=== PATIENT | male | born 1935 | race Hispanic/Latino ===

== ENCOUNTER 2020-01-31 03:26 | Inpatient (IN) | payer MEDICARE ==
--- NOTE | 2020-01-31 03:40 | Emergency Department Report ---
ED Altered Mental Status HPI - General Chief Complaint: Chest Pain Stated Complaint: DIFFICULTY IN BREATHING PUI?: Yes Time Seen by Provider: 01/31/20 03:35 Source: patient, EMS Mode of arrival: Stretcher Limitations: Altered Mental Status, Other - History of Present Illness Initial Comments: Patient is an 84-year-old male that presents emergency room from a local [facility] for altered mental status and difficulty breathing and hypoxia. Patient answer some questions. Patient follows commands. Report received from EMS. Patient has history of dementia and altered mental status and unsure of the patient's baseline. Patient found to be 90% and placed on 3 L and oxygen improved. Patient has been being treated for bilateral pneumonia at the [facility]. MD Complaint: altered mental status -: Sudden Severity: severe - Related Data Home Medications Medication Instructions Recorded Confirmed Last Taken Acetaminophen [Acetaminophen TAB] 325 mg PO Q6HR PRN 10/13/14 10/19/14 Unknown Carbidopa/Levodopa 25-100 [Sinemet 1.5 tab PO DAILY 10/13/14 10/19/14 10/19/14 25/100] Desoximetasone [Topicort] 1 each TRANSDERMA BID 10/13/14 10/19/14 10/19/14 Divalproex Sodium [Divalproex 250 mg PO BID 10/13/14 10/19/14 10/19/14 Sodium ER] Ferrous Sulfate [Feosol 325 MG tab] 25 mg PO DAILY 10/13/14 10/19/14 10/19/14 Folic Acid [Folvite] 1 mg PO QDAY 10/13/14 10/19/14 10/19/14 Furosemide [Lasix] 20 mg PO Q48HR 10/13/14 10/19/14 10/19/14 Lisinopril [Zestril] 2.5 mg PO DAILY 10/13/14 10/19/14 10/19/14 Memantine Xr [Namenda Xr] 14 mg PO DAILY 10/13/14 10/19/14 10/19/14 Multivitamin [Multi-Vitamin Daily] 1 tab PO DAILY 10/13/14 10/19/14 10/19/14 Potassium Chloride 10 meq PO Q48HR 10/13/14 10/19/14 Unknown Quetiapine Fumarate [SEROquel] 150 mg PO QHS 0410/19/14 10/18/14 Sertraline [Zoloft] 50 mg PO DAILY 10/13/14 10/19/14 10/19/14 Tramadol HCl [traMADol] 50 mg PO BID PRN 10/13/14 10/19/14 10/19/14 donepeziL [Aricept] 10 mg PO QHS 10/13/14 10/19/14 10/19/14 raNITIdine HCL [Zantac 300 MG TAB] 150 mg PO BID 10/13/14 10/19/14 10/19/14 Previous Rx's Medication Instructions Recorded Last Taken Type Amoxicillin/K Clav Tab [Augmentin 1 tab PO BID #14 tablet 10/26/14 Unknown Rx 875MG] Allergies Allergy/AdvReac Type Severity Reaction Status Date / Time No Known Allergies Allergy Unverified 10/13/14 11:06 ED Review of Systems ROS: Stated complaint: DIFFICULTY IN BREATHING Other details as noted in HPI Comment: Unobtainable due to pts medical conditions ED Past Medical Hx - Past Medical History Previous Medical History?: Yes Hx Hypertension: Yes Hx Congestive Heart Failure: Yes Hx Diabetes: Yes Hx GERD: Yes Hx Renal Disease: Yes (ckd3) Hx Psychiatric Treatment: Yes (Bipolar 1 disorder; depressive disorder) Hx Dementia: Yes Additional medical history: Acute Repiratory Failure. Anemia. Cardiomegaly. pleural effusion. paralysis agitans - Surgical History Past Surgical History?: Yes Hx Pacemaker: Yes - Family History Family history: no significant - Social History Smoking Status: Former Smoker Substance Use Type: None - Medications Home Medications: Home Medications Medication Instructions Recorded Confirmed Last Taken Type Acetaminophen [Acetaminophen TAB] 325 mg PO Q6HR PRN 10/13/14 10/19/14 Unknown History Carbidopa/Levodopa 25-100 [Sinemet 1.5 tab PO DAILY 10/13/14 10/19/14 10/19/14 History 25/100] Desoximetasone [Topicort] 1 each TRANSDERMA BID 10/13/14 10/19/14 10/19/14 History Divalproex Sodium [Divalproex 250 mg PO BID 10/13/14 10/19/14 10/19/14 History Sodium ER] Ferrous Sulfate [Feosol 325 MG tab] 25 mg PO DAILY 10/13/14 10/19/14 10/19/14 History Folic Acid [Folvite] 1 mg PO QDAY 10/13/14 10/19/14 10/19/14 History Furosemide [Lasix] 20 mg PO Q48HR 10/13/14 10/19/14 10/19/14 History Lisinopril [Zestril] 2.5 mg PO DAILY 10/13/14 10/19/14 10/19/14 History Memantine Xr [Namenda Xr] 14 mg PO DAILY 10/13/14 10/19/14 10/19/14 History Multivitamin [Multi-Vitamin Daily] 1 tab PO DAILY 10/13/14 10/19/14 10/19/14 History Potassium Chloride 10 meq PO Q48HR 10/13/14 10/19/14 Unknown History Quetiapine Fumarate [SEROquel] 150 mg PO QHS 10/13/14 10/19/14 10/18/14 History Sertraline [Zoloft] 50 mg PO DAILY 10/13/14 10/19/14 10/19/14 History Tramadol HCl [traMADol] 50 mg PO BID PRN 10/13/14 10/19/14 10/19/14 History donepeziL [Aricept] 10 mg PO QHS 10/13/14 10/19/14 10/19/14 History raNITIdine HCL [Zantac 300 MG TAB] 150 mg PO BID 10/13/14 10/19/14 10/19/14 H istory Amoxicillin/K Clav Tab [Augmentin 1 tab PO BID #14 tablet 10/26/14 Unknown Rx 875MG] ED Physical Exam - General Limitations: Other General appearance: alert, in distress - Head Head exam: Present: atraumatic, normocephalic - Eye Eye exam: Present: normal appearance, PERRL - ENT ENT exam: Present: mucous membranes moist - Neck Neck exam: Present: normal inspection - Respiratory Respiratory exam: Present: respiratory distress, decreased breath sounds. Absent: wheezes, rales - Cardiovascular Cardiovascular Exam: Present: regular rate, normal rhythm. Absent: systolic murmur, diastolic murmur, rubs, gallop - GI/Abdominal GI/Abdominal exam: Present: soft, normal bowel sounds. Absent: distended, tenderness, guarding - Rectal Rectal exam: Present: deferred - Extremities Exam Extremities exam: Present: normal inspection - Back Exam Back exam: Present: normal inspection - Neurological Exam Neurological exam: Present: altered - Expanded Neurological Exam Expanded Best Eye Response ([place]): (3) open to voice Best Motor Response ([place]): (6) obeys commands Best Verbal Response ([place]): (4) confused conversation [place] Total: 13 - Psychiatric Psychiatric exam: Present: normal affect, normal mood - Skin Skin exam: Present: warm, dry, intact, normal color. Absent: rash - Assessment Assessment Interval: Baseline - Level of Consciousness 1a. Level of Consciousness: arousable/minor stimuli - LOC Questions 1b. LOC Questions: answers 1 question correctly - LOC Command 1c. LOC Commands: performs 1 task correctly - Best Gaze 2. Best Gaze: normal - Visual 3. Visual: no visual loss - Facial Palsy 4. Facial Palsy: normal symmetrical movement - Motor Arm 5a. Motor Arm Left: some gravity effort 5b. Motor Arm Right: some gravity effort - Motor Leg 6a. Motor Leg Left: some gravity effort 6b. Motor Leg Right: some gravity effort - Limb Ataxia 7. Limb Ataxia: absent - Sensory 8. Sensory: normal - Best Language 9. Best Language: no aphasia - Dysarthria 10. Dysarthria: normal - Extinction and Inattention 11. Extinction/Inattention: no abnormality - Scoring Total Score: 11 Stroke Severity: Moderate Stroke ED Course Vital Signs 01/31/20 01/31/20 01/31/20 03:40 03:42 04:20 Temperature 97.2 F L Pulse Rate 67 70 Respiratory 22 20 17 Rate Blood Pressure Blood Pressure 82/53 [Left] O2 Sat by Pulse 100 83 L 100 Oximetry 01/31/20 01/31/20 01/31/20 04:30 04:46 05:00 Temperature Pulse Rate Respiratory Rate Blood Pressure 70/53 76/37 79/37 Blood Pressure [Left] O2 Sat by Pulse 100 100 100 Oximetry 01/31/20 05:15 Temperature Pulse Rate Respiratory Rate Blood Pressure 131/110 Blood Pressure [Left] O2 Sat by Pulse 100 Oximetry - Reevaluation(s) Reevaluation #1: Initial evaluation done. Patient having increased work of breathing and hypoxia. Patient will be placed on BiPAP. 01/31/20 03:52 Reevaluation #2: Patient on BiPAP. Patient's blood pressure has decreased. Patient on coach mechanic. Patient satting 100%. 01/31/20 04:52 Reevaluation #3: Patient found to have an elevated potassium. Patient will receive potassium lowering protocol and nephrology will be consulted. Patient received 200 cc of fluid as blood pressure of 130/110. 01/31/20 05:24 Reevaluation #4: Patient's blood pressure is down. Patient given another liter of fluids. Patient became acutely altered. Patient unable to use BiPAP. Patient will be intubated. See procedure note. Patient placed on Levophed. EJ placed 01/31/20 06:05 Patient intubated without difficulty. See procedure note. 01/31/20 06:35 Family updated with change in status 01/31/20 06:44 - Consultations Consultation #1: I discussed the case with nephrology, and Dr. Tellez is going to arrange e mergent dialysis. Dr. Tellez recommends hyperkalemia protocol and vascular consult. 01/31/20 05:38 Consultation #2: I discussed case with Dr. Thomas for emergent vascular access. Dr. Thomas agrees to place access. 01/31/20 05:42 Consultation #3: Hospitalist consulted for admission. Hospitalist to admit patient. 01/31/20 05:49 I discussed EKGs with the on-call towel cabinet repairer, Dr. Saunders. Dr. Saunders states that the patient is not having a STEMI. 01/31/20 06:01 Hospitalist updated with status change. 01/31/20 06:45 - EJ/Peripheral Line Neck L Time Out Performed: Yes Indications: multiple IV sites needed Skin Cleansed in Sterile Fashion: Yes Size: 20 Dressing Placed: Tegaderm, tape Patient Tolerated Procedure: well, no complications - Intubation Time Out Performed: Yes Sedative: Etomidate Paralytic: Rocuronium Laryngoscope: fiberoptic video scope Size: 3 Assist Device Used: fiberoptic device ET Tube Size: 7.5 Tube Secured Depth (cm): 22 Tube Secured Location: teeth Tube Placement Confirmation: visualized tube passing t, equal breath sounds bilat, no breath sounds over epi, confirmation by capnometr Patient Tolerated Procedure: well, no complications Intubation Complications: none - Lab Data Result diagrams: 01/31/20 03:47 01/31/20 03:47 Lab Results 07/25/20 07/25/20 07/25/20 Range/Units 03:47 03:47 03:47 WBC 16.9 H (4.5-11.0) K/mm3 RBC 4.25 (3.65-5.03) M/mm3 Hgb 14.1 (11.8-15.2) gm/dl Hct 41.9 (35.5-45.6) % MCV 99 H (84-94) fl MCH 33 H (28-32) pg MCHC 34 (32-34) % RDW 14.2 (13.2-15.2) % Plt Count 368 (140-440) K/mm3 Add Manual Diff Complete Total Counted 100 Seg Neutrophils % Machine Guide Base Winder Seg Neuts % (Manual) 95.0 H (40.0-70.0) % Band Neutrophils % 0 % Lymphocytes % (Manual) 3.0 L (13.4-35.0) % Reactive Lymphs % (Man) 0 % Monocytes % (Manual) 2.0 (0.0-7.3) % Eosinophils % (Manual) 0 (0.0-4.3) % Basophils % (Manual) 0 (0.0-1.8) % Metamyelocytes % 0 % Myelocytes % 0 % Promyelocytes % 0 % Blast Cells % 0 % Nucleated RBC % Not Reportable Seg Neutrophils # Man 16.1 H (1.8-7.7) K/mm3 Band Neutrophils # 0.0 K/mm3 Lymphocytes # (Manual) 0.5 L (1.2-5.4) K/mm3 Abs React Lymphs (Man) 0.0 K/mm3 Monocytes # (Manual) 0.3 (0.0-0.8) K/mm3 Eosinophils # (Manual) 0.0 (0.0-0.4) K/mm3 Basophils # (Manual) 0.0 (0.0-0.1) K/mm3 Metamyelocytes # 0.0 K/mm3 Myelocytes # 0.0 K/mm3 Promyelocytes # 0.0 K/mm3 Blast Cells # 0.0 K/mm3 WBC Morphology Not Reportable Hypersegmented Neuts Not Reportable Hyposegmented Neuts Not Reportable Hypogranular Neuts Not Reportable Smudge Cells Not Reportable Toxic Granulation Not Reportable Toxic Vacuolation Not Reportable Dohle Bodies Not Reportable Pelger-Huet Anomaly Not Reportable Harshal Rods Not Reportable Platelet Estimate Consistent w auto Clumped Platelets Not Reportable Plt Clumps, EDTA Not Reportable Large Platelets Not Reportable Giant Platelets Not Reportable Platelet Satelliting Not Reportable Plt Morphology Comment Not Reportable RBC Morphology Not Reportable Dimorphic RBCs Not Reportable Polychromasia Not Reportable Hypochromasia Not Reportable Poikilocytosis Not Reportable Anisocytosis 1+ Microcytosis Not Reportable Macrocytosis Not Reportable Spherocytes Not Reportable Pappenheimer Bodies Not Reportable Sickle Cells Not Reportable Target Cells Not Reportable Tear Drop Cells Not Reportable Ovalocytes Not Reportable Helmet Cells Not Reportable Torres-Felton Bodies Not Reportable [place] Rings Not Reportable [place]leigh Cells Not Reportable Bite Cells Not Reportable Crenated Cell Not Reportable Elliptocytes Not Reportable Acanthocytes (Spur) Not Reportable Rouleaux Not Reportable Hemoglobin C Crystals Not Reportable Schistocytes Not Reportable Malaria parasites Not Reportable Elliot Bodies Not Reportable Hem Pathologist Commnt No Sodium 126 L (137-145) mmol/L Potassium 8.8 H* (3.6-5.0) mmol/L Chloride 86.4 L (98-107) mmol/L Carbon Dioxide 10 L (22-30) mmol/L Anion Gap 38 mmol/L BUN 181 H (9-20) mg/dL Creatinine 12.5 H (0.8-1.5) mg/dL Estimated GFR 4 ml/min BUN/Creatinine Ratio 14 % Glucose 99 (75-100) mg/dL Lactic Acid 2.10 H* (0.7-2.0) mmol/L Calcium 9.0 (8.4-10.2) mg/dL Total Bilirubin 0.30 (0.1-1.2) mg/dL AST 9 (5-40) units/L ALT < 5 L (7-56) units/L Alkaline Phosphatase 71 (35-129) units/L Troponin T 0.065 H (0.00-0.029) ng/mL Total Protein 7.6 (6.3-8.2) g/dL Albumin 3.8 L (3.9-5) g/dL Albumin/Globulin Ratio 1.0 % Triglycerides 76 (2-149) mg/dL Cholesterol 96 (50-199) mg/dL LDL Cholesterol Direct 66 (50-130) mg/dL HDL Cholesterol 39 L (40-59) mg/dL Cholesterol/HDL Ratio 2.46 % - EKG Data -: EKG Interpreted by Me EKG shows normal: ST-T waves Rate: normal Interpretation: other (Wide QRS, ventricular paced rhythm. [place] deviation. No ST elevation) - Radiology Data Radiology results: report reviewed, image reviewed CHEST 1 VIEW 01/31/2020 4:15 AM INDICATION / CLINICAL INFORMATION: sob. COMPARISON: None available. FINDINGS: SUPPORT DEVICES: Unchanged. HEART / MEDIASTINUM: No significant abnormality. LUNGS / PLEURA: There are mild left basilar airspace opacities. The lungs are otherwise clear. No significant pleural effusion. No pneumothorax. ADDITIONAL FINDINGS: No significant additional findings. IMPRESSION: Mild left basilar atelectasis versus pneumonia. Continued radiographic follow-up to resolution is recommended. - Medical Decision Making Patient is an 84-year-old male who presents emergency room with complaints of difficulty breathing, shortness of breath and altered mental status. Patient found to be hypoxic. Patient's blood pressure decreased while in the ER and patient was given fluids and his blood pressure rapidly responded well. Patient given antibiotics early in the ER stay. Patient had labs done which were consistent with acute renal failure and hyperkalemia.. Nephrology emergently consulted. Vascular surgery consulted for Vas-Cath placement. Infectious disease and critical care team consulted. After patient was admitted, the patient became increasingly confused and unable to use BiPAP. Patient was intubated to maintain airway. Patient also needs to be placed on Levophed for low blood pressure. Patient's continue to receive fluids. Emergent dialysis consent was received over the phone with Dr. Tellez, nephrology and the patient's . - Differential Diagnosis S OB, GEORGE, hypoxia, pneumonia, sepsis Critical Care Time: Yes Critical care time in (mins) excluding proc time.: 80 Critical care attestation.: If time is entered above; I have spent that time in minutes in the direct care of this critically ill patient, excluding procedure time. Critical Care Time: 80 minutes ED Disposition Clinical Impression: Difficulty breathing, SOB (shortness of breath), Suspected COVID-19 virus infection, Lactic acid acidosis, Elevated troponin Dementia Qualifiers: Dementia type: unspecified type Dementia behavioral disturbance: without behavioral disturbance Qualified Code(s): F03.90 - Unspecified dementia without behavioral disturbance Altered mental state Qualifiers: Altered mental status type: unspecified Qualified Code(s): R41.82 - Altered men berhane status, unspecified Pneumonia Qualifiers: Pneumonia type: due to unspecified organism Laterality: bilateral Lung location: unspecified part of lung Qualified Code(s): J18.9 - Pneumonia, unspecified organism Renal failure Qualifiers: Renal failure chronicity: acute on chronic Acute renal failure type: unspecified Chronic kidney disease stage: unspecified stage Qualified Code(s): N17.9 - Acute kidney failure, unspecified; N18.9 - Chronic kidney disease, unspecified Hypotension Qualifiers: Hypotension type: unspecified hypotension type Qualified Code(s): I95.9 - Hypotension, unspecified Sepsis Qualifiers: Sepsis type: sepsis due to unspecified organism Sepsis acute organ dysfunction status: with acute organ dysfunction Severe sepsis acute organ dysfunction type: acute renal failure Acute renal failure type: unspecified Severe sepsis shock status: with septic shock Qualified Code(s): A41.9 - Sepsis, unspecified organism; R65.21 - Severe sepsis with septic shock; N17.9 - Acute kidney failure, unspecified Disposition: 09 OP ADMIT IP TO THIS HOSP Is pt being admited?: Yes Does the pt Need Aspirin: No Condition: Critical Time of Disposition: 06:45
[2020-01-31] MEDS ORDERED: dexAMETHasone 4 MG/ML VIAL IV ONE (03:42)
[2020-01-31] MEDS ORDERED: cefTRIAXone/NS 2 GM/100 ML 2 GM/100 ML BAG IV ONE (03:42)
[2020-01-31] MEDS ORDERED: AZITHROMYCIN 500 MG in SODIUM CHLORIDE 0.9% 250ML 250 ML IV ONE (03:42)
[2020-01-31 04:08] LABS: Hematocrit 41.9 % (35.5-45.6); Hemoglobin 14.1 gm/dl (11.8-15.2); Mean Corpuscular HGB Conc 34 % (32-34); Mean Corpuscular Volume 99 fl (84-94); Platelet Count 368 K/mm3 (140-440); Red Blood Count 4.25 M/mm3 (3.65-5.03); Red Cell Distribution Width 14.2 % (13.2-15.2)
[2020-01-31 04:32] LABS: Albumin 3.8 g/dL (3.9-5); Hemolysis Index 8
[2020-01-31] MEDS ORDERED: SODIUM CHLORIDE 0.9% 1000 ML 1,000 ML IV ONE ×2 (04:32→05:29)
--- NOTE | 2020-01-31 04:51 | XRay Report ---
CHEST 1 VIEW 01/31/2020 4:15 AM INDICATION / CLINICAL INFORMATION: sob. COMPARISON: None available. FINDINGS: SUPPORT DEVICES: Unchanged. HEART / MEDIASTINUM: No significant abnormality. LUNGS / PLEURA: There are mild left basilar airspace opacities. The lungs are otherwise clear. No sig nificant pleural effusion. No pneumothorax. ADDITIONAL FINDINGS: No significant additional findings. IMPRESSION: Mild left basilar atelectasis versus pneumonia. Continued radiographic follow-up to resolution is rec ommended. Signer Name: Jan Phillips MD Signed: 01/31/2020 4:46 AM Workstation Name: [id number]
[2020-01-31 04:58] LABS: Alanine Aminotransferase < 5 units/L (7-56); BUN/Creatinine Ratio 14; Blood Urea Nitrogen 181 mg/dL (9-20)
[2020-01-31 05:00] LABS: Chol/HDL Ratio 2.46 %; HDL Cholesterol 39 mg/dL (40-59); LDL Cholesterol,Direct 66 mg/dL (50-130)
[2020-01-31 05:11] LABS: Anisocytosis 1+; Basophils % (Manual) 0 % (0.0-1.8); Eosinophils % (Manual) 0 % (0.0-4.3); Platelet Estimate Consistent w Auto; Total Cells Counted 100
[2020-01-31] MEDS ORDERED: INSULIN REGULAR, HUMAN 100 UNITS/1 ML IV ONE (05:21)
[2020-01-31] MEDS ORDERED: SODIUM POLYSTYRENE 15 GM/60 ML ORAL LIQD PR ONE (05:21)
[2020-01-31] MEDS ORDERED: ALBUTEROL 2.5 MG/3 ML NEBU IH ONE ×2 (05:45→08:56)
[2020-01-31] MEDS ORDERED: SODIUM CHLORIDE 0.9% 100 ML IV PRN (05:48)
--- NOTE | 2020-01-31 05:48 | Event Note ---
Case discussed with the emergency room physician patient being admitted with severe renal failure severe hyperkalemia and metabolic acidosis hypotensive respiratory failure, Chart was reviewed, lab results were discussed with emergency room physician and we planned on starting dialysis, consent was obtained from patient's over a three-way conference call along with emergency room physician who agreed for dialysis catheter placement as well as hemodialysis Process of him analysis was also explained to the patient's including catheter placement and hemodialysis Remotely also discussed about possibility of during dialysis given the patient's critically ill His prognosis is very poor, explained to the that his mortality risk is also very high She is agreeable to hemodialysis and central venous catheter placement Vascular surgery will be consulted for immediate Vas-Cath placement Hemodialysis can be started once patient is more stable hemodynamically due to age, and multiple comorbidities: Prognosis extremely poor this was explained to the
[2020-01-31] MEDS ORDERED: DEXTROSE 50% IN WATER (25GM) 50 ML SYRINGE IV ONE ×2 (05:58→06:00)
[2020-01-31] MEDS ORDERED: CALCIUM CHLORIDE 1,000 MG/10 ML SYRINGE IV ONE (06:00)
--- NOTE | 2020-01-31 06:03 | Consultation ---
History of Present Illness - History of Present Illness Thank you for the consultation Patient was evaluated today around, 9:45 in the morning My assessment and plan are as follows Acute kidney injury in a patient who is 84-year-old currently intubated hypotensive severely acidotic and severely hyperkalemic and need for emergent hemodialysis treatment which can be provided only when patient is more stable, this was explained to the patient's Patient does have a pacemaker and hence hyperkalemia did not affect and cause bradycardia Hypotension patient will need fluid boluses cautiously he is currently intubated, patient may require more fluid boluses depending on his oxygen saturation Verbal consent was obtained from patient's over the phone along with emergency room physician and a three-way conference callwife agreed to proceed with hemodialysis pros and cons of dialysis line placement were also discussed with patient's solitary kidney, 1 kidney was removed remotely in the past as it was not working according to Remotely possibility of during dialysis was also discussed with patient's Knowing the risk and benefit associated with the therapy patient's has given me permission to proceed with dialysis catheter placement as well as hemodialysis, dialysis catheter has been placed I have explained the patient's that his prognosis is very poor, he is critically ill mortality risk remains very high Author: Lucien Tellez M.D. [facility], [address] [place] [address] Tel; [phone] History of present illness 84-year-old male who has been admitted here with severe renal failure and metabolic acidosis hypoxemia, being ruled out for coronavirus infection patient is appears to be doing very poorly, history was obtained from patient's over the phone, patient has solitary functioning kidney, the other kidney was removed in the past remotely as it was not working patient did not had any kidney cancer. Patient does have underlying history of dementia, and was also noted to be hypoxemic, according to his he does not have any known history of chronic kidney disease and has remotely been seen by Dr. Hattie Covarrubias Past medical history: reviewed from the chart Current allergies: Reviewed from the current chart Social history: Reviewed from the current chart Family history: Reviewed from the current chart Review of system: unable to obtain due to intubated status Physical examination Vitals: Reviewed General: No acute distress HEENT: orally intubated Neck: Supple without any JVD thyromegaly or nodular mass Chest: bilateral basilar crackles Heart: Regular rate and rhythm S1-S2 heard no S3-S4 Abdomen: Soft nontender, bowel sounds present no renal bruit no suprapubic masses no CVA tenderness noted Extremity: Minimal edema dry skin no peripheral cyanosis Endocrine: Thyroid not enlarged Psychiatric: No agitation and aggression noted Musculoskeletal: No joint effusion noted neurological no agitation currently intubated Labs and x-rays: Reviewed from this admission Medications and Allergies Allergies Allergy/AdvReac Type Severity Reaction Status Date / Time No Known Allergies Allergy Unverified 10/13/14 11:06 Home Medications Medication Instructions Recorded Confirmed Last Taken Type Acetaminophen [Acetaminophen TAB] 325 mg PO Q6HR PRN 10/13/14 10/19/14 Unknown History Carbidopa/Levodopa 25-100 [Sinemet 1.5 tab PO DAILY 10/13/14 10/19/14 10/19/14 History 25/100] Desoximetasone [Topicort] 1 each TRANSDERMA BID 10/13/14 10/19/14 10/19/14 History Divalproex Sodium [Divalproex 250 mg PO BID 10/13/14 10/19/14 10/19/14 History Sodium ER] Ferrous Sulfate [Feosol 325 MG tab] 25 mg PO DAILY 10/13/14 10/19/14 10/19/14 History Folic Acid [Folvite] 1 mg PO QDAY 10/13/14 10/19/14 10/19/14 History Furosemide [Lasix] 20 mg PO Q48HR 10/13/14 10/19/14 10/19/14 History Lisinopril [Zestril] 2.5 mg PO DAILY 10/13/14 10/19/14 10/19/14 History Memantine Xr [Namenda Xr] 14 mg PO DAILY 10/13/14 10/19/14 10/19/14 History Multivitamin [Multi-Vitamin Daily] 1 tab PO DAILY 10/13/14 10/19/14 10/19/14 History Potassium Chloride 10 meq PO Q48HR 10/13/14 10/19/14 Unknown History Quetiapine Fumarate [SEROquel] 150 mg PO QHS 10/13/14 10/19/14 10/18/14 History Sertraline [Zoloft] 50 mg PO DAILY 10/13/14 10/19/14 10/19/14 History Tramadol HCl [traMADol] 50 mg PO BID PRN 10/13/14 10/19/14 10/19/14 History donepeziL [Aricept] 10 mg PO QHS 10/13/14 10/19/14 10/19/14 History raNITIdine HCL [Zantac 300 MG TAB] 150 mg PO BID 10/13/14 10/19/14 10/19/14 History Amoxicillin/K Clav Tab [Augmentin 1 tab PO BID #14 tablet 10/26/14 Unknown Rx 875MG] Active Meds: Active Medications Sodium Chloride (Nacl 0.9% 1000 Ml) 1,000 mls @ 999 mls/hr IV BOLUS ONE Stop: 01/31/20 06:29 Sodium Chloride (Nacl 0.9%) 100 mls @ 999 mls/hr IV GILBERTO PRN PRN Reason: Hypotension Exam - Vital Signs Vital signs: Vital Signs Pulse Resp Pulse Ox 67 22 100 01/31/20 03:40 01/31/20 03:40 01/31/20 03:40 Results - Lab Results 01/31/20 03:47 01/31/20 09:45 Most recent lab results Calcium 9.0 mg/dL (8.4-10.2) 01/31/20 03:47
[2020-01-31 06:10] LABS: Amphetamine Screen,Urine PRESUMPTIVE NEGATIVE; Benzodiazepines Screen,Urine PRESUMPTIVE NEGATIVE; Cannabinoid Screen,Urine PRESUMPTIVE NEGATIVE; Cocaine Screen,Urine PRESUMPTIVE NEGATIVE; Methadone Screen,Urine PRESUMPTIVE NEGATIVE; Opiate Screen,Urine PRESUMPTIVE NEGATIVE
[2020-01-31 06:12] LABS: Bilirubin,Urine NEG (Negative); Blood,Urine NEG (Negative); Color,Urine Amber (Yellow); Mucus,Urine FEW /HPF; Protein,Urine <15 mg/dL mg/dL (Negative); Urobilinogen,Urine < 2.0 mg/dL (<2.0)
[2020-01-31] MEDS ORDERED: ETOMIDATE 20 MG/10 ML INJ IV ONE (06:14)
[2020-01-31] MEDS ORDERED: ROCURONIUM 50 MG/5 ML INJ IV ONE (06:15)
[2020-01-31] MEDS: NORepinephrine/NS 4 MG-250 ML 4 MG/250 ML BAG IV SCH ×2 (06:20→21:30)
[2020-01-31] MEDS ORDERED: NORepinephrine/NS 4 MG-250 ML 4 MG/250 ML BAG IV ONE ×5 (06:20→21:25)
[2020-01-31] MEDS ORDERED: MINERAL OIL/PETROLATUM, WHITE OPHTH OINT 3.5 GM OU PRN (06:36)
[2020-01-31] MEDS ORDERED: LIP THERAPY VASELINE TP PRN (06:36)
[2020-01-31 06:47] LABS: Hepatitis B Surface Antigen Non-Reactive (Negative); Hepatitis C Virus Antibody Non-Reactive (NonReactive)
[2020-01-31] MEDS ORDERED: fentaNYL 100 MCG/2 ML INJ ONE ×3 (06:49→16:36)
[2020-01-31] MEDS ORDERED: fentaNYL DRIP Premix 2,000 MCG/100 ML BAG IV ONE ×2 (06:49→19:09)
[2020-01-31] MEDS: fentaNYL DRIP Premix 2,000 MCG/100 ML BAG IV SCH ×2 (06:50→22:57)
[2020-01-31 06:57] LABS: C-Reactive Protein 1.6 mg/dL (0.00-1.30)
[2020-01-31 06:58] LABS: Uric Acid 8.5 mg/dL (3.5-7.6)
--- NOTE | 2020-01-31 08:04 | XRay Report ---
CHEST 1 VIEW 01/31/2020 7:16 AM INDICATION / CLINICAL INFORMATION: ETT placement. COMPARISON: One view of the chest from earlier today. FINDINGS: SUPPORT DEVICES: An ET tube has been placed that terminates 4.3 cm above the jaren. An esophagogastr ic tube is partially visualized with the most distal visualized portion projecting over the gastric f undus. Unchanged left pacemaker. HEART / MEDIASTINUM: Stable. LUNGS / PLEURA: Right basilar opacities have increased. Aeration of the left lung base has improved. No significant pleural effusion. No pneumothorax. ADDITIONAL FINDINGS: No significant additional findings. IMPRESSION: 1. Interval ET tube and esophagogastric tube placement as above. 2. Probable bibasilar atelectasis. Signer Name: Jan Phillips MD Signed: 01/31/2020 7:59 AM Workstation Name: [id number]
--- NOTE | 2020-01-31 08:45 | Consultation ---
History of Present Illness - Reason for Consult Consult date: 01/31/20 Vas-Cath Insertion Requesting physician: GERA MICHAELS III - History of Present Illness The patient is an 84-year-old male who presented to the emergency department from long-term with acute respiratory failure. His work-up revealed bilateral pneumonia. He progressively worsened after his presentation requiring intubation. His work-up also revealed acute renal failure with hyperkalemia. I was consulted for emergent placement of a Vas-Cath for dialysis. Past History Past Medical History: diabetes, GERD, heart failure, hypertension, renal fail ure, other (Depression, bipolar, dementia) Past Surgical History: Other (Nephrectomy) Social history: , other (Lives in long-term) Medications and Allergies Allergies Allergy/AdvReac Type Severity Reaction Status Date / Time No Known Allergies Allergy Unverified 10/13/14 11:06 Home Medications Medication Instructions Recorded Confirmed Last Taken Type Acetaminophen [Acetaminophen TAB] 325 mg PO Q6HR PRN 10/13/14 10/19/14 Unknown History Carbidopa/Levodopa 25-100 [Sinemet 1.5 tab PO DAILY 10/13/14 10/19/14 10/19/14 History 25/100] Desoximetasone [Topicort] 1 each TRANSDERMA BID 10/13/14 10/19/14 10/19/14 History Divalproex Sodium [Divalproex 250 mg PO BID 10/13/14 10/19/14 10/19/14 History Sodium ER] Ferrous Sulfate [Feosol 325 MG tab] 25 mg PO DAILY 10/13/14 10/19/14 10/19/14 History Folic Acid [Folvite] 1 mg PO QDAY 10/13/14 10/19/14 10/19/14 History Furosemide [Lasix] 20 mg PO Q48HR 10/13/14 10/19/14 10/19/14 History Lisinopril [Zestril] 2.5 mg PO DAILY 10/13/14 10/19/14 10/19/14 History Memantine Xr [Namenda Xr] 14 mg PO DAILY 10/13/14 10/19/14 10/19/14 History Multivitamin [Multi-Vitamin Daily] 1 tab PO DAILY 10/13/14 10/19/14 10/19/14 History Potassium Chloride 10 meq PO Q48HR 10/13/14 10/19/14 Unknown History Quetiapine Fumarate [SEROquel] 150 mg PO QHS 10/13/14 10/19/14 10/18/14 History Sertraline [Zoloft] 50 mg PO DAILY 10/13/14 10/19/14 10/19/14 History Tramadol HCl [traMADol] 50 mg PO BID PRN 10/13/14 10/19/14 10/19/14 History donepeziL [Aricept] 10 mg PO QHS 10/13/14 10/19/14 10/19/14 History raNITIdine HCL [Zantac 300 MG TAB] 150 mg PO BID 10/13/14 10/19/14 10/19/14 History Amoxicillin/K Clav Tab [Augmentin 1 tab PO BID #14 tablet 10/26/14 Unknown Rx 875MG] Active Meds: Active Medications Fentanyl (Sublimaze) 50 mcg IV Q10MIN PRN PRN Reason: ANALGESIA Hydrophilic Ointment (Vaseline Lip Therapy) 1 applic TP Q2HR PRN PRN Reason: Dry Lips Sodium Chloride (Nacl 0.9%) 100 mls @ 999 mls/hr IV GILBERTO PRN PRN Reason: Hypotension Fentanyl Citrate (Fentanyl Drip Premix) 2,000 mcg in 100 mls @ 3.175 mls/hr IV TITR KIRA; Protocol Last Admin: 01/31/20 06:50 Dose: 1 mcg/kg/hr, 3.175 mls/hr Documented by: Norepinephrine (Levophed Drip 4 Mg/Ns 250 Ml) 4 mg in 250 mls @ 7.5 mls/hr IV TITR KIRA; Protocol Last Titration: 01/31/20 07:23 Dose: 6 mcg/min, 22.5 mls/hr Documented by: Multi-Ingred Cream/Lotion/Oil/Oint (Artificial Tears Ophth Oint) 1 applic OU Q4HR PRN PRN Reason: Dry Eye(s) Review of Systems ROS unobtainable: due to endotracheal tube Exam - Constitutional Vitals: Temp Pulse Resp BP Pulse Ox 97.2 F L 86 17 123/73 100 01/31/20 03:42 01/31/20 06:40 01/31/20 04:20 01/31/20 06:40 01/31/20 06:40 General appearance: Present: no acute distress, other (Intubated) - Respiratory Respiratory effort: other (Ventilator assisted) - Cardiovascular Rhythm: regular - Extremities Extremities: no ischemia - Abdominal General gastrointestinal: Present: soft, non-distended Male genitourinary: Present: normal - Rectal Rectal Exam: deferred Results - Labs CBC & Chem 7: 02/01/20 01:30 02/01/20 01:30 Labs: Abnormal lab results 01/31/20 01/31/20 01/31/20 Range/Units 03:47 03:47 03:47 WBC 16.9 H (4.5-11.0) K/mm3 MCV 99 H (84-94) fl MCH 33 H (28-32) pg Seg Neuts % (Manual) 95.0 H (40.0-70.0) % Lymphocytes % (Manual) 3.0 L (13.4-35.0) % Seg Neutrophils # Man 16.1 H (1.8-7.7) K/mm3 Lymphocytes # (Manual) 0.5 L (1.2-5.4) K/mm3 D-Dimer (0-234) ng/mlDDU Sodium 126 L (137-145) mmol/L Potassium 8.8 H* (3.6-5.0) mmol/L Chloride 86.4 L (98-107) mmol/L Carbon Dioxide 10 L (22-30) mmol/L BUN 181 H (9-20) mg/dL Creatinine 12.5 H (0.8-1.5) mg/dL Glucose (75-100) mg/dL Lactic Acid 2.10 H* (0.7-2.0) mmol/L Uric Acid (3.5-7.6) mg/dL Ferritin (13.0-400.0) ng/mL ALT < 5 L (7-56) units/L Lactate Dehydrogenase (91-180) units/L Troponin T 0.065 H (0.00-0.029) ng/mL C-Reactive Protein (0.00-1.30) mg/dL Albumin 3.8 L (3.9-5) g/dL HDL Cholesterol 39 L (40-59) mg/dL 01/31/20 01/31/20 01/31/20 Range/Units 05:37 05:45 05:45 WBC (4.5-11.0) K/mm3 MCV (84-94) fl MCH (28-32) pg Seg Neuts % (Manual) (40.0-70.0) % Lymphocytes % (Manual) (13.4-35.0) % Seg Neutrophils # Man (1.8-7.7) K/mm3 Lymphocytes # (Manual) (1.2-5.4) K/mm3 D-Dimer 544.72 H (0-234) ng/mlDDU Sodium (137-145) mmol/L Potassium (3.6-5.0) mmol/L Chloride (98-107) mmol/L Carbon Dioxide (22-30) mmol/L BUN (9-20) mg/dL Creatinine (0.8-1.5) mg/dL Glucose 103 H (75-100) mg/dL Lactic Acid 2.20 H* (0.7-2.0) mmol/L Uric Acid (3.5-7.6) mg/dL Ferritin (13.0-400.0) ng/mL ALT (7-56) units/L Lactate Dehydrogenase 387 H (91-180) units/L Troponin T (0.00-0.029) ng/mL C-Reactive Protein 1.60 H (0.00-1.30) mg/dL Albumin (3.9-5) g/dL HDL Cholesterol (40-59) mg/dL 01/31/20 01/31/20 Range/Units 05:45 06:06 WBC (4.5-11.0) K/mm3 MCV (84-94) fl MCH (28-32) pg Seg Neuts % (Manual) (40.0-70.0) % Lymphocytes % (Manual) (13.4-35.0) % Seg Neutrophils # Man (1.8-7.7) K/mm3 Lymphocytes # (Manual) (1.2-5.4) K/mm3 D-Dimer (0-234) ng/mlDDU Sodium (137-145) mmol/L Potassium (3.6-5.0) mmol/L Chloride (98-107) mmol/L Carbon Dioxide (22-30) mmol/L BUN (9-20) mg/dL Creatinine (0.8-1.5) mg/dL Glucose (75-100) mg/dL Lactic Acid (0.7-2.0) mmol/L Uric Acid 8.5 H (3.5-7.6) mg/dL Ferritin 722.6 H (13.0-400.0) ng/mL ALT (7-56) units/L Lactate Dehydrogenase (91-180) units/L Troponin T (0.00-0.029) ng/mL C-Reactive Protein (0.00-1.30) mg/dL Albumin (3.9-5) g/dL HDL Cholesterol (40-59) mg/dL Assessment and Plan The patient is an 84-year-old male with a history of chronic kidney disease and a nephrectomy who presented with acute on chronic renal insufficiency with with hyperkalemia. He is in need of a Vas-Cath for emergent dialysis. His was given the risk, benefits, and alternative procedures and consented to the procedure.
--- NOTE | 2020-01-31 08:45 | Operative Report ---
Operative Report Operative Report: Date of Procedure: 01/31/2020 Pre-operative Diagnosis: Acute Renal Failure Post-operative Diagnosis: Same Procedure(s): 1. Ultrasound-Guided Access Right Femoral Vein 2. Placement of 30 cm Trialysis Vascath Surgeon: Bill Thomas M.D. Clinical Training Specialist: Neda Anesthesia: 1% Lidocaine EBL: Minimal Counts: Correct Complications: None Condition: Critical but Stable Findings: Successful placement of right femoral Vas-Cath. All ports easily aspirated and flushed. Specimen: None Indication: The patient is an 84-year-old male who was brought in from his long term with acute respiratory failure secondary to bilateral pneumonia requiring intubation. He was also found to have acute renal insufficiency with hyperkalemia requiring emergency dialysis. He is in need of a Vas-Cath insertion for emergent dialysis. His is given the risk, benefits, and alternative procedures and consented to procedure. Description of Procedure: The procedure was performed in the Emergency Department at the patient's bedside. Ultrasound was used to identify the right common femoral vein and confirm patency. Once patency was confirmed the overlying skin and soft tissue was anesthetized with lidocaine. An 11 blade was used to make a small stab incision and then an 18-gauge needle was used with ultrasound guidance into the right common femoral vein. A 0.035 J-wire was advanced into the vein and the needle was removed. The tract was then serially dilated and a 30 cm Trialysis Vas-Cath was inserted by Seldinger technique. All ports were then aspirated and flushed and then primed with the appropriate amount heparin. The catheter was secured in place with a 3-0 nylon stitch in interrupted fashion and then dressed with a sterile dressing. The patient tolerated the procedure well. All sponge, needle, and instrument counts were correct. The patient remained in the Emergency Department in critical but stable condition.
--- NOTE | 2020-01-31 10:01 | History and Physical Report ---
<TIMBO MACIEL - Last Filed: 01/31/20 16:41> History of Present Illness Date of examination: 01/31/20 Date of admission: 01/31/20 06:30 Chief complaint: 1. Chest pain 2. Shortness of breath with hypoxia History of present illness: Patient is an 84-year-old male who has history of dementia and altered mental status. [facility] lives [facility]. He presents to emergency room with altered mental status and worsening difficulty breathing with hypoxia. Per ED record, patient was placed on 3 l and oxygen was 90% and was placed on BIPAP and his blood pressure decreased. Patient given bolus of fluid and his blood pressure improved. patient was unable to tolerate BIPAP and he was intubated. ED work up shows Elevated WBC 16.9, Potassium 8.8, C02 10, Cr 12.5, GRF 4, lactic acid 2.10 and 2.20, Ferretin 722.6, LDH 387, D-dimer 544 CRP 1.6. Chest x-ray shows -mild left basilar atelectasis. dredge runner consulted -patient requiring emergency HD due to severe hyperkalemia and elavated CR level vascular surgeon Dr. Thomas consulted for emergent vascular access. patient seen-orally intubated. patient was hypotensive, but Blood pressure stable 133/59 at time of assessment Discussed with patients nurse-about plan of care-patient on epi gtt has max dose, on vasopressin gtt and on fentanyl drip due to aggitation Discussed with patient the need for emergency HD-elevated potassium. Right vast cath done-access right femoral Past History Past Medical History: hypertension (Dementia and AMS) Medications and Allergies Allergies Allergy/AdvReac Type Severity Reaction Status Date / Time No Known Allergies Allergy Unverified 10/13/14 11:06 Home Medications Medication Instructions Recorded Confirmed Last Taken Type Acetaminophen [Acetaminophen TAB] 325 mg PO Q6HR PRN 10/13/14 10/19/14 Unknown History Carbidopa/Levodopa 25-100 [Sinemet 1.5 tab PO DAILY 10/13/14 10/19/14 10/19/14 History 25/100] Desoximetasone [Topicort] 1 each TRANSDERMA BID 10/13/14 10/19/14 10/19/14 History Divalproex Sodium [Divalproex 250 mg PO BID 10/13/14 10/19/14 10/19/14 History Sodium ER] Ferrous Sulfate [Feosol 325 MG tab] 25 mg PO DAILY 10/13/14 10/19/14 10/19/14 History Folic Acid [Folvite] 1 mg PO QDAY 10/13/14 10/19/14 10/19/14 History Furosemide [Lasix] 20 mg PO Q48HR 10/13/14 10/19/14 10/19/14 History Lisinopril [Zestril] 2.5 mg PO DAILY 10/13/14 10/19/14 10/19/14 History Memantine Xr [Namenda Xr] 14 mg PO DAILY 10/13/14 10/19/14 10/19/14 History Multivitamin [Multi-Vitamin Daily] 1 tab PO DAILY 10/13/14 10/19/14 10/19/14 History Potassium Chloride 10 meq PO Q48HR 10/13/14 10/19/14 Unknown History Quetiapine Fumarate [SEROquel] 150 mg PO QHS 10/13/14 10/19/14 10/18/14 History Sertraline [Zoloft] 50 mg PO DAILY 10/13/14 10/19/14 10/19/14 History Tramadol HCl [traMADol] 50 mg PO BID PRN 10/13/14 10/19/14 10/19/14 History donepeziL [Aricept] 10 mg PO QHS 10/13/14 10/19/14 10/19/14 History raNITIdine HCL [Zantac 300 MG TAB] 150 mg PO BID 10/13/14 10/19/14 10/19/14 History Amoxicillin/K Clav Tab [Augmentin 1 tab PO BID #14 tablet 10/26/14 Unknown Rx 875MG] Active Meds: Active Medications Fentanyl (Sublimaze) 50 mcg IV Q10MIN PRN PRN Reason: ANALGESIA Hydrophilic Ointment (Vaseline Lip Therapy) 1 applic TP Q2HR PRN PRN Reason: Dry Lips Sodium Chloride (Nacl 0.9%) 100 mls @ 999 mls/hr IV GILBERTO PRN PRN Reason: Hypotension Fentanyl Citrate (Fentanyl Drip Premix) 2,000 mcg in 100 mls @ 3.175 mls/hr IV TITR KIRA; Protocol Last Admin: 01/31/20 06:50 Dose: 1 mcg/kg/hr, 3.175 mls/hr Documented by: Norepinephrine (Levophed Drip 4 Mg/Ns 250 Ml) 4 mg in 250 mls @ 7.5 mls/hr IV TITR KIRA; Protocol Last Titration: 01/31/20 07:23 Dose: 6 mcg/min, 22.5 mls/hr Documented by: Multi-Ingred Cream/Lotion/Oil/Oint (Artificial Tears Ophth Oint) 1 applic OU Q4HR PRN PRN Reason: Dry Eye(s) Review of Systems Cardiovascular: chest pain Respiratory: shortness of breath, dyspnea on exertion Psychiatric: memory loss (AMS) Exam - Constitutional Vitals: Temp Pulse Resp BP Pulse Ox 97.2 F L 86 17 123/73 100 01/31/20 03:42 01/31/20 06:40 01/31/20 04:20 01/31/20 06:40 01/31/20 06:40 General appearance: Present: severe distress - EENT Eyes: Present: PERRL ENT: hearing intact, clear oral mucosa - Neck Neck: Present: supple, normal ROM - Respiratory Respiratory effort: accessory muscle use (patient is presently intubated) Respiratory: bilateral: CTA - Cardiovascular Heart Sounds: Present: S1 & S2. Absent: rub, click - Extremities Extremities: pulses symmetrical, No edema Peripheral Pulses: within normal limits - Abdominal General gastrointestinal: Present: soft, non-tender, non-distended, normal bowel sounds Male genitourinary: Present: normal - Integumentary Integumentary: Present: clear, warm, dry - Musculoskeletal Musculoskeletal: gait normal, strength equal bilaterally - Psychiatric Psychiatric: appropriate mood/affect, intact judgment & insight - Neurologic Neurologic: CNII-XII intact, moves all extremities HEART Score - HEART Score History: Moderately suspicious Troponin: Troponin T 0.065 ng/mL (0.00-0.029) H 01/31/20 03:47 Results - Labs CBC & Chem 7: 01/31/20 03:47 01/31/20 09:45 Labs: Abnormal lab results 01/31/20 01/31/20 01/31/20 Range/Units 03:47 03:47 03:47 WBC 16.9 H (4.5-11.0) K/mm3 MCV 99 H (84-94) fl MCH 33 H (28-32) pg Seg Neuts % (Manual) 95.0 H (40.0-70.0) % Lymphocytes % (Manual) 3.0 L (13.4-35.0) % Seg Neutrophils # Man 16.1 H (1.8-7.7) K/mm3 Lymphocytes # (Manual) 0.5 L (1.2-5.4) K/mm3 D-Dimer (0-234) ng/mlDDU Sodium 126 L (137-145) mmol/L Potassium 8.8 H* (3.6-5.0) mmol/L Chloride 86.4 L (98-107) mmol/L Carbon Dioxide 10 L (22-30) mmol/L BUN 181 H (9-20) mg/dL Creatinine 12.5 H (0.8-1.5) mg/dL Glucose (75-100) mg/dL Lactic Acid 2.10 H* (0.7-2.0) mmol/L Uric Acid (3.5-7.6) mg/dL Ferritin (13.0-400.0) ng/mL ALT < 5 L (7-56) units/L Lactate Dehydrogenase (91-180) units/L Troponin T 0.065 H (0.00-0.029) ng/mL C-Reactive Protein (0.00-1.30) mg/dL Albumin 3.8 L (3.9-5) g/dL HDL Cholesterol 39 L (40-59) mg/dL 01/30/01/30/25 01// Range/Units 05:37 05:45 05:45 WBC (4.5-11.0) K/mm3 MCV (84-94) fl MCH (28-32) pg Seg Neuts % (Manual) (40.0-70.0) % Lymphocytes % (Manual) (13.4-35.0) % Seg Neutrophils # Man (1.8-7.7) K/mm3 Lymphocytes # (Manual) (1.2-5.4) K/mm3 D-Dimer 544.72 H (0-234) ng/mlDDU Sodium (137-145) mmol/L Potassium (3.6-5.0) mmol/L Chloride (98-107) mmol/L Carbon Dioxide (22-30) mmol/L BUN (9-20) mg/dL Creatinine (0.8-1.5) mg/dL Glucose 103 H (75-100) mg/dL Lactic Acid 2.20 H* (0.7-2.0) mmol/L Uric Acid (3.5-7.6) mg/dL Ferritin (13.0-400.0) ng/mL ALT (7-56) units/L Lactate Dehydrogenase 387 H (91-180) units/L Troponin T (0.00-0.029) ng/mL C-Reactive Protein 1.60 H (0.00-1.30) mg/dL Albumin (3.9-5) g/dL HDL Cholesterol (40-59) mg/dL 01/31/20 01/31/20 Range/Units 05:45 06:06 WBC (4.5-11.0) K/mm3 MCV (84-94) fl MCH (28-32) pg Seg Neuts % (Manual) (40.0-70.0) % Lymphocytes % (Manual) (13.4-35.0) % Seg Neutrophils # Man (1.8-7.7) K/mm3 Lymphocytes # (Manual) (1.2-5.4) K/mm3 D-Dimer (0-234) ng/mlDDU Sodium (137-145) mmol/L Potassium (3.6-5.0) mmol/L Chloride (98-107) mmol/L Carbon Dioxide (22-30) mmol/L BUN (9-20) mg/dL Creatinine (0.8-1.5) mg/dL Glucose (75-100) mg/dL Lactic Acid (0.7-2.0) mmol/L Uric Acid 8.5 H (3.5-7.6) mg/dL Ferritin 722.6 H (13.0-400.0) ng/mL ALT (7-56) units/L Lactate Dehydrogenase (91-180) units/L Troponin T (0.00-0.029) ng/mL C-Reactive Protein (0.00-1.30) mg/dL Albumin (3.9-5) g/dL HDL Cholesterol (40-59) mg/dL Assessment and Plan - Patient Problems (1) Altered mental state Current Visit: Yes Status: Acute Qualifiers: Altered mental status type: unspecified Qualified Code(s): R41.82 - Altered mental status, unspecified Plan to address problem: surpotive care monitor mental statu-unsure of mental base line (2) Acute respiratory failure with hypoxia Current Visit: Yes Status: Acute Plan to address problem: patient presently intubated-on ventilator Continue respiratory care, ABGs, and monitor oxygen sat Floor Renovator Dr gallegos following-f/u with reces (3) Lactic acid acidosis Current Visit: Yes Status: Acute Plan to address problem: Luecocytosis/lactic acidosis ? cause (Infection) Monitor WBC and lactic level Blood culture and urine culture f/u with result (4) Suspected 2019 novel coronavirus infection Current Visit: Yes Status: Acute Plan to address problem: Inflammatory makers elevated Ferritin 722.6, LDH 387, CRP 1.6 and d-dimer 544.7 Trend inflammatory makers Start airborne and contact isolation per covid protocol Consult ID-f/u with reces Check covid 19 result if positive -will start experimental therapy for covid infection per ID recommendation check procalcitonin level (5) Dementia Current Visit: Yes Status: Chronic Qualifiers: Dementia type: unspecified type Dementia behavioral disturbance: without behavioral disturbance Qualified Code(s): F03.90 - Unspecified dementia without behavioral disturbance Plan to address problem: Safety precaution Resume home medicine (6) Hyperkalemia Current Visit: Yes Status: Acute Plan to address problem: Hemodialysis today neurologist following monitor potassium level (7) DVT prophylaxis Current Visit: No Status: Acute Plan to address problem: Heparin (8) Agitation requiring sedation protocol Current Visit: Yes Status: Acute Plan to address problem: Continue fentany drip Titrate for sedation-pt orally intubated (9) Hypotension Current Visit: Yes Status: Acute Qualifiers: Hypotension type: unspecified hypotension type Qualified Code(s): I95.9 - Hypotension, unspecified Plan to address problem: Hypotension ? cause-covid virus infect/bacterial infection s/p IV fluid bolus in ED Continue Norepi gtt-Max at 30mcg/min Vesopressin gt infusing Radio Mechanic consulted <LICHA MAZA R - Last Filed: 02/01/20 11:46> History of Present Illness Date of admission: 01/31/20 06:30 Past History Past Medical History: diabetes, other (CKD, dementia) Past Surgical History: Other (nephrectomy) Social history: , smoking (remote ) Family history: cancer, stroke Medications and Allergies Active Meds: Active Medications Carbidopa/Levodopa (Sinemet) 1.5 each PO DAILY [facility] Divalproex Sodium (Depakote Er) 250 mg PO BID KIRA Fentanyl (Sublimaze) 50 mcg IV Q10MIN PRN PRN Reason: ANALGESIA Folic Acid (Folvite) 1 mg PO QDAY KIRA Heparin Sodium (Porcine) (Heparin) 5,000 unit SUB-Q Q12HR KIRA Hydrophilic Ointment (Vaseline Lip Therapy) 1 applic TP Q2HR PRN PRN Reason: Dry Lips Sodium Chloride (Nacl 0.9%) 100 mls @ 999 mls/hr IV GILBERTO PRN PRN Reason: Hypotension Fentanyl Citrate (Fentanyl Drip Premix) 2,000 mcg in 100 mls @ 3.175 mls/hr IV TITR KIRA; Protocol Last Admin: 01/31/20 06:50 Dose: 1 mcg/kg/hr, 3.175 mls/hr Documented by: Norepinephrine (Levophed Drip 4 Mg/Ns 250 Ml) 4 mg in 250 mls @ 7.5 mls/hr IV TITR KIRA; Protocol Last Titration: 01/31/20 07:23 Dose: 6 mcg/min, 22.5 mls/hr Documented by: Sodium Bicarbonate 150 meq/ (Dextrose) 1,150 mls @ 75 mls/hr IV DIRECT KIRA Midazolam HCl 100 mg/ Sodium (Chloride) 100 mls @ 2 mls/hr IV TITR KIRA; Protocol Vasopressin 20 unit/ Sodium (Chloride) 101 mls @ 9.09 mls/hr IV TITR KIRA; Protocol Midazolam HCl (Versed) 2 mg IV Q10MIN PRN PRN Reason: Sedation Multi-Ingred Cream/Lotion/Oil/Oint (Artificial Tears Ophth Oint) 1 applic OU Q4HR PRN PRN Reason: Dry Eye(s) Exam - Constitutional Vitals: Temp Pulse Resp BP Pulse Ox 97.2 F L 85 15 80/45 100 01/31/20 03:42 01/31/20 10:30 01/31/20 10:30 01/31/20 10:30 01/31/20 10:30 HEART Score - HEART Score Troponin: Troponin T 0.065 ng/mL (0.00-0.029) H 01/31/20 03:47 Results - Labs CBC & Chem 7: 02/01/20 01:30 02/01/20 01:30 Labs: Abnormal lab results 01/31/20 01/31/20 01/31/20 Range/Units 03:47 03:47 03:47 WBC 16.9 H (4.5-11.0) K/mm3 MCV 99 H (84-94) fl MCH 33 H (28-32) pg Seg Neuts % (Manual) 95.0 H (40.0-70.0) % Lymphocytes % (Manual) 3.0 L (13.4-35.0) % Seg Neutrophils # Man 16.1 H (1.8-7.7) K/mm3 Lymphocytes # (Manual) 0.5 L (1.2-5.4) K/mm3 D-Dimer (0-234) ng/mlDDU ABG pH (7.350-7.450) pH Units ABG pO2 (80.0-90.0) mm Hg ABG HCO3 (20.0-26.0) mmol/L ABG O2 Saturation (95.0-99.0) % ABG Base Excess (-2.0-3.0) mmol/L Oxyhemoglobin (95.0-99.0) % Sodium 126 L (137-145) mmol/L Potassium 8.8 H* (3.6-5.0) mmol/L Chloride 86.4 L (98-107) mmol/L Carbon Dioxide 10 L (22-30) mmol/L BUN 181 H (9-20) mg/dL Creatinine 12.5 H (0.8-1.5) mg/dL Glucose (75-100) mg/dL Lactic Acid 2.10 H* (0.7-2.0) mmol/L Uric Acid (3.5-7.6) mg/dL Ferritin (13.0-400.0) ng/mL ALT < 5 L (7-56) units/L Lactate Dehydrogenase (91-180) units/L Troponin T 0.065 H (0.00-0.029) ng/mL C-Reactive Protein (0.00-1.30) mg/dL Albumin 3.8 L (3.9-5) g/dL HDL Cholesterol 39 L (40-59) mg/dL 01/31/20 01/31/20 01/31/20 Range/Units 05:37 05:45 05:45 WBC (4.5-11.0) K/mm3 MCV (84-94) fl MCH (28-32) pg Seg Neuts % (Manual) (40.0-70.0) % Lymphocytes % (Manual) (13.4-35.0) % Seg Neutrophils # Man (1.8-7.7) K/mm3 Lymphocytes # (Manual) (1.2-5.4) K/mm3 D-Dimer 544.72 H (0-234) ng/mlDDU ABG pH (7.350-7.450) pH Units ABG pO2 (80.0-90.0) mm Hg ABG HCO3 (20.0-26.0) mmol/L ABG O2 Saturation (95.0-99.0) % ABG Base Excess (-2.0-3.0) mmol/L Oxyhemoglobin (95.0-99.0) % Sodium (137-145) mmol/L Potassium (3.6-5.0) mmol/L Chloride (98-107) mmol/L Carbon Dioxide (22-30) mmol/L BUN (9-20) mg/dL Creatinine (0.8-1.5) mg/dL Glucose 103 H (75-100) mg/dL Lactic Acid 2.20 H* (0.7-2.0) mmol/L Uric Acid (3.5-7.6) mg/dL Ferritin (13.0-400.0) ng/mL ALT (7-56) units/L Lactate Dehydrogenase 387 H (91-180) units/L Troponin T (0.00-0.029) ng/mL C-Reactive Protein 1.60 H (0.00-1.30) mg/dL Albumin (3.9-5) g/dL HDL Cholesterol (40-59) mg/dL 01/31/20 01/31/20 01/31/20 Range/Units 05:45 06:06 09:45 WBC (4.5-11.0) K/mm3 MCV (84-94) fl MCH (28-32) pg Seg Neuts % (Manual) (40.0-70.0) % Lymphocytes % (Manual) (13.4-35.0) % Seg Neutrophils # Man (1.8-7.7) K/mm3 Lymphocytes # (Manual) (1.2-5.4) K/mm3 D-Dimer (0-234) ng/mlDDU ABG pH (7.350-7.450) pH Units ABG pO2 (80.0-90.0) mm Hg ABG HCO3 (20.0-26.0) mmol/L ABG O2 Saturation (95.0-99.0) % ABG Base Excess (-2.0-3.0) mmol/L Oxyhemoglobin (95.0-99.0) % Sodium (137-145) mmol/L Potassium (3.6-5.0) mmol/L Chloride (98-107) mmol/L Carbon Dioxide (22-30) mmol/L BUN (9-20) mg/dL Creatinine (0.8-1.5) mg/dL Glucose (75-100) mg/dL Lactic Acid 3.20 H* (0.7-2.0) mmol/L Uric Acid 8.5 H (3.5-7.6) mg/dL Ferritin 722.6 H (13.0-400.0) ng/mL ALT (7-56) units/L Lactate Dehydrogenase (91-180) units/L Troponin T (0.00-0.029) ng/mL C-Reactive Protein (0.00-1.30) mg/dL Albumin (3.9-5) g/dL HDL Cholesterol (40-59) mg/dL 01/31/20 01/31/20 Range/Units 09:45 10:30 WBC (4.5-11.0) K/mm3 MCV (84-94) fl MCH (28-32) pg Seg Neuts % (Manual) (40.0-70.0) % Lymphocytes % (Manual) (13.4-35.0) % Seg Neutrophils # Man (1.8-7.7) K/mm3 Lymphocytes # (Manual) (1.2-5.4) K/mm3 D-Dimer (0-234) ng/mlDDU ABG pH 7.059 L* (7.350-7.450) pH Units ABG pO2 70.2 L (80.0-90.0) mm Hg ABG HCO3 9.9 L (20.0-26.0) mmol/L ABG O2 Saturation 85.4 L (95.0-99.0) % ABG Base Excess -19.6 L (-2.0-3.0) mmol/L Oxyhemoglobin 84.0 L (95.0-99.0) % Sodium 118 L* D (137-145) mmol/L Potassium 8.1 H* (3.6-5.0) mmol/L Chloride 91.1 L (98-107) mmol/L Carbon Dioxide 3 L* D (22-30) mmol/L BUN (9-20) mg/dL Creatinine 11.6 H (0.8-1.5) mg/dL Glucose 197 H (75-100) mg/dL Lactic Acid (0.7-2.0) mmol/L Uric Acid (3.5-7.6) mg/dL Ferritin (13.0-400.0) ng/mL ALT (7-56) units/L Lactate Dehydrogenase (91-180) units/L Troponin T (0.00-0.029) ng/mL C-Reactive Protein (0.00-1.30) mg/dL Albumin (3.9-5) g/dL HDL Cholesterol (40-59) mg/dL Assessment and Plan Patient seen and examined on the day of admission 01/31/20 Reviewed the chart, history, physical finding assessment and plan with ADMINISTRATIVE LAW JUDGE and I agree with her note 84-year-old elderly male with history of advanced dementia prison resident history of single kidney presented to the hospital with altered mental status and respiratory failure. Patient intubated in the ER, placed on vasopressors, nephrology was consulted for emergent dialysis. Assessment and plan Acute metabolic encephalopathy Acute hypoxic respiratory failure Metabolic acidosis Acute renal failure on CKD, likely progressed to end-stage renal disease versus ATN Suspected COVID-19 infection Septic shock Severe hyperkalemia Advanced dementia Severe sepsis likely due to pneumonia History of single kidney -Admit to ICU, continue vasopressor and wean off as tolerated -Critical care consulted for ventilator management, continue nebulizer breathing treatment and wean off from vent as tolerated -Follow nephrology recommendation, plan for emergent dialysis -Vascular surgeon has been consulted for Vas-Cath placement -Ordered for COVID-19 stat, start on bicarbonate drip for severe metabolic acidosis and hyperkalemia -Continue frequent neuro exam and supportive care -Also continue on empiric antibiotic for possible underlying pneumonia and severe sepsis -DVT prophylaxis with heparin, continue to monitor CBC and BMP
[2020-01-31] MEDS ORDERED: SODIUM CHLORIDE 0.9% 250ML 250 ML ONE (10:26)
[2020-01-31] MEDS ORDERED: SODIUM BICARB 4.2% 5 MEQ/10 ML SYRINGE ONE (10:26)
[2020-01-31] MEDS ORDERED: SODIUM BICARB 8.4% 50 MEQ/50 ML SYRINGE IV ONE (10:29)
[2020-01-31 10:42] LABS: Calcium 9.5 mg/dL (8.4-10.2)
[2020-01-31 10:50] LABS: ABG Base Excess -19.6 mmol/L (-2.0-3.0); ABG HCO3 9.9 mmol/L (20.0-26.0); ABG Methemoglobin 0.5 % (0.0-1.5); ABG Oxygen Saturation 85.4 % (95.0-99.0); ABG PCO2 35.8 mm Hg; ABG PO2 70.2 mm Hg (80.0-90.0)
[2020-01-31 10:53] LABS: ABG PH 7.059 pH Units (7.350-7.450)
[2020-01-31] MEDS ORDERED: MIDAZOLAM 2 MG/2 ML INJ IV PRN (11:16)
[2020-01-31] MEDS ORDERED: MIDAZOLAM 5 MG/5 ML INJ MDV IV ONE (11:38)
[2020-01-31] MEDS: fentaNYL 100 MCG/2 ML INJ IV PRN ×2 (11:40→16:40)
[2020-01-31] MEDS: VASOPRESSIN 20 UNIT in SODIUM CHLORIDE 0.9% 100 ML IV SCH ×2 (11:47→22:55)
[2020-01-31] MEDS: SODIUM BICARBONATE 150 MEQ in DEXTROSE 5% IN WATER 1,000 ML IV SCH (11:47)
[2020-01-31] MEDS ORDERED: MIDAZOLAM 100 MG in SODIUM CHLORIDE 0.9% 80 ML IV SCH (12:00)
[2020-01-31] MEDS ORDERED: SODIUM CHLORIDE 0.9% 500 ML 500 ML ONE (12:13)
[2020-01-31] MEDS ORDERED: SODIUM CHLORIDE 0.9% 500 ML 500 ML IV ONE (12:19)
--- NOTE | 2020-01-31 16:29 | Consultation ---
History of Present Illness Consult date: 01/24/20 Requesting physician: LICHA MAZA Reason for consult: other (Critcal care management) History of present illness: Patient is an 84-year-old male who has history of dementia and altered mental status. Patient lives in [facility]. He presents to emergency room with altered mental status and worsening difficulty breathing with hypoxia. Per ED record, patient was placed on 3 l and oxygen was 90% and was placed on BIPAP and his blood pressure decreased. Patient given bolus of fluid and his blood pressure improved. patient was unable to tolerate BIPAP and he was intubated. ED work up Elevated WBC 16.9, Potassium 8.8, C02 10, Cr 12.5, GRF 4, lactic acid 2.10 and 2.20, Ferretin 722.6, LDH 387, D-dimer 544 Nephrology consulted Vascular surgeon Dr. Thomas consulted for emergent vascular access. Severe hyponatremia and hyperkalemia. Procalcitonin 0.51, blood cultures and sputum cultures are currently pending. I have been consulted for critical care management. Patient was seen and examined, vitals, labs, medications, chart and imaging reviewed. History per medical records and on review of the chart. At the time of my evaluation patient was orally intubated, on vasopressor support and receiving [employer] via a femoral HD catheter. HD personnel reports what he think are seizure like activity Past History Past Medical History: hypertension (Dementia and AMS) Medications and Allergies Allergies Allergy/AdvReac Type Severity Reaction Status Date / Time No Known Allergies Allergy Unverified 10/13/14 11:06 Home Medications Medication Instructions Recorded Confirmed Last Taken Type Acetaminophen [Acetaminophen TAB] 325 mg PO Q6HR PRN 10/13/14 10/19/14 Unknown History Carbidopa/Levodopa 25-100 [Sinemet 1.5 tab PO DAILY 10/13/14 10/19/14 10/19/14 History 25/100] Desoximetasone [Topicort] 1 each TRANSDERMA BID 10/13/14 10/19/14 10/19/14 History Divalproex Sodium [Divalproex 250 mg PO BID 10/13/14 10/19/14 10/19/14 History Sodium ER] Ferrous Sulfate [Feosol 325 MG tab] 25 mg PO DAILY 10/13/14 10/19/14 10/19/14 History Folic Acid [Folvite] 1 mg PO QDAY 10/13/14 10/19/14 10/19/14 History Furosemide [Lasix] 20 mg PO Q48HR 10/13/14 10/19/14 10/19/14 History Lisinopril [Zestril] 2.5 mg PO DAILY 10/13/14 10/19/14 10/19/14 History Memantine Xr [Namenda Xr] 14 mg PO DAILY 10/13/14 10/19/14 10/19/14 History Multivitamin [Multi-Vitamin Daily] 1 tab PO DAILY 10/13/14 10/19/14 10/19/14 History Potassium Chloride 10 meq PO Q48HR 10/13/14 10/19/14 Unknown History Quetiapine Fumarate [SEROquel] 150 mg PO QHS 10/13/14 10/19/14 10/18/14 History Sertraline [Zoloft] 50 mg PO DAILY 10/13/14 10/19/14 10/19/14 History Tramadol HCl [traMADol] 50 mg PO BID PRN 10/13/14 10/19/14 10/19/14 History donepeziL [Aricept] 10 mg PO QHS 10/13/14 10/19/14 10/19/14 History raNITIdine HCL [Zantac 300 MG TAB] 150 mg PO BID 10/13/14 10/19/14 10/19/14 History Amoxicillin/K Clav Tab [Augmentin 1 tab PO BID #14 tablet 10/26/14 Unknown Rx 875MG] Active Meds: Active Medications Carbidopa/Levodopa (Sinemet) 1.5 each PO DAILY [facility] Divalproex Sodium (Depakote Er) 250 mg PO BID KIRA Fentanyl (Sublimaze) 50 mcg IV Q10MIN PRN PRN Reason: ANALGESIA Folic Acid (Folvite) 1 mg PO QDAY KIRA Heparin Sodium (Porcine) (Heparin) 5,000 unit SUB-Q Q12HR KIRA Hydrophilic Ointment (Vaseline Lip Therapy) 1 applic TP Q2HR PRN PRN Reason: Dry Lips Sodium Chloride (Nacl 0.9%) 100 mls @ 999 mls/hr IV GILBERTO PRN PRN Reason: Hypotension Fentanyl Citrate (Fentanyl Drip Premix) 2,000 mcg in 100 mls @ 3.175 mls/hr IV TITR KIRA; Protocol Last Titration: 01/31/20 11:59 Dose: 2 mcg/kg/hr, 6.35 mls/hr Documented by: Norepinephrine (Levophed Drip 4 Mg/Ns 250 Ml) 4 mg in 250 mls @ 7.5 mls/hr IV TITR KIRA; Protocol Last Titration: 01/31/20 11:56 Dose: Infused Documented by: Sodium Bicarbonate 150 meq/ (Dextrose) 1,150 mls @ 75 mls/hr IV DIRECT KIRA Last Admin: 01/31/20 11:47 Dose: 75 mls/hr Documented by: Midazolam HCl 100 mg/ Sodium (Chloride) 100 mls @ 2 mls/hr IV TITR KIRA; Protocol Vasopressin 20 unit/ Sodium (Chloride) 101 mls @ 9.09 mls/hr IV TITR KIRA; Protocol Last Admin: 01/31/20 11:47 Dose: 0.03 units/min, 9.09 mls/hr Documented by: Midazolam HCl (Versed) 2 mg IV Q10MIN PRN PRN Reason: Sedation Last Admin: 01/31/20 11:46 Dose: 2 mg Documented by: Multi-Ingred Cream/Lotion/Oil/Oint (Artificial Tears Ophth Oint) 1 applic OU Q4HR PRN PRN Reason: Dry Eye(s) Review of Systems ROS unobtainable: due to endotracheal tube, due to mental status Physical Examination Vital signs: Vital Signs Pulse Resp Pulse Ox 67 22 100 01/31/20 03:40 01/31/20 03:40 01/31/20 03:40 Vitals reviewed General appearance: Present: sedated, s/p ETT on MVS - EENT Eyes: Present: PERRL - Neck Neck: Present: supple, normal ROM - Respiratory Respiratory effort: Decreased AE bilaterally, CTA Respiratory: bilateral: CTA - Cardiovascular Heart Sounds: Present: S1 & S2. Absent: rub, click - Extremities Extremities: pulses symmetrical, No edema Peripheral Pulses: within normal limits Right femoral HD catheter - Abdominal General gastrointestinal: Present: soft, non-tender, non-distended, normal bowel sounds Male genitourinary: Present: normal - Integumentary Integumentary: Present: clear, warm, dry - Psychiatric Psychiatric: Unable to assess - Neurologic Neurologic: Sedated, occasionally jerking Results - Laboratory Findings CBC and BMP: 02/01/20 01:30 02/01/20 01:30 ABG ABG pH 7.059 pH Units (7.350-7.450) L* 01/31/20 10:30 ABG pCO2 35.8 mm Hg 01/31/20 10:30 ABG pO2 70.2 mm Hg (80.0-90.0) L 01/31/20 10:30 ABG O2 Saturation 85.4 % (95.0-99.0) L 01/31/20 10:30 PT/INR, D-dimer D-Dimer 544.72 ng/mlDDU (0-234) H 01/31/20 05:45 Abnormal lab findings: Abnormal Labs 01/31/20 01/31/20 01/31/20 03:47 03:47 03:47 WBC 16.9 H MCV 99 H MCH 33 H Seg Neuts % (Manual) 95.0 H Lymphocytes % (Manual) 3.0 L Seg Neutrophils # Man 16.1 H Lymphocytes # (Manual) 0.5 L D-Dimer ABG pH ABG pO2 ABG HCO3 ABG O2 Saturation ABG Base Excess Oxyhemoglobin Sodium 126 L Potassium 8.8 H* Chloride 86.4 L Carbon Dioxide 10 L BUN 181 H Creatinine 12.5 H Glucose Lactic Acid 2.10 H* Uric Acid Ferritin ALT < 5 L Lactate Dehydrogenase Troponin T 0.065 H C-Reactive Protein Albumin 3.8 L HDL Cholesterol 39 L 01/31/20 01/31/20 01/31/20 05:37 05:45 05:45 WBC MCV MCH Seg Neuts % (Manual) Lymphocytes % (Manual) Seg Neutrophils # Man Lymphocytes # (Manual) D-Dimer 544.72 H ABG pH ABG pO2 ABG HCO3 ABG O2 Saturation ABG Base Excess Oxyhemoglobin Sodium Potassium Chloride Carbon Dioxide BUN Creatinine Glucose 103 H Lactic Acid 2.20 H* Uric Acid Ferritin ALT Lactate Dehydrogenase 387 H Troponin T C-Reactive Protein 1.60 H Albumin HDL Cholesterol 01/31/20 01/31/20 01/31/20 05:45 06:06 09:45 WBC MCV MCH Seg Neuts % (Manual) Lymphocytes % (Manual) Seg Neutrophils # Man Lymphocytes # (Manual) D-Dimer ABG pH ABG pO2 ABG HCO3 ABG O2 Saturation ABG Base Excess Oxyhemoglobin Sodium Potassium Chloride Carbon Dioxide BUN Creatinine Glucose Lactic Acid 3.20 H* Uric Acid 8.5 H Ferritin 722.6 H ALT Lactate Dehydrogenase Troponin T C-Reactive Protein Albumin HDL Cholesterol 01/31/20 01/31/20 09:45 10:30 WBC MCV MCH Seg Neuts % (Manual) Lymphocytes % (Manual) Seg Neutrophils # Man Lymphocytes # (Manual) D-Dimer ABG pH 7.059 L* ABG pO2 70.2 L ABG HCO3 9.9 L ABG O2 Saturation 85.4 L ABG Base Excess -19.6 L Oxyhemoglobin 84.0 L Sodium 118 L* D Potassium 8.1 H* Chloride 91.1 L Carbon Dioxide 3 L* D BUN 179 H Creatinine 11.6 H Glucose 197 H Lactic Acid Uric Acid Ferritin ALT Lactate Dehydrogenase Troponin T C-Reactive Protein Albumin HDL Cholesterol - Diagnostic Findings Chest x-ray: image reviewed (Right loer lobe infiltrate, RIJ CVC, Left cardiac device) Assessment and Plan Acute hypoxemic respiratory failure on MVS Acute toxic-metabolic encephalopathy Lactic acidosis- resolved Hyperkalemia with SJ Severe metabolic acidosis COVID-PUI -On bicarbonate infusion, get ABG after HD and will address the metabolic acidosis -Currently on a bicarbonate infusion. If acid-base is acceptable, may be able to discontinue the bicarbonate infusions -Adjust minute ventilation for better gas exchange as indicated - VAP bundle addressed - Lung protective strategies - Bronchodilators with pulmonary hygiene per RT -Wean vasopressor support, for MAP. ^%. Currently on norepinephrine and vasopressin -Continue with COVID isolation per protocol -Follow COVID results -Follow cultures, in the interim continue with antibiotic therapy per ID -ABG, CXR IN AM -Place NGT, confirm placement and start nutritional support -RD consult for nutritional support - Wean supplemental oxygen for target O2 sats > 90% - Daily SAT and SBT assessment as tolerated - Wean per pulmonary driven protocols - Accuchecks with glycemic control per SSI (While critically ill target blood glucose of 140-180 mg/dL; avoid hypoglycemia) - Avoid benzodiazepines, reduce the possibility of delirium - prn analgesia per CPOT score - Maintenance of sleep-wake cycle, avoid delirium -Avoid nephrotoxins, closely monitor renal function -[employer] per Renal service -Aspiration precautions, HOB >40 - Stress ulcer & VTE prophylaxis ( Heparin, Famotidine) - Mobility protocol, off loading and skin assessment for pressure ulcer prevention - Monitor hemodynamics closely -Romo catheter in this critically ill patient with acute renal failure on MVS -Supportive transfusions as indicated to keep HgB >7g/dL - continue other care per attending / other consultants Discussed with the ED team-RT,RN, Life threatening condition- Acute hypoxemic respiratory failure on MVS, Acute toxic -metabolic encephalopathy Mortality/Morbidity- High Complexity of medical decision making- High CONDITION: CRITICAL PROGNOSIS: GUARDED CODE STATUS: FULL CODE The high probability of a clinically significant, sudden or life-threatening deterioration of the [respiratory, renal & cardiovascular,neurology] system(s) required my full and direct attention, intervention and personal management. The aggregate critical care time was [36] minutes without overlap. Time includes spent on; [x] Data Review and interpretation [x] Patient assessment and monitoring of vital signs [x] Documentation [x] Medication orders and management
--- NOTE | 2020-01-31 17:25 | Consultation ---
History of Present Illness - Reason for Consult Consult date: 01/31/20 - History of Present Illness 84-year-old man past medical history dementia, hypertension admitted to the hospital with altered mental status and hypoxia. He usually at the [facility], and he was sent to the hospital due to these concerns. He was initially found to be hypoxic in the emergency room and placed on nasal cannula, however he was subsequently intubated. He was also found to have severe electrolyte abnormalities, and HD was started emergently. Afebrile with a white count of 17. Not currently antibiotics. Severe hyponatremia and hyperkalemia. Procalcitonin 0.51, blood cultures and sputum cultures are currently pending. Imaging personally reviewed: Chest x-ray: Right basilar opacity Past History Past Medical History: hypertension (Dementia and AMS) Past Surgical History: No surgical history Social history: no significant social history Family history: no significant family history Medications and Allergies Allergies Allergy/AdvReac Type Severity Reaction Status Date / Time No Known Allergies Allergy Unverified 10/13/14 11:06 Home Medications Medication Instructions Recorded Confirmed Last Taken Type Acetaminophen [Acetaminophen TAB] 325 mg PO Q6HR PRN 10/13/14 10/19/14 Unknown History Carbidopa/Levodopa 25-100 [Sinemet 1.5 tab PO DAILY 10/13/14 10/19/14 10/19/14 History 25/100] Desoximetasone [Topicort] 1 each TRANSDERMA BID 10/13/14 10/19/14 10/19/14 History Divalproex Sodium [Divalproex 250 mg PO BID 10/13/14 10/19/14 10/19/14 History Sodium ER] Ferrous Sulfate [Feosol 325 MG tab] 25 mg PO DAILY 10/13/14 10/19/14 10/19/14 History Folic Acid [Folvite] 1 mg PO QDAY 10/13/14 10/19/14 10/19/14 History Furosemide [Lasix] 20 mg PO Q48HR 10/13/14 10/19/14 10/19/14 History Lisinopril [Zestril] 2.5 mg PO DAILY 10/13/14 10/19/14 10/19/14 History Memantine Xr [Namenda Xr] 14 mg PO DAILY 10/13/14 10/19/14 10/19/14 History Multivitamin [Multi-Vitamin Daily] 1 tab PO DAILY 10/13/14 10/19/14 10/19/14 History Potassium Chloride 10 meq PO Q48HR 10/13/14 10/19/14 Unknown History Quetiapine Fumarate [SEROquel] 150 mg PO QHS 10/13/14 10/19/14 10/18/14 History Sertraline [Zoloft] 50 mg PO DAILY 10/13/14 10/19/14 10/19/14 History Tramadol HCl [traMADol] 50 mg PO BID PRN 10/13/14 10/19/14 10/19/14 History donepeziL [Aricept] 10 mg PO QHS 10/13/14 10/19/14 10/19/14 History raNITIdine HCL [Zantac 300 MG TAB] 150 mg PO BID 10/13/14 10/19/14 10/19/14 History Amoxicillin/K Clav Tab [Augmentin 1 tab PO BID #14 tablet 10/26/14 Unknown Rx 875MG] Active Meds: Active Medications Carbidopa/Levodopa (Sinemet) 1.5 each PO DAILY KIRA Divalproex Sodium (Depakote Er) 250 mg PO BID KIRA Fentanyl (Sublimaze) 50 mcg IV Q10MIN PRN PRN Reason: ANALGESIA Folic Acid (Folvite) 1 mg PO QDAY KIRA Heparin Sodium (Porcine) (Heparin) 5,000 unit SUB-Q Q12HR KIRA Hydrophilic Ointment (Vaseline Lip Therapy) 1 applic TP Q2HR PRN PRN Reason: Dry Lips Sodium Chloride (Nacl 0.9%) 100 mls @ 999 mls/hr IV GILBERTO PRN PRN Reason: Hypotension Fentanyl Citrate (Fentanyl Drip Premix) 2,000 mcg in 100 mls @ 3.175 mls/hr IV TITR KIRA; Protocol Last Titration: 01/31/20 11:59 Dose: 2 mcg/kg/hr, 6.35 mls/hr Documented by: Norepinephrine (Levophed Drip 4 Mg/Ns 250 Ml) 4 mg in 250 mls @ 7.5 mls/hr IV TITR KIRA; Protocol Last Titration: 01/31/20 11:56 Dose: Infused Documented by: Sodium Bicarbonate 150 meq/ (Dextrose) 1,150 mls @ 75 mls/hr IV DIRECT KIRA Last Admin: 01/31/20 11:47 Dose: 75 mls/hr Documented by: Midazolam HCl 100 mg/ Sodium (Chloride) 100 mls @ 2 mls/hr IV TITR KIRA; Protocol Vasopressin 20 unit/ Sodium (Chloride) 101 mls @ 9.09 mls/hr IV TITR KIRA; Protocol Last Admin: 01/31/20 11:47 Dose: 0.03 units/min, 9.09 mls/hr Documented by: Folic Acid 1 mg/ Sodium (Chloride) 50.2 mls @ 200.8 mls/hr IV QDAY KIRA Midazolam HCl (Versed) 2 mg IV Q10MIN PRN PRN Reason: Sedation Last Admin: 01/31/20 11:46 Dose: 2 mg Documented by: Multi-Ingred Cream/Lotion/Oil/Oint (Artificial Tears Ophth Oint) 1 applic OU Q4HR PRN PRN Reason: Dry Eye(s) Review of Systems ROS unobtainable: due to endotracheal tube Physical Examination - Physical Exam Narrative exam: Physical exam deferred due to PPE conservation strategy. Please refer to primary team's note. - Constitutional Vitals: Vital Signs Temp Pulse Resp BP Pulse Ox 98.8 F 89 20 115/83 100 01/31/20 16:00 01/31/20 17:00 01/31/20 15:15 01/31/20 17:00 01/31/20 16:40 Temperature -Last 24 Hours Temperature 98.8 F Temperature 97.2 F Temperature 97.2 F Results - Labs CBC & Chem 7: 01/31/20 03:47 01/31/20 09:45 Labs: Abnormal lab results 01/31/20 01/31/20 01/31/20 Range/Units 03:47 03:47 03:47 WBC 16.9 H (4.5-11.0) K/mm3 MCV 99 H (84-94) fl MCH 33 H (28-32) pg Seg Neuts % (Manual) 95.0 H (40.0-70.0) % Lymphocytes % (Manual) 3.0 L (13.4-35.0) % Seg Neutrophils # Man 16.1 H (1.8-7.7) K/mm3 Lymphocytes # (Manual) 0.5 L (1.2-5.4) K/mm3 D-Dimer (0-234) ng/mlDDU ABG pH (7.350-7.450) pH Units ABG pO2 (80.0-90.0) mm Hg ABG HCO3 (20.0-26.0) mmol/L ABG O2 Saturation (95.0-99.0) % ABG Base Excess (-2.0-3.0) mmol/L Oxyhemoglobin (95.0-99.0) % Sodium 126 L (137-145) mmol/L Potassium 8.8 H* (3.6-5.0) mmol/L Chloride 86.4 L (98-107) mmol/L Carbon Dioxide 10 L (22-30) mmol/L BUN 181 H (9-20) mg/dL Creatinine 12.5 H (0.8-1.5) mg/dL Glucose (75-100) mg/dL Lactic Acid 2.10 H* (0.7-2.0) mmol/L Uric Acid (3.5-7.6) mg/dL Ferritin (13.0-400.0) ng/mL ALT < 5 L (7-56) units/L Lactate Dehydrogenase (91-180) units/L Troponin T 0.065 H (0.00-0.029) ng/mL C-Reactive Protein (0.00-1.30) mg/dL Albumin 3.8 L (3.9-5) g/dL HDL Cholesterol 39 L (40-59) mg/dL 01/31/20 01/31/20 01/31/20 Range/Units 05:37 05:45 05:45 WBC (4.5-11.0) K/mm3 MCV (84-94) fl MCH (28-32) pg Seg Neuts % (Manual) (40.0-70.0) % Lymphocytes % (Manual) (13.4-35.0) % Seg Neutrophils # Man (1.8-7.7) K/mm3 Lymphocytes # (Manual) (1.2-5.4) K/mm3 D-Dimer 544.72 H (0-234) ng/mlDDU ABG pH (7.350-7.450) pH Units ABG pO2 (80.0-90.0) mm Hg ABG HCO3 (20.0-26.0) mmol/L ABG O2 Saturation (95.0-99.0) % ABG Base Excess (-2.0-3.0) mmol/L Oxyhemoglobin (95.0-99.0) % Sodium (137-145) mmol/L Potassium (3.6-5.0) mmol/L Chloride (98-107) mmol/L Carbon Dioxide (22-30) mmol/L BUN (9-20) mg/dL Creatinine (0.8-1.5) mg/dL Glucose 103 H (75-100) mg/dL Lactic Acid 2.20 H* (0.7-2.0) mmol/L Uric Acid (3.5-7.6) mg/dL Ferritin (13.0-400.0) ng/mL ALT (7-56) units/L Lactate Dehydrogenase 387 H (91-180) units/L Troponin T (0.00-0.029) ng/mL C-Reactive Protein 1.60 H (0.00-1.30) mg/dL Albumin (3.9-5) g/dL HDL Cholesterol (40-59) mg/dL 01/31/20 01/31/20 01/31/20 Range/Units 05:45 06:06 09:45 WBC (4.5-11.0) K/mm3 MCV (84-94) fl MCH (28-32) pg Seg Neuts % (Manual) (40.0-70.0) % Lymphocytes % (Manual) (13.4-35.0) % Seg Neutrophils # Man (1.8-7.7) K/mm3 Lymphocytes # (Manual) (1.2-5.4) K/mm3 D-Dimer (0-234) ng/mlDDU ABG pH (7.350-7.450) pH Units ABG pO2 (80.0-90.0) mm Hg ABG HCO3 (20.0-26.0) mmol/L ABG O2 Saturation (95.0-99.0) % ABG Base Excess (-2.0-3.0) mmol/L Oxyhemoglobin (95.0-99.0) % Sodium (137-145) mmol/L Potassium (3.6-5.0) mmol/L Chloride (98-107) mmol/L Carbon Dioxide (22-30) mmol/L BUN (9-20) mg/dL Creatinine (0.8-1.5) mg/dL Glucose (75-100) mg/dL Lactic Acid 3.20 H* (0.7-2.0) mmol/L Uric Acid 8.5 H (3.5-7.6) mg/dL Ferritin 722.6 H (13.0-400.0) ng/mL ALT (7-56) units/L Lactate Dehydrogenase (91-180) units/L Troponin T (0.00-0.029) ng/mL C-Reactive Protein (0.00-1.30) mg/dL Albumin (3.9-5) g/dL HDL Cholesterol (40-59) mg/dL 01/31/20 01/31/20 Range/Units 09:45 10:30 WBC (4.5-11.0) K/mm3 MCV (84-94) fl MCH (28-32) pg Seg Neuts % (Manual) (40.0-70.0) % Lymphocytes % (Manual) (13.4-35.0) % Seg Neutrophils # Man (1.8-7.7) K/mm3 Lymphocytes # (Manual) (1.2-5.4) K/mm3 D-Dimer (0-234) ng/mlDDU ABG pH 7.059 L* (7.350-7.450) pH Units ABG pO2 70.2 L (80.0-90.0) mm Hg ABG HCO3 9.9 L (20.0-26.0) mmol/L ABG O2 Saturation 85.4 L (95.0-99.0) % ABG Base Excess -19.6 L (-2.0-3.0) mmol/L Oxyhemoglobin 84.0 L (95.0-99.0) % Sodium 118 L* D (137-145) mmol/L Potassium 8.1 H* (3.6-5.0) mmol/L Chloride 91.1 L (98-107) mmol/L Carbon Dioxide 3 L* D (22-30) mmol/L BUN 179 H (9-20) mg/dL Creatinine 11.6 H (0.8-1.5) mg/dL Glucose 197 H (75-100) mg/dL Lactic Acid (0.7-2.0) mmol/L Uric Acid (3.5-7.6) mg/dL Ferritin (13.0-400.0) ng/mL ALT (7-56) units/L Lactate Dehydrogenase (91-180) units/L Troponin T (0.00-0.029) ng/mL C-Reactive Protein (0.00-1.30) mg/dL Albumin (3.9-5) g/dL HDL Cholesterol (40-59) mg/dL Assessment and Plan Cultures: Blood culture 01/31/2020 pending Sputum culture 01/31/2020 pending A/P: 84-year-old man past medical history hypertension, dementia admitted to the hospital with altered mental status and hypoxia. #Acute hypoxic respiratory failure: Secondary to pneumonia/possible COVID-19. Currently intubated, follow COVID-19 testing #Right-sided pneumonia: Follow-up COVID-19 testing, start empiric antibiotics in the meantime. #SJ on HD: Etiology possibly septic shock versus COVID-19 Recs: -Obtain follow-up COVID-19 testing -We will start empiric ceftriaxone and azithromycin, though procalcitonin likely elevated in setting of renal dysfunction. His white count is still elevated at this time. -Further COVID-19 specific therapies to be recommended once testing returns. Thank you for the consult, we will continue to follow. MD Carola [facility] ([facility] M: [phone] O: [phone] F: [phone]
[2020-01-31] MEDS: FOLIC ACID 1 MG in SODIUM CHLORIDE 0.9% 50 ML IV SCH (17:32)
[2020-01-31 19:00] LABS: Calcium 9.2 mg/dL (8.4-10.2)
[2020-01-31 20:06] LABS: ABG HCO3 21.1 mmol/L (20.0-26.0); ABG Methemoglobin 0.6 % (0.0-1.5); ABG Oxygen Saturation 99.1 % (95.0-99.0); ABG PCO2 34.6 mm Hg; ABG PH 7.402 pH Units (7.350-7.450)
[2020-01-31] MEDS: DIVALPROEX ER 250 MG TAB PO SCH (22:46)
[2020-01-31] MEDS: HEPARIN 5,000 UNIT/1 ML VIAL SUB-Q SCH (22:50)
[2020-01-31] MEDS ORDERED: HEPARIN 5,000 UNIT/1 ML VIAL ONE (22:51)
[2020-01-31 23:18] LABS: Creatinine,Urine 257.5 mg/dL (0.1-20.0)
--- NOTE | 2020-01-31 23:47 | Procedure Note ---
Date of procedure: 01/31/20 - Central Line Placement Right IJ Consent Obtained: emergent situation Time Out Performed: Yes Patient Placed on Monitor/Pulse Ox: Yes MD Prep: mask, gown, gloves Central Line Prep: Chlorhexidine scrub Local Anesthesia Used: other anesthetic (iv versed/iv fentanyl) Ultrasound Used for Placement: Yes Central Line Lumen Inserted: triple Bloods Obtained for Lab: Yes Central Line Position: good blood return, all ports aspirated, flus, sutured in place with nyl Dressing Applied: Tegaderm Post Procedure X-Ray: tip of catheter in good p Patient Tolerated Procedure: well Complications: none
--- NOTE | 2020-02-01 00:19 | XRay Report ---
CHEST 1 VIEW 01/31/2020 11:04 PM INDICATION / CLINICAL INFORMATION: cvl placement. COMPARISON: One view of the chest from earlier today. FINDINGS: SUPPORT DEVICES: Interval right internal jugular CVL that terminates over the mid SVC. Otherwise unch anged. HEART / MEDIASTINUM: Stable. LUNGS / PLEURA: Increased bibasilar opacities. No significant pleural effusion. No pneumothorax. ADDITIONAL FINDINGS: No significant additional findings. IMPRESSION: 1. Increased bibasilar opacities could represent atelectasis or evolving pneumonia. Continued radiogr aphic follow-up to resolution is recommended. 2. Satisfactory positioning of the right internal jugular CVL. Signer Name: Jan Phillips MD Signed: 02/01/2020 12:14 AM Workstation Name: [id number]
[2020-02-01] MEDS: SODIUM BICARBONATE 150 MEQ in DEXTROSE 5% IN WATER 1,000 ML IV SCH (01:33)
[2020-02-01] MEDS: NORepinephrine/NS 4 MG-250 ML 4 MG/250 ML BAG IV SCH ×3 (01:34→16:26)
[2020-02-01 01:52] LABS: Hematocrit 34.5 % (35.5-45.6); Hemoglobin 11.7 gm/dl (11.8-15.2); Lymphocytes # (Auto) 0.5 K/mm3 (1.2-5.4); Mean Corpuscular HGB Conc 34 % (32-34); Mean Corpuscular Volume 96 fl (84-94); Monocytes # (Auto) 1.6 K/mm3 (0.0-0.8); Monocytes % (Auto) 8.9 % (0.0-7.3); Platelet Count 291 K/mm3 (140-440); Red Blood Count 3.59 M/mm3 (3.65-5.03); Red Cell Distribution Width 13.7 % (13.2-15.2)
[2020-02-01 02:03] LABS: Calcium 8.3 mg/dL (8.4-10.2)
[2020-02-01] MEDS: fentaNYL DRIP Premix 2,000 MCG/100 ML BAG IV SCH ×2 (04:21→20:56)
[2020-02-01 05:26] LABS: ABG Base Excess 1.7 mmol/L (-2.0-3.0); ABG HCO3 24.4 mmol/L (20.0-26.0); ABG Methemoglobin 0.5 % (0.0-1.5); ABG Oxygen Saturation 99.1 % (95.0-99.0); ABG PCO2 31.6 mm Hg; ABG PH 7.505 pH Units (7.350-7.450); ABG PO2 158.5 mm Hg (80.0-90.0)
--- NOTE | 2020-02-01 08:29 | Progress Note ---
Subjective Interval history: Patient was seen today for follow-up of multiple renal related issues patient remains critically ill in ICU intubated Did receive hemodialysis yesterday Interdisciplinary notes that also reviewed Events of 24 hours vitals labs intake output medications were reviewed Past medical history: Reviewed Family history: Reviewed Social history: Reviewed Allergies: Reviewed Physical examination: Vitals: Reviewed HEENT: No pallor or icterus oral mucosa moist Neck: Supple no JVD no thyromegaly Chest: Bilateral clear to auscultation anteriorly Heart: Regular rate and rhythm S1-S2 heard no S3-S4 Abdomen: Soft nontender no voluntary guarding rigidity rebound Extremity: Dry skin less than 1+ peripheral edema Psychiatric: No evidence of agitation and aggression noted Dermatology: No petechial rashes Labs and x-rays: Reviewed from today Assessment and plan Acute kidney injury patient presented with severe hypotension and respiratory failure was also severely hyperkalemic has had severe acidosis, did receive his dialysis treatment yesterday subsequent to which his chemistries have markedly improved [id number] PUI patient currently nonoliguric monitor intake and output follow-up on renal function There is no indication for emergent renal replacement therapy today which was done yesterday under emergent situations He will need to be reevaluated tomorrow for renal replacement therapy 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 Upon admission his creatinine was 12.5 which has come down to 4.5 Anemia: Some decline in hemoglobin from 14.1-11.7 platelet count remains normal at this time According to he does not have any known history of chronic kidney disease, will follow up on the ultrasonogram Severe hyperkalemia potassium upon admission was 8.8 which has improved significantly Severe acidosis currently corrected, will need follow-up Respiratory failure currently intubated Patient's has been kept informed throughout his hospitalization critical-care time spent 33 minutes today at bedside Objective - Vital Signs Vital signs: Vital Signs - 12hr 01/31/20 01/31/20 01/31/20 20:30 20:45 21:00 Temperature Pulse Rate 77 79 79 Respiratory 18 19 21 Rate Blood Pressure 159/81 161/81 162/82 O2 Sat by Pulse 94 100 100 Oximetry 01/31/20 01/31/20 01/31/20 21:15 21:30 21:45 Temperature Pulse Rate 74 74 75 Respiratory 10 L 20 20 Rate Blood Pressure 145/70 149/77 151/77 O2 Sat by Pulse 100 100 100 Oximetry 01/31/20 01/31/20 01/31/20 22:00 22:15 22:30 Temperature Pulse Rate 75 69 70 Respiratory 19 20 22 Rate Blood Pressure 152/77 117/57 107/50 O2 Sat by Pulse 95 Oximetry 01/31/20 01/31/20 01/31/20 22:45 22:58 23:00 Temperature 97.9 F Pulse Rate 69 69 Respiratory 12 20 Rate Blood Pressure 123/57 127/61 O2 Sat by Pulse Oximetry 01/31/20 01/31/20 01/31/20 23:15 23:30 23:45 Temperature Pulse Rate 69 70 70 Respiratory 20 20 19 Rate Blood Pressure 132/59 137/70 124/64 O2 Sat by Pulse 100 Oximetry 02/01/20 02/01/20 02/01/20 00:00 00:12 00:15 Temperature 97.7 F Pulse Rate 75 69 68 Respiratory 20 20 20 Rate Blood Pressure 124/64 131/65 144/59 O2 Sat by Pulse 92 100 100 Oximetry 02/01/20 02/01/20 02/01/20 00:30 03:53 04:00 Temperature 97.2 F L Pulse Rate 69 Respiratory 19 20 Rate Blood Pressure 149/69 O2 Sat by Pulse 98 98 Oximetry 02/01/20 04:55 Temperature Pulse Rate 62 Respiratory Rate Blood Pressure 144/72 O2 Sat by Pulse 98 Oximetry - Lab 02/01/20 01:30 02/01/20 01:30 Most recent lab results ABG pH 7.505 pH Units (7.350-7.450) H 02/01/20 04:53 ABG pCO2 31.6 mm Hg 02/01/20 04:53 ABG pO2 158.5 mm Hg (80.0-90.0) H 02/01/20 04:53 ABG HCO3 24.4 mmol/L (20.0-26.0) 02/01/20 04:53 ABG O2 Saturation 99.1 % (95.0-99.0) H 02/01/20 04:53 Calcium 8.3 mg/dL (8.4-10.2) L 02/01/20 01:30 Urine Creatinine 257.5 mg/dL (0.1-20.0) H 01/31/20 23:06 Urine Sodium 10 mmol/L 01/31/20 23:06 Medications & Allergies - Medications Allergies/Adverse Reactions: Allergies No Known Allergies Allergy (Unverified 10/13/14 11:06) Home Medications: Home Medications Medication Instructions Recorded Confirmed Last Taken Type Acetaminophen [Acetaminophen TAB] 325 mg PO Q6HR PRN 10/13/14 10/19/14 Unknown H istory Carbidopa/Levodopa 25-100 [Sinemet 1.5 tab PO DAILY 10/13/14 10/19/14 10/19/14 History 25/100] Desoximetasone [Topicort] 1 each TRANSDERMA BID 10/13/14 10/19/14 10/19/14 History Divalproex Sodium [Divalproex 250 mg PO BID 10/13/14 10/19/14 10/19/14 History Sodium ER] Ferrous Sulfate [Feosol 325 MG tab] 25 mg PO DAILY 10/13/14 10/19/14 10/19/14 History Folic Acid [Folvite] 1 mg PO QDAY 10/13/14 10/19/14 10/19/14 History Furosemide [Lasix] 20 mg PO Q48HR 10/13/14 10/19/14 10/19/14 History Lisinopril [Zestril] 2.5 mg PO DAILY 10/13/14 10/19/14 10/19/14 History Memantine Xr [Namenda Xr] 14 mg PO DAILY 10/13/14 10/19/14 10/19/14 History Multivitamin [Multi-Vitamin Daily] 1 tab PO DAILY 10/13/14 10/19/14 10/19/14 History Potassium Chloride 10 meq PO Q48HR 10/13/14 10/19/14 Unknown History Quetiapine Fumarate [SEROquel] 150 mg PO QHS 10/13/14 10/19/14 10/18/14 History Sertraline [Zoloft] 50 mg PO DAILY 10/13/14 10/19/14 10/19/14 History Tramadol HCl [traMADol] 50 mg PO BID PRN 10/13/14 10/19/14 10/19/14 History donepeziL [Aricept] 10 mg PO QHS 10/13/14 10/19/14 10/19/14 History raNITIdine HCL [Zantac 300 MG TAB] 150 mg PO BID 10/13/14 10/19/14 10/19/14 History Amoxicillin/K Clav Tab [Augmentin 1 tab PO BID #14 tablet 10/26/14 Unknown Rx 875MG] Active Medications: Generic Name Dose Route Start Last Admin Trade Name Freq PRN Reason Stop Dose Admin Carbidopa/Levodopa 1.5 each 02/01/20 10:00 Sinemet PO DAILY KIRA Divalproex Sodium 250 mg 01/31/20 22:00 01/31/20 22:46 Depakote Er PO Not Given BID KIRA Fentanyl 50 mcg 01/31/20 06:36 01/31/20 16:40 Sublimaze IV 50 mcg Q10MIN PRN Administration ANALGESIA Folic Acid 1 mg 02/01/20 10:00 Folvite PO QDAY KIRA Heparin Sodium (Porcine) 5,000 unit 01/31/20 22:00 01/31/20 22:50 Heparin SUB-Q 5,000 unit Q12HR KIRA Administration Hydrophilic Ointment 1 applic 01/31/20 06:36 Vaseline Lip Therapy TP Q2HR PRN Dry Lips Sodium Chloride 100 mls @ 999 mls/hr 01/31/20 05:48 Nacl 0.9% IV GILBERTO PRN Hypotension Fentanyl Citrate 2,000 mcg in 100 mls @ 3.175 mls/hr 01/31/20 07:00 02/01/20 04:21 Fentanyl Drip Premix IV 2 mcg/kg/hr TITR KIRA 6.35 mls/hr Administration Protocol 1 MCG/KG/HR Norepinephrine 4 mg in 250 mls @ 7.5 mls/hr 01/31/20 07:00 02/01/20 06:36 Levophed Drip 4 Mg/Ns 250 Ml IV 8 mcg/min TITR KIRA 30 mls/hr Titration Protocol 2 MCG/MIN Sodium Bicarbonate 150 meq/ 1,150 mls @ 75 mls/hr 01/31/20 12:00 02/01/20 01:33 Dextrose IV 75 mls/hr DIRECT KIRA Administration Midazolam HCl 100 mg/ Sodium 100 mls @ 2 mls/hr 01/31/20 12:00 01/31/20 22:48 Chloride IV 2 mg/hr TITR KIRA 2 mls/hr Administration Protocol 2 MG/HR Vasopressin 20 unit/ Sodium 101 mls @ 9.09 mls/hr 01/31/20 12:00 01/31/20 22:55 Chloride IV 0.03 units/min TITR IKRA 9.09 mls/hr Administration Protocol 0.03 UNITS/MIN Folic Acid 1 mg/ Sodium 50.2 mls @ 200.8 mls/hr 01/31/20 17:00 01/31/20 17:32 Chloride IV 200.8 mls/hr QDAY KIRA Administration Midazolam HCl 2 mg 01/31/20 11:16 01/31/20 11:46 Versed IV 2 mg Q10MIN PRN Administration Sedation Multi-Ingred Cream/Lotion/Oil/Oint 1 applic 01/31/20 06:36 Artificial Tears Ophth Oint OU Q4HR PRN Dry Eye(s)
--- NOTE | 2020-02-01 08:36 | Progress Note ---
<TIMBO MACIEL - Last Filed: 02/01/20 14:41> Assessment and Plan - Patient Problems (1) Altered mental state Current Visit: Yes Status: Acute Qualifiers: Plan to address problem: surpotive care monitor mental statu-unsure of mental base line (2) Acute respiratory failure with hypoxia Current Visit: Yes Status: Acute Plan to address problem: patient presently intubated-on ventilator Continue respiratory care, ABGs, and monitor oxygen sat Extrusion Die Template Maker Dr gallegos following-f/u with reces (3) Lactic acid acidosis Current Visit: Yes Status: Acute Plan to address problem: Luecocytosis/lactic acidosis ? cause (Infection)-has improved Monitor WBC and lactic level Blood culture and urine culture f/u with result (4) Suspected 2019 novel coronavirus infection Current Visit: Yes Status: Acute Plan to address problem: Inflammatory makers elevated Ferritin 722.6, LDH 387, CRP 1.6 and d-dimer 544.7 Trend inflammatory makers Start airborne and contact isolation per covid protocol Consult ID-f/u with reces Check covid 19 result if positive -will start experimental therapy for covid infection per ID recommendation check procalcitonin level (5) Dementia Current Visit: Yes Status: Chronic Qualifiers: Plan to address problem: Safety precaution Resume home medicine (6) Hyperkalemia Current Visit: Yes Status: Acute Plan to address problem: Hyperkalemia -resolved-4.7 from 8.8 s/p Hemodialysis monitor k level (7) DVT prophylaxis Current Visit: No Status: Acute Plan to address problem: Heparin (8) Agitation requiring sedation protocol Current Visit: Yes Status: Acute Plan to address problem: Continue fentany drip Titrate for sedation-pt orally intubated (9) Hypotension Current Visit: Yes Status: Acute Qualifiers: Plan to address problem: Hypotension ? cause-Sepsis due to covid virus infect/bacterial infection Blood pressure stable 144/72 s/p IV fluid bolus in ED Continue Norepi gtt-Max at 30mcg/min continue Vesopressin gtt Plug Making Operator consulted (10) SJ (acute kidney injury) Current Visit: Yes Status: Acute Plan to address problem: SJ requiring HD-CR 12.5 on admission and k level of 8.8 S/p vast cath placement and emergency HD CR has improved 4.5 from 12.5 post HD Continue to monitor Kidney function Avoid nephrotoxic drugs Game Show Host following-f/u with recommendation (11) Sepsis Current Visit: Yes Status: Acute Qualifiers: Plan to address problem: Continue Sepsis protocol Monitor V/S-bp stable -bp 144/72, HR 62 Continue IV hydration and IV abx therapy Continue pressors to maintain SBP>90 ID follwing-f/u with recommendation F/U with urine and blood culture result (12) Metabolic acidosis Current Visit: Yes Status: Acute Plan to address problem: Has resolved D/c bicarb drip Start D5 NS at 75 cc/hr Monitor BMP Subjective Date of service: 02/01/20 Principal diagnosis: SJ/sepsisi with hypotension Interval history: patient is s/p HD-his chemitries have improved potassium is 4.7 from 8.8, and Cr is now 4.5 Blood pressure has improved and stable at 144/72, Hr 62, and orally intubated-02 sat 98% Objective - Constitutional Vitals: Vital Signs - 12hr 01/31/20 01/31/20 01/31/20 20:45 21:00 21:15 Temperature Pulse Rate 79 79 74 Respiratory 19 21 10 L Rate Blood Pressure 161/81 162/82 145/70 O2 Sat by Pulse 100 100 100 Oximetry 01/31/20 01/31/20 01/31/20 21:30 21:45 22:00 Temperature Pulse Rate 74 75 75 Respiratory 20 20 19 Rate Blood Pressure 149/77 151/77 152/77 O2 Sat by Pulse 100 100 95 Oximetry 01/31/20 01/31/20 01/31/20 22:15 22:30 22:45 Temperature Pulse Rate 69 70 69 Respiratory 20 22 12 Rate Blood Pressure 117/57 107/50 123/57 O2 Sat by Pulse Oximetry 01/31/20 01/31/20 01/31/20 22:58 23:00 23:15 Temperature 97.9 F Pulse Rate 69 69 Respiratory 20 20 Rate Blood Pressure 127/61 132/59 O2 Sat by Pulse Oximetry 01/31/20 01/31/20 02/01/20 23:30 23:45 00:00 Temperature 97.7 F Pulse Rate 70 70 75 Respiratory 20 19 20 Rate Blood Pressure 137/70 124/64 124/64 O2 Sat by Pulse 100 92 Oximetry 02/01/20 02/01/20 02/01/20 00:12 00:15 00:30 Temperature Pulse Rate 69 68 69 Respiratory 20 20 19 Rate Blood Pressure 131/65 144/59 149/69 O2 Sat by Pulse 100 100 98 Oximetry 02/01/20 02/01/20 02/01/20 03:53 04:00 04:55 Temperature 97.2 F L Pulse Rate 62 Respiratory 20 Rate Blood Pressure 144/72 O2 Sat by Pulse 98 98 Oximetry General appearance: Present: mild distress - EENT Eyes: PERRL, EOM intact ENT: hearing intact, clear oral mucosa Ears: bilateral: normal - Neck Neck: supple, normal ROM - Respiratory Details: Patient orally intubated Respiratory effort: other Respiratory: bilateral: CTA - Breasts Breasts: normal - Cardiovascular Heart rate: 63 Rhythm: regular Heart Sounds: Present: S1 & S2. Absent: gallop, rub Extremities: pulses intact, No edema, normal color, Full ROM - Gastrointestinal General gastrointestinal: Present: soft, non-tender, non-distended, normal bowel sounds - Genitourinary Male genitourinary: deferred (SJ requiring HD. pt s/p HD yesterday), normal - Integumentary Integumentary: clear, warm, dry - Musculoskeletal Musculoskeletal: 1, strength equal bilaterally - Neurologic Neurologic: moves all extremities - Psychiatric Psychiatric: agitated (on fentanyl gtt for sedation) - Labs CBC & Chem 7: 02/01/20 01:30 02/01/20 01:30 Labs: Abnormal lab results 01/31/20 01/31/20 01/31/20 Range/Units 09:45 09:45 10:30 WBC (4.5-11.0) K/mm3 RBC (3.65-5.03) M/mm3 Hgb (11.8-15.2) gm/dl Hct (35.5-45.6) % MCV (84-94) fl MCH (28-32) pg Lymph % (Auto) (13.4-35.0) % [place] % (Auto) (0.0-7.3) % Lymph # (1.2-5.4) K/mm3 [place] # (0.0-0.8) K/mm3 Seg Neutrophils % (40.0-70.0) % Seg Neutrophils # (1.8-7.7) K/mm3 ABG pH 7.059 L* (7.350-7.450) pH Units ABG pO2 70.2 L (80.0-90.0) mm Hg ABG HCO3 9.9 L (20.0-26.0) mmol/L ABG O2 Saturation 85.4 L (95.0-99.0) % ABG Base Excess -19.6 L (-2.0-3.0) mmol/L ABG Hemoglobin (14.0-18.0) gm/dl Oxyhemoglobin 84.0 L (95.0-99.0) % Sodium 118 L* D (137-145) mmol/L Potassium 8.1 H* (3.6-5.0) mmol/L Chloride 91.1 L (98-107) mmol/L Carbon Dioxide 3 L* D (22-30) mmol/L BUN 179 H (9-20) mg/dL Creatinine 11.6 H (0.8-1.5) mg/dL Glucose 197 H (75-100) mg/dL Lactic Acid 3.20 H* (0.7-2.0) mmol/L Calcium (8.4-10.2) mg/dL Urine Creatinine (0.1-20.0) mg/dL 01/31/20 01/31/20 01/31/20 Range/Units 18:31 19:45 23:06 WBC (4.5-11.0) K/mm3 RBC (3.65-5.03) M/mm3 Hgb (11.8-15.2) gm/dl Hct (35.5-45.6) % MCV (84-94) fl MCH (28-32) pg Lymph % (Auto) (13.4-35.0) % [place] % (Auto) (0.0-7.3) % Lymph # (1.2-5.4) K/mm3 [place] # (0.0-0.8) K/mm3 Seg Neutrophils % (40.0-70.0) % Seg Neutrophils # (1.8-7.7) K/mm3 ABG pH (7.350-7.450) pH Units ABG pO2 172.0 H (80.0-90.0) mm Hg ABG HCO3 (20.0-26.0) mmol/L ABG O2 Saturation 99.1 H (95.0-99.0) % ABG Base Excess -3.0 L (-2.0-3.0) mmol/L ABG Hemoglobin 13.8 L (14.0-18.0) gm/dl Oxyhemoglobin (95.0-99.0) % Sodium 133 L D (137-145) mmol/L Potassium 5.1 H D (3.6-5.0) mmol/L Chloride 93.7 L (98-107) mmol/L Carbon Dioxide 17 L D (22-30) mmol/L BUN 54 H (9-20) mg/dL Creatinine 4.9 H D (0.8-1.5) mg/dL Glucose 215 H (75-100) mg/dL Lactic Acid (0.7-2.0) mmol/L Calcium (8.4-10.2) mg/dL Urine Creatinine 257.5 H (0.1-20.0) mg/dL 02/01/20 02/01/20 02/01/20 Range/Units 01:30 01:30 04:53 WBC 17.4 H (4.5-11.0) K/mm3 RBC 3.59 L (3.65-5.03) M/mm3 Hgb 11.7 L (11.8-15.2) gm/dl Hct 34.5 L D (35.5-45.6) % MCV 96 H (84-94) fl MCH 33 H (28-32) pg Lymph % (Auto) 3.0 L (13.4-35.0) % [place] % (Auto) 8.9 H (0.0-7.3) % Lymph # 0.5 L (1.2-5.4) K/mm3 [place] # 1.6 H (0.0-0.8) K/mm3 Seg Neutrophils % 88.1 H (40.0-70.0) % Seg Neutrophils # 15.3 H (1.8-7.7) K/mm3 ABG pH 7.505 H (7.350-7.450) pH Units ABG pO2 158.5 H (80.0-90.0) mm Hg ABG HCO3 (20.0-26.0) mmol/L ABG O2 Saturation 99.1 H (95.0-99.0) % ABG Base Excess (-2.0-3.0) mmol/L ABG Hemoglobin 11.0 L (14.0-18.0) gm/dl Oxyhemoglobin (95.0-99.0) % Sodium 133 L (137-145) mmol/L Potassium (3.6-5.0) mmol/L Chloride 93.6 L (98-107) mmol/L Carbon Dioxide (22-30) mmol/L BUN 47 H (9-20) mg/dL Creatinine 4.5 H (0.8-1.5) mg/dL Glucose 204 H (75-100) mg/dL Lactic Acid (0.7-2.0) mmol/L Calcium 8.3 L (8.4-10.2) mg/dL Urine Creatinine (0.1-20.0) mg/dL HEART Score - HEART Score Troponin: Troponin T 0.065 ng/mL (0.00-0.029) H 01/31/20 03:47 <LICHA MAZA - Last Filed: 02/01/20 16:54> Assessment and Plan 02/01/20 84-year-old elderly male with history of advanced dementia usp resident history of single kidney presented to the hospital with altered mental status and respiratory failure. Patient intubated in the ER, placed on vasopressors, nephrology was consulted for emergent dialysis. I saw and evaluated the patient. I agree with the findings and the plan of care as documented in the Nurse Practitioner's~note, with the following corrections and additions. Assessment and plan Acute metabolic encephalopathy likely from severe sepsis, acute renal failure and underlying dementia Acute hypoxic respiratory failure - from renal failure and sepsis with PNA Metabolic acidosis from renal failure and sepsis Acute renal failure on CKD, likely progressed to end-stage renal disease versus ATN Suspected COVID-19 infection Septic shock, resolved Severe hyperkalemia, improved after HD and bicarbonate drip Advanced dementia, cont supportive care Severe sepsis likely due to pneumonia, cont abx, wait for covid19 result History of single kidney -monitor at ICU, off pressor support today -continue nebulizer breathing treatment and wean off from vent as tolerated: pulmonary following -Follow nephrology recommendation, s/p emergent dialysis after Vas-Cath placement -f/u COVID 19 result, ID following -Continue frequent neuro exam and supportive care -Also continue on empiric antibiotic for possible underlying pneumonia and severe sepsis -DVT prophylaxis with heparin, continue to monitor CBC and BMP The high probability of a clinically significant, sudden or life threatening deterioration of the [multiple] system(s) required my full and direct attention, intervention and personal management. The aggregate critical care time was [32] minutes. This time is in addition to time spent performing reported procedures but includes the following: [x] Data Review and interpretation [x] Patient assessment and monitoring of vital signs [x] Documentation [x] Medication orders and management Objective - Constitutional Vitals: Vital Signs - 12hr 02/01/20 02/01/20 02/01/20 04:55 05:00 05:15 Temperature Pulse Rate 62 62 63 Respiratory 20 20 Rate Blood Pressure 144/72 144/72 148/72 O2 Sat by Pulse 98 98 100 Oximetry 02/01/20 02/01/20 02/01/20 05:30 05:45 06:00 Temperature Pulse Rate 62 60 60 Respiratory 20 20 20 Rate Blood Pressure 153/74 137/70 142/67 O2 Sat by Pulse 100 99 100 Oximetry 02/01/20 02/01/20 02/01/20 06:15 06:30 06:45 Temperature Pulse Rate 60 60 60 Respiratory 20 16 16 Rate Blood Pressure 145/74 134/66 135/68 O2 Sat by Pulse 100 100 Oximetry 02/01/20 02/01/20 02/01/20 07:00 07:15 07:30 Temperature Pulse Rate 60 60 60 Respiratory 16 16 16 Rate Blood Pressure 132/63 125/63 122/64 O2 Sat by Pulse 100 100 100 Oximetry 02/01/20 02/01/20 02/01/20 07:45 08:00 08:15 Temperature 97.9 F Pulse Rate 60 60 60 Respiratory 16 16 15 Rate Blood Pressure 126/66 132/67 135/63 O2 Sat by Pulse 100 100 100 Oximetry 02/01/20 02/01/20 02/01/20 08:30 08:45 08:52 Temperature Pulse Rate 60 60 60 Respiratory 16 16 Rate Blood Pressure 125/64 134/71 134/71 O2 Sat by Pulse 100 100 100 Oximetry 02/01/20 02/01/20 02/01/20 09:00 09:15 10:00 Temperature Pulse Rate 60 60 60 Respiratory 16 16 Rate Blood Pressure 136/70 133/68 O2 Sat by Pulse 100 99 Oximetry 02/01/20 02/01/20 12:00 14:33 Temperature 97.9 F Pulse Rate 60 63 Respiratory 16 Rate Blood Pressure 122/68 88/42 O2 Sat by Pulse 100 100 Oximetry - Labs CBC & Chem 7: 02/01/20 01:30 02/01/20 01:30 Labs: Abnormal lab results 01/31/20 01/31/20 01/31/20 Range/Units 18:31 19:45 23:06 WBC (4.5-11.0) K/mm3 RBC (3.65-5.03) M/mm3 Hgb (11.8-15.2) gm/dl Hct (35.5-45.6) % MCV (84-94) fl MCH (28-32) pg Lymph % (Auto) (13.4-35.0) % [place] % (Auto) (0.0-7.3) % Lymph # (1.2-5.4) K/mm3 [place] # (0.0-0.8) K/mm3 Seg Neutrophils % (40.0-70.0) % Seg Neutrophils # (1.8-7.7) K/mm3 ABG pH (7.350-7.450) pH Units ABG pO2 172.0 H (80.0-90.0) mm Hg ABG O2 Saturation 99.1 H (95.0-99.0) % ABG Base Excess -3.0 L (-2.0-3.0) mmol/L ABG Hemoglobin 13.8 L (14.0-18.0) gm/dl Sodium 133 L D (137-145) mmol/L Potassium 5.1 H D (3.6-5.0) mmol/L Chloride 93.7 L (98-107) mmol/L Carbon Dioxide 17 L D (22-30) mmol/L BUN 54 H (9-20) mg/dL Creatinine 4.9 H D (0.8-1.5) mg/dL Glucose 215 H (75-100) mg/dL Calcium (8.4-10.2) mg/dL Urine Creatinine 257.5 H (0.1-20.0) mg/dL 02/01/20 02/01/20 02/01/20 Range/Units 01:30 01:30 04:53 WBC 17.4 H (4.5-11.0) K/mm3 RBC 3.59 L (3.65-5.03) M/mm3 Hgb 11.7 L (11.8-15.2) gm/dl Hct 34.5 L D (35.5-45.6) % MCV 96 H (84-94) fl MCH 33 H (28-32) pg Lymph % (Auto) 3.0 L (13.4-35.0) % [place] % (Auto) 8.9 H (0.0-7.3) % Lymph # 0.5 L (1.2-5.4) K/mm3 [place] # 1.6 H (0.0-0.8) K/mm3 Seg Neutrophils % 88.1 H (40.0-70.0) % Seg Neutrophils # 15.3 H (1.8-7.7) K/mm3 ABG pH 7.505 H (7.350-7.450) pH Units ABG pO2 158.5 H (80.0-90.0) mm Hg ABG O2 Saturation 99.1 H (95.0-99.0) % ABG Base Excess (-2.0-3.0) mmol/L ABG Hemoglobin 11.0 L (14.0-18.0) gm/dl Sodium 133 L (137-145) mmol/L Potassium (3.6-5.0) mmol/L Chloride 93.6 L (98-107) mmol/L Carbon Dioxide (22-30) mmol/L BUN 47 H (9-20) mg/dL Creatinine 4.5 H (0.8-1.5) mg/dL Glucose 204 H (75-100) mg/dL Calcium 8.3 L (8.4-10.2) mg/dL Urine Creatinine (0.1-20.0) mg/dL HEART Score - HEART Score Troponin: Troponin T 0.065 ng/mL (0.00-0.029) H 01/31/20 03:47
[2020-02-01] MEDS ORDERED: FOLIC ACID 1 MG TAB PO SCH (10:00)
--- NOTE | 2020-02-01 11:54 | Event Note ---
Date: 02/01/20 I called patient's Ms. Borges and she confirmed that patient CODE STATUS should be DNR I discussed the option for comfort care for the patient with his due to patient's multiple comorbid conditions: advanced dementia advanced age renal failure respiratory failure. Ms. Borges stated that she will discuss with her children and will let us know her decision Continue current care and management, change CODE STATUS to DNR
[2020-02-01] MEDS: FOLIC ACID 1 MG in SODIUM CHLORIDE 0.9% 50 ML IV SCH (12:04)
[2020-02-01] MEDS: cefTRIAXone/NS 2 GM/100 ML 2 GM/100 ML BAG IV SCH (12:05)
--- NOTE | 2020-02-01 14:53 | Progress Note ---
Assessment and Plan Acute hypoxemic respiratory failure on MVS Acute toxic-metabolic encephalopathy Lactic acidosis- resolved Hyperkalemia with SJ Severe metabolic acidosis COVID-PUI - VAP bundle addressed -Placed on PSV at the bedside, he is tolerating it well -Stop Midazolam, use fentanyl for agitation and analgesia -Wean vasopressor support, for MAP> 65. Off vasopressors at this tiem. -Monitor hemodynamics closley - Lung protective strategies - Bronchodilators with pulmonary hygiene per RT -Continue with COVID isolation per protocol -Follow COVID results-pending -Follow cultures, in the interim continue with antibiotic therapy per ID -ABG, CXR IN AM -Nutritional support, advance to goal as tolerated -Aspiration precautions, HOB >40 - Wean supplemental oxygen for target O2 sats > 90% - Daily SAT and SBT assessment as tolerated - Wean per pulmonary driven protocols - Accuchecks with glycemic control per SSI (While critically ill target blood glucose of 140-180 mg/dL; avoid hypoglycemia) - Stop benzodiazepines, reduce the possibility of delirium - prn analgesia per CPOT score - Maintenance of sleep-wake cycle, avoid delirium -Avoid nephrotoxins, closely monitor renal function -UTILITY OPERATOR YARN 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 Renal service - Stress ulcer & VTE prophylaxis ( Heparin, Famotidine) - Mobility protocol, off loading and skin assessment for pressure ulcer prevention -Romo catheter in this critically ill patient with acute renal failure on MVS -Supportive transfusions as indicated to keep HgB >7g/dL - continue other care per attending / other consultants Discussed with the ICU team-RT,RN, Life threatening condition- Acute hypoxemic respiratory failure on MVS, Acute toxic -metabolic encephalopathy Mortality/Morbidity- High Complexity of medical decision making- High CONDITION: CRITICAL PROGNOSIS: GUARDED CODE STATUS: DNAR- per documentation of primary service The high probability of a clinically significant, sudden or life-threatening deterioration of the [respiratory, renal & cardiovascular,neurology] system(s) required my full and direct attention, intervention and personal management. The aggregate critical care time was [33] minutes without overlap. Time includes spent on; [x] Data Review and interpretation [x] Patient assessment and monitoring of vital signs [x] Documentation [x] Medication orders and management Subjective Date of service: 02/01/20 Principal diagnosis: SJ/sepsis with hypotension Interval history: Follow up for:Acute hypoxemic respiratory failure on MVS;Acute toxic-metabolic encephalopathy;Hyperkalemia with SJ Severe metabolic acidosis; COVID-PUI Patient seen and examined. 24 hour events reviewed. Consulted with respiratory and nursing staff Off vasopressor support, no fevers overnight. [place] [facility] more awake and alert when sedation was held. Currently ion Midazolam and Fentanyl. Vent settings AC-VC 16/450/6/35%- rate was decreased this morning as his ABG showed some alkalosis Objective - Exam Narrative Exam: General appearance: Present: sedated, s/p ETT on MVS - EENT Eyes: Present: PERRL - Neck Neck: Present: supple, normal ROM - Respiratory Respiratory effort: Decreased AE bilaterally, CTA Respiratory: bilateral: CTA - Cardiovascular Heart Sounds: Present: S1 & S2. Absent: rub, click - Extremities Extremities: pulses symmetrical, No edema Peripheral Pulses: within normal limits Right femoral HD catheter - Abdominal General gastrointestinal: Present: soft, non-tender, non-distended, normal bowel sounds Male genitourinary: Present: normal - Integumentary Integumentary: Present: clear, warm, dry - Psychiatric Psychiatric: Unable to assess - Neurologic Neurologic: Sedated, opens eyes on tactile and verbal stimulation Vital Signs - 12hr 02/01/20 02/01/20 02/01/20 03:53 03:58 04:00 Temperature 97.2 F L Pulse Rate 64 64 Respiratory 19 20 Rate Blood Pressure 147/73 O2 Sat by Pulse 100 100 Oximetry 02/01/20 02/01/20 02/01/20 04:15 04:30 04:45 Temperature Pulse Rate 63 63 63 Respiratory 20 20 20 Rate Blood Pressure 147/68 147/73 148/73 O2 Sat by Pulse 98 99 Oximetry 02/01/20 02/01/20 02/01/20 04:55 05:00 05:15 Temperature Pulse Rate 62 62 63 Respiratory 20 20 Rate Blood Pressure 144/72 144/72 148/72 O2 Sat by Pulse 98 98 100 Oximetry 02/01/20 02/01/20 02/01/20 05:30 05:45 06:00 Temperature Pulse Rate 62 60 60 Respiratory 20 20 20 Rate Blood Pressure 153/74 137/70 142/67 O2 Sat by Pulse 100 99 100 Oximetry 02/01/20 02/01/20 02/01/20 06:15 06:30 06:45 Temperature Pulse Rate 60 60 60 Respiratory 20 16 16 Rate Blood Pressure 145/74 134/66 135/68 O2 Sat by Pulse 100 100 Oximetry 02/01/20 02/01/20 02/01/20 07:00 07:15 07:30 Temperature Pulse Rate 60 60 60 Respiratory 16 16 16 Rate Blood Pressure 132/63 125/63 122/64 O2 Sat by Pulse 100 100 100 Oximetry 02/01/20 02/01/20 02/01/20 07:45 08:00 08:15 Temperature 97.9 F Pulse Rate 60 60 60 Respiratory 16 16 15 Rate Blood Pressure 126/66 132/67 135/63 O2 Sat by Pulse 100 100 100 Oximetry 02/01/20 02/01/20 02/01/20 08:30 08:45 08:52 Temperature Pulse Rate 60 60 60 Respiratory 16 16 Rate Blood Pressure 125/64 134/71 134/71 O2 Sat by Pulse 100 100 100 Oximetry 02/01/20 02/01/20 02/01/20 09:00 09:15 10:00 Temperature Pulse Rate 60 60 60 Respiratory 16 16 Rate Blood Pressure 136/70 133/68 O2 Sat by Pulse 100 99 Oximetry 02/01/20 02/01/20 12:00 14:33 Temperature 97.9 F Pulse Rate 60 63 Respiratory 16 Rate Blood Pressure 122/68 88/42 O2 Sat by Pulse 100 100 Oximetry CBC and BMP: 02/01/20 01:30 02/01/20 01:30 ABG, PT/INR, D-dimer: ABG ABG pH 7.505 pH Units (7.350-7.450) H 02/01/20 04:53 ABG pCO2 31.6 mm Hg 02/01/20 04:53 ABG pO2 158.5 mm Hg (80.0-90.0) H 02/01/20 04:53 ABG O2 Saturation 99.1 % (95.0-99.0) H 02/01/20 04:53 PT/INR, D-dimer D-Dimer 544.72 ng/mlDDU (0-234) H 01/31/20 05:45 Abnormal lab findings: Abnormal Labs 01/31/20 01/31/20 01/31/20 03:47 03:47 03:47 WBC 16.9 H RBC Hgb Hct MCV 99 H MCH 33 H Lymph % (Auto) [place] % (Auto) Lymph # [place] # Seg Neutrophils % Seg Neuts % (Manual) 95.0 H Lymphocytes % (Manual) 3.0 L Seg Neutrophils # Seg Neutrophils # Man 16.1 H Lymphocytes # (Manual) 0.5 L D-Dimer ABG pH ABG pO2 ABG HCO3 ABG O2 Saturation ABG Base Excess ABG Hemoglobin Oxyhemoglobin Sodium 126 L Potassium 8.8 H* Chloride 86.4 L Carbon Dioxide 10 L BUN 181 H Creatinine 12.5 H Glucose Lactic Acid 2.10 H* Uric Acid Calcium Ferritin ALT < 5 L Lactate Dehydrogenase Troponin T 0.065 H C-Reactive Protein Albumin 3.8 L HDL Cholesterol 39 L Urine Creatinine 01/31/20 01/31/20 01/31/20 05:37 05:45 05:45 WBC RBC Hgb Hct MCV MCH Lymph % (Auto) [place] % (Auto) Lymph # [place] # Seg Neutrophils % Seg Neuts % (Manual) Lymphocytes % (Manual) Seg Neutrophils # Seg Neutrophils # Man Lymphocytes # (Manual) D-Dimer 544.72 H ABG pH ABG pO2 ABG HCO3 ABG O2 Saturation ABG Base Excess ABG Hemoglobin Oxyhemoglobin Sodium Potassium Chloride Carbon Dioxide BUN Creatinine Glucose 103 H Lactic Acid 2.20 H* Uric Acid Calcium Ferritin ALT Lactate Dehydrogenase 387 H Troponin T C-Reactive Protein 1.60 H Albumin HDL Cholesterol Urine Creatinine 01/31/20 01/31/20 01/31/20 05:45 06:06 09:45 WBC RBC Hgb Hct MCV MCH Lymph % (Auto) [place] % (Auto) Lymph # [place] # Seg Neutrophils % Seg Neuts % (Manual) Lymphocytes % (Manual) Seg Neutrophils # Seg Neutrophils # Man Lymphocytes # (Manual) D-Dimer ABG pH ABG pO2 ABG HCO3 ABG O2 Saturation ABG Base Excess ABG Hemoglobin Oxyhemoglobin Sodium Potassium Chloride Carbon Dioxide BUN Creatinine Glucose Lactic Acid 3.20 H* Uric Acid 8.5 H Calcium Ferritin 722.6 H ALT Lactate Dehydrogenase Troponin T C-Reactive Protein Albumin HDL Cholesterol Urine Creatinine 01/31/20 01/31/20 01/31/20 09:45 10:30 18:31 WBC RBC Hgb Hct MCV MCH Lymph % (Auto) [place] % (Auto) Lymph # [place] # Seg Neutrophils % Seg Neuts % (Manual) Lymphocytes % (Manual) Seg Neutrophils # Seg Neutrophils # Man Lymphocytes # (Manual) D-Dimer ABG pH 7.059 L* ABG pO2 70.2 L ABG HCO3 9.9 L ABG O2 Saturation 85.4 L ABG Base Excess -19.6 L ABG Hemoglobin Oxyhemoglobin 84.0 L Sodium 118 L* D 133 L D Potassium 8.1 H* 5.1 H D Chloride 91.1 L 93.7 L Carbon Dioxide 3 L* D 17 L D BUN 179 H 54 H Creatinine 11.6 H 4.9 H D Glucose 197 H 215 H Lactic Acid Uric Acid Calcium Ferritin ALT Lactate Dehydrogenase Troponin T C-Reactive Protein Albumin HDL Cholesterol Urine Creatinine 01/31/20 01/31/20 02/01/20 19:45 23:06 01:30 WBC 17.4 H RBC 3.59 L Hgb 11.7 L Hct 34.5 L D MCV 96 H MCH 33 H Lymph % (Auto) 3.0 L [place] % (Auto) 8.9 H Lymph # 0.5 L [place] # 1.6 H Seg Neutrophils % 88.1 H Seg Neuts % (Manual) Lymphocytes % (Manual) Seg Neutrophils # 15.3 H Seg Neutrophils # Man Lymphocytes # (Manual) D-Dimer ABG pH ABG pO2 172.0 H ABG HCO3 ABG O2 Saturation 99.1 H ABG Base Excess -3.0 L ABG Hemoglobin 13.8 L Oxyhemoglobin Sodium Potassium Chloride Carbon Dioxide BUN Creatinine Glucose Lactic Acid Uric Acid Calcium Ferritin ALT Lactate Dehydrogenase Troponin T C-Reactive Protein Albumin HDL Cholesterol Urine Creatinine 257.5 H 02/01/20 02/01/20 01:30 04:53 WBC RBC Hgb Hct MCV MCH Lymph % (Auto) [place] % (Auto) Lymph # [place] # Seg Neutrophils % Seg Neuts % (Manual) Lymphocytes % (Manual) Seg Neutrophils # Seg Neutrophils # Man Lymphocytes # (Manual) D-Dimer ABG pH 7.505 H ABG pO2 158.5 H ABG HCO3 ABG O2 Saturation 99.1 H ABG Base Excess ABG Hemoglobin 11.0 L Oxyhemoglobin Sodium 133 L Potassium Chloride 93.6 L Carbon Dioxide BUN 47 H Creatinine 4.5 H Glucose 204 H Lactic Acid Uric Acid Calcium 8.3 L Ferritin ALT Lactate Dehydrogenase Troponin T C-Reactive Protein Albumin HDL Cholesterol Urine Creatinine
[2020-02-01] MEDS: DIVALPROEX ER 250 MG TAB PO SCH ×2 (16:50→21:41)
[2020-02-01] MEDS: CARBIDOPA/LEVODOPA 25-100 MG TAB PO SCH (16:52)
[2020-02-01] MEDS: AZITHROMYCIN 500 MG in SODIUM CHLORIDE 0.9% 250ML 250 ML IV SCH (17:05)
[2020-02-01] MEDS: HEPARIN 5,000 UNIT/1 ML VIAL SUB-Q SCH ×2 (17:05→21:41)
[2020-02-02] MEDS: D5W/0.9% NACL 1,000 ML IV SCH (00:19)
[2020-02-02] MEDS ORDERED: HEPARIN 10,000 UNIT/1 ML VIAL ONE (00:24)
[2020-02-02] MEDS ORDERED: SODIUM CHLORIDE 0.9% P/F 10 ML VIAL ONE (00:24)
[2020-02-02] MEDS: DEXTROSE 50% IN WATER (25GM) 50 ML SYRINGE IV PRN ×3 (00:25→18:20)
[2020-02-02] MEDS: NORepinephrine/NS 4 MG-250 ML 4 MG/250 ML BAG IV SCH ×2 (02:29→11:28)
--- NOTE | 2020-02-02 03:07 | XRay Report ---
CHEST 1 VIEW 02/02/2020 1:48 AM INDICATION / CLINICAL INFORMATION: follow up respiratory failure. COMPARISON: One view of the chest from 01/31/2020. FINDINGS: SUPPORT DEVICES: Unchanged. HEART / MEDIASTINUM: Stable. LUNGS / PLEURA: Similar bibasilar opacities. Probable small left pleural effusion. No pneumothorax. ADDITIONAL FINDINGS: No significant additional findings. IMPRESSION: Similar bibasilar opacities with a probable small left pleural effusion. Signer Name: Jan Phillips MD Signed: 02/02/2020 3:03 AM Workstation Name: [id number]
[2020-02-02 04:42] LABS: ABG Base Excess 4.6 mmol/L (-2.0-3.0); ABG HCO3 30.2 mmol/L (20.0-26.0); ABG Methemoglobin 0.4 % (0.0-1.5); ABG Oxygen Saturation 96.3 % (95.0-99.0); ABG PCO2 49.9 mm Hg; ABG PH 7.4 pH Units (7.350-7.450); ABG PO2 74.4 mm Hg (80.0-90.0)
[2020-02-02] MEDS: fentaNYL DRIP Premix 2,000 MCG/100 ML BAG IV SCH ×2 (06:22→22:12)
--- NOTE | 2020-02-02 09:23 | Progress Note ---
Assessment and Plan Impression: * Acute kidney injury secondary ATN * Acute hypoxic repiratory failure on mechanical ventilation * Pneumonia - r/o COVID 19 * COVID 19 PUI * Sepsis * Hyperkalemia - resolved * Metabolic acidosis, severe - resolved * Hyponatremia - resoslved * Hypoglycemia Plan: * Labs reviewed - no acute indication for hemodialysis today * Will plan for dialysis tomorrow pending hemodynamic stability * UF as tolerated * Pressors prn to maintain MAP>65 * Vent management per pulmonary medicine * Avoid nephrotoxins * Dose medications for renal function Subjective Date of service: 02/02/20 Principal diagnosis: SJ/sepsis with hypotension Interval history: Labs, vitals, chart reviewed. Objective - Exam Narrative Exam: In effort of PPE conservation strategy, exam deferred. Physical exam findings of primary team reviewed. - Vital Signs Vital signs: Vital Signs - 12hr 02/01/20 02/01/20 02/01/20 21:30 21:45 22:00 Temperature Pulse Rate 94 H 99 H 98 H Pulse Rate [ From Monitor] Respiratory 15 15 16 Rate Blood Pressure 115/60 103/58 95/55 O2 Sat by Pulse 92 96 92 Oximetry 02/01/20 02/01/20 02/01/20 22:15 22:30 22:46 Temperature Pulse Rate 97 H 102 H 100 H Pulse Rate [ From Monitor] Respiratory 16 16 16 Rate Blood Pressure 98/54 118/55 109/60 O2 Sat by Pulse 93 97 96 Oximetry 02/01/20 02/01/20 02/01/20 23:00 23:15 23:30 Temperature Pulse Rate 104 H 100 H 105 H Pulse Rate [ From Monitor] Respiratory 16 16 17 Rate Blood Pressure 113/65 97/55 97/55 O2 Sat by Pulse 96 93 97 Oximetry 02/01/20 02/02/20 02/02/20 23:45 00:00 00:05 Temperature 99.3 F Pulse Rate 101 H 94 H 98 H Pulse Rate [ 117 H From Monitor] Respiratory 16 16 Rate Blood Pressure 95/53 99/55 99/55 O2 Sat by Pulse 93 96 95 Oximetry 02/02/20 02/02/20 02/02/20 00:16 00:30 00:46 Temperature Pulse Rate 96 H 99 H 96 H Pulse Rate [ From Monitor] Respiratory 16 16 16 Rate Blood Pressure 109/55 110/74 87/57 O2 Sat by Pulse 97 96 94 Oximetry 02/02/20 02/02/20 02/02/20 01:00 01:15 01:30 Temperature Pulse Rate 103 H 98 H 92 H Pulse Rate [ From Monitor] Respiratory 15 16 16 Rate Blood Pressure 79/56 86/53 100/56 O2 Sat by Pulse 96 93 95 Oximetry 02/02/20 02/02/20 02/02/20 01:45 02:00 02:16 Temperature Pulse Rate 87 94 H 113 H Pulse Rate [ From Monitor] Respiratory 16 16 16 Rate Blood Pressure 103/62 103/62 128/80 O2 Sat by Pulse 96 97 96 Oximetry 02/02/20 02/02/20 02/02/20 02:30 02:45 03:00 Temperature Pulse Rate 98 H 92 H 84 Pulse Rate [ From Monitor] Respiratory 16 16 16 Rate Blood Pressure 103/58 96/57 103/58 O2 Sat by Pulse 94 94 95 Oximetry 02/02/20 02/02/20 02/02/20 03:15 03:29 03:30 Temperature 98.9 F Pulse Rate 81 91 H Pulse Rate [ From Monitor] Respiratory 16 16 Rate Blood Pressure 106/50 113/75 O2 Sat by Pulse 96 96 Oximetry 02/02/20 02/02/20 02/02/20 03:46 04:00 04:15 Temperature Pulse Rate 93 H 87 83 Pulse Rate [ 86 From Monitor] Respiratory 16 16 16 Rate Blood Pressure 111/67 106/52 112/58 O2 Sat by Pulse 97 97 97 Oximetry 02/02/20 02/02/20 02/02/20 04:27 04:30 04:45 Temperature Pulse Rate 95 H 91 H 84 Pulse Rate [ From Monitor] Respiratory 16 16 Rate Blood Pressure 112/58 120/61 107/56 O2 Sat by Pulse 98 97 97 Oximetry 02/02/20 02/02/20 02/02/20 05:00 05:16 05:30 Temperature Pulse Rate 77 77 85 Pulse Rate [ From Monitor] Respiratory 16 16 16 Rate Blood Pressure 105/56 104/55 107/71 O2 Sat by Pulse 97 97 97 Oximetry 02/02/20 02/02/20 02/02/20 05:46 06:00 06:15 Temperature Pulse Rate 80 97 H 88 Pulse Rate [ From Monitor] Respiratory 16 16 16 Rate Blood Pressure 107/71 103/68 117/64 O2 Sat by Pulse 97 98 97 Oximetry 02/02/20 02/02/20 02/02/20 06:30 06:46 07:00 Temperature Pulse Rate 100 H 98 H 87 Pulse Rate [ From Monitor] Respiratory 17 16 16 Rate Blood Pressure 131/68 134/60 119/56 O2 Sat by Pulse 97 97 96 Oximetry 02/02/20 02/02/20 02/02/20 07:15 07:30 07:46 Temperature Pulse Rate 81 85 92 H Pulse Rate [ From Monitor] Respiratory 16 17 17 Rate Blood Pressure 124/58 124/58 128/65 O2 Sat by Pulse 96 96 96 Oximetry 02/02/20 02/02/20 02/02/20 08:00 08:15 08:30 Temperature 99.5 F Pulse Rate 88 81 88 Pulse Rate [ From Monitor] Respiratory 16 16 16 Rate Blood Pressure 135/65 127/58 127/58 O2 Sat by Pulse 97 96 96 Oximetry - Lab 02/02/20 10:48 02/02/20 10:48 Most recent lab results ABG pH 7.400 pH Units (7.350-7.450) 02/02/20 04:24 ABG pCO2 49.9 mm Hg 02/02/20 04:24 ABG pO2 74.4 mm Hg (80.0-90.0) L 02/02/20 04:24 ABG HCO3 30.2 mmol/L (20.0-26.0) H 02/02/20 04:24 ABG O2 Saturation 96.3 % (95.0-99.0) 02/02/20 04:24 Calcium 8.3 mg/dL (8.4-10.2) L 02/01/20 01:30 Urine Creatinine 257.5 mg/dL (0.1-20.0) H 01/31/20 23:06 Urine Sodium 10 mmol/L 01/31/20 23:06 Medications & Allergies - Medications Allergies/Adverse Reactions: Allergies No Known Allergies Allergy (Unverified 10/13/14 11:06) Home Medications: Home Medications Medication Instructions Recorded Confirmed Last Taken Type Acetaminophen [Acetaminophen TAB] 325 mg PO Q6HR PRN 10/13/14 02/02/20 Unknown History Carbidopa/Levodopa 25-100 [Sinemet 1.5 tab PO DAILY 10/13/14 02/02/20 10/19/14 History 25/100] Divalproex Sodium [Divalproex 250 mg PO BID 10/13/14 02/02/20 10/19/14 History Sodium ER] donepeziL [Aricept] 10 mg PO QHS 10/13/14 02/02/20 10/19/14 History Dextran 70/Hypromellose 1 each OP PRN 02/02/20 02/02/20 Unknown History [Artificial Tears] Gabapentin [Neurontin] 100 mg PO QHS 02/02/20 02/02/20 Unknown History Ipratropium/Albuterol Sulfate 1 ampul IH Q6HR 02/02/20 02/02/20 Unknown History [DUONEB *Not for PRN Use*] Latanoprost 0.005% [Xalatan 0.005%] 1 drop OP QPM 02/02/20 02/02/20 Unknown History Loratadine [Allergy Relief] 10 mg PO QDAY 02/02/20 02/02/20 Unknown History Omeprazole 20 mg PO QHS 02/02/20 02/02/20 Unknown History Timolol 0.25% (Nf) [Timoptic] 1 drops OP BID 02/02/20 02/02/20 Unknown History Active Medications: Generic Name Dose Route Start Last Admin Trade Name Freq PRN Reason Stop Dose Admin Carbidopa/Levodopa 1.5 each 02/01/20 10:00 02/01/20 16:52 Sinemet PO Not Given DAILY KIRA Dextrose 0 ml 02/02/20 00:11 02/02/20 00:25 D50w (25gm) Syringe IV 20 ml Q30MIN PRN Administration Hypoglycemia Protocol Famotidine 20 mg 02/02/20 10:00 Pepcid IV DAILY KIRA Fentanyl 50 mcg 01/31/20 06:36 01/31/20 16:40 Sublimaze IV 50 mcg Q10MIN PRN Administration ANALGESIA Heparin Sodium (Porcine) 5,000 unit 01/31/20 22:00 02/01/20 21:41 Heparin SUB-Q 5,000 unit Q12HR KIRA Administration Hydrophilic Ointment 1 applic 01/31/20 06:36 Vaseline Lip Therapy TP Q2HR PRN Dry Lips Sodium Chloride 100 mls @ 999 mls/hr 01/31/20 05:48 Nacl 0.9% IV GILBERTO PRN Hypotension Fentanyl Citrate 2,000 mcg in 100 mls @ 3.175 mls/hr 01/31/20 07:00 02/02/20 06:22 Fentanyl Drip Premix IV 2 mcg/kg/hr TITR KIRA 6.35 mls/hr Administration Protocol 1 MCG/KG/HR Norepinephrine 4 mg in 250 mls @ 7.5 mls/hr 01/31/20 07:00 02/02/20 02:29 Levophed Drip 4 Mg/Ns 250 Ml IV 8 mcg/min TITR KIRA 30 mls/hr Administration Protocol 2 MCG/MIN Vasopressin 20 unit/ Sodium 101 mls @ 9.09 mls/hr 01/31/20 12:00 01/31/20 22:55 Chloride IV 0.03 units/min TITR KIRA 9.09 mls/hr Administration Protocol 0.03 UNITS/MIN Folic Acid 1 mg/ Sodium 50.2 mls @ 200.8 mls/hr 01/31/20 17:00 02/01/20 12:04 Chloride IV 200.8 mls/hr QDAY KIRA Administration Dextrose/Sodium Chloride 1,000 mls @ 30 mls/hr 02/01/20 09:00 02/02/20 00:19 D5ns IV 30 mls/hr DIRECT KIRA Administration Ceftriaxone Sodium 2 gm in 100 mls @ 200 mls/hr 02/01/20 10:00 02/01/20 12:05 Rocephin/Ns 2 Gm/100 Ml IV 200 mls/hr Q24HR KIRA Administration Azithromycin 500 mg/ Sodium 250 mls @ 250 mls/hr 02/01/20 10:00 02/01/20 1 7:05 Chloride IV 250 mls/hr Q24HR KIRA Administration Midazolam HCl 2 mg 01/31/20 11:16 01/31/20 11:46 Versed IV 2 mg Q10MIN PRN Administration Sedation Multi-Ingred Cream/Lotion/Oil/Oint 1 applic 01/31/20 06:36 Artificial Tears Ophth Oint OU Q4HR PRN Dry Eye(s) Pneumococcal Polyvalent Vaccine 0.5 ml 02/02/20 12:00 Pneumovax 23 IM 02/02/20 12:01 .ONCE ONE Valproic Acid 250 mg 02/02/20 10:00 Depakene Liq FEEDTUBE BID KIRA
[2020-02-02] MEDS ORDERED: FAMOTIDINE 20 MG/2 ML INJ IV SCH (10:00)
[2020-02-02] MEDS ORDERED: LIPASE 10,500/PROTEASE 25,000/AMYLASE 43,750 (UNITS) DR CAP FEEDTUBE PRN (11:04)
[2020-02-02] MEDS ORDERED: SODIUM BICARBONATE 325 MG TAB FEEDTUBE PRN (11:04)
[2020-02-02] MEDS ORDERED: SIMPLE SYRUP 15 ML FEEDTUBE PRN ×2 (11:04)
[2020-02-02] MEDS: CARBIDOPA/LEVODOPA 25-100 MG TAB PO SCH (11:30)
[2020-02-02] MEDS: HEPARIN 5,000 UNIT/1 ML VIAL SUB-Q SCH ×2 (11:30→21:26)
[2020-02-02] MEDS: VALPROIC ACID 250 MG/5 ML ORAL LIQD FEEDTUBE SCH ×2 (11:31→21:26)
[2020-02-02] MEDS: FOLIC ACID 1 MG in SODIUM CHLORIDE 0.9% 50 ML IV SCH (11:31)
[2020-02-02] MEDS: AZITHROMYCIN 500 MG in SODIUM CHLORIDE 0.9% 250ML 250 ML IV SCH (11:31)
[2020-02-02] MEDS: cefTRIAXone/NS 2 GM/100 ML 2 GM/100 ML BAG IV SCH (11:31)
[2020-02-02] MEDS ORDERED: PNEUMOCOCCAL 23 Valent 0.5 ML VIAL IM ONE (12:00)
[2020-02-02 12:15] LABS: Hemoglobin 10.2 gm/dl (11.8-15.2); Mean Corpuscular HGB Conc 33 % (32-34); Mean Corpuscular Volume 98 fl (84-94); Platelet Count 193 K/mm3 (140-440); Red Blood Count 3.16 M/mm3 (3.65-5.03); Red Cell Distribution Width 13.7 % (13.2-15.2)
[2020-02-02 12:28] LABS: Calcium 8.2 mg/dL (8.4-10.2)
--- NOTE | 2020-02-02 12:48 | XRay Report ---
ABDOMEN 1 VIEW(S) INDICATION / CLINICAL INFORMATION: OGT placement. COMPARISON: Radiograph performed earlier the same day. FINDINGS: TUBES / LINES: Gastric tube is not significantly changed with tip overlying the left upper abdomen, a n expected location of the gastric fundus. Portions of a partially visualized catheter is noted exten ding superiorly in the mid abdomen with tip located centrally. This is of unclear significance. It ma y represent portions of a femoral central venous or tubing external to the patient. Recommend clinica l correlation. If indicated follow-up radiographs positioned more inferiorly may be obtained. BOWEL GAS PATTERN: No significant abnormality. FREE AIR / EXTRALUMINAL GAS: None seen. ADDITIONAL FINDINGS: Persistent suspected small left pleural effusion. IMPRESSION: Gastric tube with tip overlying the expected location of the proximal stomach. Portions of a partially visualized catheter is noted extending superiorly in the mid abdomen with tip located centrally. This is of unclear significance. It may represent portions of a femoral central v enous or tubing external to the patient. Recommend clinical correlation. If indicated follow-up radio graphs positioned more inferiorly may be obtained. Signer Name: Arjun Velasquez MD Signed: 02/02/2020 12:44 PM Workstation Name: [id number]
--- NOTE | 2020-02-02 12:57 | Progress Note ---
Assessment and Plan Acute hypoxemic respiratory failure on MVS Acute toxic-metabolic encephalopathy Lactic acidosis- resolved Hyperkalemia with SJ Solitary kidney Severe metabolic acidosis COVID-PUI - VAP bundle addressed -Placed on PSV at the bedside, he is tolerating it well -Stop Midazolam, use fentanyl for agitation and analgesia -Wean vasopressor support, for MAP> 65. Off vasopressors at this time -Monitor hemodynamics closley - Lung protective strategies - Bronchodilators with pulmonary hygiene per RT -Continue with COVID isolation per protocol -Follow COVID results-pending -Follow cultures, in the interim continue with antibiotic therapy per ID -ABG, CXR prn -Nutritional support, advance to goal as tolerated -Aspiration precautions, HOB >40 - Wean supplemental oxygen for target O2 sats > 90% - Daily SAT and SBT assessment as tolerated - Wean per pulmonary driven protocols - Accuchecks with glycemic control per SSI (While critically ill target blood glucose of 140-180 mg/dL; avoid hypoglycemia) - Stop benzodiazepines, reduce the possibility of delirium - prn analgesia per CPOT score - Maintenance of sleep-wake cycle, avoid delirium -Avoid nephrotoxins, closely monitor renal function -CLIENT ADVISOR per Renal service - Stress ulcer & VTE prophylaxis ( Heparin, Famotidine) - Mobility protocol, off loading and skin assessment for pressure ulcer prevention -Romo catheter in this critically ill patient with acute renal failure on MVS -Supportive transfusions as indicated to keep HgB >7g/dL - continue other care per attending / other consultants Discussed with the ICU team-RT,RN, Life threatening condition- Acute hypoxemic respiratory failure on MVS, Acute toxic -metabolic encephalopathy Mortality/Morbidity- High Complexity of medical decision making- High CONDITION: CRITICAL PROGNOSIS: GUARDED CODE STATUS: DNAR- per documentation of primary service The high probability of a clinically significant, sudden or life-threatening deterioration of the [respiratory, renal & cardiovascular,neurology] system(s) required my full and direct attention, intervention and personal management. The aggregate critical care time was [33] minutes without overlap. Time includes spent on; [x] Data Review and interpretation [x] Patient assessment and monitoring of vital signs [x] Documentation [x] Medication orders and management Subjective Date of service: 02/02/20 Principal diagnosis: SJ/sepsis with hypotension Interval history: Follow up for:Acute hypoxemic respiratory failure on MVS;Acute toxic-metabolic encephalopathy;Hyperkalemia with SJ Severe metabolic acidosis; COVID-PUI Patient seen and examined. 24 hour events reviewed. Consulted with respiratory and nursing staff Off vasopressor support, no fevers overnight. Remains orally intubated to MVS, more awake and alert when sedation was held. Currently ion Midazolam and Fentanyl. Vent settings AC-VC 16/450/6/35%- rate was decreased this morning as his ABG showed some alkalosis Objective - Exam Narrative Exam: Constitutional: appears uncomfortable, other (elderly looking CM normocephalic with mildly increased respiratory effort at rest) Eyes: non-icteric ENT: oropharynx moist, other (ETT 24 cm EMILI) Neck: supple, no lymphadenopathy, no JVD Effort: mildly labored Ascultation: Bilateral: diminished breath sounds, rhonchi Percussion: Bilateral: not dull Cardiovascular: regular rate and rhythm Gastrointestinal: normoactive bowel sounds, soft, non-tender, non-distended Integumentary: rash Extremities: pink and warm, pulses normal, no ischemia or petechiae, edema (mild to upper extremities) Neurologic: pupils equal and round, Vital Signs - 12hr 02/02/20 02/02/20 02/02/20 01:00 01:15 01:30 Temperature Pulse Rate 103 H 98 H 92 H Pulse Rate [ From Monitor] Respiratory 15 16 16 Rate Blood Pressure 79/56 86/53 100/56 O2 Sat by Pulse 96 93 95 Oximetry 02/02/20 02/02/20 02/02/20 01:45 02:00 02:16 Temperature Pulse Rate 87 94 H 113 H Pulse Rate [ From Monitor] Respiratory 16 16 16 Rate Blood Pressure 103/62 103/62 128/80 O2 Sat by Pulse 96 97 96 Oximetry 02/02/20 02/02/20 02/02/20 02:30 02:45 03:00 Temperature Pulse Rate 98 H 92 H 84 Pulse Rate [ From Monitor] Respiratory 16 16 16 Rate Blood Pressure 103/58 96/57 103/58 O2 Sat by Pulse 94 94 95 Oximetry 02/02/20 02/02/20 02/02/20 03:15 03:29 03:30 Temperature 98.9 F Pulse Rate 81 91 H Pulse Rate [ From Monitor] Respiratory 16 16 Rate Blood Pressure 106/50 113/75 O2 Sat by Pulse 96 96 Oximetry 02/02/20 02/02/20 02/02/20 03:46 04:00 04:15 Temperature Pulse Rate 93 H 87 83 Pulse Rate [ 86 From Monitor] Respiratory 16 16 16 Rate Blood Pressure 111/67 106/52 112/58 O2 Sat by Pulse 97 97 97 Oximetry 02/02/20 02/02/20 02/02/20 04:27 04:30 04:45 Temperature Pulse Rate 95 H 91 H 84 Pulse Rate [ From Monitor] Respiratory 16 16 Rate Blood Pressure 112/58 120/61 107/56 O2 Sat by Pulse 98 97 97 Oximetry 02/02/20 02/02/20 02/02/20 05:00 05:16 05:30 Temperature Pulse Rate 77 77 85 Pulse Rate [ From Monitor] Respiratory 16 16 16 Rate Blood Pressure 105/56 104/55 107/71 O2 Sat by Pulse 97 97 97 Oximetry 02/02/20 02/02/20 02/02/20 05:46 06:00 06:15 Temperature Pulse Rate 80 97 H 88 Pulse Rate [ From Monitor] Respiratory 16 16 16 Rate Blood Pressure 107/71 103/68 117/64 O2 Sat by Pulse 97 98 97 Oximetry 02/02/20 02/02/20 02/02/20 06:30 06:46 07:00 Temperature Pulse Rate 100 H 98 H 87 Pulse Rate [ From Monitor] Respiratory 17 16 16 Rate Blood Pressure 131/68 134/60 119/56 O2 Sat by Pulse 97 97 96 Oximetry 02/02/20 02/02/20 02/02/20 07:15 07:30 07:46 Temperature Pulse Rate 81 85 92 H Pulse Rate [ From Monitor] Respiratory 16 17 17 Rate Blood Pressure 124/58 124/58 128/65 O2 Sat by Pulse 96 96 96 Oximetry 02/02/20 02/02/20 02/02/20 08:00 08:15 08:30 Temperature 99.5 F Pulse Rate 68 81 88 Pulse Rate [ 88 From Monitor] Respiratory 163 H 16 16 Rate Blood Pressure 105/50 127/58 127/58 O2 Sat by Pulse 98 96 96 Oximetry 02/02/20 02/02/20 02/02/20 08:45 09:00 09:15 Temperature Pulse Rate 80 85 78 Pulse Rate [ From Monitor] Respiratory 16 16 16 Rate Blood Pressure 128/69 O2 Sat by Pulse 97 97 97 Oximetry 02/02/20 02/02/20 02/02/20 09:30 09:46 10:00 Temperature Pulse Rate 77 103 H 96 H Pulse Rate [ From Monitor] Respiratory 16 18 16 Rate Blood Pressure 129/64 128/69 127/66 O2 Sat by Pulse 96 97 96 Oximetry 02/02/20 02/02/20 02/02/20 10:15 10:30 10:46 Temperature Pulse Rate 86 89 93 H Pulse Rate [ From Monitor] Respiratory 16 16 16 Rate Blood Pressure 131/61 131/61 105/60 O2 Sat by Pulse 96 96 96 Oximetry 02/02/20 02/02/20 02/02/20 11:00 11:15 11:20 Temperature Pulse Rate 108 H 88 79 Pulse Rate [ From Monitor] Respiratory 16 16 4 L Rate Blood Pressure 105/60 67/39 117/47 O2 Sat by Pulse 97 97 100 Oximetry 02/02/20 02/02/20 02/02/20 11:30 11:45 12:00 Temperature Pulse Rate 84 84 69 Pulse Rate [ From Monitor] Respiratory 16 14 16 Rate Blood Pressure 117/47 90/50 100/53 O2 Sat by Pulse 100 98 100 Oximetry CBC and BMP: 02/03/20 04:00 02/03/20 04:00 ABG, PT/INR, D-dimer: ABG ABG pH 7.400 pH Units (7.350-7.450) 02/02/20 04:24 ABG pCO2 49.9 mm Hg 02/02/20 04:24 ABG pO2 74.4 mm Hg (80.0-90.0) L 02/02/20 04:24 ABG O2 Saturation 96.3 % (95.0-99.0) 02/02/20 04:24 PT/INR, D-dimer D-Dimer 544.72 ng/mlDDU (0-234) H 01/31/20 05:45 Abnormal lab findings: Abnormal Labs 01/31/20 01/31/20 01/31/20 03:47 03:47 03:47 WBC 16.9 H RBC Hgb Hct MCV 99 H MCH 33 H Lymph % (Auto) [place] % (Auto) Lymph # [place] # Seg Neutrophils % Seg Neuts % (Manual) 95.0 H Lymphocytes % (Manual) 3.0 L Seg Neutrophils # Seg Neutrophils # Man 16.1 H Lymphocytes # (Manual) 0.5 L D-Dimer ABG pH ABG pO2 ABG HCO3 ABG O2 Saturation ABG Base Excess ABG Hemoglobin Oxyhemoglobin Sodium 126 L Potassium 8.8 H* Chloride 86.4 L Carbon Dioxide 10 L BUN 181 H Creatinine 12.5 H Glucose POC Glucose Lactic Acid 2.10 H* Uric Acid Calcium Ferritin ALT < 5 L Lactate Dehydrogenase Troponin T 0.065 H C-Reactive Protein Albumin 3.8 L HDL Cholesterol 39 L Urine Creatinine 01/31/20 01/31/20 01/31/20 05:37 05:45 05:45 WBC RBC Hgb Hct MCV MCH Lymph % (Auto) [place] % (Auto) Lymph # [place] # Seg Neutrophils % Seg Neuts % (Manual) Lymphocytes % (Manual) Seg Neutrophils # Seg Neutrophils # Man Lymphocytes # (Manual) D-Dimer 544.72 H ABG pH ABG pO2 ABG HCO3 ABG O2 Saturation ABG Base Excess ABG Hemoglobin Oxyhemoglobin Sodium Potassium Chloride Carbon Dioxide BUN Creatinine Glucose 103 H POC Glucose Lactic Acid 2.20 H* Uric Acid Calcium Ferritin ALT Lactate Dehydrogenase 387 H Troponin T C-Reactive Protein 1.60 H Albumin HDL Cholesterol Urine Creatinine 01/31/20 01/31/20 01/31/20 05:45 06:06 09:45 WBC RBC Hgb Hct MCV MCH Lymph % (Auto) [place] % (Auto) Lymph # [place] # Seg Neutrophils % Seg Neuts % (Manual) Lymphocytes % (Manual) Seg Neutrophils # Seg Neutrophils # Man Lymphocytes # (Manual) D-Dimer ABG pH ABG pO2 ABG HCO3 ABG O2 Saturation ABG Base Excess ABG Hemoglobin Oxyhemoglobin Sodium Potassium Chloride Carbon Dioxide BUN Creatinine Glucose POC Glucose Lactic Acid 3.20 H* Uric Acid 8.5 H Calcium Ferritin 722.6 H ALT Lactate Dehydrogenase Troponin T C-Reactive Protein Albumin HDL Cholesterol Urine Creatinine 01/31/20 01/31/20 01/31/20 09:45 10:30 18:31 WBC RBC Hgb Hct MCV MCH Lymph % (Auto) [place] % (Auto) Lymph # [place] # Seg Neutrophils % Seg Neuts % (Manual) Lymphocytes % (Manual) Seg Neutrophils # Seg Neutrophils # Man Lymphocytes # (Manual) D-Dimer ABG pH 7.059 L* ABG pO2 70.2 L ABG HCO3 9.9 L ABG O2 Saturation 85.4 L ABG Base Excess -19.6 L ABG Hemoglobin Oxyhemoglobin 84.0 L Sodium 118 L* D 133 L D Potassium 8.1 H* 5.1 H D Chloride 91.1 L 93.7 L Carbon Dioxide 3 L* D 17 L D BUN 179 H 54 H Creatinine 11.6 H 4.9 H D Glucose 197 H 215 H POC Glucose Lactic Acid Uric Acid Calcium Ferritin ALT Lactate Dehydrogenase Troponin T C-Reactive Protein Albumin HDL Cholesterol Urine Creatinine 01/31/20 01/31/20 02/01/20 19:45 23:06 01:30 WBC 17.4 H RBC 3.59 L Hgb 11.7 L Hct 34.5 L D MCV 96 H MCH 33 H Lymph % (Auto) 3.0 L [place] % (Auto) 8.9 H Lymph # 0.5 L [place] # 1.6 H Seg Neutrophils % 88.1 H Seg Neuts % (Manual) Lymphocytes % (Manual) Seg Neutrophils # 15.3 H Seg Neutrophils # Man Lymphocytes # (Manual) D-Dimer ABG pH ABG pO2 172.0 H ABG HCO3 ABG O2 Saturation 99.1 H ABG Base Excess -3.0 L ABG Hemoglobin 13.8 L Oxyhemoglobin Sodium Potassium Chloride Carbon Dioxide BUN Creatinine Glucose POC Glucose Lactic Acid Uric Acid Calcium Ferritin ALT Lactate Dehydrogenase Troponin T C-Reactive Protein Albumin HDL Cholesterol Urine Creatinine 257.5 H 02/01/20 02/01/20 02/01/20 01:30 04:53 23:39 WBC RBC Hgb Hct MCV MCH Lymph % (Auto) [place] % (Auto) Lymph # [place] # Seg Neutrophils % Seg Neuts % (Manual) Lymphocytes % (Manual) Seg Neutrophils # Seg Neutrophils # Man Lymphocytes # (Manual) D-Dimer ABG pH 7.505 H ABG pO2 158.5 H ABG HCO3 ABG O2 Saturation 99.1 H ABG Base Excess ABG Hemoglobin 11.0 L Oxyhemoglobin Sodium 133 L Potassium Chloride 93.6 L Carbon Dioxide BUN 47 H Creatinine 4.5 H Glucose 204 H POC Glucose 58 L Lactic Acid Uric Acid Calcium 8.3 L Ferritin ALT Lactate Dehydrogenase Troponin T C-Reactive Protein Albumin HDL Cholesterol Urine Creatinine 02/02/20 02/02/20 02/02/20 04:24 10:48 10:48 WBC 11.8 H RBC 3.16 L Hgb 10.2 L Hct 31.0 L MCV 98 H MCH Lymph % (Auto) [place] % (Auto) Lymph # [place] # Seg Neutrophils % Seg Neuts % (Manual) Lymphocytes % (Manual) Seg Neutrophils # Seg Neutrophils # Man Lymphocytes # (Manual) D-Dimer ABG pH ABG pO2 74.4 L ABG HCO3 30.2 H ABG O2 Saturation ABG Base Excess 4.6 H ABG Hemoglobin 10.7 L Oxyhemoglobin 94.7 L Sodium Potassium Chloride Carbon Dioxide BUN 52 H Creatinine 5.2 H Glucose 59 L POC Glucose Lactic Acid Uric Acid Calcium 8.2 L Ferritin ALT Lactate Dehydrogenase Troponin T C-Reactive Protein Albumin HDL Cholesterol Urine Creatinine 02/02/20 12:19 WBC RBC Hgb Hct MCV MCH Lymph % (Auto) [place] % (Auto) Lymph # [place] # Seg Neutrophils % Seg Neuts % (Manual) Lymphocytes % (Manual) Seg Neutrophils # Seg Neutrophils # Man Lymphocytes # (Manual) D-Dimer ABG pH ABG pO2 ABG HCO3 ABG O2 Saturation ABG Base Excess ABG Hemoglobin Oxyhemoglobin Sodium Potassium Chloride Carbon Dioxide BUN Creatinine Glucose POC Glucose 64 L Lactic Acid Uric Acid Calcium Ferritin ALT Lactate Dehydrogenase Troponin T C-Reactive Protein Albumin HDL Cholesterol Urine Creatinine Chest x-ray: image reviewed Allied health notes reviewed: RT
--- NOTE | 2020-02-02 13:11 | Event Note ---
Date: 02/02/20 Extensive discussions with his Nuris Borges- discussed her 's clinical condition and answered all her questions. She does state that she would not have wanted to have him intubated. We discussed the need to evaluate goals of care on a daily basis
--- NOTE | 2020-02-02 14:11 | Progress Note ---
Assessment and Plan Cultures: Blood culture 01/31/2020 pending Sputum culture 01/31/2020 pending A/P: 84-year-old man past medical history hypertension, dementia admitted to the hospital with altered mental status and hypoxia. #Acute hypoxic respiratory failure: Secondary to pneumonia/possible COVID-19. Currently intubated, follow COVID-19 testing #Right-sided pneumonia: Follow-up COVID-19 testing, start empiric antibiotics in the meantime. #SJ on HD: Etiology possibly septic shock versus COVID-19 Recs: -Obtain follow-up COVID-19 testing -still pending -We will start empiric ceftriaxone and azithromycin, though procalcitonin likely elevated in setting of renal dysfunction. His white count is still elevated at this time. -Further COVID-19 specific therapies to be recommended once testing returns. Thank you for the consult, we will continue to follow. Yudith Fernandez MD [facility] ([facility]) M: [phone] O: [phone] F: [phone] Subjective Date of service: 02/02/20 Principal diagnosis: SJ/sepsis with hypotension Interval history: Afebrile, white count mildly elevated 11.8. Currently on mechanical ventilation Imaging personally reviewed: Chest x-ray: Small bibasilar opacities Objective - Exam Narrative Exam: Physical exam deferred due to PPE conservation strategy. Please refer to primary team's note. - Constitutional Vitals: Vital Signs Temp Pulse Resp BP Pulse Ox 98.3 F 64 16 119/62 100 02/02/20 12:00 02/02/20 13:00 02/02/20 13:00 02/02/20 13:00 02/02/20 13:00 Temperature -Last 24 Hours Temperature 98.3 F Temperature 99.5 F Temperature 98.9 F Temperature 99.3 F Temperature 98.8 F Temperature 97.9 F - Labs CBC & Chem 7: 02/02/20 10:48 02/02/20 10:48 Labs: Abnormal lab results 02/01/20 02/02/20 02/02/20 Range/Units 23:39 04:24 10:48 WBC 11.8 H (4.5-11.0) K/mm3 RBC 3.16 L (3.65-5.03) M/mm3 Hgb 10.2 L (11.8-15.2) gm/dl Hct 31.0 L (35.5-45.6) % MCV 98 H (84-94) fl ABG pO2 74.4 L (80.0-90.0) mm Hg ABG HCO3 30.2 H (20.0-26.0) mmol/L ABG Base Excess 4.6 H (-2.0-3.0) mmol/L ABG Hemoglobin 10.7 L (14.0-18.0) gm/dl Oxyhemoglobin 94.7 L (95.0-99.0) % BUN (9-20) mg/dL Creatinine (0.8-1.5) mg/dL Glucose (75-100) mg/dL POC Glucose 58 L (70-105) Calcium (8.4-10.2) mg/dL 02/02/20 02/02/20 Range/Units 10:48 12:19 WBC (4.5-11.0) K/mm3 RBC (3.65-5.03) M/mm3 Hgb (11.8-15.2) gm/dl Hct (35.5-45.6) % MCV (84-94) fl ABG pO2 (80.0-90.0) mm Hg ABG HCO3 (20.0-26.0) mmol/L ABG Base Excess (-2.0-3.0) mmol/L ABG Hemoglobin (14.0-18.0) gm/dl Oxyhemoglobin (95.0-99.0) % BUN 52 H (9-20) mg/dL Creatinine 5.2 H (0.8-1.5) mg/dL Glucose 59 L (75-100) mg/dL POC Glucose 64 L (70-105) Calcium 8.2 L (8.4-10.2) mg/dL
--- NOTE | 2020-02-02 16:04 | Progress Note ---
Assessment and Plan Acute metabolic encephalopathy likely from severe sepsis, acute renal failure and underlying dementia Acute hypoxic respiratory failure - from renal failure and sepsis with PNA, intubated Metabolic acidosis from renal failure and sepsis, now on HD Acute renal failure on CKD, likely progressed to end-stage renal disease versus ATN, started on HD, nephrology following Suspected COVID-19 infection, ruled out b/p PNA, cont iv abx Septic shock, resolved, s/p pressor Severe hyperkalemia, improved after HD and bicarbonate drip Advanced dementia, cont supportive care Severe sepsis likely due to pneumonia, cont abx, neg for covid19. ID following History of single kidney- s/p nephrectomy DNR code status -monitor at ICU, off pressor support now -continue nebulizer breathing treatment and wean off from vent as tolerated: pulmonary following -Follow nephrology recommendation, s/p emergent dialysis after Vas-Cath placement -negative for COVID 19, ID following, started on TF today -Continue frequent neuro exam and supportive care -Also continue on empiric antibiotic for possible underlying pneumonia and severe sepsis -DVT prophylaxis with heparin, continue to monitor CBC and BMP Called patient's and discussed in length about plan of care. doesnot want prolong suffering for her . Patient was in SNF since 2010. He has been wheel chair bound for last few months with advance dementia. wanted to know CT head findings which is pending and approximate time frame for extubation. was informed that CC following the patient and patient being assessed daily for possible extubation. COVID test is negative today The high probability of a clinically significant, sudden or life threatening deterioration of the [multiple] system(s) required my full and direct attention, intervention and personal management. The aggregate critical care time was [32] minutes. This time is in addition to time spent performing reported procedures but includes the following: [x] Data Review and interpretation [x] Patient assessment and monitoring of vital signs [x] Documentation [x] Medication orders and management Brief History: 84-year-old elderly male with history of advanced dementia snf resident history of single kidney presented to the hospital with altered mental status and respiratory failure. Patient intubated in the ER, placed on vasopressors, nephrology was consulted for emergent dialysis. Subjective Date of service: 02/02/20 Principal diagnosis: SJ/sepsis with hypotension Interval history: Patient seen and examined remains intubated covid test negative, pending CT head discussed with in details Objective - Exam Narrative Exam: General appearance: Present: mild distress - EENT Eyes: PERRL, EOM intact ENT: clear oral mucosa Ears: bilateral: normal - Neck Neck: supple, normal ROM - Respiratory Details: Patient orally intubated Respiratory effort: other Respiratory: bilateral: CTA - Breasts Breasts: normal - Cardiovascular Heart rate: 63 Rhythm: regular Heart Sounds: Present: S1 & S2. Absent: gallop, rub Extremities: pulses intact, No edema, normal color, Full ROM - Gastrointestinal General gastrointestinal: Present: soft, non-tender, non-distended, normal bowel sounds - Integumentary Integumentary: warm, dry - Musculoskeletal Musculoskeletal: 1, no joint effusion - Neurologic Neurologic: moves all extremities - Psychiatric Psychiatric: agitated (on fentanyl gtt for sedation) - Constitutional Vitals: Vital Signs - 12hr 02/02/20 02/02/20 02/02/20 04:15 04:27 04:30 Temperature Pulse Rate 83 95 H 91 H Pulse Rate [ From Monitor] Respiratory 16 16 Rate Blood Pressure 112/58 112/58 120/61 O2 Sat by Pulse 97 98 97 Oximetry 02/02/20 02/02/20 02/02/20 04:45 05:00 05:16 Temperature Pulse Rate 84 77 77 Pulse Rate [ From Monitor] Respiratory 16 16 16 Rate Blood Pressure 107/56 105/56 104/55 O2 Sat by Pulse 97 97 97 Oximetry 02/02/20 02/02/20 02/02/20 05:30 05:46 06:00 Temperature Pulse Rate 85 80 97 H Pulse Rate [ From Monitor] Respiratory 16 16 16 Rate Blood Pressure 107/71 107/71 103/68 O2 Sat by Pulse 97 97 98 Oximetry 02/02/20 02/02/20 02/02/20 06:15 06:30 06:46 Temperature Pulse Rate 88 100 H 98 H Pulse Rate [ From Monitor] Respiratory 16 17 16 Rate Blood Pressure 117/64 131/68 134/60 O2 Sat by Pulse 97 97 97 Oximetry 02/02/20 02/02/20 02/02/20 07:00 07:15 07:30 Temperature Pulse Rate 87 81 85 Pulse Rate [ From Monitor] Respiratory 16 16 17 Rate Blood Pressure 119/56 124/58 124/58 O2 Sat by Pulse 96 96 96 Oximetry 0702/02/20 02/02/20 07:46 08:00 08:15 Temperature 99.5 F Pulse Rate 92 H 68 81 Pulse Rate [ 88 From Monitor] Respiratory 17 16 16 Rate Blood Pressure 128/65 105/50 127/58 O2 Sat by Pulse 96 98 96 Oximetry 02/02/20 02/02/20 02/02/20 08:30 08:45 09:00 Temperature Pulse Rate 88 80 85 Pulse Rate [ From Monitor] Respiratory 16 16 16 Rate Blood Pressure 127/58 O2 Sat by Pulse 96 97 97 Oximetry 02/02/20 02/02/20 02/02/20 09:15 09:30 09:46 Temperature Pulse Rate 78 77 103 H Pulse Rate [ From Monitor] Respiratory 16 16 18 Rate Blood Pressure 128/69 129/64 128/69 O2 Sat by Pulse 97 96 97 Oximetry 02/02/20 02/02/20 02/02/20 10:00 10:15 10:30 Temperature Pulse Rate 96 H 86 89 Pulse Rate [ From Monitor] Respiratory 16 16 16 Rate Blood Pressure 127/66 131/61 131/61 O2 Sat by Pulse 96 96 96 Oximetry 02/02/20 02/02/20 02/02/20 10:46 11:00 11:15 Temperature Pulse Rate 93 H 108 H 88 Pulse Rate [ From Monitor] Respiratory 16 16 16 Rate Blood Pressure 105/60 105/60 67/39 O2 Sat by Pulse 96 97 97 Oximetry 02/02/20 02/02/20 02/02/20 11:20 11:30 11:45 Temperature Pulse Rate 79 84 84 Pulse Rate [ From Monitor] Respiratory 4 L 16 14 Rate Blood Pressure 117/47 117/47 90/50 O2 Sat by Pulse 100 100 98 Oximetry 02/02/20 02/02/20 02/02/20 12:00 12:16 12:30 Temperature 98.3 F Pulse Rate 69 77 83 Pulse Rate [ 60 From Monitor] Respiratory 16 16 16 Rate Blood Pressure 100/53 117/47 96/51 O2 Sat by Pulse 100 100 100 Oximetry 02/02/20 02/02/20 02/02/20 12:45 13:00 13:15 Temperature Pulse Rate 77 64 60 Pulse Rate [ From Monitor] Respiratory 16 16 16 Rate Blood Pressure 104/61 119/62 126/62 O2 Sat by Pulse 98 100 100 Oximetry 02/02/20 02/02/2002/01/20 13:30 13:45 14:00 Temperature Pulse Rate 62 76 76 Pulse Rate [ From Monitor] Respiratory 16 15 16 Rate Blood Pressure 128/56 120/70 111/63 O2 Sat by Pulse 99 100 100 Oximetry 02/02/20 02/02/20 02/02/20 14:16 14:30 14:46 Temperature Pulse Rate 73 71 70 Pulse Rate [ From Monitor] Respiratory 16 16 16 Rate Blood Pressure 118/69 97/67 89/59 O2 Sat by Pulse 99 99 100 Oximetry 02/02/20 02/02/20 15:00 15:16 Temperature Pulse Rate 71 73 Pulse Rate [ From Monitor] Respiratory 16 Rate Blood Pressure 89/59 97/67 O2 Sat by Pulse 99 100 Oximetry - Labs CBC & Chem 7: 02/03/20 04:00 02/03/20 04:00 Labs: Abnormal lab results 02/01/20 02/02/20 02/02/20 Range/Units 23:39 04:24 10:48 WBC 11.8 H (4.5-11.0) K/mm3 RBC 3.16 L (3.65-5.03) M/mm3 Hgb 10.2 L (11.8-15.2) gm/dl Hct 31.0 L (35.5-45.6) % MCV 98 H (84-94) fl ABG pO2 74.4 L (80.0-90.0) mm Hg ABG HCO3 30.2 H (20.0-26.0) mmol/L ABG Base Excess 4.6 H (-2.0-3.0) mmol/L ABG Hemoglobin 10.7 L (14.0-18.0) gm/dl Oxyhemoglobin 94.7 L (95.0-99.0) % BUN (9-20) mg/dL Creatinine (0.8-1.5) mg/dL Glucose (75-100) mg/dL POC Glucose 58 L (70-105) Calcium (8.4-10.2) mg/dL 02/02/20 02/02/20 Range/Units 10:48 12:19 WBC (4.5-11.0) K/mm3 RBC (3.65-5.03) M/mm3 Hgb (11.8-15.2) gm/dl Hct (35.5-45.6) % MCV (84-94) fl ABG pO2 (80.0-90.0) mm Hg ABG HCO3 (20.0-26.0) mmol/L ABG Base Excess (-2.0-3.0) mmol/L ABG Hemoglobin (14.0-18.0) gm/dl Oxyhemoglobin (95.0-99.0) % BUN 52 H (9-20) mg/dL Creatinine 5.2 H (0.8-1.5) mg/dL Glucose 59 L (75-100) mg/dL POC Glucose 64 L (70-105) Calcium 8.2 L (8.4-10.2) mg/dL HEART Score - HEART Score Troponin: Troponin T 0.065 ng/mL (0.00-0.029) H 01/31/20 03:47
[2020-02-03] MEDS: NORepinephrine/NS 4 MG-250 ML 4 MG/250 ML BAG IV SCH ×2 (01:54→20:18)
--- NOTE | 2020-02-03 03:22 | XRay Report ---
CHEST 1 VIEW 02/03/2020 2:10 AM INDICATION / CLINICAL INFORMATION: follow up respiratory failure. COMPARISON: View of the chest from 02/02/2020. FINDINGS: SUPPORT DEVICES: Unchanged. HEART / MEDIASTINUM: Stable. LUNGS / PLEURA: Slightly increased right basilar opacities and stable left basilar opacities. Stable probable small left pleural effusion. No pneumothorax. ADDITIONAL FINDINGS: No significant additional findings. IMPRESSION: Slightly increased right basilar opacities. No other significant change. Signer Name: Jan Phillips MD Signed: 02/03/2020 3:18 AM Workstation Name: [id number]
[2020-02-03] MEDS: fentaNYL DRIP Premix 2,000 MCG/100 ML BAG IV SCH ×3 (04:46→20:17)
[2020-02-03 05:50] LABS: ABG Base Excess 0.5 mmol/L (-2.0-3.0); ABG HCO3 27.9 mmol/L (20.0-26.0); ABG Methemoglobin 0.4 % (0.0-1.5); ABG Oxygen Saturation 94.6 % (95.0-99.0); ABG PCO2 60.7 mm Hg; ABG PH 7.281 pH Units (7.350-7.450); ABG PO2 71.7 mm Hg (80.0-90.0)
[2020-02-03 05:54] LABS: Basophils % (Auto) 0.1 % (0.0-1.8); Eosinophils % (Auto) 0.3 % (0.0-4.3); Hemoglobin 10.7 gm/dl (11.8-15.2); Lymphocytes # (Auto) 1.9 K/mm3 (1.2-5.4); Lymphocytes % (Auto) 14.8 % (13.4-35.0); Mean Corpuscular HGB Conc 33 % (32-34); Mean Corpuscular Volume 99 fl (84-94); Monocytes # (Auto) 0.8 K/mm3 (0.0-0.8); Monocytes % (Auto) 6.6 % (0.0-7.3); Platelet Count 184 K/mm3 (140-440); Red Blood Count 3.23 M/mm3 (3.65-5.03); Red Cell Distribution Width 13.9 % (13.2-15.2)
[2020-02-03] MEDS ORDERED: SODIUM CHLORIDE 0.9% 100 ML IV PRN (08:25)
--- NOTE | 2020-02-03 08:25 | Progress Note ---
Assessment and Plan Impression: * Acute kidney injury secondary ATN * Acute hypoxic repiratory failure on mechanical ventilation * Pneumonia - r/o COVID 19 * COVID 19 PUI * Sepsis * Hyperkalemia - resolved * Metabolic acidosis, severe - resolved * Hyponatremia - resoslved * Hypoglycemia Plan: * Will plan for hemodialysis today * UF as tolerated * Pressors prn to maintain MAP>65 * Vent management per pulmonary medicine * Avoid nephrotoxins * Dose medications for renal function Subjective Date of service: 02/03/20 Principal diagnosis: SJ/sepsis with hypotension Interval history: Chart, vitals. labs reviewed Objective - Exam Narrative Exam: In effort of PPE conservation strategy, exam deferred. Physical exam findings of primary team reviewed. - Vital Signs Vital signs: Vital Signs - 12hr 02/02/20 02/02/20 02/02/20 20:30 20:45 21:00 Temperature Pulse Rate 60 60 60 Pulse Rate [ From Monitor] Respiratory 16 16 16 Rate Blood Pressure 126/68 121/64 116/60 O2 Sat by Pulse 99 99 98 Oximetry 02/02/20 02/02/20 02/02/20 21:16 21:24 21:30 Temperature Pulse Rate 60 60 60 Pulse Rate [ From Monitor] Respiratory 16 16 16 Rate Blood Pressure 110/54 110/54 104/52 O2 Sat by Pulse 99 97 97 Oximetry 02/02/20 02/02/20 02/02/20 21:45 22:00 22:15 Temperature Pulse Rate 60 60 60 Pulse Rate [ From Monitor] Respiratory 16 16 16 Rate Blood Pressure 102/58 106/57 104/56 O2 Sat by Pulse 98 98 98 Oximetry 02/02/20 02/02/20 02/02/20 22:30 22:45 23:00 Temperature Pulse Rate 60 60 60 Pulse Rate [ From Monitor] Respiratory 16 16 16 Rate Blood Pressure 103/55 104/55 110/55 O2 Sat by Pulse 98 98 98 Oximetry 02/02/20 02/02/20 02/02/20 23:15 23:30 23:45 Temperature Pulse Rate 60 60 60 Pulse Rate [ From Monitor] Respiratory 16 16 16 Rate Blood Pressure 100/57 100/53 108/59 O2 Sat by Pulse 97 98 98 Oximetry 02/03/20 02/03/20 02/03/20 00:00 00:16 00:30 Temperature 98.6 F Pulse Rate 59 L 95 H 74 Pulse Rate [ 78 From Monitor] Respiratory 16 15 16 Rate Blood Pressure 109/56 78/58 113/57 O2 Sat by Pulse 98 91 98 Oximetry 02/03/20 02/03/20 02/03/20 00:45 01:00 01:02 Temperature Pulse Rate 70 63 64 Pulse Rate [ From Monitor] Respiratory 16 16 Rate Blood Pressure 106/55 104/51 104/51 O2 Sat by Pulse 97 98 98 Oximetry 02/03/20 02/03/20 02/03/20 01:15 01:30 01:45 Temperature Pulse Rate 60 60 60 Pulse Rate [ From Monitor] Respiratory 16 16 16 Rate Blood Pressure 101/49 101/50 99/50 O2 Sat by Pulse 97 97 98 Oximetry 02/03/20 02/03/20 02/03/20 02:00 02:15 02:30 Temperature Pulse Rate 62 60 60 Pulse Rate [ From Monitor] Respiratory 16 16 16 Rate Blood Pressure 89/47 99/51 99/52 O2 Sat by Pulse 97 98 98 Oximetry 02/03/20 02/03/20 02/03/20 02:46 03:00 03:15 Temperature Pulse Rate 70 60 60 Pulse Rate [ From Monitor] Respiratory 16 16 16 Rate Blood Pressure 102/51 84/48 98/50 O2 Sat by Pulse 97 98 98 Oximetry 02/03/20 02/03/20 02/03/20 03:30 03:45 04:00 Temperature 98.4 F Pulse Rate 60 60 60 Pulse Rate [ 64 From Monitor] Respiratory 16 16 16 Rate Blood Pressure 106/51 104/51 102/52 O2 Sat by Pulse 98 97 98 Oximetry 02/03/20 02/03/20 02/03/20 04:15 04:30 04:42 Temperature Pulse Rate 60 94 H 78 Pulse Rate [ From Monitor] Respiratory 16 16 Rate Blood Pressure 109/52 109/52 125/81 O2 Sat by Pulse 98 95 97 Oximetry 02/03/20 02/03/20 02/03/20 04:45 05:00 05:15 Temperature Pulse Rate 76 67 60 Pulse Rate [ From Monitor] Respiratory 16 16 16 Rate Blood Pressure 124/56 105/52 106/52 O2 Sat by Pulse 97 97 97 Oximetry 02/03/20 02/03/20 02/03/20 05:30 05:45 06:00 Temperature Pulse Rate 59 L 60 59 L Pulse Rate [ From Monitor] Respiratory 16 16 16 Rate Blood Pressure 109/52 101/53 101/53 O2 Sat by Pulse 96 96 96 Oximetry 02/03/20 02/03/20 06:15 06:30 Temperature Pulse Rate 59 L 68 Pulse Rate [ From Monitor] Respiratory 16 20 Rate Blood Pressure 98/47 98/47 O2 Sat by Pulse 94 93 Oximetry - Lab 02/03/20 04:00 02/03/20 04:00 Most recent lab results ABG pH 7.281 pH Units (7.350-7.450) L 02/03/20 04:35 ABG pCO2 60.7 mm Hg 02/03/20 04:35 ABG pO2 71.7 mm Hg (80.0-90.0) L 02/03/20 04:35 ABG HCO3 27.9 mmol/L (20.0-26.0) H 02/03/20 04:35 ABG O2 Saturation 94.6 % (95.0-99.0) L 02/03/20 04:35 Calcium 8.0 mg/dL (8.4-10.2) L 02/03/20 04:00 Urine Creatinine 257.5 mg/dL (0.1-20.0) H 01/31/20 23:06 Urine Sodium 10 mmol/L 01/31/20 23:06 Medications & Allergies - Medications Allergies/Adverse Reactions: Allergies No Known Allergies Allergy (Unverified 10/13/14 11:06) Home Medications: Home Medications Medication Instructions Recorded Confirmed Last Taken Type Acetaminophen [Acetaminophen TAB] 325 mg PO Q6HR PRN 10/13/14 02/02/20 Unknown History Carbidopa/Levodopa 25-100 [Sinemet 1.5 tab PO DAILY 10/13/14 02/02/20 10/19/14 History 25/100] Divalproex Sodium [Divalproex 250 mg PO BID 10/13/14 02/02/20 10/19/14 History Sodium ER] donepeziL [Aricept] 10 mg PO QHS 10/13/14 02/02/20 10/19/14 History Dextran 70/Hypromellose 1 each OP PRN 02/02/20 02/02/20 Unknown History [Artificial Tears] Gabapentin [Neurontin] 100 mg PO QHS 02/02/20 02/02/20 Unknown History Ipratropium/Albuterol Sulfate 1 ampul IH Q6HR 02/02/20 02/02/20 Unknown History [DUONEB *Not for PRN Use*] Latanoprost 0.005% [Xalatan 0.005%] 1 drop OP QPM 02/02/20 02/02/20 Unknown History Loratadine [Allergy Relief] 10 mg PO QDAY 02/02/20 02/02/20 Unknown History Omeprazole 20 mg PO QHS 02/02/20 02/02/20 Unknown History Timolol 0.25% (Nf) [Timoptic] 1 drops OP BID 02/02/20 02/02/20 Unknown History Active Medications: Generic Name Dose Route Start Last Admin Trade Name Freq PRN Reason Stop Dose Admin Lipase/Protease/Amylase 1 each 02/02/20 11:[address] 10,500 Unit FEEDTUBE PRN PRN For Clogged Feeding Tube Carbidopa/Levodopa 1.5 each 02/01/20 10:00 02/02/20 11:30 Sinemet PO 1.5 each DAILY KIRA Administration Dextrose 0 ml 02/02/20 00:11 02/02/20 18:20 D50w (25gm) Syringe IV 50 ml Q30MIN PRN Administration Hypoglycemia Protocol Famotidine 20 mg 02/03/20 10:00 Pepcid PO DAILY KIRA Fentanyl 50 mcg 01/31/20 06:36 01/31/20 16:40 Sublimaze IV 50 mcg Q10MIN PRN Administration ANALGESIA Folic Acid 1 mg 02/04/20 10:00 Folvite PO DAILY KIRA Heparin Sodium (Porcine) 5,000 unit 01/31/20 22:00 02/02/20 21:26 Heparin SUB-Q 5,000 unit Q12HR KIRA Administration Hydrophilic Ointment 1 applic 01/31/20 06:36 Vaseline Lip Therapy TP Q2HR PRN Dry Lips Sodium Chloride 100 mls @ 999 mls/hr 01/31/20 05:48 Nacl 0.9% IV GILBERTO PRN Hypotension Fentanyl Citrate 2,000 mcg in 100 mls @ 3.175 mls/hr 01/31/20 07:00 02/03/20 04:46 Fentanyl Drip Premix IV 2 mcg/kg/hr TITR KIRA 6.35 mls/hr Administration Protocol 1 MCG/KG/HR Norepinephrine 4 mg in 250 mls @ 7.5 mls/hr 01/31/20 07:00 02/03/20 01:54 Levophed Drip 4 Mg/Ns 250 Ml IV 4 mcg/min TITR KIRA 15 mls/hr Administration Protocol 2 MCG/MIN Vasopressin 20 unit/ Sodium 101 mls @ 9.09 mls/hr 01/31/20 12:00 01/31/20 22:55 Chloride IV 0.03 units/min TITR KIRA 9.09 mls/hr Administration Protocol 0.03 UNITS/MIN Folic Acid 1 mg/ Sodium 50.2 mls @ 200.8 mls/hr 01/31/20 17:00 02/02/20 11:31 Chloride IV 02/03/20 16:59 200.8 mls/hr QDAY KIRA Administration Dextrose/Sodium Chloride 1,000 mls @ 30 mls/hr 02/01/20 09:00 02/02/20 00:19 D5ns IV 30 mls/hr DIRECT KIRA Administration Ceftriaxone Sodium 2 gm in 100 mls @ 200 mls/hr 02/01/20 10:00 02/02/20 11:31 Rocephin/Ns 2 Gm/100 Ml IV 200 mls/hr Q24HR KIRA Administration Azithromycin 500 mg/ Sodium 250 mls @ 250 mls/hr 02/01/20 10:00 02/02/20 11:31 Chloride IV 250 mls/hr Q24HR KIRA Administration Midazolam HCl 2 mg 01/31/20 11:16 01/31/20 11:46 Versed IV 2 mg Q10MIN PRN Administration Sedation Multi-Ingred Cream/Lotion/Oil/Oint 1 applic 01/31/20 06:36 Artificial Tears Ophth Oint OU Q4HR PRN Dry Eye(s) Simple Syrup 15 ml 02/02/20 11:04 Simple Syrup FEEDTUBE PRN PRN Hypoglycemia Simple Syrup 30 ml 02/02/20 11:04 Simple Syrup FEEDTUBE PRN PRN Hypoglycemia Sodium Bicarbonate 325 mg 02/02/20 11:04 Sodium Bicarbonate FEEDTUBE PRN PRN For Clogged Feeding Tube Valproic Acid 250 mg 02/02/20 10:00 02/02/20 21:26 Depakene Liq FEEDTUBE 250 mg BID KIRA Administration
--- NOTE | 2020-02-03 09:48 | Progress Note ---
Assessment and Plan Assessment and plan: 84-year-old elderly male with history of advanced dementia fpc resident history of single kidney presented to the hospital with altered mental status and respiratory failure. Patient intubated in the ER, placed on vasopressors, nephrology was consulted for emergent dialysis. --Acute metabolic encephalopathy: likely from severe sepsis, acute renal failure and underlying dementia --Acute hypoxic respiratory failure: Intubated on ventilatory support, pulmonary critical following Wean as tolerated and extubate --Acute renal failure : Patient only has 1 kidney, nephrology evaluated the patient Initiated hemodialysis, HD per schedule However patient's does not want hemodialysis --Metabolic acidosis: from renal failure and sepsis, now on HD --P UI/ COVID-19 infection : Negative test --Bilateral PNA: cont iv abx, ID following --Septic shock, resolved, s/p pressor --Severe hyperkalemia: improved after HD and bicarbonate drip --Advanced dementia: cont supportive care --Severe sepsis :likely due to pneumonia, cont abx, --History of single kidney- s/p nephrectomy --DVT prophylaxis; heparin renal dose --DNR code status Recommend palliative care /hospice I discussed extensively with his , she requests DNR status , does not want hemodialysis , would like to talk to mule operator regarding weaning ventilator support The high probability of a clinically significant, sudden or life threatening deterioration of the [multiple] system(s) required my full and direct attention, intervention and personal management. The aggregate critical care time was [35] minutes. This time is in addition to time spent performing reported procedures but includes the following: [x] Data Review and interpretation [x] Patient assessment and monitoring of vital signs [x] Documentation [x] Medication orders and management History Interval history: I have seen and examined the patient in ICU this morning Patient's chart, medications, tests reviewed Patient is intubated on ventilatory support In mild distress Hospitalist Physical - Constitutional Vitals: Temp Pulse Resp BP Pulse Ox 98.4 F 60 20 107/52 97 02/03/20 04:00 02/03/20 08:20 02/03/20 06:30 02/03/20 08:20 02/03/20 08:20 General appearance: Present: mild distress, well-nourished, other (Intubated on vent) - EENT Eyes: Present: PERRL, EOM intact - Neck Neck: Present: supple, normal ROM - Respiratory Respiratory effort: normal Respiratory: bilateral: diminished, rhonchi, negative: rales, wheezing - Cardiovascular Rhythm: regular Heart Sounds: Present: S1 & S2 - Extremities Extremities: no ischemia, No edema - Abdominal General gastrointestinal: soft, non-tender, non-distended, normal bowel sounds - Integumentary Integumentary: Present: clear, warm - Psychiatric Psychiatric: other (Intubated on vent) - Neurologic Neurologic: other (Intubated on vent) HEART Score - HEART Score Troponin: Troponin T 0.065 ng/mL (0.00-0.029) H 01/31/20 03:47 Results - Labs CBC & Chem 7: 02/03/20 04:00 02/03/20 04:00 Labs: Laboratory Last Values WBC 12.8 K/mm3 (4.5-11.0) H 02/03/20 04:00 RBC 3.23 M/mm3 (3.65-5.03) L 02/03/20 04:00 Hgb 10.7 gm/dl (11.8-15.2) L 02/03/20 04:00 Hct 32.0 % (35.5-45.6) L 02/03/20 04:00 MCV 99 fl (84-94) H 02/03/20 04:00 MCH 33 pg (28-32) H 02/03/20 04:00 MCHC 33 % (32-34) 02/03/20 04:00 RDW 13.9 % (13.2-15.2) 02/03/20 04:00 Plt Count 184 K/mm3 (140-440) 02/03/20 04:00 Lymph % (Auto) 14.8 % (13.4-35.0) 02/03/20 04:00 [place] % (Auto) 6.6 % (0.0-7.3) 02/03/20 04:00 Eos % (Auto) 0.3 % (0.0-4.3) 02/03/20 04:00 Baso % (Auto) 0.1 % (0.0-1.8) 02/03/20 04:00 Lymph # 1.9 K/mm3 (1.2-5.4) 02/03/20 04:00 [place] # 0.8 K/mm3 (0.0-0.8) 02/03/20 04:00 Eos # 0.0 K/mm3 (0.0-0.4) 02/03/20 04:00 Baso # 0.0 K/mm3 (0.0-0.1) 02/03/20 04:00 Add Manual Diff Complete 01/31/20 03:47 Total Counted 100 01/31/20 03:47 Seg Neutrophils % 78.2 % (40.0-70.0) H 02/03/20 04:00 Seg Neuts % (Manual) 95.0 % (40.0-70.0) H 01/31/20 03:47 Band Neutrophils % 0 % 01/31/20 03:47 Lymphocytes % (Manual) 3.0 % (13.4-35.0) L 01/31/20 03:47 Reactive Lymphs % (Man) 0 % 01/31/20 03:47 Monocytes % (Manual) 2.0 % (0.0-7.3) 01/31/20 03:47 Eosinophils % (Manual) 0 % (0.0-4.3) 01/31/20 03:47 Basophils % (Manual) 0 % (0.0-1.8) 01/31/20 03:47 Metamyelocytes % 0 % 01/31/20 03:47 Myelocytes % 0 % 01/31/20 03:47 Promyelocytes % 0 % 01/31/20 03:47 Blast Cells % 0 % 01/31/20 03:47 Nucleated RBC % Not Reportable 01/31/20 03:47 Seg Neutrophils # 10.0 K/mm3 (1.8-7.7) H 02/03/20 04:00 Seg Neutrophils # Man 16.1 K/mm3 (1.8-7.7) H 01/31/20 03:47 Band Neutrophils # 0.0 K/mm3 01/31/20 03:47 Lymphocytes # (Manual) 0.5 K/mm3 (1.2-5.4) L 01/31/20 03:47 Abs React Lymphs (Man) 0.0 K/mm3 01/31/20 03:47 Monocytes # (Manual) 0.3 K/mm3 (0.0-0.8) 01/31/20 03:47 Eosinophils # (Manual) 0.0 K/mm3 (0.0-0.4) 01/31/20 03:47 Basophils # (Manual) 0.0 K/mm3 (0.0-0.1) 01/31/20 03:47 Metamyelocytes # 0.0 K/mm3 01/31/20 03:47 Myelocytes # 0.0 K/mm3 01/31/20 03:47 Promyelocytes # 0.0 K/mm3 01/31/20 03:47 Blast Cells # 0.0 K/mm3 01/31/20 03:47 WBC Morphology Not Reportable 01/31/20 03:47 Hypersegmented Neuts Not Reportable 01/31/20 03:47 Hyposegmented Neuts Not Reportable 01/31/20 03:47 Hypogranular Neuts Not Reportable 01/31/20 03:47 Smudge Cells Not Reportable 01/31/20 03:47 Toxic Granulation Not Reportable 01/31/20 03:47 Toxic Vacuolation Not Reportable 01/31/20 03:47 Dohle Bodies Not Reportable 01/31/20 03:47 Pelger-Huet Anomaly Not Reportable 01/31/20 03:47 Harshal Rods Not Reportable 01/31/20 03:47 Platelet Estimate Consistent w auto 01/31/20 03:47 Clumped Platelets Not Reportable 01/31/20 03:47 Plt Clumps, EDTA Not Reportable 01/31/20 03:47 Large Platelets Not Reportable 01/31/20 03:47 Giant Platelets Not Reportable 01/31/20 03:47 Platelet Satelliting Not Reportable 01/31/20 03:47 Plt Morphology Comment Not Reportable 01/31/20 03:47 RBC Morphology Not Reportable 01/31/20 03:47 Dimorphic RBCs Not Reportable 01/31/20 03:47 Polychromasia Not Reportable 01/31/20 03:47 Hypochromasia Not Reportable 01/31/20 03:47 Poikilocytosis Not Reportable 01/31/20 03:47 Anisocytosis 1+ 01/31/20 03:47 Microcytosis Not Reportable 01/31/20 03:47 Macrocytosis Not Reportable 01/31/20 03:47 Spherocytes Not Reportable 01/31/20 03:47 Pappenheimer Bodies Not Reportable 01/31/20 03:47 Sickle Cells Not Reportable 01/31/20 03:47 Target Cells Not Reportable 01/31/20 03:47 Tear Drop Cells Not Reportable 01/31/20 03:47 Ovalocytes Not Reportable 01/31/20 03:47 Helmet Cells Not Reportable 01/31/20 03:47 [place] Bodies Not Reportable 01/31/20 03:47 [place] Rings Not Reportable 01/31/20 03:47 [place] Cells Not Reportable 01/31/20 03:47 Bite Cells Not Reportable 01/31/20 03:47 Crenated Cell Not Reportable 01/31/20 03:47 Elliptocytes Not Reportable 01/31/20 03:47 Acanthocytes (Spur) Not Reportable 01/31/20 03:47 Rouleaux Not Reportable 01/31/20 03:47 Hemoglobin C Crystals Not Reportable 01/31/20 03:47 Schistocytes Not Reportable 01/31/20 03:47 Malaria parasites Not Reportable 01/31/20 03:47 [place] Bodies Not Reportable 01/31/20 03:47 Hem Pathologist Commnt No 01/31/20 03:47 D-Dimer 544.72 ng/mlDDU (0-234) H 01/31/20 05:45 ABG pH 7.281 pH Units (7.350-7.450) L 02/03/20 04:35 ABG pCO2 60.7 mm Hg 02/03/20 04:35 ABG pO2 71.7 mm Hg (80.0-90.0) L 02/03/20 04:35 ABG HCO3 27.9 mmol/L (20.0-26.0) H 02/03/20 04:35 ABG O2 Saturation 94.6 % (95.0-99.0) L 02/03/20 04:35 ABG O2 Content 12.4 (0.0-44) 02/03/20 04:35 ABG Base Excess 0.5 mmol/L (-2.0-3.0) 02/03/20 04:35 ABG Hemoglobin 9.5 gm/dl (14.0-18.0) L 02/03/20 04:35 ABG Carboxyhemoglobin 1.5 % (0.0-5.0) 02/03/20 04:35 ABG Methemoglobin 0.4 % (0.0-1.5) 02/03/20 04:35 Oxyhemoglobin 92.8 % (95.0-99.0) L 02/03/20 04:35 FiO2 30 % 02/03/20 04:35 Sodium 141 mmol/L (137-145) 02/03/20 04:00 Potassium 4.1 mmol/L (3.6-5.0) 02/03/20 04:00 Chloride 100.4 mmol/L (98-107) 02/03/20 04:00 Carbon Dioxide 28 mmol/L (22-30) 02/03/20 04:00 Anion Gap 17 mmol/L 02/03/20 04:00 BUN 50 mg/dL (9-20) H 02/03/20 04:00 Creatinine 5.0 mg/dL (0.8-1.5) H 02/03/20 04:00 Estimated GFR 11 ml/min 02/03/20 04:00 BUN/Creatinine Ratio 10 % 02/03/20 04:00 Glucose 71 mg/dL (75-100) L 02/03/20 04:00 POC Glucose 72 (70-105) 02/03/20 05:21 Osmolality 345 Mosm/kg 01/31/20 06:06 Lactic Acid 0.70 mmol/L (0.7-2.0) 01/31/20 15:53 Uric Acid 8.5 mg/dL (3.5-7.6) H 01/31/20 06:06 Calcium 8.0 mg/dL (8.4-10.2) L 02/03/20 04:00 Ferritin 722.6 ng/mL (13.0-400.0) H 01/31/20 05:45 Total Bilirubin 0.30 mg/dL (0.1-1.2) 01/31/20 03:47 AST 9 units/L (5-40) 01/31/20 03:47 ALT < 5 units/L (7-56) L 01/31/20 03:47 Alkaline Phosphatase 71 units/L (35-129) 01/31/20 03:47 Lactate Dehydrogenase 387 units/L (91-180) H 01/31/20 05:45 Total Creatine Kinase 123 units/L (55-170) 01/31/20 06:06 Troponin T 0.065 ng/mL (0.00-0.029) H 01/31/20 03:47 C-Reactive Protein 1.60 mg/dL (0.00-1.30) H 01/31/20 05:45 Total Protein 7.6 g/dL (6.3-8.2) 01/31/20 03:47 Albumin 3.8 g/dL (3.9-5) L 01/31/20 03:47 Albumin/Globulin Ratio 1.0 % 01/31/20 03:47 Triglycerides 76 mg/dL (2-149) 01/31/20 03:47 Cholesterol 96 mg/dL (50-199) 01/31/20 03:47 LDL Cholesterol Direct 66 mg/dL (50-130) 01/31/20 03:47 HDL Cholesterol 39 mg/dL (40-59) L 01/31/20 03:47 Cholesterol/HDL Ratio 2.46 % 01/31/20 03:47 Procalcitonin 0.51 ng/mL (<0.15) 01/31/20 05:45 Urine Color [place] (Yellow) 01/31/20 04:25 Urine Turbidity Clear (Clear) 01/31/20 04:25 Urine pH 5.0 (5.0-7.0) 01/31/20 04:25 Ur Specific [place] 1.015 (1.003-1.030) 01/31/20 04:25 Urine Protein <15 mg/dl mg/dL (Negative) 01/31/20 04:25 Urine Glucose (UA) Neg mg/dL (Negative) 01/31/20 04:25 Urine Ketones Tr mg/dL (Negative) 01/31/20 04:25 Urine Blood Neg (Negative) 01/31/20 04:25 Urine Nitrite Neg (Negative) 01/31/20 04:25 Urine Bilirubin Neg (Negative) 01/31/20 04:25 Urine Urobilinogen < 2.0 mg/dL (<2.0) 01/31/20 04:25 Ur Leukocyte Esterase Sm (Negative) 01/31/20 04:25 Urine WBC (Auto) 1.0 /HPF (0.0-6.0) 01/31/20 04:25 Urine RBC (Auto) 3.0 /HPF (0.0-6.0) 01/31/20 04:25 Urine Mucus Few /HPF 01/31/20 04:25 Urine Creatinine 257.5 mg/dL (0.1-20.0) H 01/31/20 23:06 Urine Sodium 10 mmol/L 01/31/20 23:06 Urine Opiates Screen Presumptive negative 01/31/20 04:25 Urine Methadone Screen Presumptive negative 01/31/20 04:25 Ur Barbiturates Screen Presumptive negative 01/31/20 04:25 Ur Phencyclidine Scrn Presumptive negative 01/31/20 04:25 Ur Amphetamines Screen Presumptive negative 01/31/20 04:25 U Benzodiazepines Scrn Presumptive negative 01/31/20 04:25 Urine Cocaine Screen Presumptive negative 01/31/20 04:25 U Marijuana (THC) Screen Presumptive negative 01/31/20 04:25 Drugs of Abuse Note Disclamer 01/31/20 04:25 Coronavirus (PCR) Negative (Negative) 02/01/20 Unknown Hepatitis A IgM Ab Non-reactive (NonReactive) 01/31/20 06:06 Hep Bs Antigen Non-reactive (Negative) 01/31/20 06:06 Hep B Core IgM Ab Non-reactive (NonReactive) 01/31/20 06:06 Hepatitis C Antibody Non-reactive (NonReactive) 01/31/20 06:06 Microbiology: Microbiology 01/31/20 04:25 Peripheral/Venous Blood Culture - Preliminary NO GROWTH AFTER 48 HOURS 01/31/20 03:47 Peripheral/Venous Blood Culture - Preliminary NO GROWTH AFTER 48 HOURS 01/31/20 10:03 Tracheal Aspirate Sputum Culture - Final 01/31/20 03:40 Urine,[place] Urine Culture - Final NO GROWTH AFTER 48 HOURS Romo/IV: Voiding Method Indwelling Catheter IV Catheter Type [Right VAS Cath Femoral] IV Catheter Type [Right Triple Lumen Cath Internal Jugular] IV Catheter Type [Left Peripheral IV External Jugular] IV Catheter Type [Right Peripheral IV Forearm] IV Catheter Type [Left Forearm Peripheral IV ] Active Medications - Current Medications Current Medications: Generic Name Dose Route Start Last Admin Trade Name Freq PRN Reason Stop Dose Admin Lipase/Protease/Amylase 1 each 02/02/20 11:[address] 10,500 Unit FEEDTUBE PRN PRN For Clogged Feeding Tube Carbidopa/Levodopa 1.5 each 02/01/20 10:00 02/02/20 11:30 Sinemet PO 1.5 each DAILY KIRA Administration Dextrose 0 ml 02/02/20 00:11 02/02/20 18:20 D50w (25gm) Syringe IV 50 ml Q30MIN PRN Administration Hypoglycemia Protocol Famotidine 20 mg 02/03/20 10:00 Pepcid PO DAILY KIAR Fentanyl 50 mcg 01/31/20 06:36 01/31/20 16:40 Sublimaze IV 50 mcg Q10MIN PRN Administration ANALGESIA Folic Acid 1 mg 02/04/20 10:00 Folvite PO DAILY KIRA Heparin Sodium (Porcine) 5,000 unit 01/31/20 22:00 02/02/20 21:26 Heparin SUB-Q 5,000 unit Q12HR KIRA Administration Hydrophilic Ointment 1 applic 01/31/20 06:36 Vaseline Lip Therapy TP Q2HR PRN Dry Lips Fentanyl Citrate 2,000 mcg in 100 mls @ 3.175 mls/hr 01/31/20 07:00 02/03/20 04:46 Fentanyl Drip Premix IV 2 mcg/kg/hr TITR KIRA 6.35 mls/hr Administration Protocol 1 MCG/KG/HR Norepinephrine 4 mg in 250 mls @ 7.5 mls/hr 01/31/20 07:00 02/03/20 01:54 Levophed Drip 4 Mg/Ns 250 Ml IV 4 mcg/min TITR KIRA 15 mls/hr Administration Protocol 2 MCG/MIN Vasopressin 20 unit/ Sodium 101 mls @ 9.09 mls/hr 01/31/20 12:00 01/31/20 22:55 Chloride IV 0.03 units/min TITR KIRA 9.09 mls/hr Administration Protocol 0.03 UNITS/MIN Folic Acid 1 mg/ Sodium 50.2 mls @ 200.8 mls/hr 01/31/20 17:00 02/02/20 11:31 Chloride IV 02/03/20 16:59 200.8 mls/hr QDAY KIRA Administration Dextrose/Sodium Chloride 1,000 mls @ 30 mls/hr 02/01/20 09:00 02/02/20 00:19 D5ns IV 30 mls/hr DIRECT KIRA Administration Ceftriaxone Sodium 2 gm in 100 mls @ 200 mls/hr 02/01/20 10:00 02/02/20 11:31 Rocephin/Ns 2 Gm/100 Ml IV 200 mls/hr Q24HR KIRA Administration Azithromycin 500 mg/ Sodium 250 mls @ 250 mls/hr 02/01/20 10:00 02/02/20 11:31 Chloride IV 250 mls/hr Q24HR KIRA Administration Sodium Chloride 100 mls @ 999 mls/hr 02/03/20 08:25 Nacl 0.9% IV GILBERTO PRN Hypotension Midazolam HCl 2 mg 01/31/20 11:16 01/31/20 11:46 Versed IV 2 mg Q10MIN PRN Administration Sedation Multi-Ingred Cream/Lotion/Oil/Oint 1 applic 01/31/20 06:36 Artificial Tears Ophth Oint OU Q4HR PRN Dry Eye(s) Simple Syrup 15 ml 02/02/20 11:04 Simple Syrup FEEDTUBE PRN PRN Hypoglycemia Simple Syrup 30 ml 02/02/20 11:04 Simple Syrup FEEDTUBE PRN PRN Hypoglycemia Sodium Bicarbonate 325 mg 02/02/20 11:04 Sodium Bicarbonate FEEDTUBE PRN PRN For Clogged Feeding Tube Valproic Acid 250 mg 02/02/20 10:00 02/02/20 21:26 Depakene Liq FEEDTUBE 250 mg BID KIRA Administration Nutrition/Malnutrition Assess - Dietary Evaluation Nutrition/Malnutrition Findings: Nutrition Notes Start: 02/01/20 08:59 Freq: Status: Active Protocol: Document 02/02/20 11:05 LP (Rec: 02/02/20 11:06 LP [id number]) Nutrition Notes Need for Assessment generated from: MD Order Initial or Follow up Brief Note Subjective/Other Information Consult for TF. Nutrition Intervention Change Diet Order: TF Nutrition Support: Nepro at 40ml/hr Flush with 150ml q4h Kcal 1,728 Protein (gm) 78 Fluid (mL) 698 Goal #1 Meet at least 80% of kcal and protein needs via TF Anticipated Discharge Needs: Unable to determine at this time Follow-Up By: 02/04/20 Additional Comments Follow for TF start/tolerance
[2020-02-03] MEDS ORDERED: SODIUM CHLORIDE 0.9% 1000 ML 1,000 ML ONE (09:52)
[2020-02-03] MEDS: FAMOTIDINE 20 MG TAB PO SCH (10:28)
[2020-02-03] MEDS: HEPARIN 5,000 UNIT/1 ML VIAL SUB-Q SCH ×2 (10:28→22:11)
[2020-02-03] MEDS: CARBIDOPA/LEVODOPA 25-100 MG TAB PO SCH (10:28)
[2020-02-03] MEDS: VALPROIC ACID 250 MG/5 ML ORAL LIQD FEEDTUBE SCH ×2 (10:28→22:11)
[2020-02-03] MEDS: D5W/0.9% NACL 1,000 ML IV SCH (10:30)
--- NOTE | 2020-02-03 12:23 | Progress Note ---
Assessment and Plan Acute hypoxemic respiratory failure on MVS Acute toxic-metabolic encephalopathy Lactic acidosis- resolved Hyperkalemia with SJ Severe metabolic acidosis COVID-PUI - set rate increased to 20/min earlier - reduced fentanyl drip by half to 2 lele's/kg/hr - repeat ABG in am - continue to wean vasopressor support, for MAP > 65mmHg - Monitor hemodynamics closely - continue Daily SAT and SBT assessment as tolerated - continue accuchecks with glycemic control per SSI (While critically ill target blood glucose of 140-180 mg/dL; avoid hypoglycemia) - sedation prn for target RASS 0 to -1 - continue to wean supplemental oxygen for target O2 sat's > 92% acutely - VAP bundle addressed - continue lung protective strategies - continue bronchodilators with pulmonary hygiene per RT - wean per pulmonary driven protocols otherwise - continue to avoid benzodiazepine's, reduce the possibility of delirium - completed AB's per ID rec's - prn analgesia per CPOT score - Maintenance of sleep-wake cycle, avoid delirium - continue enteral nutritional support at goal rate as tolerated - G.I. & VTE prophylaxis - PT/OT/ROM exercises - continue mobility protocols for pressure ulcer prophylaxis - Monitor hemodynamics closely - continue other care per attending / other consultants - discharge planning ongoing concurrently (family will bew offered hospice care option) .... Re-evaluate in am & prn Life threatening condition- Acute hypoxemic respiratory failure on MVS, Acute toxic -metabolic encephalopathy Mortality/Morbidity- High Complexity of medical decision making- High CONDITION: CRITICAL PROGNOSIS: GUARDED CODE STATUS: DNAR- per documentation of primary service The high probability of a clinically significant, sudden or life-threatening deterioration of the [respiratory, renal & cardiovascular,neurology] system(s) required my full and direct attention, intervention and personal management. The aggregate critical care time was [33] minutes without overlap. Time includes spent on; [x] Data Review and interpretation [x] Patient assessment and monitoring of vital signs [x] Documentation [x] Medication orders and management Subjective Date of service: 02/03/20 Principal diagnosis: Ac. hypoxemic resp failure; Ac. toxic-met encephalopathy; SJ; COVID-PUI Interval history: Patient is seen today for: Acute hypoxemic respiratory failure; Acute toxic- metabolic encephalopathy; Lactic acidosis; Hyperkalemia; SJ; Severe metabolic acidosis; COVID-PUI Seen and examined at bedside; 24hour events reviewed; nursing and respiratory care staff consulted; no adverse overnight events reported to me; family reportedly contemplating de-escalating care and hospice transition; remains on full MVS; stiull with hypercapnic acidosis; appears anxious; no emesis or overt aspiration Objective Vital Signs - 12hr 02/03/20 02/03/20 02/03/20 00:30 00:45 01:00 Temperature Pulse Rate 74 70 63 Pulse Rate [ From Monitor] Respiratory 16 16 16 Rate Blood Pressure 113/57 106/55 104/51 O2 Sat by Pulse 98 97 98 Oximetry 02/03/20 02/03/20 02/03/20 01:02 01:15 01:30 Temperature Pulse Rate 64 60 60 Pulse Rate [ From Monitor] Respiratory 16 16 Rate Blood Pressure 104/51 101/49 101/50 O2 Sat by Pulse 98 97 97 Oximetry 02/03/20 02/03/20 02/03/20 01:45 02:00 02:15 Temperature Pulse Rate 60 62 60 Pulse Rate [ From Monitor] Respiratory 16 16 16 Rate Blood Pressure 99/50 89/47 99/51 O2 Sat by Pulse 98 97 98 Oximetry 02/03/20 02/03/20 02/03/20 02:30 02:46 03:00 Temperature Pulse Rate 60 70 60 Pulse Rate [ From Monitor] Respiratory 16 16 16 Rate Blood Pressure 99/52 102/51 84/48 O2 Sat by Pulse 98 97 98 Oximetry 02/03/20 02/03/20 02/03/20 03:15 03:30 03:45 Temperature Pulse Rate 60 60 60 Pulse Rate [ From Monitor] Respiratory 16 16 16 Rate Blood Pressure 98/50 106/51 104/51 O2 Sat by Pulse 98 98 97 Oximetry 02/03/20 02/03/20 02/03/20 04:00 04:15 04:30 Temperature 98.4 F Pulse Rate 60 60 94 H Pulse Rate [ 64 From Monitor] Respiratory 16 16 16 Rate Blood Pressure 102/52 109/52 109/52 O2 Sat by Pulse 98 98 95 Oximetry 02/03/20 02/03/20 02/03/20 04:42 04:45 05:00 Temperature Pulse Rate 78 76 67 Pulse Rate [ From Monitor] Respiratory 16 16 Rate Blood Pressure 125/81 124/56 105/52 O2 Sat by Pulse 97 97 97 Oximetry 02/03/20 02/03/20 02/03/20 05:15 05:30 05:45 Temperature Pulse Rate 60 59 L 60 Pulse Rate [ From Monitor] Respiratory 16 16 16 Rate Blood Pressure 106/52 109/52 101/53 O2 Sat by Pulse 97 96 96 Oximetry 02/03/20 02/03/20 02/03/20 06:00 06:15 06:30 Temperature Pulse Rate 59 L 59 L 68 Pulse Rate [ From Monitor] Respiratory 16 16 20 Rate Blood Pressure 101/53 98/47 98/47 O2 Sat by Pulse 96 94 93 Oximetry 02/03/20 02/03/20 02/03/20 06:45 07:00 07:16 Temperature Pulse Rate 60 59 L 60 Pulse Rate [ From Monitor] Respiratory 20 20 20 Rate Blood Pressure 98/53 104/57 118/56 O2 Sat by Pulse 97 97 97 Oximetry 02/03/20 02/03/20 02/03/20 07:30 07:45 08:00 Temperature Pulse Rate 60 60 60 Pulse Rate [ From Monitor] Respiratory 20 20 20 Rate Blood Pressure 111/52 111/58 111/58 O2 Sat by Pulse 95 96 95 Oximetry 02/03/20 02/03/20 02/03/20 08:15 08:20 08:30 Temperature Pulse Rate 60 60 98 H Pulse Rate [ From Monitor] Respiratory 20 17 Rate Blood Pressure 107/52 107/52 107/52 O2 Sat by Pulse 95 97 99 Oximetry 02/03/20 02/03/20 02/03/20 08:46 09:00 09:15 Temperature Pulse Rate 74 63 60 Pulse Rate [ From Monitor] Respiratory 20 20 20 Rate Blood Pressure 137/103 137/103 103/55 O2 Sat by Pulse 98 99 99 Oximetry 02/03/20 02/03/20 02/03/20 09:30 09:45 10:00 Temperature 98.2 F Pulse Rate 60 60 104 H Pulse Rate [ 60 From Monitor] Respiratory 20 20 17 Rate Blood Pressure 97/60 110/53 110/53 O2 Sat by Pulse 98 98 98 Oximetry 02/03/20 02/03/20 02/03/20 10:16 10:30 10:45 Temperature Pulse Rate 88 107 H 115 H Pulse Rate [ From Monitor] Respiratory 19 20 22 Rate Blood Pressure 116/57 123/75 114/81 O2 Sat by Pulse 98 97 97 Oximetry 02/03/20 02/03/20 02/03/20 10:54 11:00 11:15 Temperature Pulse Rate 107 H 87 Pulse Rate [ From Monitor] Respiratory 20 20 Rate Blood Pressure 82/51 109/63 O2 Sat by Pulse 97 96 97 Oximetry 02/03/20 02/03/20 02/03/20 11:30 11:46 12:00 Temperature Pulse Rate 77 111 H 109 H Pulse Rate [ 60 From Monitor] Respiratory 20 18 20 Rate Blood Pressure 120/66 133/79 109/63 O2 Sat by Pulse 98 98 97 Oximetry 02/03/20 12:15 Temperature Pulse Rate 107 H Pulse Rate [ From Monitor] Respiratory 20 Rate Blood Pressure 144/78 O2 Sat by Pulse 97 Oximetry Constitutional: appears uncomfortable, other (elderly looking CM normocephalic with mildly increased respiratory effort at rest) Eyes: non-icteric ENT: oropharynx moist, other (ETT 24 cm EMILI) Neck: supple, no lymphadenopathy, no JVD Effort: mildly labored Ascultation: Bilateral: diminished breath sounds, rhonchi Percussion: Bilateral: not dull Cardiovascular: regular rate and rhythm Gastrointestinal: normoactive bowel sounds, soft, non-tender, non-distended Integumentary: rash Extremities: pink and warm, pulses normal, no ischemia or petechiae, edema (mild to upper extremities) Neurologic: non-focal exam (grossly), pupils equal and round, CN II-XII normal, motor strength normal and Psychiatric: anxious CBC and BMP: 02/03/20 04:00 02/03/20 04:00 ABG, PT/INR, D-dimer: ABG ABG pH 7.281 pH Units (7.350-7.450) L 02/03/20 04:35 ABG pCO2 60.7 mm Hg 02/03/20 04:35 ABG pO2 71.7 mm Hg (80.0-90.0) L 02/03/20 04:35 ABG O2 Saturation 94.6 % (95.0-99.0) L 02/03/20 04:35 PT/INR, D-dimer D-Dimer 544.72 ng/mlDDU (0-234) H 01/31/20 05:45 Abnormal lab findings: Abnormal Labs 01/31/20 01/31/20 01/31/20 03:47 03:47 03:47 WBC 16.9 H RBC Hgb Hct MCV 99 H MCH 33 H Lymph % (Auto) [place] % (Auto) Lymph # [place] # Seg Neutrophils % Seg Neuts % (Manual) 95.0 H Lymphocytes % (Manual) 3.0 L Seg Neutrophils # Seg Neutrophils # Man 16.1 H Lymphocytes # (Manual) 0.5 L D-Dimer ABG pH ABG pO2 ABG HCO3 ABG O2 Saturation ABG Base Excess ABG Hemoglobin Oxyhemoglobin Sodium 126 L Potassium 8.8 H* Chloride 86.4 L Carbon Dioxide 10 L BUN 181 H Creatinine 12.5 H Glucose POC Glucose Lactic Acid 2.10 H* Uric Acid Calcium Ferritin ALT < 5 L Lactate Dehydrogenase Troponin T 0.065 H C-Reactive Protein Albumin 3.8 L HDL Cholesterol 39 L Urine Creatinine 01/31/20 01/31/20 01/31/20 05:37 05:45 05:45 WBC RBC Hgb Hct MCV MCH Lymph % (Auto) [place] % (Auto) Lymph # [place] # Seg Neutrophils % Seg Neuts % (Manual) Lymphocytes % (Manual) Seg Neutrophils # Seg Neutrophils # Man Lymphocytes # (Manual) D-Dimer 544.72 H ABG pH ABG pO2 ABG HCO3 ABG O2 Saturation ABG Base Excess ABG Hemoglobin Oxyhemoglobin Sodium Potassium Chloride Carbon Dioxide BUN Creatinine Glucose 103 H POC Glucose Lactic Acid 2.20 H* Uric Acid Calcium Ferritin ALT Lactate Dehydrogenase 387 H Troponin T C-Reactive Protein 1.60 H Albumin HDL Cholesterol Urine Creatinine 01/31/20 01/31/20 01/31/20 05:45 06:06 09:45 WBC RBC Hgb Hct MCV MCH Lymph % (Auto) [place] % (Auto) Lymph # [place] # Seg Neutrophils % Seg Neuts % (Manual) Lymphocytes % (Manual) Seg Neutrophils # Seg Neutrophils # Man Lymphocytes # (Manual) D-Dimer ABG pH ABG pO2 ABG HCO3 ABG O2 Saturation ABG Base Excess ABG Hemoglobin Oxyhemoglobin Sodium Potassium Chloride Carbon Dioxide BUN Creatinine Glucose POC Glucose Lactic Acid 3.20 H* Uric Acid 8.5 H Calcium Ferritin 722.6 H ALT Lactate Dehydrogenase Troponin T C-Reactive Protein Albumin HDL Cholesterol Urine Creatinine 01/31/20 01/31/20 01/31/20 09:45 10:30 18:31 WBC RBC Hgb Hct MCV MCH Lymph % (Auto) [place] % (Auto) Lymph # [place] # Seg Neutrophils % Seg Neuts % (Manual) Lymphocytes % (Manual) Seg Neutrophils # Seg Neutrophils # Man Lymphocytes # (Manual) D-Dimer ABG pH 7.059 L* ABG pO2 70.2 L ABG HCO3 9.9 L ABG O2 Saturation 85.4 L ABG Base Excess -19.6 L ABG Hemoglobin Oxyhemoglobin 84.0 L Sodium 118 L* D 133 L D Potassium 8.1 H* 5.1 H D Chloride 91.1 L 93.7 L Carbon Dioxide 3 L* D 17 L D BUN 179 H 54 H Creatinine 11.6 H 4.9 H D Glucose 197 H 215 H POC Glucose Lactic Acid Uric Acid Calcium Ferritin ALT Lactate Dehydrogenase Troponin T C-Reactive Protein Albumin HDL Cholesterol Urine Creatinine 01/31/20 01/31/20 02/01/20 19:45 23:06 01:30 WBC 17.4 H RBC 3.59 L Hgb 11.7 L Hct 34.5 L D MCV 96 H MCH 33 H Lymph % (Auto) 3.0 L [place] % (Auto) 8.9 H Lymph # 0.5 L [place] # 1.6 H Seg Neutrophils % 88.1 H Seg Neuts % (Manual) Lymphocytes % (Manual) Seg Neutrophils # 15.3 H Seg Neutrophils # Man Lymphocytes # (Manual) D-Dimer ABG pH ABG pO2 172.0 H ABG HCO3 ABG O2 Saturation 99.1 H ABG Base Excess -3.0 L ABG Hemoglobin 13.8 L Oxyhemoglobin Sodium Potassium Chloride Carbon Dioxide BUN Creatinine Glucose POC Glucose Lactic Acid Uric Acid Calcium Ferritin ALT Lactate Dehydrogenase Troponin T C-Reactive Protein Albumin HDL Cholesterol Urine Creatinine 257.5 H 02/01/20 02/01/20 02/01/20 01:30 04:53 23:39 WBC RBC Hgb Hct MCV MCH Lymph % (Auto) [place] % (Auto) Lymph # [place] # Seg Neutrophils % Seg Neuts % (Manual) Lymphocytes % (Manual) Seg Neutrophils # Seg Neutrophils # Man Lymphocytes # (Manual) D-Dimer ABG pH 7.505 H ABG pO2 158.5 H ABG HCO3 ABG O2 Saturation 99.1 H ABG Base Excess ABG Hemoglobin 11.0 L Oxyhemoglobin Sodium 133 L Potassium Chloride 93.6 L Carbon Dioxide BUN 47 H Creatinine 4.5 H Glucose 204 H POC Glucose 58 L Lactic Acid Uric Acid Calcium 8.3 L Ferritin ALT Lactate Dehydrogenase Troponin T C-Reactive Protein Albumin HDL Cholesterol Urine Creatinine 02/02/20 02/02/20 02/02/20 04:24 10:48 10:48 WBC 11.8 H RBC 3.16 L Hgb 10.2 L Hct 31.0 L MCV 98 H MCH Lymph % (Auto) [place] % (Auto) Lymph # [place] # Seg Neutrophils % Seg Neuts % (Manual) Lymphocytes % (Manual) Seg Neutrophils # Seg Neutrophils # Man Lymphocytes # (Manual) D-Dimer ABG pH ABG pO2 74.4 L ABG HCO3 30.2 H ABG O2 Saturation ABG Base Excess 4.6 H ABG Hemoglobin 10.7 L Oxyhemoglobin 94.7 L Sodium Potassium Chloride Carbon Dioxide BUN 52 H Creatinine 5.2 H Glucose 59 L POC Glucose Lactic Acid Uric Acid Calcium 8.2 L Ferritin ALT Lactate Dehydrogenase Troponin T C-Reactive Protein Albumin HDL Cholesterol Urine Creatinine 02/02/20 02/02/20 02/03/20 12:19 18:02 00:52 WBC RBC Hgb Hct MCV MCH Lymph % (Auto) [place] % (Auto) Lymph # [place] # Seg Neutrophils % Seg Neuts % (Manual) Lymphocytes % (Manual) Seg Neutrophils # Seg Neutrophils # Man Lymphocytes # (Manual) D-Dimer ABG pH ABG pO2 ABG HCO3 ABG O2 Saturation ABG Base Excess ABG Hemoglobin Oxyhemoglobin Sodium Potassium Chloride Carbon Dioxide BUN Creatinine Glucose POC Glucose 64 L 60 L 69 L Lactic Acid Uric Acid Calcium Ferritin ALT Lactate Dehydrogenase Troponin T C-Reactive Protein Albumin HDL Cholesterol Urine Creatinine 02/03/20 02/03/20 02/03/20 04:00 04:00 04:35 WBC 12.8 H RBC 3.23 L Hgb 10.7 L Hct 32.0 L MCV 99 H MCH 33 H Lymph % (Auto) [place] % (Auto) Lymph # [place] # Seg Neutrophils % 78.2 H Seg Neuts % (Manual) Lymphocytes % (Manual) Seg Neutrophils # 10.0 H Seg Neutrophils # Man Lymphocytes # (Manual) D-Dimer ABG pH 7.281 L ABG pO2 71.7 L ABG HCO3 27.9 H ABG O2 Saturation 94.6 L ABG Base Excess ABG Hemoglobin 9.5 L Oxyhemoglobin 92.8 L Sodium Potassium Chloride Carbon Dioxide BUN 50 H Creatinine 5.0 H Glucose 71 L POC Glucose Lactic Acid Uric Acid Calcium 8.0 L Ferritin ALT Lactate Dehydrogenase Troponin T C-Reactive Protein Albumin HDL Cholesterol Urine Creatinine Chest x-ray: image reviewed (ETT in good position; L. Upper chest ICD) Allied health notes reviewed: nursing
[2020-02-03] MEDS: AZITHROMYCIN 500 MG in SODIUM CHLORIDE 0.9% 250ML 250 ML IV SCH (13:42)
[2020-02-03] MEDS: cefTRIAXone/NS 2 GM/100 ML 2 GM/100 ML BAG IV SCH (13:43)
[2020-02-03] MEDS: FOLIC ACID 1 MG in SODIUM CHLORIDE 0.9% 50 ML IV SCH (13:44)
--- NOTE | 2020-02-03 15:41 | Event Note ---
Date: 02/03/20 I spoke with patient's Ms. Nuris Borges at [phone], patient's condition, treatment plan Test reports, DNR status. She confirmed that patient is DNR status .I discussed about the options of Withdrawal of care and extubation if she chooses, the details of jeweler apprentice's recommendations of hemodialysis. Ms.Ann Borges requested to talk to the chemists tomorrow to discuss regarding ventilator weaning process And also informed me that her never wanted hemodialysis and she wants to discuss with jeweler apprentice. Answered all her questions and encouraged her to call back if she had any new questions or concerns. Informed patient's nurse and the bottle caser Ms. Hutchison
--- NOTE | 2020-02-03 17:03 | Progress Note ---
Assessment and Plan Cultures: Blood culture 01/31/2020 pending Sputum culture 01/31/2020 pending COVID-19 negative A/P: 84-year-old man past medical history hypertension, dementia admitted to the hospital with altered mental status and hypoxia. #Acute hypoxic respiratory failure: Secondary to pneumonia #Right-sided pneumonia: Continue empiric antibiotics. #SJ on HD: Etiology possibly septic shock Recs: -Unimproved white count,/will escalate to cefepime renally dosed. Thank you for the consult, we will continue to follow. Yudith Fernandez MD [facility] ([facility]) M: [phone] O: [phone] F: [phone] Subjective Date of service: 02/03/20 Principal diagnosis: SJ/sepsis with hypotension Interval history: Afebrile, white count 13 which is mildly increased. Currently on mechanical ventilation, 30 FiO2, 6 PEEP Imaging personally reviewed: Chest x-ray: Slightly increased basilar opacities. Objective - Exam Narrative Exam: Physical exam deferred due to PPE conservation strategy. Please refer to primary team's note. - Constitutional Vitals: Vital Signs Temp Pulse Resp BP Pulse Ox 99.4 F 60 20 108/47 98 02/03/20 16:00 02/03/20 16:00 02/03/20 16:00 02/03/20 16:00 02/03/20 16:00 Temperature -Last 24 Hours Temperature 99.4 F Temperature 98.9 F Temperature 99.2 F Temperature 98.9 F Temperature 98.2 F Temperature 98.4 F Temperature 98.6 F Temperature 98.7 F - Labs CBC & Chem 7: 02/03/20 04:00 02/03/20 04:00 Labs: Abnormal lab results 02/02/20 02/03/20 02/03/20 Range/Units 18:02 00:52 04:00 WBC 12.8 H (4.5-11.0) K/mm3 RBC 3.23 L (3.65-5.03) M/mm3 Hgb 10.7 L (11.8-15.2) gm/dl Hct 32.0 L (35.5-45.6) % MCV 99 H (84-94) fl MCH 33 H (28-32) pg Seg Neutrophils % 78.2 H (40.0-70.0) % Seg Neutrophils # 10.0 H (1.8-7.7) K/mm3 ABG pH (7.350-7.450) pH Units ABG pO2 (80.0-90.0) mm Hg ABG HCO3 (20.0-26.0) mmol/L ABG O2 Saturation (95.0-99.0) % ABG Hemoglobin (14.0-18.0) gm/dl Oxyhemoglobin (95.0-99.0) % BUN (9-20) mg/dL Creatinine (0.8-1.5) mg/dL Glucose (75-100) mg/dL POC Glucose 60 L 69 L (70-105) Calcium (8.4-10.2) mg/dL 02/03/20 02/03/20 Range/Units 04:00 04:35 WBC (4.5-11.0) K/mm3 RBC (3.65-5.03) M/mm3 Hgb (11.8-15.2) gm/dl Hct (35.5-45.6) % MCV (84-94) fl MCH (28-32) pg Seg Neutrophils % (40.0-70.0) % Seg Neutrophils # (1.8-7.7) K/mm3 ABG pH 7.281 L (7.350-7.450) pH Units ABG pO2 71.7 L (80.0-90.0) mm Hg ABG HCO3 27.9 H (20.0-26.0) mmol/L ABG O2 Saturation 94.6 L (95.0-99.0) % ABG Hemoglobin 9.5 L (14.0-18.0) gm/dl Oxyhemoglobin 92.8 L (95.0-99.0) % BUN 50 H (9-20) mg/dL Creatinine 5.0 H (0.8-1.5) mg/dL Glucose 71 L (75-100) mg/dL POC Glucose (70-105) Calcium 8.0 L (8.4-10.2) mg/dL
--- NOTE | 2020-02-03 18:56 | Ultrasound Report ---
ULTRASOUND RENAL INDICATION: SJ. COMPARISON: No relevant prior imaging study available. FINDINGS: RIGHT KIDNEY: Size: 12 cm. Echogenicity: Normal. Cortical thickness: Normal. Stones: None. Hydronephrosis: None. Cyst or mass: Several small cysts are noted largest measures approximately 14 mm.. 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 Free Fluid: None. Additional Findings: None. IMPRESSION 1. No acute sonographic abnormality of the right. Signer Name: Delvin Crowell MD Signed: 02/03/2020 6:51 PM Workstation Name: [id number]
[2020-02-03] MEDS: CEFEPIME/NS 1 GM/100 ML 1 GM/100 ML BAG IV SCH (22:18)
--- NOTE | 2020-02-04 03:54 | XRay Report ---
CHEST 1 VIEW 02/04/2020 2:30 AM INDICATION / CLINICAL INFORMATION: follow up respiratory failure. COMPARISON: One view of the chest from 02/03/2020. FINDINGS: SUPPORT DEVICES: Unchanged. HEART / MEDIASTINUM: Stable. LUNGS / PLEURA: Similar bibasilar opacities and probable small left pleural effusion. No pneumothorax . ADDITIONAL FINDINGS: No significant additional findings. IMPRESSION: Stable appearance of the chest. Signer Name: Jan Phillips MD Signed: 02/04/2020 3:50 AM Workstation Name: [id number]
[2020-02-04 04:40] LABS: ABG Base Excess 1.7 mmol/L (-2.0-3.0); ABG HCO3 27.2 mmol/L (20.0-26.0); ABG Methemoglobin 0.4 % (0.0-1.5); ABG Oxygen Saturation 96.9 % (95.0-99.0); ABG PCO2 46.5 mm Hg; ABG PH 7.384 pH Units (7.350-7.450); ABG PO2 86.2 mm Hg (80.0-90.0)
[2020-02-04] MEDS: fentaNYL DRIP Premix 2,000 MCG/100 ML BAG IV SCH (07:35)
--- NOTE | 2020-02-04 08:51 | Progress Note ---
Assessment and Plan Impression: * Acute kidney injury secondary ATN * Acute hypoxic repiratory failure on mechanical ventilation * Pneumonia --COVID 19 negative * Sepsis * Hyperkalemia - resolved * Metabolic acidosis, severe - resolved * Hyponatremia - resolved * Hypoglycemia Plan: * Patient is s/p HD yesterday * No acute indication for dialysis today. * Case discussed with Dr. Ch who states that does not wish to continue dialysis. Will discuss with patient's . * Abx per ID * Pressors prn to maintain MAP>65 * Vent management per pulmonary medicine * Avoid nephrotoxins * Dose medications for renal function Subjective Date of service: 02/04/20 Principal diagnosis: SJ/sepsis with hypotension Interval history: No acute events overnight. FiO2 30, PEEP 6 Objective - Vital Signs Vital signs: Vital Signs - 12hr 02/03/20 02/03/20 02/03/20 21:00 21:16 21:30 Temperature Pulse Rate 83 79 79 Pulse Rate [ From Monitor] Respiratory 20 20 19 Rate Blood Pressure 133/68 144/63 144/63 O2 Sat by Pulse 99 98 98 Oximetry 02/03/20 02/03/20 02/03/20 21:45 22:00 22:15 Temperature Pulse Rate 84 72 74 Pulse Rate [ From Monitor] Respiratory 20 20 19 Rate Blood Pressure 149/60 123/58 128/61 O2 Sat by Pulse 99 99 99 Oximetry 02/03/20 02/03/20 02/03/20 22:24 22:30 22:46 Temperature Pulse Rate 78 76 76 Pulse Rate [ From Monitor] Respiratory 20 20 20 Rate Blood Pressure 128/61 128/61 122/64 O2 Sat by Pulse 98 99 98 Oximetry 02/03/20 02/03/20 02/03/20 23:00 23:16 23:30 Temperature Pulse Rate 73 72 72 Pulse Rate [ From Monitor] Respiratory 20 19 20 Rate Blood Pressure 122/64 126/57 123/55 O2 Sat by Pulse 97 98 98 Oximetry 02/03/20 02/04/20 02/04/20 23:46 00:00 00:16 Temperature 99.1 F Pulse Rate 76 75 74 Pulse Rate [ 72 From Monitor] Respiratory 20 20 20 Rate Blood Pressure 132/65 132/61 133/51 O2 Sat by Pulse 98 99 99 Oximetry 02/04/20 02/04/20 02/04/20 00:30 00:37 00:46 Temperature Pulse Rate 79 70 Pulse Rate [ From Monitor] Respiratory 20 18 Rate Blood Pressure 133/51 137/71 118/61 O2 Sat by Pulse 99 99 100 Oximetry 02/04/20 02/04/20 02/04/20 01:00 01:15 01:30 Temperature Pulse Rate 74 73 75 Pulse Rate [ From Monitor] Respiratory 20 20 20 Rate Blood Pressure 118/61 126/63 131/67 O2 Sat by Pulse 98 98 98 Oximetry 02/04/20 02/04/20 02/04/20 01:46 02:00 02:16 Temperature Pulse Rate 77 64 68 Pulse Rate [ From Monitor] Respiratory 20 20 20 Rate Blood Pressure 133/45 133/45 118/53 O2 Sat by Pulse 98 96 98 Oximetry 02/04/20 02/04/20 02/04/20 02:30 02:46 03:00 Temperature Pulse Rate 75 106 H 72 Pulse Rate [ From Monitor] Respiratory 20 20 20 Rate Blood Pressure 126/63 123/53 119/56 O2 Sat by Pulse 97 98 95 Oximetry 02/04/20 02/04/20 02/04/20 03:15 03:30 03:46 Temperature Pulse Rate 63 78 Pulse Rate [ From Monitor] Respiratory 20 20 15 Rate Blood Pressure 116/56 116/56 131/52 O2 Sat by Pulse 93 98 98 Oximetry 02/04/20 02/04/20 02/04/20 03:57 04:00 04:16 Temperature 99.1 F Pulse Rate 60 89 83 Pulse Rate [ 72 From Monitor] Respiratory 19 18 Rate Blood Pressure 131/53 132/57 132/57 O2 Sat by Pulse 96 97 99 Oximetry 02/04/20 02/04/20 02/04/20 04:30 04:45 05:00 Temperature Pulse Rate 69 65 91 H Pulse Rate [ From Monitor] Respiratory 20 20 20 Rate Blood Pressure 132/57 129/54 123/54 O2 Sat by Pulse 95 93 94 Oximetry 02/04/20 02/04/20 02/04/20 05:15 05:30 05:45 Temperature Pulse Rate 88 77 82 Pulse Rate [ From Monitor] Respiratory 20 20 20 Rate Blood Pressure 118/46 118/53 124/54 O2 Sat by Pulse 92 93 92 Oximetry 02/04/20 02/04/20 02/04/20 06:00 06:16 06:30 Temperature Pulse Rate 73 67 77 Pulse Rate [ From Monitor] Respiratory 20 20 18 Rate Blood Pressure 117/63 109/53 109/53 O2 Sat by Pulse 93 93 96 Oximetry 02/04/20 02/04/20 02/04/20 06:45 07:00 08:08 Temperature Pulse Rate 81 75 80 Pulse Rate [ From Monitor] Respiratory 20 20 Rate Blood Pressure 112/52 110/51 109/54 O2 Sat by Pulse 96 96 96 Oximetry - General Appearance General appearance: intubated EENT: ATNC, other (ETT in place) Respiratory: Present: Clear to Ascultation Cardiology: regular, S1S2 Integumentary: warm and dry Neurologic: other (awake) Musculoskeletal: other (no edema) - Lab 02/03/20 04:00 02/03/20 04:00 Most recent lab results ABG pH 7.384 pH Units (7.350-7.450) 02/04/20 04:20 ABG pCO2 46.5 mm Hg 02/04/20 04:20 ABG pO2 86.2 mm Hg (80.0-90.0) 02/04/20 04:20 ABG HCO3 27.2 mmol/L (20.0-26.0) H 02/04/20 04:20 ABG O2 Saturation 96.9 % (95.0-99.0) 02/04/20 04:20 Calcium 8.0 mg/dL (8.4-10.2) L 02/03/20 04:00 Urine Creatinine 257.5 mg/dL (0.1-20.0) H 01/31/20 23:06 Urine Sodium 10 mmol/L 01/31/20 23:06 Medications & Allergies - Medications Allergies/Adverse Reactions: Allergies No Known Allergies Allergy (Unverified 10/13/14 11:06) Home Medications: Home Medications Medication Instructions Recorded Confirmed Last Taken Type Acetaminophen [Acetaminophen TAB] 325 mg PO Q6HR PRN 10/13/14 02/02/20 Unknown History Carbidopa/Levodopa 25-100 [Sinemet 1.5 tab PO DAILY 10/13/14 02/02/20 10/19/14 History 25/100] Divalproex Sodium [Divalproex 250 mg PO BID 10/13/14 02/02/20 10/19/14 History Sodium ER] donepeziL [Aricept] 10 mg PO QHS 10/13/14 02/02/20 10/19/14 History Dextran 70/Hypromellose 1 each OP PRN 02/02/20 02/02/20 Unknown History [Artificial Tears] Gabapentin [Neurontin] 100 mg PO QHS 02/02/20 02/02/20 Unknown History Ipratropium/Albuterol Sulfate 1 ampul IH Q6HR 02/02/20 02/02/20 Unknown History [DUONEB *Not for PRN Use*] Latanoprost 0.005% [Xalatan 0.005%] 1 drop OP QPM 02/02/20 02/02/20 Unknown History Loratadine [Allergy Relief] 10 mg PO QDAY 02/02/20 02/02/20 Unknown History Omeprazole 20 mg PO QHS 02/02/20 02/02/20 Unknown History Timolol 0.25% (Nf) [Timoptic] 1 drops OP BID 02/02/20 02/02/20 Unknown History Active Medications: Generic Name Dose Route Start Last Admin Trade Name Freq PRN Reason Stop Dose Admin Lipase/Protease/Amylase 1 each 02/02/20 11:04 Pancreaze 10,500 Unit FEEDTUBE PRN PRN For Clogged Feeding Tube Carbidopa/Levodopa 1.5 each 02/01/20 10:00 02/03/20 10:28 Sinemet PO 1.5 each DAILY KIRA Administration Dextrose 0 ml 02/02/20 00:11 02/02/20 18:20 D50w (25gm) Syringe IV 50 ml Q30MIN PRN Administration Hypoglycemia Protocol Famotidine 20 mg 02/03/20 10:00 02/03/20 10:28 Pepcid PO 20 mg DAILY KIRA Administration Fentanyl 50 mcg 01/31/20 06:36 01/31/20 16:40 Sublimaze IV 50 mcg Q10MIN PRN Administration ANALGESIA Folic Acid 1 mg 02/04/20 10:00 Folvite PO DAILY KIRA Heparin Sodium (Porcine) 5,000 unit 01/31/20 22:00 02/03/20 22:11 Heparin SUB-Q 5,000 unit Q12HR KIRA Administration Hydrophilic Ointment 1 applic 01/31/20 06:36 Vaseline Lip Therapy TP Q2HR PRN Dry Lips Fentanyl Citrate 2,000 mcg in 100 mls @ 3.175 mls/hr 01/31/20 07:00 02/04/20 07:35 Fentanyl Drip Premix IV 2 mcg/kg/hr TITR KIRA 6.35 mls/hr Administration Protocol 1 MCG/KG/HR Norepinephrine 4 mg in 250 mls @ 7.5 mls/hr 01/31/20 07:00 02/03/20 20:18 Levophed Drip 4 Mg/Ns 250 Ml IV 2 mcg/min TITR KIRA 7.5 mls/hr Administration Protocol 2 MCG/MIN Vasopressin 20 unit/ Sodium 101 mls @ 9.09 mls/hr 01/31/20 12:00 01/31/20 22:55 Chloride IV 0.03 units/min TITR KIRA 9.09 mls/hr Administration Protocol 0.03 UNITS/MIN Dextrose/Sodium Chloride 1,000 mls @ 30 mls/hr 02/01/20 09:00 02/03/20 10:30 D5ns IV 30 mls/hr DIRECT KIRA Administration Sodium Chloride 100 mls @ 999 mls/hr 02/03/20 08:25 Nacl 0.9% IV GILBERTO PRN Hypotension Cefepime HCl 1 gm in 100 mls @ 200 mls/hr 02/03/20 20:00 02/03/20 22:18 Cefepime/Ns 1 Gm/100 Ml IV 200 mls/hr Q24H KIRA Administration Protocol Midazolam HCl 2 mg 01/31/20 11:16 01/31/20 11:46 Versed IV 2 mg Q10MIN PRN Administration Sedation Multi-Ingred Cream/Lotion/Oil/Oint 1 applic 01/31/20 06:36 Artificial Tears Ophth Oint OU Q4HR PRN Dry Eye(s) Simple Syrup 15 ml 02/02/20 11:04 02/03/20 17:44 Simple Syrup FEEDTUBE 15 ml PRN PRN Administration Hypoglycemia Simple Syrup 30 ml 02/02/20 11:04 Simple Syrup FEEDTUBE PRN PRN Hypoglycemia Sodium Bicarbonate 325 mg 02/02/20 11:04 Sodium Bicarbonate FEEDTUBE PRN PRN For Clogged Feeding Tube Valproic Acid 250 mg 02/02/20 10:00 02/03/20 22:11 Depakene Liq FEEDTUBE 250 mg BID KIRA Administration
--- NOTE | 2020-02-04 10:18 | Progress Note ---
Assessment and Plan Assessment and plan: 84-year-old elderly male with history of advanced dementia [facility] resident history of single kidney presented to the hospital with altered mental status and respiratory failure. Patient intubated in the ER, placed on vasopressors, nephrology was consulted for emergent dialysis. --Acute metabolic encephalopathy: likely from severe sepsis, acute renal failure and underlying dementia --Acute hypoxic respiratory failure: Intubated on ventilatory support, pulmonary critical following Wean as tolerated and extubate --Acute renal failure : Patient only has 1 kidney, nephrology evaluated the patient Initiated hemodialysis, HD per schedule --Metabolic acidosis: from renal failure and sepsis, now on HD --P UI/ COVID-19 infection : Negative test --Bilateral PNA: cont iv abx, ID following --Septic shock, resolved, s/p pressor --Severe hyperkalemia: improved after HD and bicarbonate drip --Advanced dementia: cont supportive care --Severe sepsis :likely due to pneumonia, cont abx, --History of single kidney- s/p nephrectomy --DVT prophylaxis; heparin renal dose --DNR code status Recommend palliative care /hospice I discussed extensively with his , she requests DNR status , does not want hemodialysis Wants to discuss with the electric bath attendant, Patient also would like to talk to general operator regarding weaning ventilator support The high probability of a clinically significant, sudden or life threatening deterioration of the [multiple] system(s) required my full and direct attention, intervention and personal management. The aggregate critical care time was [33] minutes. This time is in addition to time spent performing reported procedures but includes the following: [x] Data Review and interpretation [x] Patient assessment and monitoring of vital signs [x] Documentation [x] Medication orders and management History Interval history: I have seen and examined the patient at the bedside this morning in ICU Patient's chart, medications, tests reviewed Patient remains intubated on ventilatory support Noncommunicative Vital signs reviewed Hospitalist Physical - Constitutional Vitals: Temp Pulse Resp BP Pulse Ox 98.3 F 72 17 103/46 99 02/04/20 08:00 02/04/20 09:30 02/04/20 09:30 02/04/20 09:30 02/04/20 09:30 General appearance: Present: mild distress, well-nourished, other (Intubated on vent) - EENT Eyes: Present: PERRL, EOM intact - Neck Neck: Present: supple, normal ROM - Respiratory Respiratory effort: normal Respiratory: bilateral: diminished, rhonchi, negative: rales, wheezing - Cardiovascular Rhythm: regular Heart Sounds: Present: S1 & S2 - Extremities Extremities: no ischemia, No edema - Abdominal General gastrointestinal: soft, non-tender, non-distended, normal bowel sounds - Integumentary Integumentary: Present: clear, warm - Psychiatric Psychiatric: other (Intubated on vent) - Neurologic Neurologic: other (Intubated on vent) HEART Score - HEART Score Troponin: Troponin T 0.065 ng/mL (0.00-0.029) H 01/31/20 03:47 Results - Labs CBC & Chem 7: 02/03/20 04:00 02/03/20 04:00 Labs: Laboratory Last Values WBC 12.8 K/mm3 (4.5-11.0) H 02/03/20 04:00 RBC 3.23 M/mm3 (3.65-5.03) L 02/03/20 04:00 Hgb 10.7 gm/dl (11.8-15.2) L 02/03/20 04:00 Hct 32.0 % (35.5-45.6) L 02/03/20 04:00 MCV 99 fl (84-94) H 02/03/20 04:00 MCH 33 pg (28-32) H 02/03/20 04:00 MCHC 33 % (32-34) 02/03/20 04:00 RDW 13.9 % (13.2-15.2) 02/03/20 04:00 Plt Count 184 K/mm3 (140-440) 02/03/20 04:00 Lymph % (Auto) 14.8 % (13.4-35.0) 02/03/20 04:00 [place] % (Auto) 6.6 % (0.0-7.3) 02/03/20 04:00 Eos % (Auto) 0.3 % (0.0-4.3) 02/03/20 04:00 Baso % (Auto) 0.1 % (0.0-1.8) 02/03/20 04:00 Lymph # 1.9 K/mm3 (1.2-5.4) 02/03/20 04:00 [place] # 0.8 K/mm3 (0.0-0.8) 02/03/20 04:00 Eos # 0.0 K/mm3 (0.0-0.4) 02/03/20 04:00 Baso # 0.0 K/mm3 (0.0-0.1) 02/03/20 04:00 Add Manual Diff Complete 01/31/20 03:47 Total Counted 100 01/31/20 03:47 Seg Neutrophils % 78.2 % (40.0-70.0) H 02/03/20 04:00 Seg Neuts % (Manual) 95.0 % (40.0-70.0) H 01/31/20 03:47 Band Neutrophils % 0 % 01/31/20 03:47 Lymphocytes % (Manual) 3.0 % (13.4-35.0) L 01/31/20 03:47 Reactive Lymphs % (Man) 0 % 01/31/20 03:47 Monocytes % (Manual) 2.0 % (0.0-7.3) 01/31/20 03:47 Eosinophils % (Manual) 0 % (0.0-4.3) 01/31/20 03:47 Basophils % (Manual) 0 % (0.0-1.8) 01/31/20 03:47 Metamyelocytes % 0 % 01/31/20 03:47 Myelocytes % 0 % 01/31/20 03:47 Promyelocytes % 0 % 01/31/20 03:47 Blast Cells % 0 % 01/31/20 03:47 Nucleated RBC % Not Reportable 01/31/20 03:47 Seg Neutrophils # 10.0 K/mm3 (1.8-7.7) H 02/03/20 04:00 Seg Neutrophils # Man 16.1 K/mm3 (1.8-7.7) H 01/31/20 03:47 Band Neutrophils # 0.0 K/mm3 01/31/20 03:47 Lymphocytes # (Manual) 0.5 K/mm3 (1.2-5.4) L 01/31/20 03:47 Abs React Lymphs (Man) 0.0 K/mm3 01/31/20 03:47 Monocytes # (Manual) 0.3 K/mm3 (0.0-0.8) 01/31/20 03:47 Eosinophils # (Manual) 0.0 K/mm3 (0.0-0.4) 01/31/20 03:47 Basophils # (Manual) 0.0 K/mm3 (0.0-0.1) 01/31/20 03:47 Metamyelocytes # 0.0 K/mm3 01/31/20 03:47 Myelocytes # 0.0 K/mm3 01/31/20 03:47 Promyelocytes # 0.0 K/mm3 01/31/20 03:47 Blast Cells # 0.0 K/mm3 01/31/20 03:47 WBC Morphology Not Reportable 01/31/20 03:47 Hypersegmented Neuts Not Reportable 01/31/20 03:47 Hyposegmented Neuts Not Reportable 01/31/20 03:47 Hypogranular Neuts Not Reportable 01/31/20 03:47 Smudge Cells Not Reportable 01/31/20 03:47 Toxic Granulation Not Reportable 01/31/20 03:47 Toxic Vacuolation Not Reportable 01/31/20 03:47 Dohle Bodies Not Reportable 01/31/20 03:47 Pelger-Huet Anomaly Not Reportable 01/31/20 03:47 Harshal Rods Not Reportable 01/31/20 03:47 Platelet Estimate Consistent w auto 01/31/20 03:47 Clumped Platelets Not Reportable 01/31/20 03:47 Plt Clumps, EDTA Not Reportable 01/31/20 03:47 Large Platelets Not Reportable 01/31/20 03:47 Giant Platelets Not Reportable 01/31/20 03:47 Platelet Satelliting Not Reportable 01/31/20 03:47 Plt Morphology Comment Not Reportable 01/31/20 03:47 RBC Morphology Not Reportable 01/31/20 03:47 Dimorphic RBCs Not Reportable 01/31/20 03:47 Polychromasia Not Reportable 01/31/20 03:47 Hypochromasia Not Reportable 01/31/20 03:47 Poikilocytosis Not Reportable 01/31/20 03:47 Anisocytosis 1+ 01/31/20 03:47 Microcytosis Not Reportable 01/31/20 03:47 Macrocytosis Not Reportable 01/31/20 03:47 Spherocytes Not Reportable 01/31/20 03:47 Pappenheimer Bodies Not Reportable 01/31/20 03:47 Sickle Cells Not Reportable 01/31/20 03:47 Target Cells Not Reportable 01/31/20 03:47 Tear Drop Cells Not Reportable 01/31/20 03:47 Ovalocytes Not Reportable 01/31/20 03:47 Helmet Cells Not Reportable 01/31/20 03:47 Torres-Faxon Bodies Not Reportable 01/31/20 03:47 [place] Rings Not Reportable 01/31/20 03:47 Ashleigh Cells Not Reportable 01/31/20 03:47 Bite Cells Not Reportable 01/31/20 03:47 Crenated Cell Not Reportable 01/31/20 03:47 Elliptocytes Not Reportable 01/31/20 03:47 Acanthocytes (Spur) Not Reportable 01/31/20 03:47 Rouleaux Not Reportable 01/31/20 03:47 Hemoglobin C Crystals Not Reportable 01/31/20 03:47 Schistocytes Not Reportable 01/31/20 03:47 Malaria parasites Not Reportable 01/31/20 03:47 Elliot Bodies Not Reportable 01/31/20 03:47 Hem Pathologist Commnt No 01/31/20 03:47 D-Dimer 544.72 ng/mlDDU (0-234) H 01/31/20 05:45 ABG pH 7.384 pH Units (7.350-7.450) 02/04/20 04:20 ABG pCO2 46.5 mm Hg 02/04/20 04:20 ABG pO2 86.2 mm Hg (80.0-90.0) 02/04/20 04:20 ABG HCO3 27.2 mmol/L (20.0-26.0) H 02/04/20 04:20 ABG O2 Saturation 96.9 % (95.0-99.0) 02/04/20 04:20 ABG O2 Content 13.3 (0.0-44) 02/04/20 04:20 ABG Base Excess 1.7 mmol/L (-2.0-3.0) 02/04/20 04:20 ABG Hemoglobin 9.8 gm/dl (14.0-18.0) L 02/04/20 04:20 ABG Carboxyhemoglobin 1.2 % (0.0-5.0) 02/04/20 04:20 ABG Methemoglobin 0.4 % (0.0-1.5) 02/04/20 04:20 Oxyhemoglobin 95.3 % (95.0-99.0) 02/04/20 04:20 FiO2 30 % 02/04/20 04:20 Sodium 141 mmol/L (137-145) 02/03/20 04:00 Potassium 4.1 mmol/L (3.6-5.0) 02/03/20 04:00 Chloride 100.4 mmol/L (98-107) 02/03/20 04:00 Carbon Dioxide 28 mmol/L (22-30) 02/03/20 04:00 Anion Gap 17 mmol/L 02/03/20 04:00 BUN 50 mg/dL (9-20) H 02/03/20 04:00 Creatinine 5.0 mg/dL (0.8-1.5) H 02/03/20 04:00 Estimated GFR 11 ml/min 02/03/20 04:00 BUN/Creatinine Ratio 10 % 02/03/20 04:00 Glucose 71 mg/dL (75-100) L 02/03/20 04:00 POC Glucose 89 (70-105) 02/04/20 06:05 Osmolality 345 Mosm/kg 01/31/20 06:06 Lactic Acid 0.70 mmol/L (0.7-2.0) 01/31/20 15:53 Uric Acid 8.5 mg/dL (3.5-7.6) H 01/31/20 06:06 Calcium 8.0 mg/dL (8.4-10.2) L 02/03/20 04:00 Ferritin 722.6 ng/mL (13.0-400.0) H 01/31/20 05:45 Total Bilirubin 0.30 mg/dL (0.1-1.2) 01/31/20 03:47 AST 9 units/L (5-40) 01/31/20 03:47 ALT < 5 units/L (7-56) L 01/31/20 03:47 Alkaline Phosphatase 71 units/L (35-129) 01/31/20 03:47 Lactate Dehydrogenase 387 units/L (91-180) H 01/31/20 05:45 Total Creatine Kinase 123 units/L (55-170) 01/31/20 06:06 Troponin T 0.065 ng/mL (0.00-0.029) H 01/31/20 03:47 C-Reactive Protein 1.60 mg/dL (0.00-1.30) H 01/31/20 05:45 Total Protein 7.6 g/dL (6.3-8.2) 01/31/20 03:47 Albumin 3.8 g/dL (3.9-5) L 01/31/20 03:47 Albumin/Globulin Ratio 1.0 % 01/31/20 03:47 Triglycerides 76 mg/dL (2-149) 01/31/20 03:47 Cholesterol 96 mg/dL (50-199) 01/31/20 03:47 LDL Cholesterol Direct 66 mg/dL (50-130) 01/31/20 03:47 HDL Cholesterol 39 mg/dL (40-59) L 01/31/20 03:47 Cholesterol/HDL Ratio 2.46 % 01/31/20 03:47 Procalcitonin 0.51 ng/mL (<0.15) 01/31/20 05:45 Urine Color Ayana (Yellow) 01/31/20 04:25 Urine Turbidity Clear (Clear) 01/31/20 04:25 Urine pH 5.0 (5.0-7.0) 01/31/20 04:25 Ur Specific [place] 1.015 (1.003-1.030) 01/31/20 04:25 Urine Protein <15 mg/dl mg/dL (Negative) 01/31/20 04:25 Urine Glucose (UA) Neg mg/dL (Negative) 01/31/20 04:25 Urine Ketones Tr mg/dL (Negative) 01/31/20 04:25 Urine Blood Neg (Negative) 01/31/20 04:25 Urine Nitrite Neg (Negative) 01/31/20 04:25 Urine Bilirubin Neg (Negative) 01/31/20 04:25 Urine Urobilinogen < 2.0 mg/dL (<2.0) 01/31/20 04:25 Ur Leukocyte Esterase Sm (Negative) 01/31/20 04:25 Urine WBC (Auto) 1.0 /HPF (0.0-6.0) 01/31/20 04:25 Urine RBC (Auto) 3.0 /HPF (0.0-6.0) 01/31/20 04:25 Urine Mucus Few /HPF 01/31/20 04:25 Urine Creatinine 257.5 mg/dL (0.1-20.0) H 01/31/20 23:06 Urine Sodium 10 mmol/L 01/31/20 23:06 Nasal Screen MRSA (PCR) Negative (Negative) 02/03/20 Unknown Urine Opiates Screen Presumptive negative 01/31/20 04:25 Urine Methadone Screen Presumptive negative 01/31/20 04:25 Ur Barbiturates Screen Presumptive negative 01/31/20 04:25 Ur Phencyclidine Scrn Presumptive negative 01/31/20 04:25 Ur Amphetamines Screen Presumptive negative 01/31/20 04:25 U Benzodiazepines Scrn Presumptive negative 01/31/20 04:25 Urine Cocaine Screen Presumptive negative 01/31/20 04:25 U Marijuana (THC) Screen Presumptive negative 01/31/20 04:25 Drugs of Abuse Note Disclamer 01/31/20 04:25 Coronavirus (PCR) Negative (Negative) 02/01/20 Unknown Hepatitis A IgM Ab Non-reactive (NonReactive) 01/31/20 06:06 Hep Bs Antigen Non-reactive (Negative) 01/31/20 06:06 Hep B Core IgM Ab Non-reactive (NonReactive) 01/31/20 06:06 Hepatitis C Antibody Non-reactive (NonReactive) 01/31/20 06:06 Microbiology: Microbiology 01/31/20 04:25 Peripheral/Venous Blood Culture - Preliminary NO GROWTH AFTER 72 HOURS 01/31/20 03:47 Peripheral/Venous Blood Culture - Preliminary NO GROWTH AFTER 72 HOURS Romo/IV: Voiding Method Indwelling Catheter IV Catheter Type [Right VAS Cath Femoral] IV Catheter Type [Right Triple Lumen Cath Internal Jugular] IV Catheter Type [Left Peripheral IV External Jugular] IV Catheter Type [Right Peripheral IV Forearm] IV Catheter Type [Left Forearm Peripheral IV ] Active Medications - Current Medications Current Medications: Generic Name Dose Route Start Last Admin Trade Name Freq PRN Reason Stop Dose Admin Lipase/Protease/Amylase 1 each 02/02/20 11:[address] 10,500 Unit FEEDTUBE PRN PRN For Clogged Feeding Tube Carbidopa/Levodopa 1.5 each 02/01/20 10:00 02/03/20 10:28 Sinemet PO 1.5 each DAILY KIRA Administration Dextrose 0 ml 02/02/20 00:11 02/02/20 18:20 D50w (25gm) Syringe IV 50 ml Q30MIN PRN Administration Hypoglycemia Protocol Famotidine 20 mg 02/03/20 10:00 02/03/20 10:28 Pepcid PO 20 mg DAILY KIRA Administration Fentanyl 50 mcg 01/31/20 06:36 01/31/20 16:40 Sublimaze IV 50 mcg Q10MIN PRN Administration ANALGESIA Folic Acid 1 mg 02/04/20 10:00 Folvite PO DAILY KIRA Heparin Sodium (Porcine) 5,000 unit 01/31/20 22:00 02/03/20 22:11 Heparin SUB-Q 5,000 unit Q12HR KIRA Administration Hydrophilic Ointment 1 applic 01/31/20 06:36 Vaseline Lip Therapy TP Q2HR PRN Dry Lips Fentanyl Citrate 2,000 mcg in 100 mls @ 3.175 mls/hr 01/31/20 07:00 02/04/20 07:35 Fentanyl Drip Premix IV 2 mcg/kg/hr TITR KIRA 6.35 mls/hr Administration Protocol 1 MCG/KG/HR Norepinephrine 4 mg in 250 mls @ 7.5 mls/hr 01/31/20 07:00 02/03/20 20:18 Levophed Drip 4 Mg/Ns 250 Ml IV 2 mcg/min TITR KIRA 7.5 mls/hr Administration Protocol 2 MCG/MIN Vasopressin 20 unit/ Sodium 101 mls @ 9.09 mls/hr 01/31/20 12:00 01/31/20 22:55 Chloride IV 0.03 units/min TITR KIRA 9.09 mls/hr Administration Protocol 0.03 UNITS/MIN Dextrose/Sodium Chloride 1,000 mls @ 30 mls/hr 02/01/20 09:00 02/03/20 10:30 D5ns IV 30 mls/hr DIRECT KIRA Administration Sodium Chloride 100 mls @ 999 mls/hr 02/03/20 08:25 Nacl 0.9% IV GILBERTO PRN Hypotension Cefepime HCl 1 gm in 100 mls @ 200 mls/hr 02/03/20 20:00 02/03/20 22:18 Cefepime/Ns 1 Gm/100 Ml IV 200 mls/hr Q24H KIRA Administration Protocol Midazolam HCl 2 mg 01/31/20 11:16 01/31/20 11:46 Versed IV 2 mg Q10MIN PRN Administration Sedation Multi-Ingred Cream/Lotion/Oil/Oint 1 applic 01/31/20 06:36 Artificial Tears Ophth Oint OU Q4HR PRN Dry Eye(s) Simple Syrup 15 ml 02/02/20 11:04 02/03/20 17:44 Simple Syrup FEEDTUBE 15 ml PRN PRN Administration Hypoglycemia Simple Syrup 30 ml 02/02/20 11:04 Simple Syrup FEEDTUBE PRN PRN Hypoglycemia Sodium Bicarbonate 325 mg 02/02/20 11:04 Sodium Bicarbonate FEEDTUBE PRN PRN For Clogged Feeding Tube Valproic Acid 250 mg 02/02/20 10:00 02/03/20 22:11 Depakene Liq FEEDTUBE 250 mg BID KIRA Administration Nutrition/Malnutrition Assess - Dietary Evaluation Nutrition/Malnutrition Findings: Nutrition Notes Start: 02/01/20 0 8:59 Freq: Status: Active Protocol: Document 02/02/20 11:05 LP (Rec: 02/02/20 11:06 LP [id number]) Nutrition Notes Need for Assessment generated from: MD Order Initial or Follow up Brief Note Subjective/Other Information Consult for TF. Nutrition Intervention Change Diet Order: TF Nutrition Support: Nepro at 40ml/hr Flush with 150ml q4h Kcal 1,728 Protein (gm) 78 Fluid (mL) 698 Goal #1 Meet at least 80% of kcal and protein needs via TF Anticipated Discharge Needs: Unable to determine at this time Follow-Up By: 02/04/20 Additional Comments Follow for TF start/tolerance
[2020-02-04] MEDS: FAMOTIDINE 20 MG TAB PO SCH (10:24)
[2020-02-04] MEDS: FOLIC ACID 1 MG TAB PO SCH (10:24)
[2020-02-04] MEDS: HEPARIN 5,000 UNIT/1 ML VIAL SUB-Q SCH ×2 (10:24→21:03)
[2020-02-04] MEDS: CARBIDOPA/LEVODOPA 25-100 MG TAB PO SCH (10:25)
[2020-02-04] MEDS: VALPROIC ACID 250 MG/5 ML ORAL LIQD FEEDTUBE SCH (10:25)
--- NOTE | 2020-02-04 10:50 | Progress Note ---
Assessment and Plan Acute hypoxemic respiratory failure on MVS Acute toxic-metabolic encephalopathy Lactic acidosis- resolved Hyperkalemia with SJ Severe metabolic acidosis COVID-PUI (Discussed care plan at length with his with charge nurse intermittently involved in conversation) - she declines further dialysis - placed on 2 hour SBT - extubate if meets criteria - continue as below otherwise; - prn vasopressor support, for target MAP > 65mmHg - Monitor hemodynamics closely - continue Daily SAT and SBT assessment as tolerated - continue accuchecks with glycemic control per SSI (While critically ill target blood glucose of 140-180 mg/dL; avoid hypoglycemia) - sedation prn for target RASS 0 to -1 - continue to wean supplemental oxygen for target O2 sat's > 92% acutely - VAP bundle addressed - continue lung protective strategies - continue bronchodilators with pulmonary hygiene per RT - wean per pulmonary driven protocols otherwise - continue to avoid benzodiazepine's, reduce the possibility of delirium - completed AB's per ID rec's - prn analgesia per CPOT score - Maintenance of sleep-wake cycle, avoid delirium - continue enteral nutritional support at goal rate as tolerated - G.I. & VTE prophylaxis - PT/OT/ROM exercises - continue mobility protocols for pressure ulcer prophylaxis - Monitor hemodynamics closely - continue other care per attending / other consultants - discharge planning ongoing concurrently (family will bew offered hospice care option) .... Re-evaluate in am & prn Life threatening condition- Acute hypoxemic respiratory failure on MVS, Acute toxic -metabolic encephalopathy Mortality/Morbidity- High Complexity of medical decision making- High CONDITION: CRITICAL PROGNOSIS: GUARDED CODE STATUS: DNAR- per documentation of primary service The high probability of a clinically significant, sudden or life-threatening deterioration of the [respiratory, renal & cardiovascular,neurology] system(s) required my full and direct attention, intervention and personal management. The aggregate critical care time was [35] minutes without overlap. Time includes spent on; [x] Data Review and interpretation [x] Patient assessment and monitoring of vital signs [x] Documentation [x] Medication orders and management Subjective Date of service: 02/04/20 Principal diagnosis: Ac. hypoxemic resp failure; Ac. toxic-met encephalopathy; SJ; COVID-PUI Interval history: Patient is seen today for: Acute hypoxemic respiratory failure; Acute toxic-met abolic encephalopathy; Lactic acidosis; Hyperkalemia; SJ; Severe metabolic acidosis; COVID-PUI Seen and examined at bedside; 24hour events reviewed; nursing and respiratory care staff consulted; no adverse overnight events reported to me; resting peacefully in bed; placed on PSV trial and tolerating well so far (fentanyl stopped); no new issues otherwise Objective Vital Signs - 12hr 02/03/20 02/03/20 02/03/20 23:00 23:16 23:30 Temperature Pulse Rate 73 72 72 Pulse Rate [ From Monitor] Respiratory 20 19 20 Rate Respiratory Rate [Denies Pain] Blood Pressure 122/64 126/57 123/55 O2 Sat by Pulse 97 98 98 Oximetry 02/03/20 02/04/20 02/04/20 23:46 00:00 00:16 Temperature 99.1 F Pulse Rate 76 75 74 Pulse Rate [ 72 From Monitor] Respiratory 20 20 20 Rate Respiratory Rate [Denies Pain] Blood Pressure 132/65 132/61 133/51 O2 Sat by Pulse 98 99 99 Oximetry 02/04/20 02/04/20 02/04/20 00:30 00:37 00:46 Temperature Pulse Rate 79 70 Pulse Rate [ From Monitor] Respiratory 20 18 Rate Respiratory Rate [Denies Pain] Blood Pressure 133/51 137/71 118/61 O2 Sat by Pulse 99 99 100 Oximetry 02/04/20 02/04/20 02/04/20 01:00 01:15 01:30 Temperature Pulse Rate 74 73 75 Pulse Rate [ From Monitor] Respiratory 20 20 20 Rate Respiratory Rate [Denies Pain] Blood Pressure 118/61 126/63 131/67 O2 Sat by Pulse 98 98 98 Oximetry 02/04/20 02/04/20 02/04/20 01:46 02:00 02:16 Temperature Pulse Rate 77 64 68 Pulse Rate [ From Monitor] Respiratory 20 20 20 Rate Respiratory Rate [Denies Pain] Blood Pressure 133/45 133/45 118/53 O2 Sat by Pulse 98 96 98 Oximetry 02/04/20 02/04/20 02/04/20 02:30 02:46 03:00 Temperature Pulse Rate 75 106 H 72 Pulse Rate [ From Monitor] Respiratory 20 20 20 Rate Respiratory Rate [Denies Pain] Blood Pressure 126/63 123/53 119/56 O2 Sat by Pulse 97 98 95 Oximetry 02/04/20 02/04/20 02/04/20 03:15 03:30 03:46 Temperature Pulse Rate 63 78 Pulse Rate [ From Monitor] Respiratory 20 20 15 Rate Respiratory Rate [Denies Pain] Blood Pressure 116/56 116/56 131/52 O2 Sat by Pulse 93 98 98 Oximetry 02/04/20 02/04/20 02/04/20 03:57 04:00 04:16 Temperature 99.1 F Pulse Rate 60 89 83 Pulse Rate [ 72 From Monitor] Respiratory 19 18 Rate Respiratory Rate [Denies Pain] Blood Pressure 131/53 132/57 132/57 O2 Sat by Pulse 96 97 99 Oximetry 02/04/20 02/04/20 02/04/20 04:30 04:45 05:00 Temperature Pulse Rate 69 65 91 H Pulse Rate [ From Monitor] Respiratory 20 20 20 Rate Respiratory Rate [Denies Pain] Blood Pressure 132/57 129/54 123/54 O2 Sat by Pulse 95 93 94 Oximetry 02/04/20 02/04/20 02/04/20 05:15 05:30 05:45 Temperature Pulse Rate 88 77 82 Pulse Rate [ From Monitor] Respiratory 20 20 20 Rate Respiratory Rate [Denies Pain] Blood Pressure 118/46 118/53 124/54 O2 Sat by Pulse 92 93 92 Oximetry 02/04/20 02/04/20 02/04/20 06:00 06:16 06:30 Temperature Pulse Rate 73 67 77 Pulse Rate [ From Monitor] Respiratory 20 20 18 Rate Respiratory Rate [Denies Pain] Blood Pressure 117/63 109/53 109/53 O2 Sat by Pulse 93 93 96 Oximetry 02/04/20 02/04/20 02/04/20 06:45 07:00 07:16 Temperature Pulse Rate 81 75 72 Pulse Rate [ From Monitor] Respiratory 20 20 20 Rate Respiratory Rate [Denies Pain] Blood Pressure 112/52 110/51 102/48 O2 Sat by Pulse 96 96 96 Oximetry 02/04/20 02/04/20 02/04/20 07:30 07:45 08:00 Temperature 98.3 F Pulse Rate 67 67 67 Pulse Rate [ 67 From Monitor] Respiratory 20 20 20 Rate Respiratory Rate [Denies Pain] Blood Pressure 109/56 103/49 109/54 O2 Sat by Pulse 96 96 95 Oximetry 02/04/20 02/04/20 02/04/20 08:08 08:15 08:30 Temperature Pulse Rate 80 78 65 Pulse Rate [ From Monitor] Respiratory 11 L 12 Rate Respiratory Rate [Denies Pain] Blood Pressure 109/54 121/58 114/54 O2 Sat by Pulse 96 98 98 Oximetry 02/04/20 02/04/20 02/04/20 08:45 09:00 09:15 Temperature Pulse Rate 78 68 66 Pulse Rate [ From Monitor] Respiratory 20 20 20 Rate Respiratory Rate [Denies Pain] Blood Pressure 115/50 113/51 103/46 O2 Sat by Pulse 96 97 97 Oximetry 02/04/20 02/04/20 02/04/20 09:30 09:45 10:00 Temperature Pulse Rate 72 68 71 Pulse Rate [ From Monitor] Respiratory 17 20 22 Rate Respiratory 20 Rate [Denies Pain] Blood Pressure 103/46 112/57 120/57 O2 Sat by Pulse 99 89 93 Oximetry 02/04/20 02/04/20 10:15 10:30 Temperature Pulse Rate 73 75 Pulse Rate [ From Monitor] Respiratory 20 20 Rate Respiratory Rate [Denies Pain] Blood Pressure 113/52 109/53 O2 Sat by Pulse 94 91 Oximetry Constitutional: no acute distress, other (elderly looking CM normocephalic with mildly increased respiratory effort at rest) Eyes: non-icteric ENT: oropharynx moist, other (ETT 24 cm EMILI) Neck: supple, no lymphadenopathy, no JVD Effort: mildly labored Ascultation: Bilateral: diminished breath sounds, rhonchi (scant) Percussion: Bilateral: not dull Cardiovascular: regular rate and rhythm Gastrointestinal: normoactive bowel sounds, soft, non-tender, non-distended Integumentary: rash Extremities: pink and warm, pulses normal, no ischemia or petechiae, edema (mild to upper extremities) Neurologic: non-focal exam (grossly), pupils equal and round, CN II-XII normal, motor strength normal and Psychiatric: mood appropriate, affect normal CBC and BMP: 02/03/20 04:00 02/03/20 04:00 ABG, PT/INR, D-dimer: ABG ABG pH 7.384 pH Units (7.350-7.450) 02/04/20 04:20 ABG pCO2 46.5 mm Hg 02/04/20 04:20 ABG pO2 86.2 mm Hg (80.0-90.0) 02/04/20 04:20 ABG O2 Saturation 96.9 % (95.0-99.0) 02/04/20 04:20 PT/INR, D-dimer D-Dimer 544.72 ng/mlDDU (0-234) H 01/31/20 05:45 Abnormal lab findings: Abnormal Labs 01/31/20 01/31/20 01/31/20 03:47 03:47 03:47 WBC 16.9 H RBC Hgb Hct MCV 99 H MCH 33 H Lymph % (Auto) [place] % (Auto) Lymph # [place] # Seg Neutrophils % Seg Neuts % (Manual) 95.0 H Lymphocytes % (Manual) 3.0 L Seg Neutrophils # Seg Neutrophils # Man 16.1 H Lymphocytes # (Manual) 0.5 L D-Dimer ABG pH ABG pO2 ABG HCO3 ABG O2 Saturation ABG Base Excess ABG Hemoglobin Oxyhemoglobin Sodium 126 L Potassium 8.8 H* Chloride 86.4 L Carbon Dioxide 10 L BUN 181 H Creatinine 12.5 H Glucose POC Glucose Lactic Acid 2.10 H* Uric Acid Calcium Ferritin ALT < 5 L Lactate Dehydrogenase Troponin T 0.065 H C-Reactive Protein Albumin 3.8 L HDL Cholesterol 39 L Urine Creatinine 01/31/20 01/31/20 01/31/20 05:37 05:45 05:45 WBC RBC Hgb Hct MCV MCH Lymph % (Auto) [place] % (Auto) Lymph # [place] # Seg Neutrophils % Seg Neuts % (Manual) Lymphocytes % (Manual) Seg Neutrophils # Seg Neutrophils # Man Lymphocytes # (Manual) D-Dimer 544.72 H ABG pH ABG pO2 ABG HCO3 ABG O2 Saturation ABG Base Excess ABG Hemoglobin Oxyhemoglobin Sodium Potassium Chloride Carbon Dioxide BUN Creatinine Glucose 103 H POC Glucose Lactic Acid 2.20 H* Uric Acid Calcium Ferritin ALT Lactate Dehydrogenase 387 H Troponin T C-Reactive Protein 1.60 H Albumin HDL Cholesterol Urine Creatinine 01/31/20 01/31/20 01/31/20 05:45 06:06 09:45 WBC RBC Hgb Hct MCV MCH Lymph % (Auto) [place] % (Auto) Lymph # [place] # Seg Neutrophils % Seg Neuts % (Manual) Lymphocytes % (Manual) Seg Neutrophils # Seg Neutrophils # Man Lymphocytes # (Manual) D-Dimer ABG pH ABG pO2 ABG HCO3 ABG O2 Saturation ABG Base Excess ABG Hemoglobin Oxyhemoglobin Sodium Potassium Chloride Carbon Dioxide BUN Creatinine Glucose POC Glucose Lactic Acid 3.20 H* Uric Acid 8.5 H Calcium Ferritin 722.6 H ALT Lactate Dehydrogenase Troponin T C-Reactive Protein Albumin HDL Cholesterol Urine Creatinine 01/31/20 01/31/20 01/31/20 09:45 10:30 18:31 WBC RBC Hgb Hct MCV MCH Lymph % (Auto) [place] % (Auto) Lymph # [place] # Seg Neutrophils % Seg Neuts % (Manual) Lymphocytes % (Manual) Seg Neutrophils # Seg Neutrophils # Man Lymphocytes # (Manual) D-Dimer ABG pH 7.059 L* ABG pO2 70.2 L ABG HCO3 9.9 L ABG O2 Saturation 85.4 L ABG Base Excess -19.6 L ABG Hemoglobin Oxyhemoglobin 84.0 L Sodium 118 L* D 133 L D Potassium 8.1 H* 5.1 H D Chloride 91.1 L 93.7 L Carbon Dioxide 3 L* D 17 L D BUN 179 H 54 H Creatinine 11.6 H 4.9 H D Glucose 197 H 215 H POC Glucose Lactic Acid Uric Acid Calcium Ferritin ALT Lactate Dehydrogenase Troponin T C-Reactive Protein Albumin HDL Cholesterol Urine Creatinine 01/31/20 01/31/20 02/01/20 19:45 23:06 01:30 WBC 17.4 H RBC 3.59 L Hgb 11.7 L Hct 34.5 L D MCV 96 H MCH 33 H Lymph % (Auto) 3.0 L [place] % (Auto) 8.9 H Lymph # 0.5 L [place] # 1.6 H Seg Neutrophils % 88.1 H Seg Neuts % (Manual) Lymphocytes % (Manual) Seg Neutrophils # 15.3 H Seg Neutrophils # Man Lymphocytes # (Manual) D-Dimer ABG pH ABG pO2 172.0 H ABG HCO3 ABG O2 Saturation 99.1 H ABG Base Excess -3.0 L ABG Hemoglobin 13.8 L Oxyhemoglobin Sodium Potassium Chloride Carbon Dioxide BUN Creatinine Glucose POC Glucose Lactic Acid Uric Acid Calcium Ferritin ALT Lactate Dehydrogenase Troponin T C-Reactive Protein Albumin HDL Cholesterol Urine Creatinine 257.5 H 02/01/20 02/01/20 02/01/20 01:30 04:53 23:39 WBC RBC Hgb Hct MCV MCH Lymph % (Auto) [place] % (Auto) Lymph # [place] # Seg Neutrophils % Seg Neuts % (Manual) Lymphocytes % (Manual) Seg Neutrophils # Seg Neutrophils # Man Lymphocytes # (Manual) D-Dimer ABG pH 7.505 H ABG pO2 158.5 H ABG HCO3 ABG O2 Saturation 99.1 H ABG Base Excess ABG Hemoglobin 11.0 L Oxyhemoglobin Sodium 133 L Potassium Chloride 93.6 L Carbon Dioxide BUN 47 H Creatinine 4.5 H Glucose 204 H POC Glucose 58 L Lactic Acid Uric Acid Calcium 8.3 L Ferritin ALT Lactate Dehydrogenase Troponin T C-Reactive Protein Albumin HDL Cholesterol Urine Creatinine 02/02/20 02/02/20 02/02/20 04:24 10:48 10:48 WBC 11.8 H RBC 3.16 L Hgb 10.2 L Hct 31.0 L MCV 98 H MCH Lymph % (Auto) [place] % (Auto) Lymph # [place] # Seg Neutrophils % Seg Neuts % (Manual) Lymphocytes % (Manual) Seg Neutrophils # Seg Neutrophils # Man Lymphocytes # (Manual) D-Dimer ABG pH ABG pO2 74.4 L ABG HCO3 30.2 H ABG O2 Saturation ABG Base Excess 4.6 H ABG Hemoglobin 10.7 L Oxyhemoglobin 94.7 L Sodium Potassium Chloride Carbon Dioxide BUN 52 H Creatinine 5.2 H Glucose 59 L POC Glucose Lactic Acid Uric Acid Calcium 8.2 L Ferritin ALT Lactate Dehydrogenase Troponin T C-Reactive Protein Albumin HDL Cholesterol Urine Creatinine 02/02/20 02/02/20 02/03/20 12:19 18:02 00:52 WBC RBC Hgb Hct MCV MCH Lymph % (Auto) [place] % (Auto) Lymph # [place] # Seg Neutrophils % Seg Neuts % (Manual) Lymphocytes % (Manual) Seg Neutrophils # Seg Neutrophils # Man Lymphocytes # (Manual) D-Dimer ABG pH ABG pO2 ABG HCO3 ABG O2 Saturation ABG Base Excess ABG Hemoglobin Oxyhemoglobin Sodium Potassium Chloride Carbon Dioxide BUN Creatinine Glucose POC Glucose 64 L 60 L 69 L Lactic Acid Uric Acid Calcium Ferritin ALT Lactate Dehydrogenase Troponin T C-Reactive Protein Albumin HDL Cholesterol Urine Creatinine 02/03/20 02/03/20 02/03/20 04:00 04:00 04:35 WBC 12.8 H RBC 3.23 L Hgb 10.7 L Hct 32.0 L MCV 99 H MCH 33 H Lymph % (Auto) [place] % (Auto) Lymph # [place] # Seg Neutrophils % 78.2 H Seg Neuts % (Manual) Lymphocytes % (Manual) Seg Neutrophils # 10.0 H Seg Neutrophils # Man Lymphocytes # (Manual) D-Dimer ABG pH 7.281 L ABG pO2 71.7 L ABG HCO3 27.9 H ABG O2 Saturation 94.6 L ABG Base Excess ABG Hemoglobin 9.5 L Oxyhemoglobin 92.8 L Sodium Potassium Chloride Carbon Dioxide BUN 50 H Creatinine 5.0 H Glucose 71 L POC Glucose Lactic Acid Uric Acid Calcium 8.0 L Ferritin ALT Lactate Dehydrogenase Troponin T C-Reactive Protein Albumin HDL Cholesterol Urine Creatinine 02/03/20 02/03/20 02/04/20 17:34 23:54 04:20 WBC RBC Hgb Hct MCV MCH Lymph % (Auto) [place] % (Auto) Lymph # [place] # Seg Neutrophils % Seg Neuts % (Manual) Lymphocytes % (Manual) Seg Neutrophils # Seg Neutrophils # Man Lymphocytes # (Manual) D-Dimer ABG pH ABG pO2 ABG HCO3 27.2 H ABG O2 Saturation ABG Base Excess ABG Hemoglobin 9.8 L Oxyhemoglobin Sodium Potassium Chloride Carbon Dioxide BUN Creatinine Glucose POC Glucose 67 L 127 H Lactic Acid Uric Acid Calcium Ferritin ALT Lactate Dehydrogenase Troponin T C-Reactive Protein Albumin HDL Cholesterol Urine Creatinine Chest x-ray: image reviewed (no new infiltrate) Allied health notes reviewed: nursing
--- NOTE | 2020-02-04 15:35 | Progress Note ---
Assessment and Plan Cultures: Blood culture 01/31/2020 pending Sputum culture 01/31/2020 pending COVID-19 negative A/P: 84-year-old man past medical history hypertension, dementia admitted to the hospital with altered mental status and hypoxia. #Acute hypoxic respiratory failure: Secondary to pneumonia #Right-sided pneumonia: Continue empiric antibiotics. #SJ on HD: Etiology possibly septic shock Recs: -Continue renally dosed cefepime for now, monitor for improvement. Thank you for the consult, we will continue to follow. Yudith Fernandez MD [facility] ([facility]) M: [phone] O: [phone] F: [phone] Subjective Date of service: 02/04/20 Principal diagnosis: Ac. hypoxemic resp failure; Ac. toxic-met encephalopathy; SJ; COVID-PUI Interval history: Afebrile, stable white count. Currently mechanically ventilated. Imaging personally reviewed: Chest x-ray: Stable infiltrates. Objective - Exam Narrative Exam: Physical exam deferred due to PPE conservation strategy. Please refer to primary team's note. - Constitutional Vitals: Vital Signs Temp Pulse Resp BP Pulse Ox 98.4 F 84 20 117/55 98 02/04/20 12:00 02/04/20 15:23 02/04/20 15:23 02/04/20 15:23 02/04/20 15:23 Temperature -Last 24 Hours Temperature 98.4 F Temperature 98.3 F Temperature 99.1 F Temperature 99.1 F Temperature 98.9 F Temperature 99.4 F - Labs CBC & Chem 7: 02/03/20 04:00 02/03/20 04:00 Labs: Abnormal lab results 02/03/20 02/03/20 02/04/20 Range/Units 17:34 23:54 04:20 ABG HCO3 27.2 H (20.0-26.0) mmol/L ABG Hemoglobin 9.8 L (14.0-18.0) gm/dl POC Glucose 67 L 127 H (70-105)
[2020-02-04 15:49] LABS: ABG Base Excess 1.2 mmol/L (-2.0-3.0); ABG Methemoglobin 0.5 % (0.0-1.5); ABG Oxygen Saturation 96.6 % (95.0-99.0); ABG PCO2 42.2 mm Hg; ABG PH 7.408 pH Units (7.350-7.450); ABG PO2 80.5 mm Hg (80.0-90.0)
[2020-02-04] MEDS: CEFEPIME/NS 1 GM/100 ML 1 GM/100 ML BAG IV SCH (20:51)
[2020-02-04] MEDS: levETIRAcetam 750 MG in DEXTROSE 5% IN WATER 100 ML IV SCH (21:52)
--- NOTE | 2020-02-05 07:52 | Progress Note ---
Assessment and Plan Assessment and plan: 84-year-old elderly male with history of advanced dementia [facility] resident history of single kidney presented to the hospital with altered mental status and respiratory failure. Patient intubated in the ER, placed on vasopressors, nephrology was consulted for emergent dialysis. Patient was extubated yesterday --Acute metabolic encephalopathy: likely from severe sepsis, acute renal failure and underlying dementia --Acute hypoxic respiratory failure: Requiring intubation Extubated yesterday 02/04/20 On Ventimask, continue supportive care --Acute renal failure /single kidney; Initiated hemodialysis, patient's does not want to continue with hemodialysis Nephrology aware --Metabolic acidosis: from renal failure and sepsis, now on HD --P UI/ COVID-19 infection : Negative test --Bilateral PNA: cont iv abx, ID following --Septic shock, resolved, s/p pressor --Severe hyperkalemia: improved after HD and bicarbonate drip --Advanced dementia: cont supportive care --Severe sepsis :likely due to pneumonia, cont abx, --History of single kidney- s/p nephrectomy --DVT prophylaxis; heparin renal dose --DNR code status Recommend palliative care /hospice The high probability of a clinically significant, sudden or life threatening deterioration of the [multiple] system(s) required my full and direct attention, intervention and personal management. The aggregate critical care time was [32] minutes. This time is in addition to time spent performing reported procedures but includes the following: [x] Data Review and interpretation [x] Patient assessment and monitoring of vital signs [x] Documentation [x] Medication orders and management History Interval history: I have seen and examined the patient at the bedside this morning in ICU Patient was extubated yesterday, on Ventimask In mild distress, vital signs reviewed Hospitalist Physical - Constitutional Vitals: Temp Pulse Resp BP Pulse Ox 98.0 F 66 14 104/52 97 02/05/20 03:58 02/05/20 06:45 02/05/20 06:45 02/05/20 06:45 02/05/20 06:45 General appearance: Present: mild distress, well-nourished, other (Extubated, on Ventimask) - EENT Eyes: Present: PERRL, EOM intact - Neck Neck: Present: supple, normal ROM - Respiratory Respiratory effort: normal Respiratory: bilateral: diminished, rhonchi, negative: rales, wheezing - Cardiovascular Rhythm: regular Heart Sounds: Present: S1 & S2 - Extremities Extremities: no ischemia, No edema - Abdominal General gastrointestinal: soft, non-tender, non-distended, normal bowel sounds - Integumentary Integumentary: Present: clear, warm - Psychiatric Psychiatric: other (Confused) - Neurologic Neurologic: other (Confused) HEART Score - HEART Score Troponin: Troponin T 0.065 ng/mL (0.00-0.029) H 01/31/20 03:47 Results - Labs CBC & Chem 7: 02/03/20 04:00 02/03/20 04:00 Labs: Laboratory Last Values WBC 12.8 K/mm3 (4.5-11.0) H 02/03/20 04:00 RBC 3.23 M/mm3 (3.65-5.03) L 02/03/20 04:00 Hgb 10.7 gm/dl (11.8-15.2) L 02/03/20 04:00 Hct 32.0 % (35.5-45.6) L 02/03/20 04:00 MCV 99 fl (84-94) H 02/03/20 04:00 MCH 33 pg (28-32) H 02/03/20 04:00 MCHC 33 % (32-34) 02/03/20 04:00 RDW 13.9 % (13.2-15.2) 02/03/20 04:00 Plt Count 184 K/mm3 (140-440) 02/03/20 04:00 Lymph % (Auto) 14.8 % (13.4-35.0) 02/03/20 04:00 [place] % (Auto) 6.6 % (0.0-7.3) 02/03/20 04:00 Eos % (Auto) 0.3 % (0.0-4.3) 02/03/20 04:00 Baso % (Auto) 0.1 % (0.0-1.8) 02/03/20 04:00 Lymph # 1.9 K/mm3 (1.2-5.4) 02/03/20 04:00 [place] # 0.8 K/mm3 (0.0-0.8) 02/03/20 04:00 Eos # 0.0 K/mm3 (0.0-0.4) 02/03/20 04:00 Baso # 0.0 K/mm3 (0.0-0.1) 02/03/20 04:00 Add Manual Diff Complete 01/31/20 03:47 Total Counted 100 01/31/20 03:47 Seg Neutrophils % 78.2 % (40.0-70.0) H 02/03/20 04:00 Seg Neuts % (Manual) 95.0 % (40.0-70.0) H 01/31/20 03:47 Band Neutrophils % 0 % 01/31/20 03:47 Lymphocytes % (Manual) 3.0 % (13.4-35.0) L 01/31/20 03:47 Reactive Lymphs % (Man) 0 % 01/31/20 03:47 Monocytes % (Manual) 2.0 % (0.0-7.3) 01/31/20 03:47 Eosinophils % (Manual) 0 % (0.0-4.3) 01/31/20 03:47 Basophils % (Manual) 0 % (0.0-1.8) 01/31/20 03:47 Metamyelocytes % 0 % 01/31/20 03:47 Myelocytes % 0 % 01/31/20 03:47 Promyelocytes % 0 % 01/31/20 03:47 Blast Cells % 0 % 01/31/20 03:47 Nucleated RBC % Not Reportable 01/31/20 03:47 Seg Neutrophils # 10.0 K/mm3 (1.8-7.7) H 02/03/20 04:00 Seg Neutrophils # Man 16.1 K/mm3 (1.8-7.7) H 01/31/20 03:47 Band Neutrophils # 0.0 K/mm3 01/31/20 03:47 Lymphocytes # (Manual) 0.5 K/mm3 (1.2-5.4) L 01/31/20 03:47 Abs React Lymphs (Man) 0.0 K/mm3 01/31/20 03:47 Monocytes # (Manual) 0.3 K/mm3 (0.0-0.8) 01/31/20 03:47 Eosinophils # (Manual) 0.0 K/mm3 (0.0-0.4) 01/31/20 03:47 Basophils # (Manual) 0.0 K/mm3 (0.0-0.1) 01/31/20 03:47 Metamyelocytes # 0.0 K/mm3 01/31/20 03:47 Myelocytes # 0.0 K/mm3 01/31/20 03:47 Promyelocytes # 0.0 K/mm3 01/31/20 03:47 Blast Cells # 0.0 K/mm3 01/31/20 03:47 WBC Morphology Not Reportable 01/31/20 03:47 Hypersegmented Neuts Not Reportable 01/31/20 03:47 Hyposegmented Neuts Not Reportable 01/31/20 03:47 Hypogranular Neuts Not Reportable 01/31/20 03:47 Smudge Cells Not Reportable 01/31/20 03:47 Toxic Granulation Not Reportable 01/31/20 03:47 Toxic Vacuolation Not Reportable 01/31/20 03:47 Dohle Bodies Not Reportable 01/31/20 03:47 Pelger-Huet Anomaly Not Reportable 01/31/20 03:47 Harshal Rods Not Reportable 01/31/20 03:47 Platelet Estimate Consistent w auto 01/31/20 03:47 Clumped Platelets Not Reportable 01/31/20 03:47 Plt Clumps, EDTA Not Reportable 01/31/20 03:47 Large Platelets Not Reportable 01/31/20 03:47 Giant Platelets Not Reportable 01/31/20 03:47 Platelet Satelliting Not Reportable 01/31/20 03:47 Plt Morphology Comment Not Reportable 01/31/20 03:47 RBC Morphology Not Reportable 01/31/20 03:47 Dimorphic RBCs Not Reportable 01/31/20 03:47 Polychromasia Not Reportable 01/31/20 03:47 Hypochromasia Not Reportable 01/31/20 03:47 Poikilocytosis Not Reportable 01/31/20 03:47 Anisocytosis 1+ 01/31/20 03:47 Microcytosis Not Reportable 01/31/20 03:47 Macrocytosis Not Reportable 01/31/20 03:47 Spherocytes Not Reportable 01/31/20 03:47 Pappenheimer Bodies Not Reportable 01/31/20 03:47 Sickle Cells Not Reportable 01/31/20 03:47 Target Cells Not Reportable 01/31/20 03:47 Tear Drop Cells Not Reportable 01/31/20 03:47 Ovalocytes Not Reportable 01/31/20 03:47 Helmet Cells Not Reportable 01/31/20 03:47 [place] Bodies Not Reportable 01/31/20 03:47 [place] Rings Not Reportable 01/31/20 03:47 [place] Cells Not Reportable 01/31/20 03:47 Bite Cells Not Reportable 01/31/20 03:47 Crenated Cell Not Reportable 01/31/20 03:47 Elliptocytes Not Reportable 01/31/20 03:47 Acanthocytes (Spur) Not Reportable 01/31/20 03:47 Rouleaux Not Reportable 01/31/20 03:47 Hemoglobin C Crystals Not Reportable 01/31/20 03:47 Schistocytes Not Reportable 01/31/20 03:47 Malaria parasites Not Reportable 01/31/20 03:47 Elliot Bodies Not Reportable 01/31/20 03:47 Hem Pathologist Commnt No 01/31/20 03:47 D-Dimer 544.72 ng/mlDDU (0-234) H 01/31/20 05:45 ABG pH 7.408 pH Units (7.350-7.450) 02/04/20 15:37 ABG pCO2 42.2 mm Hg 02/04/20 15:37 ABG pO2 80.5 mm Hg (80.0-90.0) 02/04/20 15:37 ABG HCO3 26.0 mmol/L (20.0-26.0) 02/04/20 15:37 ABG O2 Saturation 96.6 % (95.0-99.0) 02/04/20 15:37 ABG O2 Content 15.8 (0.0-44) 02/04/20 15:37 ABG Base Excess 1.2 mmol/L (-2.0-3.0) 02/04/20 15:37 ABG Hemoglobin 11.8 gm/dl (14.0-18.0) L 02/04/20 15:37 ABG Carboxyhemoglobin 1.3 % (0.0-5.0) 02/04/20 15:37 ABG Methemoglobin 0.5 % (0.0-1.5) 02/04/20 15:37 Oxyhemoglobin 94.9 % (95.0-99.0) L 02/04/20 15:37 FiO2 30 % 02/04/20 15:37 Sodium 141 mmol/L (137-145) 02/03/20 04:00 Potassium 4.1 mmol/L (3.6-5.0) 02/03/20 04:00 Chloride 100.4 mmol/L (98-107) 02/03/20 04:00 Carbon Dioxide 28 mmol/L (22-30) 02/03/20 04:00 Anion Gap 17 mmol/L 02/03/20 04:00 BUN 50 mg/dL (9-20) H 02/03/20 04:00 Creatinine 5.0 mg/dL (0.8-1.5) H 02/03/20 04:00 Estimated GFR 11 ml/min 02/03/20 04:00 BUN/Creatinine Ratio 10 % 02/03/20 04:00 Glucose 71 mg/dL (75-100) L 02/03/20 04:00 POC Glucose 71 (70-105) 02/05/20 05:31 Osmolality 345 Mosm/kg 01/31/20 06:06 Lactic Acid 0.70 mmol/L (0.7-2.0) 01/31/20 15:53 Uric Acid 8.5 mg/dL (3.5-7.6) H 01/31/20 06:06 Calcium 8.0 mg/dL (8.4-10.2) L 02/03/20 04:00 Ferritin 722.6 ng/mL (13.0-400.0) H 01/31/20 05:45 Total Bilirubin 0.30 mg/dL (0.1-1.2) 01/31/20 03:47 AST 9 units/L (5-40) 01/31/20 03:47 ALT < 5 units/L (7-56) L 01/31/20 03:47 Alkaline Phosphatase 71 units/L (35-129) 01/31/20 03:47 Lactate Dehydrogenase 387 units/L (91-180) H 01/31/20 05:45 Total Creatine Kinase 123 units/L (55-170) 01/31/20 06:06 Troponin T 0.065 ng/mL (0.00-0.029) H 01/31/20 03:47 C-Reactive Protein 1.60 mg/dL (0.00-1.30) H 01/31/20 05:45 Total Protein 7.6 g/dL (6.3-8.2) 01/31/20 03:47 Albumin 3.8 g/dL (3.9-5) L 01/31/20 03:47 Albumin/Globulin Ratio 1.0 % 01/31/20 03:47 Triglycerides 76 mg/dL (2-149) 01/31/20 03:47 Cholesterol 96 mg/dL (50-199) 01/31/20 03:47 LDL Cholesterol Direct 66 mg/dL (50-130) 01/31/20 03:47 HDL Cholesterol 39 mg/dL (40-59) L 01/31/20 03:47 Cholesterol/HDL Ratio 2.46 % 01/31/20 03:47 Procalcitonin 0.51 ng/mL (<0.15) 01/31/20 05:45 Urine Color [place] (Yellow) 01/31/20 04:25 Urine Turbidity Clear (Clear) 01/31/20 04:25 Urine pH 5.0 (5.0-7.0) 01/31/20 04:25 Ur Specific [place] 1.015 (1.003-1.030) 01/31/20 04:25 Urine Protein <15 mg/dl mg/dL (Negative) 01/31/20 04:25 Urine Glucose (UA) Neg mg/dL (Negative) 01/31/20 04:25 Urine Ketones Tr mg/dL (Negative) 01/31/20 04:25 Urine Blood Neg (Negative) 01/31/20 04:25 Urine Nitrite Neg (Negative) 01/31/20 04:25 Urine Bilirubin Neg (Negative) 01/31/20 04:25 Urine Urobilinogen < 2.0 mg/dL (<2.0) 01/31/20 04:25 Ur Leukocyte Esterase Sm (Negative) 01/31/20 04:25 Urine WBC (Auto) 1.0 /HPF (0.0-6.0) 01/31/20 04:25 Urine RBC (Auto) 3.0 /HPF (0.0-6.0) 01/31/20 04:25 Urine Mucus Few /HPF 01/31/20 04:25 Urine Creatinine 257.5 mg/dL (0.1-20.0) H 01/31/20 23:06 Urine Sodium 10 mmol/L 01/31/20 23:06 Nasal Screen MRSA (PCR) Negative (Negative) 02/03/20 Unknown Urine Opiates Screen Presumptive negative 01/31/20 04:25 Urine Methadone Screen Presumptive negative 01/31/20 04:25 Ur Barbiturates Screen Presumptive negative 01/31/20 04:25 Ur Phencyclidine Scrn Presumptive negative 01/31/20 04:25 Ur Amphetamines Screen Presumptive negative 01/31/20 04:25 U Benzodiazepines Scrn Presumptive negative 01/31/20 04:25 Urine Cocaine Screen Presumptive negative 01/31/20 04:25 U Marijuana (THC) Screen Presumptive negative 01/31/20 04:25 Drugs of Abuse Note Disclamer 01/31/20 04:25 Coronavirus (PCR) Negative (Negative) 02/01/20 Unknown Hepatitis A IgM Ab Non-reactive (NonReactive) 01/31/20 06:06 Hep Bs Antigen Non-reactive (Negative) 01/31/20 06:06 Hep B Core IgM Ab Non-reactive (NonReactive) 01/31/20 06:06 Hepatitis C Antibody Non-reactive (NonReactive) 01/31/20 06:06 Microbiology: Microbiology 01/31/20 04:25 Peripheral/Venous Blood Culture - Preliminary NO GROWTH AFTER 4 DAYS 01/31/20 03:47 Peripheral/Venous Blood Culture - Preliminary NO GROWTH AFTER 4 DAYS Romo/IV: Voiding Method Indwelling Catheter IV Catheter Type [Right VAS Cath Femoral] IV Catheter Type [Right Triple Lumen Cath Internal Jugular] IV Catheter Type [Left Peripheral IV External Jugular] IV Catheter Type [Right Peripheral IV Forearm] IV Catheter Type [Left Forearm Peripheral IV ] Active Medications - Current Medications Current Medications: Generic Name Dose Route Start Last Admin Trade Name Freq PRN Reason Stop Dose Admin Lipase/Protease/Amylase 1 each 02/02/20 11:[address] 10,500 Unit FEEDTUBE PRN PRN For Clogged Feeding Tube Carbidopa/Levodopa 1.5 each 02/01/20 10:00 02/04/20 10:25 Sinemet PO 1.5 each DAILY KIRA Administration Dextrose 0 ml 02/02/20 00:11 02/02/20 18:20 D50w (25gm) Syringe IV 50 ml Q30MIN PRN Administration Hypoglycemia Protocol Famotidine 20 mg 02/03/20 10:00 02/04/20 10:24 Pepcid PO 20 mg DAILY KIRA Administration Fentanyl 50 mcg 01/31/20 06:36 01/31/20 16:40 Sublimaze IV 50 mcg Q10MIN PRN Administration ANALGESIA Folic Acid 1 mg 02/04/20 10:00 02/04/20 10:24 Folvite PO 1 mg DAILY KIRA Administration Heparin Sodium (Porcine) 5,000 unit 01/31/20 22:00 02/04/20 21:03 Heparin SUB-Q 5,000 unit Q12HR KIRA Administration Hydrophilic Ointment 1 applic 01/31/20 06:36 Vaseline Lip Therapy TP Q2HR PRN Dry Lips Fentanyl Citrate 2,000 mcg in 100 mls @ 3.175 mls/hr 01/31/20 07:00 02/04/20 19:10 Fentanyl Drip Premix IV 0 mcg/kg/hr TITR KIRA 0 mls/hr Titration Protocol 1 MCG/KG/HR Norepinephrine 4 mg in 250 mls @ 7.5 mls/hr 01/31/20 07:00 02/05/20 00:15 Levophed Drip 4 Mg/Ns 250 Ml IV 0 mcg/min TITR KIRA 0 mls/hr Titration Protocol 2 MCG/MIN Vasopressin 20 unit/ Sodium 101 mls @ 9.09 mls/hr 01/31/20 12:00 01/31/20 22:55 Chloride IV 0.03 units/min TITR KIRA 9.09 mls/hr Administration Protocol 0.03 UNITS/MIN Dextrose/Sodium Chloride 1,000 mls @ 30 mls/hr 02/01/20 09:00 02/03/20 10:30 D5ns IV 30 mls/hr DIRECT KIRA Administration Cefepime HCl 1 gm in 100 mls @ 200 mls/hr 02/03/20 20:00 02/04/20 20:51 Cefepime/Ns 1 Gm/100 Ml IV 200 mls/hr Q24H KIRA Administration Protocol Levetiracetam 750 mg/ Dextrose 107.5 mls @ 400 mls/hr 02/04/20 22:00 02/04/20 21:52 IV 400 mls/hr Q12HR KIRA Administration Midazolam HCl 2 mg 01/31/20 11:16 01/31/20 11:46 Versed IV 2 mg Q10MIN PRN Administration Sedation Multi-Ingred Cream/Lotion/Oil/Oint 1 applic 01/31/20 06:36 Artificial Tears Ophth Oint OU Q4HR PRN Dry Eye(s) Simple Syrup 15 ml 02/02/20 11:04 02/03/20 17:44 Simple Syrup FEEDTUBE 15 ml PRN PRN Administration Hypoglycemia Simple Syrup 30 ml 02/02/20 11:04 Simple Syrup FEEDTUBE PRN PRN Hypoglycemia Sodium Bicarbonate 325 mg 02/02/20 11:04 Sodium Bicarbonate FEEDTUBE PRN PRN For Clogged Feeding Tube Nutrition/Malnutrition Assess - Dietary Evaluation Nutrition/Malnutrition Findings: Nutrition Notes Start: 02/01/20 08:59 Freq: Status: Active Protocol: Document 02/04/20 12:13 LP (Rec: 02/04/20 12:16 LP [id number]) Nutrition Notes Initial or Follow up Reassessment Current Diagnosis CKD(stage I-IV),Diabetes, Sepsis,Hypertension,Heart Failure Other Pertinent Diagnosis AMS, pneu Current Diet Nepro at 40ml/hr Labs/Tests Reviewed Pertinent Medications Reviewed Height 5 ft 6 in Weight 65.2 kg [place] Body Weight (kg) 64.54 BMI 23.1 Weight Status Appropriate Subjective/Other Information Pt tolerating TF. Burn Absent Trauma Absent GI Symptoms None Minimum of two criteria No physical signs of malnutrition #1 Nutrition Diagnosis Inadequate oral intake Diagnosis Progress(for reassessment Continues documentation) Is patient on ventilator? Yes Is Patient Ambulatory and/or Out of Bed No REE-([facility]-confined to bed) [phone] Calculation Used for Recommendations [facility] Additional Notes Protein needs are 76-127g (1.2 -2g/kg) Fluid needs are 1ml/kcal Nutrition Intervention Change Diet Order: TF Nutrition Support: Nepro at 40ml/hr Flush with 150ml q4h Kcal 1,728 Protein (gm) 78 Fluid (mL) 698 Goal #1 Meet at least 80% of kcal and protein needs via TF Anticipated Discharge Needs: Unable to determine at this time Follow-Up By: 02/11/20 Additional Comments Follow for stable TF
--- NOTE | 2020-02-05 09:51 | XRay Report ---
CHEST 1 VIEW INDICATION / CLINICAL INFORMATION: follow up respiratory failure. COMPARISON: 02/04/2020 FINDINGS: SUPPORT DEVICES: Right central venous line HEART / MEDIASTINUM: No significant abnormality. LUNGS / PLEURA: Slight worsening of the bilateral airspace disease No pneumothorax. ADDITIONAL FINDINGS: No significant additional findings. IMPRESSION: Slight worsening of the bilateral airspace disease from yesterday Signer Name: Kenn Ferguson MD FACR Signed: 02/05/2020 9:47 AM Workstation Name: [email or web address]
[2020-02-05] MEDS: FAMOTIDINE 20 MG TAB PO SCH (10:02)
[2020-02-05] MEDS: FOLIC ACID 1 MG TAB PO SCH (10:02)
[2020-02-05] MEDS: CARBIDOPA/LEVODOPA 25-100 MG TAB PO SCH (10:03)
[2020-02-05] MEDS: HEPARIN 5,000 UNIT/1 ML VIAL SUB-Q SCH (10:10)
[2020-02-05] MEDS: levETIRAcetam 750 MG in DEXTROSE 5% IN WATER 100 ML IV SCH (10:12)
--- NOTE | 2020-02-05 14:20 | Progress Note ---
Assessment and Plan Impression: * Acute kidney injury secondary ATN * Acute hypoxic repiratory failure on mechanical ventilation * Pneumonia --COVID 19 negative * Sepsis * Hyperkalemia - resolved * Metabolic acidosis, severe - resolved * Hyponatremia - resolved * Hypoglycemia Plan: * Lengthy discussion with patient's , Nuris Borges, via phone. Per , patient "Nadir would not want to live on machines". Furthermore, she states that he would not want dialysis. She understands that patient will and is in acceptance of this. She reports that she and patient discussed end of life decisions throughout their 40+year marriage. * Will discontinue dialysis at this time * Conservative management of lytes * Abx per ID * Pressors prn to maintain MAP>65 * Avoid nephrotoxins * Dose medications for renal function Subjective Date of service: 02/05/20 Principal diagnosis: SJ/sepsis with hypotension Objective - Vital Signs Vital signs: Vital Signs - 12hr 02/05/20 02/05/20 02/05/20 02:30 02:45 03:01 Temperature Pulse Rate 64 65 62 Respiratory 13 19 16 Rate Blood Pressure 106/58 106/58 110/50 O2 Sat by Pulse 96 90 97 Oximetry 02/05/20 02/05/20 02/05/20 03:15 03:30 03:45 Temperature Pulse Rate 71 60 60 Respiratory 22 12 12 Rate Blood Pressure 112/61 107/49 105/53 O2 Sat by Pulse 99 100 100 Oximetry 02/05/20 02/05/20 02/05/20 03:58 04:00 04:01 Temperature 98.0 F Pulse Rate 70 71 Respiratory 16 Rate Blood Pressure 105/53 O2 Sat by Pulse 100 Oximetry 02/05/20 02/05/20 02/05/20 04:15 04:30 04:45 Temperature Pulse Rate 60 66 78 Respiratory 18 17 17 Rate Blood Pressure 120/54 112/59 104/58 O2 Sat by Pulse 100 100 100 Oximetry 02/05/20 02/05/20 02/05/20 05:00 05:15 05:30 Temperature Pulse Rate 60 70 60 Respiratory 13 20 16 Rate Blood Pressure 110/53 112/59 105/59 O2 Sat by Pulse 100 99 100 Oximetry 02/05/20 02/05/20 02/05/20 05:45 06:00 06:15 Temperature Pulse Rate 60 60 60 Respiratory 11 L 12 13 Rate Blood Pressure 112/52 110/52 107/57 O2 Sat by Pulse 100 100 100 Oximetry 02/05/20 02/05/20 02/05/20 06:30 06:45 07:00 Temperature Pulse Rate 60 66 60 Respiratory 12 14 13 Rate Blood Pressure 104/52 104/52 111/52 O2 Sat by Pulse 100 97 100 Oximetry 02/05/20 02/05/20 02/05/20 07:15 07:30 07:45 Temperature Pulse Rate 60 62 60 Respiratory 12 16 13 Rate Blood Pressure 118/56 118/56 118/61 O2 Sat by Pulse 100 100 100 Oximetry 02/05/20 02/05/20 02/05/20 08:00 08:01 08:15 Temperature 97.9 F Pulse Rate 67 60 Respiratory 15 12 Rate Blood Pressure 117/54 115/57 O2 Sat by Pulse 100 100 Oximetry 02/05/20 02/05/20 02/05/20 08:30 08:45 09:01 Temperature Pulse Rate 60 69 63 Respiratory 12 14 14 Rate Blood Pressure 121/59 121/52 112/51 O2 Sat by Pulse 100 100 99 Oximetry 02/05/20 02/05/20 02/05/20 09:15 09:30 09:45 Temperature Pulse Rate 63 60 62 Respiratory 14 13 14 Rate Blood Pressure 112/51 117/57 117/57 O2 Sat by Pulse 93 98 87 Oximetry 02/05/20 02/05/20 02/05/20 09:54 10:00 10:15 Temperature Pulse Rate 67 60 Respiratory 17 15 Rate Blood Pressure 112/62 109/58 O2 Sat by Pulse 99 81 L 94 Oximetry 02/05/20 02/05/20 02/05/20 10:31 10:45 11:00 Temperature Pulse Rate 62 62 60 Respiratory 15 13 15 Rate Blood Pressure 88/55 119/59 117/57 O2 Sat by Pulse 94 79 L 85 Oximetry 02/05/20 02/05/20 11:15 11:30 Temperature Pulse Rate 62 64 Respiratory 15 17 Rate Blood Pressure 117/57 127/52 O2 Sat by Pulse 84 99 Oximetry - General Appearance General appearance: frail EENT: ATNC Cardiology: regular, S1S2 Gastrointestinal: no tenderness, no distended Integumentary: warm and dry Musculoskeletal: other (no edema) - Lab 02/03/20 04:00 02/03/20 04:00 Most recent lab results ABG pH 7.408 pH Units (7.350-7.450) 02/04/20 15:37 ABG pCO2 42.2 mm Hg 02/04/20 15:37 ABG pO2 80.5 mm Hg (80.0-90.0) 02/04/20 15:37 ABG HCO3 26.0 mmol/L (20.0-26.0) 02/04/20 15:37 ABG O2 Saturation 96.6 % (95.0-99.0) 02/04/20 15:37 Calcium 8.0 mg/dL (8.4-10.2) L 02/03/20 04:00 Urine Creatinine 257.5 mg/dL (0.1-20.0) H 01/31/20 23:06 Urine Sodium 10 mmol/L 01/31/20 23:06 Medications & Allergies - Medications Allergies/Adverse Reactions: Allergies No Known Allergies Allergy (Unverified 10/13/14 11:06) Home Medications: Home Medications Medication Instructions Recorded Confirmed Last Taken Type Acetaminophen [Acetaminophen TAB] 325 mg PO Q6HR PRN 10/13/14 02/02/20 Unknown History Carbidopa/Levodopa 25-100 [Sinemet 1.5 tab PO DAILY 10/13/14 02/02/20 10/19/14 History 25/100] Divalproex Sodium [Divalproex 250 mg PO BID 10/13/14 02/02/20 10/19/14 History Sodium ER] donepeziL [Aricept] 10 mg PO QHS 10/13/14 02/02/20 10/19/14 History Dextran 70/Hypromellose 1 each OP PRN 02/02/20 02/02/20 Unknown History [Artificial Tears] Gabapentin [Neurontin] 100 mg PO QHS 02/02/20 02/02/20 Unknown History Ipratropium/Albuterol Sulfate 1 ampul IH Q6HR 02/02/20 02/02/20 Unknown History [DUONEB *Not for PRN Use*] Latanoprost 0.005% [Xalatan 0.005%] 1 drop OP QPM 02/02/20 02/02/20 Unknown History Loratadine [Allergy Relief] 10 mg PO QDAY 02/02/20 02/02/20 Unknown History Omeprazole 20 mg PO QHS 02/02/20 02/02/20 Unknown History Timolol 0.25% (Nf) [Timoptic] 1 drops OP BID 02/02/20 02/02/20 Unknown History Active Medications: Generic Name Dose Route Start Last Admin Trade Name Freq PRN Reason Stop Dose Admin Lipase/Protease/Amylase 1 each 02/02/20 11:[address] 10,500 Unit FEEDTUBE PRN PRN For Clogged Feeding Tube Carbidopa/Levodopa 1.5 each 02/01/20 10:00 02/05/20 10:03 Sinemet PO Not Given DAILY KIRA Dextrose 0 ml 02/02/20 00:11 02/02/20 18:20 D50w (25gm) Syringe IV 50 ml Q30MIN PRN Administration Hypoglycemia Protocol Famotidine 20 mg 02/03/20 10:00 02/05/20 10:02 Pepcid PO Not Given DAILY KIRA Fentanyl 50 mcg 01/31/20 06:36 01/31/20 16:40 Sublimaze IV 50 mcg Q10MIN PRN Administration ANALGESIA Folic Acid 1 mg 02/04/20 10:00 02/05/20 10:02 Folvite PO Not Given DAILY KIRA Heparin Sodium (Porcine) 5,000 unit 01/31/20 22:00 02/05/20 10:10 Heparin SUB-Q 5,000 unit Q12HR KIRA Administration Hydrophilic Ointment 1 applic 01/31/20 06:36 Vaseline Lip Therapy TP Q2HR PRN Dry Lips Fentanyl Citrate 2,000 mcg in 100 mls @ 3.175 mls/hr 01/31/20 07:00 02/04/20 19:10 Fentanyl Drip Premix IV 0 mcg/kg/hr TITR KIRA 0 mls/hr Titration Protocol 1 MCG/KG/HR Norepinephrine 4 mg in 250 mls @ 7.5 mls/hr 01/31/20 07:00 02/05/20 00:15 Levophed Drip 4 Mg/Ns 250 Ml IV 0 mcg/min TITR KIRA 0 mls/hr Titration Protocol 2 MCG/MIN Vasopressin 20 unit/ Sodium 101 mls @ 9.09 mls/hr 01/31/20 12:00 01/31/20 22:55 Chloride IV 0.03 units/min TITR KIRA 9.09 mls/hr Administration Protocol 0.03 UNITS/MIN Cefepime HCl 1 gm in 100 mls @ 200 mls/hr 02/03/20 20:00 02/04/20 20:51 Cefepime/Ns 1 Gm/100 Ml IV 200 mls/hr Q24H KIRA Administration Protocol Levetiracetam 750 mg/ Dextrose 107.5 mls @ 400 mls/hr 02/04/20 22:00 02/05/20 10:12 IV 400 mls/hr Q12HR KIRA Administration Midazolam HCl 2 mg 01/31/20 11:16 01/31/20 11:46 Versed IV 2 mg Q10MIN PRN Administration Sedation Multi-Ingred Cream/Lotion/Oil/Oint 1 applic 01/31/20 06:36 Artificial Tears Ophth Oint OU Q4HR PRN Dry Eye(s) Simple Syrup 15 ml 02/02/20 11:04 02/03/20 17:44 Simple Syrup FEEDTUBE 15 ml PRN PRN Administration Hypoglycemia Simple Syrup 30 ml 02/02/20 11:04 Simple Syrup FEEDTUBE PRN PRN Hypoglycemia Sodium Bicarbonate 325 mg 02/02/20 11:04 Sodium Bicarbonate FEEDTUBE PRN PRN For Clogged Feeding Tube
--- NOTE | 2020-02-05 16:43 | Progress Note ---
Assessment and Plan Cultures: Blood culture 01/31/2020 pending Sputum culture 01/31/2020 pending COVID-19 negative A/P: 84-year-old man past medical history hypertension, dementia admitted to the hospital with altered mental status and hypoxia. #Acute hypoxic respiratory failure: Secondary to pneumonia #Right-sided pneumonia: Continue empiric antibiotics. #SJ on HD: Etiology possibly septic shock Recs: -Continue renally dosed cefepime for now, monitor for improvement. Plan for 7 days. Thank you for the consult, we will continue to follow. Yudith Fernandez MD [facility] ([facility]) M: [phone] O: [phone] F: [phone] Subjective Date of service: 02/05/20 Principal diagnosis: SJ/sepsis with hypotension Interval history: Afebrile, currently on 3 L nasal cannula. After being extubated yesterday afternoon. Imaging personally reviewed: Chest x-ray: Slightly worsened infiltrate from yesterday Objective - Exam Narrative Exam: Physical exam deferred due to PPE conservation strategy. Please refer to primary team's note. - Constitutional Vitals: Vital Signs Temp Pulse Resp BP Pulse Ox 97.9 F 64 17 127/52 99 02/05/20 08:00 02/05/20 11:30 02/05/20 11:30 02/05/20 11:30 02/05/20 11:30 Temperature -Last 24 Hours Temperature 97.9 F Temperature 98.0 F Temperature 98.6 F Temperature 98.2 F - Labs CBC & Chem 7: 02/03/20 04:00 02/03/20 04:00 Labs: Abnormal lab results 02/05/20 Range/Units 12:03 POC Glucose 68 L (70-105)
--- NOTE | 2020-02-05 17:48 | Progress Note ---
Assessment and Plan Acute hypoxemic respiratory failure s/p MVS- extubated Acute toxic-metabolic encephalopathy Lactic acidosis- resolved Hyperkalemia with SJ Solitary kidney Severe metabolic acidosis Hypernatremia [id number] - Bronchodilators with pulmonary hygiene per RT -Nutritional support, advance to goal as tolerated -Aspiration precautions, HOB >40 - Wean supplemental oxygen for target O2 sats > 90% - Accuchecks with glycemic control per SSI (While critically ill target blood glucose of 140-180 mg/dL; avoid hypoglycemia) - Stop benzodiazepines, reduce the possibility of delirium - Maintenance of sleep-wake cycle, avoid delirium -Avoid nephrotoxins, closely monitor renal function -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 Renal service -Enteric nutritional support -Free water flushes to treat hypernatremia - Stress ulcer & VTE prophylaxis ( Heparin, Famotidine) - Mobility protocol, off loading and skin assessment for pressure ulcer prevention -Supportive transfusions as indicated to keep HgB >7g/dL -Antibitoics- renally dosed Cefepime to complete course -ABG, CXR prn -CBC, BMP per primary service - continue other care per attending / other consultants Discussed with the ICU team-RT,RN, Life threatening condition- Acute hypoxemic respiratory failure on MVS, Acute toxic -metabolic encephalopathy Mortality/Morbidity- High Complexity of medical decision making- High CONDITION: FAIR PROGNOSIS: FAIR CODE STATUS: DNAR- per discussion with his Subjective Date of service: 02/05/20 Principal diagnosis: SJ/sepsis with hypotension Interval history: Follow up for:Acute hypoxemic respiratory failure s/p MVS;Acute toxic-metabolic encephalopathy; Hyperkalemia with SJ Severe metabolic acidosis; COVID-PUI Patient seen and examined. 24 hour events reviewed. Consulted with respiratory and nursing staff s/p extubation with some agitation Objective Vital Signs - 12hr 02/05/20 02/05/20 02/05/20 06:00 06:15 06:30 Temperature Pulse Rate 60 60 60 Respiratory 12 13 12 Rate Blood Pressure 110/52 107/57 104/52 O2 Sat by Pulse 100 100 100 Oximetry 02/05/20 02/05/20 02/05/20 06:45 07:00 07:15 Temperature Pulse Rate 66 60 60 Respiratory 14 13 12 Rate Blood Pressure 104/52 111/52 118/56 O2 Sat by Pulse 97 100 100 Oximetry 02/05/20 02/05/20 02/05/20 07:30 07:45 08:00 Temperature 97.9 F Pulse Rate 62 60 60 Respiratory 16 13 Rate Blood Pressure 118/56 118/61 O2 Sat by Pulse 100 100 Oximetry 02/05/20 02/05/20 02/05/20 08:01 08:15 08:30 Temperature Pulse Rate 67 60 60 Respiratory 15 12 12 Rate Blood Pressure 117/54 115/57 121/59 O2 Sat by Pulse 100 100 100 Oximetry 02/05/20 02/05/20 02/05/20 08:45 09:01 09:15 Temperature Pulse Rate 69 63 63 Respiratory 14 14 14 Rate Blood Pressure 121/52 112/51 112/51 O2 Sat by Pulse 100 99 93 Oximetry 02/05/20 02/05/20 02/05/20 09:30 09:45 09:54 Temperature Pulse Rate 60 62 Respiratory 13 14 Rate Blood Pressure 117/57 117/57 O2 Sat by Pulse 98 87 99 Oximetry 02/05/20 02/05/20 02/05/20 10:00 10:15 10:31 Temperature Pulse Rate 67 60 62 Respiratory 17 15 15 Rate Blood Pressure 112/62 109/58 88/55 O2 Sat by Pulse 81 L 94 94 Oximetry 02/05/20 02/05/20 02/05/20 10:45 11:00 11:15 Temperature Pulse Rate 62 60 62 Respiratory 13 15 15 Rate Blood Pressure 119/59 117/57 117/57 O2 Sat by Pulse 79 L 85 84 Oximetry 02/05/20 02/05/20 02/05/20 11:30 11:45 12:00 Temperature 97 F L Pulse Rate 64 60 60 Respiratory 17 16 14 Rate Blood Pressure 127/52 115/58 116/54 O2 Sat by Pulse 99 93 99 Oximetry 02/05/20 02/05/20 02/05/20 12:15 12:30 12:45 Temperature Pulse Rate 65 60 60 Respiratory 14 13 16 Rate Blood Pressure 110/62 119/53 119/53 O2 Sat by Pulse 79 L 100 90 Oximetry 02/05/20 02/05/20 02/05/20 13:01 13:15 13:31 Temperature Pulse Rate 60 61 60 Respiratory 14 14 15 Rate Blood Pressure 113/55 117/56 118/57 O2 Sat by Pulse 79 L 89 77 L Oximetry 02/05/20 02/05/20 02/05/20 13:45 14:00 14:15 Temperature Pulse Rate 61 60 60 Respiratory 16 13 16 Rate Blood Pressure 116/57 120/63 117/60 O2 Sat by Pulse 98 96 96 Oximetry 02/05/20 02/05/20 02/05/20 14:31 14:45 15:00 Temperature Pulse Rate 61 72 60 Respiratory 19 21 13 Rate Blood Pressure 117/52 117/52 97/59 O2 Sat by Pulse 77 L 84 94 Oximetry 02/05/20 02/05/20 02/05/20 15:15 15:31 15:45 Temperature Pulse Rate 60 65 60 Respiratory 12 16 11 L Rate Blood Pressure 97/59 97/59 97/59 O2 Sat by Pulse 100 69 L 99 Oximetry 02/05/20 02/05/20 02/05/20 16:00 16:15 16:31 Temperature 97.8 F Pulse Rate 61 60 61 Respiratory 14 11 L 12 Rate Blood Pressure 114/51 114/51 114/51 O2 Sat by Pulse 99 99 100 Oximetry 02/05/20 02/05/20 02/05/20 16:45 17:00 17:15 Temperature Pulse Rate 60 60 62 Respiratory 10 L 14 17 Rate Blood Pressure 114/51 115/57 115/57 O2 Sat by Pulse 100 98 78 L Oximetry 02/05/20 17:31 Temperature Pulse Rate 60 Respiratory 15 Rate Blood Pressure 115/57 O2 Sat by Pulse 96 Oximetry Constitutional: no acute distress, other (elderly looking CM normocephalic with mildly increased respiratory effort at rest) Eyes: non-icteric ENT: oropharynx dry, other Neck: supple, no lymphadenopathy, no JVD Effort: mildly labored Ascultation: Bilateral: diminished breath sounds, rhonchi (scant) Percussion: Bilateral: not dull Cardiovascular: regular rate and rhythm, other (s1,s2) Gastrointestinal: normoactive bowel sounds, soft, non-tender, non-distended Integumentary: rash Extremities: pink and warm, pulses normal, no ischemia or petechiae, edema (mild to upper extremities), other Neurologic: non-focal exam (grossly, moves all extremities), pupils equal and round, CN II-XII normal CBC and BMP: 02/06/20 04:15 02/06/20 04:15 ABG, PT/INR, D-dimer: ABG ABG pH 7.408 pH Units (7.350-7.450) 02/04/20 15:37 ABG pCO2 42.2 mm Hg 02/04/20 15:37 ABG pO2 80.5 mm Hg (80.0-90.0) 02/04/20 15:37 ABG O2 Saturation 96.6 % (95.0-99.0) 02/04/20 15:37 PT/INR, D-dimer D-Dimer 544.72 ng/mlDDU (0-234) H 01/31/20 05:45 Abnormal lab findings: Abnormal Labs 01/31/20 01/31/20 01/31/20 03:47 03:47 03:47 WBC 16.9 H RBC Hgb Hct MCV 99 H MCH 33 H Lymph % (Auto) [place] % (Auto) Lymph # [place] # Seg Neutrophils % Seg Neuts % (Manual) 95.0 H Lymphocytes % (Manual) 3.0 L Seg Neutrophils # Seg Neutrophils # Man 16.1 H Lymphocytes # (Manual) 0.5 L D-Dimer ABG pH ABG pO2 ABG HCO3 ABG O2 Saturation ABG Base Excess ABG Hemoglobin Oxyhemoglobin Sodium 126 L Potassium 8.8 H* Chloride 86.4 L Carbon Dioxide 10 L BUN 181 H Creatinine 12.5 H Glucose POC Glucose Lactic Acid 2.10 H* Uric Acid Calcium Ferritin ALT < 5 L Lactate Dehydrogenase Troponin T 0.065 H C-Reactive Protein Albumin 3.8 L HDL Cholesterol 39 L Urine Creatinine 01/31/20 01/31/20 01/31/20 05:37 05:45 05:45 WBC RBC Hgb Hct MCV MCH Lymph % (Auto) [place] % (Auto) Lymph # [place] # Seg Neutrophils % Seg Neuts % (Manual) Lymphocytes % (Manual) Seg Neutrophils # Seg Neutrophils # Man Lymphocytes # (Manual) D-Dimer 544.72 H ABG pH ABG pO2 ABG HCO3 ABG O2 Saturation ABG Base Excess ABG Hemoglobin Oxyhemoglobin Sodium Potassium Chloride Carbon Dioxide BUN Creatinine Glucose 103 H POC Glucose Lactic Acid 2.20 H* Uric Acid Calcium Ferritin ALT Lactate Dehydrogenase 387 H Troponin T C-Reactive Protein 1.60 H Albumin HDL Cholesterol Urine Creatinine 01/31/20 01/31/20 01/31/20 05:45 06:06 09:45 WBC RBC Hgb Hct MCV MCH Lymph % (Auto) [place] % (Auto) Lymph # [place] # Seg Neutrophils % Seg Neuts % (Manual) Lymphocytes % (Manual) Seg Neutrophils # Seg Neutrophils # Man Lymphocytes # (Manual) D-Dimer ABG pH ABG pO2 ABG HCO3 ABG O2 Saturation ABG Base Excess ABG Hemoglobin Oxyhemoglobin Sodium Potassium Chloride Carbon Dioxide BUN Creatinine Glucose POC Glucose Lactic Acid 3.20 H* Uric Acid 8.5 H Calcium Ferritin 722.6 H ALT Lactate Dehydrogenase Troponin T C-Reactive Protein Albumin HDL Cholesterol Urine Creatinine 01/31/20 01/31/20 01/31/20 09:45 10:30 18:31 WBC RBC Hgb Hct MCV MCH Lymph % (Auto) [place] % (Auto) Lymph # [place] # Seg Neutrophils % Seg Neuts % (Manual) Lymphocytes % (Manual) Seg Neutrophils # Seg Neutrophils # Man Lymphocytes # (Manual) D-Dimer ABG pH 7.059 L* ABG pO2 70.2 L ABG HCO3 9.9 L ABG O2 Saturation 85.4 L ABG Base Excess -19.6 L ABG Hemoglobin Oxyhemoglobin 84.0 L Sodium 118 L* D 133 L D Potassium 8.1 H* 5.1 H D Chloride 91.1 L 93.7 L Carbon Dioxide 3 L* D 17 L D BUN 179 H 54 H Creatinine 11.6 H 4.9 H D Glucose 197 H 215 H POC Glucose Lactic Acid Uric Acid Calcium Ferritin ALT Lactate Dehydrogenase Troponin T C-Reactive Protein Albumin HDL Cholesterol Urine Creatinine 01/31/20 01/31/20 02/01/20 19:45 23:06 01:30 WBC 17.4 H RBC 3.59 L Hgb 11.7 L Hct 34.5 L D MCV 96 H MCH 33 H Lymph % (Auto) 3.0 L [place] % (Auto) 8.9 H Lymph # 0.5 L [place] # 1.6 H Seg Neutrophils % 88.1 H Seg Neuts % (Manual) Lymphocytes % (Manual) Seg Neutrophils # 15.3 H Seg Neutrophils # Man Lymphocytes # (Manual) D-Dimer ABG pH ABG pO2 172.0 H ABG HCO3 ABG O2 Saturation 99.1 H ABG Base Excess -3.0 L ABG Hemoglobin 13.8 L Oxyhemoglobin Sodium Potassium Chloride Carbon Dioxide BUN Creatinine Glucose POC Glucose Lactic Acid Uric Acid Calcium Ferritin ALT Lactate Dehydrogenase Troponin T C-Reactive Protein Albumin HDL Cholesterol Urine Creatinine 257.5 H 02/01/20 02/01/20 02/01/20 01:30 04:53 23:39 WBC RBC Hgb Hct MCV MCH Lymph % (Auto) [place] % (Auto) Lymph # [place] # Seg Neutrophils % Seg Neuts % (Manual) Lymphocytes % (Manual) Seg Neutrophils # Seg Neutrophils # Man Lymphocytes # (Manual) D-Dimer ABG pH 7.505 H ABG pO2 158.5 H ABG HCO3 ABG O2 Saturation 99.1 H ABG Base Excess ABG Hemoglobin 11.0 L Oxyhemoglobin Sodium 133 L Potassium Chloride 93.6 L Carbon Dioxide BUN 47 H Creatinine 4.5 H Glucose 204 H POC Glucose 58 L Lactic Acid Uric Acid Calcium 8.3 L Ferritin ALT Lactate Dehydrogenase Troponin T C-Reactive Protein Albumin HDL Cholesterol Urine Creatinine 02/02/20 02/02/20 02/02/20 04:24 10:48 10:48 WBC 11.8 H RBC 3.16 L Hgb 10.2 L Hct 31.0 L MCV 98 H MCH Lymph % (Auto) [place] % (Auto) Lymph # [place] # Seg Neutrophils % Seg Neuts % (Manual) Lymphocytes % (Manual) Seg Neutrophils # Seg Neutrophils # Man Lymphocytes # (Manual) D-Dimer ABG pH ABG pO2 74.4 L ABG HCO3 30.2 H ABG O2 Saturation ABG Base Excess 4.6 H ABG Hemoglobin 10.7 L Oxyhemoglobin 94.7 L Sodium Potassium Chloride Carbon Dioxide BUN 52 H Creatinine 5.2 H Glucose 59 L POC Glucose Lactic Acid Uric Acid Calcium 8.2 L Ferritin ALT Lactate Dehydrogenase Troponin T C-Reactive Protein Albumin HDL Cholesterol Urine Creatinine 02/02/20 02/02/20 02/03/20 12:19 18:02 00:52 WBC RBC Hgb Hct MCV MCH Lymph % (Auto) [place] % (Auto) Lymph # [place] # Seg Neutrophils % Seg Neuts % (Manual) Lymphocytes % (Manual) Seg Neutrophils # Seg Neutrophils # Man Lymphocytes # (Manual) D-Dimer ABG pH ABG pO2 ABG HCO3 ABG O2 Saturation ABG Base Excess ABG Hemoglobin Oxyhemoglobin Sodium Potassium Chloride Carbon Dioxide BUN Creatinine Glucose POC Glucose 64 L 60 L 69 L Lactic Acid Uric Acid Calcium Ferritin ALT Lactate Dehydrogenase Troponin T C-Reactive Protein Albumin HDL Cholesterol Urine Creatinine 02/03/20 02/03/20 02/03/20 04:00 04:00 04:35 WBC 12.8 H RBC 3.23 L Hgb 10.7 L Hct 32.0 L MCV 99 H MCH 33 H Lymph % (Auto) [place] % (Auto) Lymph # [place] # Seg Neutrophils % 78.2 H Seg Neuts % (Manual) Lymphocytes % (Manual) Seg Neutrophils # 10.0 H Seg Neutrophils # Man Lymphocytes # (Manual) D-Dimer ABG pH 7.281 L ABG pO2 71.7 L ABG HCO3 27.9 H ABG O2 Saturation 94.6 L ABG Base Excess ABG Hemoglobin 9.5 L Oxyhemoglobin 92.8 L Sodium Potassium Chloride Carbon Dioxide BUN 50 H Creatinine 5.0 H Glucose 71 L POC Glucose Lactic Acid Uric Acid Calcium 8.0 L Ferritin ALT Lactate Dehydrogenase Troponin T C-Reactive Protein Albumin HDL Cholesterol Urine Creatinine 02/03/20 02/03/20 02/04/20 17:34 23:54 04:20 WBC RBC Hgb Hct MCV MCH Lymph % (Auto) [place] % (Auto) Lymph # [place] # Seg Neutrophils % Seg Neuts % (Manual) Lymphocytes % (Manual) Seg Neutrophils # Seg Neutrophils # Man Lymphocytes # (Manual) D-Dimer ABG pH ABG pO2 ABG HCO3 27.2 H ABG O2 Saturation ABG Base Excess ABG Hemoglobin 9.8 L Oxyhemoglobin Sodium Potassium Chloride Carbon Dioxide BUN Creatinine Glucose POC Glucose 67 L 127 H Lactic Acid Uric Acid Calcium Ferritin ALT Lactate Dehydrogenase Troponin T C-Reactive Protein Albumin HDL Cholesterol Urine Creatinine 02/04/20 02/05/20 15:37 12:03 WBC RBC Hgb Hct MCV MCH Lymph % (Auto) [place] % (Auto) Lymph # [place] # Seg Neutrophils % Seg Neuts % (Manual) Lymphocytes % (Manual) Seg Neutrophils # Seg Neutrophils # Man Lymphocytes # (Manual) D-Dimer ABG pH ABG pO2 ABG HCO3 ABG O2 Saturation ABG Base Excess ABG Hemoglobin 11.8 L Oxyhemoglobin 94.9 L Sodium Potassium Chloride Carbon Dioxide BUN Creatinine Glucose POC Glucose 68 L Lactic Acid Uric Acid Calcium Ferritin ALT Lactate Dehydrogenase Troponin T C-Reactive Protein Albumin HDL Cholesterol Urine Creatinine Allied health notes reviewed: RT
[2020-02-05] MEDS: D5W/0.9% NACL 1,000 ML IV SCH (18:24)
[2020-02-06] MEDS: HEPARIN 5,000 UNIT/1 ML VIAL SUB-Q SCH ×3 (00:55→21:59)
[2020-02-06] MEDS: levETIRAcetam 750 MG in DEXTROSE 5% IN WATER 100 ML IV SCH ×3 (00:56→21:58)
[2020-02-06] MEDS: CEFEPIME/NS 1 GM/100 ML 1 GM/100 ML BAG IV SCH ×2 (00:56→22:10)
[2020-02-06 05:45] LABS: Hematocrit 26.3 % (35.5-45.6); Hemoglobin 8.7 gm/dl (11.8-15.2); Mean Corpuscular HGB Conc 33 % (32-34); Mean Corpuscular Volume 101 fl (84-94)
[2020-02-06 05:47] LABS: Platelet Count 182 K/mm3 (140-440)
--- NOTE | 2020-02-06 06:00 | XRay Report ---
CHEST 1 VIEW 02/06/2020 4:42 AM INDICATION / CLINICAL INFORMATION: follow up respiratory failure. COMPARISON: One view of the chest from 02/05/2020. FINDINGS: SUPPORT DEVICES: Unchanged. HEART / MEDIASTINUM: Stable. LUNGS / PLEURA: Improved aeration of the lungs with residual right parenchymal and left pleural-paren chymal opacities. No pneumothorax. ADDITIONAL FINDINGS: No significant additional findings. IMPRESSION: Improved aeration of the lungs. Signer Name: Jan Phillips MD Signed: 02/06/2020 5:55 AM Workstation Name: [id number]
[2020-02-06 06:06] LABS: Albumin 2.9 g/dL (3.9-5); Calcium 8.1 mg/dL (8.4-10.2)
[2020-02-06 06:37] LABS: Basophils % (Manual) 0 % (0.0-1.8); Total Cells Counted 100
[2020-02-06 06:38] LABS: Platelet Estimate Consistent w Auto
[2020-02-06] MEDS: D5W/0.9% NACL 1,000 ML IV SCH ×2 (06:49→17:24)
--- NOTE | 2020-02-06 08:35 | Progress Note ---
Assessment and Plan Assessment and plan: 84-year-old elderly male with history of advanced dementia halfway resident history of single kidney presented to the hospital with altered mental status and respiratory failure. Patient intubated in the ER, placed on vasopressors, nephrology was consulted for emergent dialysis. Patient was extubated . Patient is severely encephalopathic, unable to do swallow eval due to agitation, advised alternative methods of feeding Dobbhoff placed, will start tube feeding --Acute metabolic encephalopathy: likely from severe sepsis, acute renal failure and underlying dementia --Acute hypoxic respiratory failure: Requiring intubation Extubated yesterday 02/04/20 On Ventimask, continue supportive care --Acute renal failure /single kidney; Initiated hemodialysis, patient's does not want to continue with hemodialysis Nephrology aware --Metabolic acidosis: from renal failure and sepsis, now on HD --P UI/ COVID-19 infection : Negative test --Bilateral PNA: cont iv abx, ID following --Septic shock, resolved, s/p pressor --Severe hyperkalemia: improved after HD and bicarbonate drip --Advanced dementia: cont supportive care --Severe sepsis :likely due to pneumonia, cont abx, --History of single kidney- s/p nephrectomy --DVT prophylaxis; heparin renal dose --DNR code status Recommend palliative care /hospice The high probability of a clinically significant, sudden or life threatening deterioration of the [multiple] system(s) required my full and direct attention, intervention and personal management. The aggregate critical care time was [32] minutes. This time is in addition to time spent performing reported procedures but includes the following: [x] Data Review and interpretation [x] Patient assessment and monitoring of vital signs [x] Documentation [x] Medication orders and management History Interval history: I have seen and examined the patient in ICU this morning Patient was extubated confused and agitated In mild distress, noncommunicative Vital signs noted Hospitalist Physical - Constitutional Vitals: Temp Pulse Resp BP Pulse Ox 99.3 F 60 14 134/64 99 02/06/20 03:46 02/06/20 07:45 02/06/20 07:45 02/06/20 07:45 02/06/20 07:51 General appearance: Present: mild distress, well-nourished, other (Extubated, confused) - EENT Eyes: Present: PERRL, EOM intact - Neck Neck: Present: supple, normal ROM - Respiratory Respiratory effort: normal Respiratory: bilateral: diminished, rhonchi, negative: rales, wheezing - Cardiovascular Rhythm: regular Heart Sounds: Present: S1 & S2 - Extremities Extremities: no ischemia, No edema - Abdominal General gastrointestinal: soft, non-tender, non-distended, normal bowel sounds - Integumentary Integumentary: Present: clear, warm - Psychiatric Psychiatric: agitated, other (Confused) - Neurologic Neurologic: moves all extremities HEART Score - HEART Score Troponin: Troponin T 0.065 ng/mL (0.00-0.029) H 01/31/20 03:47 Results - Labs CBC & Chem 7: 02/06/20 04:15 02/06/20 04:15 Labs: Laboratory Last Values WBC 12.7 K/mm3 (4.5-11.0) H 02/06/20 04:15 RBC 2.60 M/mm3 (3.65-5.03) L 02/06/20 04:15 Hgb 8.7 gm/dl (11.8-15.2) L 02/06/20 04:15 Hct 26.3 % (35.5-45.6) L 02/06/20 04:15 MCV 101 fl (84-94) H 02/06/20 04:15 MCH 33 pg (28-32) H 02/06/20 04:15 MCHC 33 % (32-34) 02/06/20 04:15 RDW 14.0 % (13.2-15.2) 02/06/20 04:15 Plt Count 182 K/mm3 (140-440) 02/06/20 04:15 Lymph % (Auto) 14.8 % (13.4-35.0) 02/03/20 04:00 [place] % (Auto) 6.6 % (0.0-7.3) 02/03/20 04:00 Eos % (Auto) 0.3 % (0.0-4.3) 02/03/20 04:00 Baso % (Auto) 0.1 % (0.0-1.8) 02/03/20 04:00 Lymph # 1.9 K/mm3 (1.2-5.4) 02/03/20 04:00 [place] # 0.8 K/mm3 (0.0-0.8) 02/03/20 04:00 Eos # 0.0 K/mm3 (0.0-0.4) 02/03/20 04:00 Baso # 0.0 K/mm3 (0.0-0.1) 02/03/20 04:00 Add Manual Diff Complete 02/06/20 04:15 Total Counted 100 02/06/20 04:15 Seg Neutrophils % 78.2 % (40.0-70.0) H 02/03/20 04:00 Seg Neuts % (Manual) 87.0 % (40.0-70.0) H 02/06/20 04:15 Band Neutrophils % 0 % 02/06/20 04:15 Lymphocytes % (Manual) 7.0 % (13.4-35.0) L 02/06/20 04:15 Reactive Lymphs % (Man) 0 % 02/06/20 04:15 Monocytes % (Manual) 5.0 % (0.0-7.3) 02/06/20 04:15 Eosinophils % (Manual) 1.0 % (0.0-4.3) 02/06/20 04:15 Basophils % (Manual) 0 % (0.0-1.8) 02/06/20 04:15 Metamyelocytes % 0 % 02/06/20 04:15 Myelocytes % 0 % 02/06/20 04:15 Promyelocytes % 0 % 02/06/20 04:15 Blast Cells % 0 % 02/06/20 04:15 Nucleated RBC % Not Reportable 02/06/20 04:15 Seg Neutrophils # 10.0 K/mm3 (1.8-7.7) H 02/03/20 04:00 Seg Neutrophils # Man 11.0 K/mm3 (1.8-7.7) H 02/06/20 04:15 Band Neutrophils # 0.0 K/mm3 02/06/20 04:15 Lymphocytes # (Manual) 0.9 K/mm3 (1.2-5.4) L 02/06/20 04:15 Abs React Lymphs (Man) 0.0 K/mm3 02/06/20 04:15 Monocytes # (Manual) 0.6 K/mm3 (0.0-0.8) 02/06/20 04:15 Eosinophils # (Manual) 0.1 K/mm3 (0.0-0.4) 02/06/20 04:15 Basophils # (Manual) 0.0 K/mm3 (0.0-0.1) 02/06/20 04:15 Metamyelocytes # 0.0 K/mm3 02/06/20 04:15 Myelocytes # 0.0 K/mm3 02/06/20 04:15 Promyelocytes # 0.0 K/mm3 02/06/20 04:15 Blast Cells # 0.0 K/mm3 02/06/20 04:15 WBC Morphology Not Reportable 02/06/20 04:15 Hypersegmented Neuts Not Reportable 02/06/20 04:15 Hyposegmented Neuts Not Reportable 02/06/20 04:15 Hypogranular Neuts Not Reportable 02/06/20 04:15 Smudge Cells Not Reportable 02/06/20 04:15 Toxic Granulation Not Reportable 02/06/20 04:15 Toxic Vacuolation Not Reportable 02/06/20 04:15 Dohle Bodies Not Reportable 02/06/20 04:15 Pelger-Huet Anomaly Not Reportable 02/06/20 04:15 Harshal Rods Not Reportable 02/06/20 04:15 Platelet Estimate Consistent w auto 02/06/20 04:15 Clumped Platelets Not Reportable 02/06/20 04:15 Plt Clumps, EDTA Not Reportable 02/06/20 04:15 Large Platelets Not Reportable 02/06/20 04:15 Giant Platelets Not Reportable 02/06/20 04:15 Platelet Satelliting Not Reportable 02/06/20 04:15 Plt Morphology Comment Not Reportable 02/06/20 04:15 RBC Morphology Not Reportable 02/06/20 04:15 Dimorphic RBCs Not Reportable 02/06/20 04:15 Polychromasia Not Reportable 02/06/20 04:15 Hypochromasia Not Reportable 02/06/20 04:15 Poikilocytosis Not Reportable 02/06/20 04:15 Anisocytosis Not Reportable 02/06/20 04:15 Microcytosis Not Reportable 02/06/20 04:15 Macrocytosis Not Reportable 02/06/20 04:15 Spherocytes Not Reportable 02/06/20 04:15 Pappenheimer Bodies Not Reportable 02/06/20 04:15 Sickle Cells Not Reportable 02/06/20 04:15 Target Cells Not Reportable 02/06/20 04:15 Tear Drop Cells Not Reportable 02/06/20 04:15 Ovalocytes Not Reportable 02/06/20 04:15 Helmet Cells Not Reportable 02/06/20 04:15 Torres-Rico Bodies Not Reportable 02/06/20 04:15 [place] Rings Not Reportable 02/06/20 04:15 Brusett Cells Not Reportable 02/06/20 04:15 Bite Cells Not Reportable 02/06/20 04:15 Crenated Cell Not Reportable 02/06/20 04:15 Elliptocytes Not Reportable 02/06/20 04:15 Acanthocytes (Spur) Not Reportable 02/06/20 04:15 Rouleaux Not Reportable 02/06/20 04:15 Hemoglobin C Crystals Not Reportable 02/06/20 04:15 Schistocytes Not Reportable 02/06/20 04:15 Malaria parasites Not Reportable 02/06/20 04:15 Elliot Bodies Not Reportable 02/06/20 04:15 Hem Pathologist Commnt No 02/06/20 04:15 D-Dimer 544.72 ng/mlDDU (0-234) H 01/31/20 05:45 ABG pH 7.408 pH Units (7.350-7.450) 02/04/20 15:37 ABG pCO2 42.2 mm Hg 02/04/20 15:37 ABG pO2 80.5 mm Hg (80.0-90.0) 02/04/20 15:37 ABG HCO3 26.0 mmol/L (20.0-26.0) 02/04/20 15:37 ABG O2 Saturation 96.6 % (95.0-99.0) 02/04/20 15:37 ABG O2 Content 15.8 (0.0-44) 02/04/20 15:37 ABG Base Excess 1.2 mmol/L (-2.0-3.0) 02/04/20 15:37 ABG Hemoglobin 11.8 gm/dl (14.0-18.0) L 02/04/20 15:37 ABG Carboxyhemoglobin 1.3 % (0.0-5.0) 02/04/20 15:37 ABG Methemoglobin 0.5 % (0.0-1.5) 02/04/20 15:37 Oxyhemoglobin 94.9 % (95.0-99.0) L 02/04/20 15:37 FiO2 30 % 02/04/20 15:37 Sodium 150 mmol/L (137-145) H D 02/06/20 04:15 Potassium 3.5 mmol/L (3.6-5.0) L 02/06/20 04:15 Chloride 109.5 mmol/L (98-107) H 02/06/20 04:15 Carbon Dioxide 25 mmol/L (22-30) 02/06/20 04:15 Anion Gap 19 mmol/L 02/06/20 04:15 BUN 36 mg/dL (9-20) H 02/06/20 04:15 Creatinine 3.3 mg/dL (0.8-1.3) H 02/06/20 04:15 Estimated GFR 18 ml/min 02/06/20 04:15 BUN/Creatinine Ratio 11 % 02/06/20 04:15 Glucose 56 mg/dL (75-100) L 02/06/20 04:15 POC Glucose 82 (70-105) 02/06/20 05:18 Osmolality 345 Mosm/kg 01/31/20 06:06 Lactic Acid 0.70 mmol/L (0.7-2.0) 01/31/20 15:53 Uric Acid 8.5 mg/dL (3.5-7.6) H 01/31/20 06:06 Calcium 8.1 mg/dL (8.4-10.2) L 02/06/20 04:15 Magnesium 1.60 mg/dL (1.7-2.3) L 02/06/20 04:15 Ferritin 722.6 ng/mL (13.0-400.0) H 01/31/20 05:45 Total Bilirubin 0.40 mg/dL (0.1-1.2) 02/06/20 04:15 AST 45 units/L (5-40) H 02/06/20 04:15 ALT 14 units/L (7-56) 02/06/20 04:15 Alkaline Phosphatase 74 units/L (35-129) 02/06/20 04:15 Lactate Dehydrogenase 387 units/L (91-180) H 01/31/20 05:45 Total Creatine Kinase 123 units/L (55-170) 01/31/20 06:06 Troponin T 0.065 ng/mL (0.00-0.029) H 01/31/20 03:47 C-Reactive Protein 1.60 mg/dL (0.00-1.30) H 01/31/20 05:45 Total Protein 4.7 g/dL (6.3-8.2) L 02/06/20 04:15 Albumin 2.9 g/dL (3.9-5) L 02/06/20 04:15 Albumin/Globulin Ratio 1.6 % 02/06/20 04:15 Triglycerides 76 mg/dL (2-149) 01/31/20 03:47 Cholesterol 96 mg/dL (50-199) 01/31/20 03:47 LDL Cholesterol Direct 66 mg/dL (50-130) 01/31/20 03:47 HDL Cholesterol 39 mg/dL (40-59) L 01/31/20 03:47 Cholesterol/HDL Ratio 2.46 % 01/31/20 03:47 Procalcitonin 0.51 ng/mL (<0.15) 01/31/20 05:45 Urine Color [place] (Yellow) 01/31/20 04:25 Urine Turbidity Clear (Clear) 01/31/20 04:25 Urine pH 5.0 (5.0-7.0) 01/31/20 04:25 Ur Specific [place] 1.015 (1.003-1.030) 01/31/20 04:25 Urine Protein <15 mg/dl mg/dL (Negative) 01/31/20 04:25 Urine Glucose (UA) Neg mg/dL (Negative) 01/31/20 04:25 Urine Ketones Tr mg/dL (Negative) 01/31/20 04:25 Urine Blood Neg (Negative) 01/31/20 04:25 Urine Nitrite Neg (Negative) 01/31/20 04:25 Urine Bilirubin Neg (Negative) 01/31/20 04:25 Urine Urobilinogen < 2.0 mg/dL (<2.0) 01/31/20 04:25 Ur Leukocyte Esterase Sm (Negative) 01/31/20 04:25 Urine WBC (Auto) 1.0 /HPF (0.0-6.0) 01/31/20 04:25 Urine RBC (Auto) 3.0 /HPF (0.0-6.0) 01/31/20 04:25 Urine Mucus Few /HPF 01/31/20 04:25 Urine Creatinine 257.5 mg/dL (0.1-20.0) H 01/31/20 23:06 Urine Sodium 10 mmol/L 01/31/20 23:06 Nasal Screen MRSA (PCR) Negative (Negative) 02/03/20 Unknown Urine Opiates Screen Presumptive negative 01/31/20 04:25 Urine Methadone Screen Presumptive negative 01/31/20 04:25 Ur Barbiturates Screen Presumptive negative 01/31/20 04:25 Ur Phencyclidine Scrn Presumptive negative 01/31/20 04:25 Ur Amphetamines Screen Presumptive negative 01/31/20 04:25 U Benzodiazepines Scrn Presumptive negative 01/31/20 04:25 Urine Cocaine Screen Presumptive negative 01/31/20 04:25 U Marijuana (THC) Screen Presumptive negative 01/31/20 04:25 Drugs of Abuse Note Disclamer 01/31/20 04:25 Coronavirus (PCR) Negative (Negative) 02/01/20 Unknown Hepatitis A IgM Ab Non-reactive (NonReactive) 01/31/20 06:06 Hep Bs Antigen Non-reactive (Negative) 01/31/20 06:06 Hep B Core IgM Ab Non-reactive (NonReactive) 01/31/20 06:06 Hepatitis C Antibody Non-reactive (NonReactive) 01/31/20 06:06 Microbiology: Microbiology 01/31/20 04:25 Peripheral/Venous Blood Culture - Final NO GROWTH AFTER 5 DAYS 01/31/20 03:47 Peripheral/Venous Blood Culture - Final NO GROWTH AFTER 5 DAYS Romo/IV: Voiding Method Indwelling Catheter IV Catheter Type [Right VAS Cath Femoral] IV Catheter Type [Right Triple Lumen Cath Internal Jugular] IV Catheter Type [Left Peripheral IV External Jugular] IV Catheter Type [Right Peripheral IV Forearm] IV Catheter Type [Left Forearm Peripheral IV ] Active Medications - Current Medications Current Medications: Generic Name Dose Route Start Last Admin Trade Name Freq PRN Reason Stop Dose Admin Lipase/Protease/Amylase 1 each 02/02/20 11:[address] 10,500 Unit FEEDTUBE PRN PRN For Clogged Feeding Tube Carbidopa/Levodopa 1.5 each 02/01/20 10:00 02/05/20 10:03 Sinemet PO Not Given DAILY KIRA Dextrose 0 ml 02/02/20 00:11 02/02/20 18:20 D50w (25gm) Syringe IV 50 ml Q30MIN PRN Administration Hypoglycemia Protocol Famotidine 20 mg 02/03/20 10:00 02/05/20 10:02 Pepcid PO Not Given DAILY KIRA Folic Acid 1 mg 02/04/20 10:00 02/05/20 10:02 Folvite PO Not Given DAILY KIRA Heparin Sodium (Porcine) 5,000 unit 01/31/20 22:00 02/06/20 00:55 Heparin SUB-Q 5,000 unit Q12HR KIRA Administration Hydrophilic Ointment 1 applic 01/31/20 06:36 Vaseline Lip Therapy TP Q2HR PRN Dry Lips Norepinephrine 4 mg in 250 mls @ 7.5 mls/hr 01/31/20 07:00 02/05/20 00:15 Levophed Drip 4 Mg/Ns 250 Ml IV 0 mcg/min TITR KIRA 0 mls/hr Titration Protocol 2 MCG/MIN Vasopressin 20 unit/ Sodium 101 mls @ 9.09 mls/hr 01/31/20 12:00 01/31/20 22:55 Chloride IV 0.03 units/min TITR KIRA 9.09 mls/hr Administration Protocol 0.03 UNITS/MIN Cefepime HCl 1 gm in 100 mls @ 200 mls/hr 02/03/20 20:00 02/06/20 00:56 Cefepime/Ns 1 Gm/100 Ml IV 02/09/20 20:29 200 mls/hr Q24H KIRA Administration Protocol Dextrose/Sodium Chloride 1,000 mls @ 100 mls/hr 02/05/20 18:00 02/06/20 06:49 D5ns IV 100 mls/hr DIRECT KIRA Administration Levetiracetam 750 mg 02/06/20 10:00 Keppra PO BID KIRA Multi-Ingred Cream/Lotion/Oil/Oint 1 applic 01/31/20 06:36 Artificial Tears Ophth Oint OU Q4HR PRN Dry Eye(s) Simple Syrup 15 ml 02/02/20 11:04 02/03/20 17:44 Simple Syrup FEEDTUBE 15 ml PRN PRN Administration Hypoglycemia Simple Syrup 30 ml 02/02/20 11:04 Simple Syrup FEEDTUBE PRN PRN Hypoglycemia Sodium Bicarbonate 325 mg 02/02/20 11:04 Sodium Bicarbonate FEEDTUBE PRN PRN For Clogged Feeding Tube Nutrition/Malnutrition Assess - Dietary Evaluation Nutrition/Malnutrition Findings: Nutrition Notes Start: 02/01/20 08:59 Freq: Status: Active Protocol: Document 02/04/20 12:13 LP (Rec: 02/04/20 12:16 LP [id number]) Nutrition Notes Initial or Follow up Reassessment Current Diagnosis CKD(stage I-IV),Diabetes, Sepsis,Hypertension,Heart Failure Other Pertinent Diagnosis AMS, pneu Current Diet Nepro at 40ml/hr Labs/Tests Reviewed Pertinent Medications Reviewed Height 5 ft 6 in Weight 65.2 kg [place] Body Weight (kg) 64.54 BMI 23.1 Weight Status Appropriate Subjective/Other Information Pt tolerating TF. Burn Absent Trauma Absent GI Symptoms None Minimum of two criteria No physical signs of malnutrition #1 Nutrition Diagnosis Inadequate oral intake Diagnosis Progress(for reassessment Continues documentation) Is patient on ventilator? Yes Is Patient Ambulatory and/or Out of Bed No REE-([place] Je[facility]-confined to bed) [phone] Calculation Used for Recommendations [place] Additional Notes Protein needs are 76-127g (1.2 -2g/kg) Fluid needs are 1ml/kcal Nutrition Intervention Change Diet Order: TF Nutrition Support: Nepro at 40ml/hr Flush with 150ml q4h Kcal 1,728 Protein (gm) 78 Fluid (mL) 698 Goal #1 Meet at least 80% of kcal and protein needs via TF Anticipated Discharge Needs: Unable to determine at this time Follow-Up By: 02/11/20 Additional Comments Follow for stable TF
[2020-02-06] MEDS ORDERED: levETIRAcetam 500 MG/5 ML ORAL LIQD PO SCH (10:00)
[2020-02-06] MEDS: FOLIC ACID 1 MG TAB PO SCH (10:29)
[2020-02-06] MEDS: CARBIDOPA/LEVODOPA 25-100 MG TAB PO SCH (10:30)
[2020-02-06] MEDS: FAMOTIDINE 20 MG TAB PO SCH (10:31)
--- NOTE | 2020-02-06 10:48 | Progress Note ---
Assessment and Plan Acute hypoxemic respiratory failure on MVS Acute toxic-metabolic encephalopathy Lactic acidosis- resolved Hyperkalemia with SJ Severe metabolic acidosis COVID-PUI (Discussed care plan at length with his with charge nurse intermittently involved in conversation) - she declines further dialysis - placed on 2 hour SBT - extubate if meets criteria - continue care as below otherwise; - prn vasopressor support, for target MAP > 65mmHg - Monitor hemodynamics closely - continue Daily SAT and SBT assessment as tolerated - continue accuchecks with glycemic control per SSI (While critically ill target blood glucose of 140-180 mg/dL; avoid hypoglycemia) - sedation prn for target RASS 0 to -1 - continue to wean supplemental oxygen for target O2 sat's > 92% acutely - VAP bundle addressed - continue lung protective strategies - continue bronchodilators with pulmonary hygiene per RT - wean per pulmonary driven protocols otherwise - continue to avoid benzodiazepine's, reduce the possibility of delirium - completed AB's per ID rec's - prn analgesia per CPOT score - Maintenance of sleep-wake cycle, avoid delirium - continue enteral nutritional support at goal rate as tolerated - G.I. & VTE prophylaxis - PT/OT/ROM exercises - continue mobility protocols for pressure ulcer prophylaxis - Monitor hemodynamics closely - continue other care per attending / other consultants - discharge planning ongoing concurrently (family will bew offered hospice care option) .... Re-evaluate in am & prn Life threatening condition- Acute hypoxemic respiratory failure on MVS, Acute toxic -metabolic encephalopathy Mortality/Morbidity- High Complexity of medical decision making- High CONDITION: CRITICAL PROGNOSIS: GUARDED CODE STATUS: DNAR- per documentation of primary service The high probability of a clinically significant, sudden or life-threatening deterioration of the [respiratory, renal & cardiovascular,neurology] system(s) required my full and direct attention, intervention and personal management. The aggregate critical care time was [35] minutes without overlap. Time includes spent on; [x] Data Review and interpretation [x] Patient assessment and monitoring of vital signs [x] Documentation [x] Medication orders and management Subjective Date of service: 02/06/20 Principal diagnosis: Ac. hypoxemic resp failure; Ac. toxic-met encephalopathy; SJ; COVID-PUI Interval history: Patient is seen today for: Acute hypoxemic respiratory failure; Acute toxic-me tabolic encephalopathy; Lactic acidosis; Hyperkalemia; SJ; Severe metabolic acidosis; COVID-PUI Seen and examined at bedside; 24hour events reviewed; nursing and respiratory care staff consulted; no adverse overnight events reported to me; resting peacefully in bed; Objective Vital Signs - 12hr 02/05/20 02/05/20 02/05/20 23:01 23:15 23:31 Temperature Pulse Rate 79 60 65 Pulse Rate [ From Monitor] Respiratory 21 12 13 Rate Blood Pressure 87/46 87/46 87/46 O2 Sat by Pulse 98 97 98 Oximetry 02/05/20 02/05/20 02/06/20 23:41 23:45 00:01 Temperature 98.4 F Pulse Rate 74 60 Pulse Rate [ From Monitor] Respiratory 12 11 L Rate Blood Pressure 87/46 87/46 O2 Sat by Pulse 97 98 Oximetry 02/06/20 02/06/20 02/06/20 00:15 00:31 00:45 Temperature Pulse Rate 60 68 65 Pulse Rate [ From Monitor] Respiratory 11 L 15 19 Rate Blood Pressure 117/50 117/50 117/50 O2 Sat by Pulse 95 98 98 Oximetry 02/06/20 02/06/20 02/06/20 01:00 01:15 01:31 Temperature Pulse Rate 67 64 74 Pulse Rate [ From Monitor] Respiratory 13 12 18 Rate Blood Pressure 110/52 117/50 117/50 O2 Sat by Pulse 98 99 98 Oximetry 02/06/20 02/06/20 02/06/20 01:45 02:01 02:15 Temperature Pulse Rate 60 60 60 Pulse Rate [ From Monitor] Respiratory 14 16 12 Rate Blood Pressure 110/52 114/54 114/54 O2 Sat by Pulse 98 99 98 Oximetry 02/06/20 02/06/20 02/06/20 02:30 02:45 03:00 Temperature Pulse Rate 60 73 Pulse Rate [ From Monitor] Respiratory 17 14 22 Rate Blood Pressure 114/54 114/54 114/54 O2 Sat by Pulse 99 99 97 Oximetry 02/06/20 02/06/20 02/06/20 03:15 03:31 03:45 Temperature Pulse Rate 79 60 Pulse Rate [ From Monitor] Respiratory 24 15 Rate Blood Pressure 127/55 127/55 127/55 O2 Sat by Pulse 97 96 99 Oximetry 02/06/20 02/06/20 02/06/20 03:46 04:00 04:15 Temperature 99.3 F Pulse Rate 66 61 Pulse Rate [ From Monitor] Respiratory 15 16 Rate Blood Pressure 127/55 112/65 O2 Sat by Pulse 98 94 Oximetry 02/06/20 02/06/20 02/06/20 04:30 04:45 05:01 Temperature Pulse Rate 61 63 63 Pulse Rate [ From Monitor] Respiratory 15 13 15 Rate Blood Pressure 112/65 112/65 132/60 O2 Sat by Pulse 98 99 96 Oximetry 02/06/20 02/06/20 02/06/20 05:15 05:31 05:45 Temperature Pulse Rate 63 60 64 Pulse Rate [ From Monitor] Respiratory 18 15 14 Rate Blood Pressure 132/60 132/60 132/60 O2 Sat by Pulse 97 96 97 Oximetry 02/06/20 02/06/20 02/06/20 06:00 06:16 06:31 Temperature Pulse Rate 60 63 60 Pulse Rate [ From Monitor] Respiratory 15 15 14 Rate Blood Pressure 128/70 128/70 128/70 O2 Sat by Pulse 96 94 98 Oximetry 02/06/20 02/06/20 02/06/20 06:45 07:00 07:15 Temperature Pulse Rate 66 60 60 Pulse Rate [ From Monitor] Respiratory 15 15 12 Rate Blood Pressure 128/70 134/64 134/64 O2 Sat by Pulse 98 100 100 Oximetry 02/06/20 02/06/20 02/06/20 07:31 07:45 07:51 Temperature Pulse Rate 60 60 Pulse Rate [ From Monitor] Respiratory 14 14 Rate Blood Pressure 134/64 134/64 O2 Sat by Pulse 98 96 99 Oximetry 02/06/20 02/06/20 02/06/20 08:00 08:15 08:31 Temperature 97.5 F L Pulse Rate 60 61 60 Pulse Rate [ 60 From Monitor] Respiratory 13 13 13 Rate Blood Pressure 139/64 139/64 139/64 O2 Sat by Pulse 100 96 99 Oximetry 02/06/20 02/06/20 02/06/20 08:45 09:00 09:15 Temperature Pulse Rate 60 60 60 Pulse Rate [ From Monitor] Respiratory 14 16 16 Rate Blood Pressure 139/64 136/60 136/60 O2 Sat by Pulse 99 98 95 Oximetry 02/06/20 02/06/20 02/06/20 09:31 09:45 10:01 Temperature Pulse Rate 64 62 60 Pulse Rate [ From Monitor] Respiratory 20 20 16 Rate Blood Pressure 136/60 136/60 133/59 O2 Sat by Pulse 91 88 97 Oximetry 02/06/20 10:15 Temperature Pulse Rate 60 Pulse Rate [ From Monitor] Respiratory 16 Rate Blood Pressure 133/59 O2 Sat by Pulse 100 Oximetry Constitutional: no acute distress, other (elderly looking CM normocephalic with mildly increased respiratory effort at rest) Eyes: non-icteric ENT: oropharynx moist, other (ETT 24 cm EMILI) Neck: supple, no lymphadenopathy, no JVD Effort: mildly labored Ascultation: Bilateral: diminished breath sounds, rhonchi (scant) Percussion: Bilateral: not dull Cardiovascular: regular rate and rhythm Gastrointestinal: normoactive bowel sounds, soft, non-tender, non-distended Integumentary: rash Extremities: pink and warm, pulses normal, no ischemia or petechiae, edema (mild to upper extremities) Neurologic: non-focal exam (grossly), pupils equal and round, CN II-XII normal, motor strength normal and Psychiatric: mood appropriate, affect normal CBC and BMP: 02/06/20 04:15 02/06/20 04:15 ABG, PT/INR, D-dimer: ABG ABG pH 7.408 pH Units (7.350-7.450) 02/04/20 15:37 ABG pCO2 42.2 mm Hg 02/04/20 15:37 ABG pO2 80.5 mm Hg (80.0-90.0) 02/04/20 15:37 ABG O2 Saturation 96.6 % (95.0-99.0) 02/04/20 15:37 PT/INR, D-dimer D-Dimer 544.72 ng/mlDDU (0-234) H 01/31/20 05:45 Abnormal lab findings: Abnormal Labs 01/31/20 01/31/20 01/31/20 03:47 03:47 03:47 WBC 16.9 H RBC Hgb Hct MCV 99 H MCH 33 H Lymph % (Auto) [place] % (Auto) Lymph # [place] # Seg Neutrophils % Seg Neuts % (Manual) 95.0 H Lymphocytes % (Manual) 3.0 L Seg Neutrophils # Seg Neutrophils # Man 16.1 H Lymphocytes # (Manual) 0.5 L D-Dimer ABG pH ABG pO2 ABG HCO3 ABG O2 Saturation ABG Base Excess ABG Hemoglobin Oxyhemoglobin Sodium 126 L Potassium 8.8 H* Chloride 86.4 L Carbon Dioxide 10 L BUN 181 H Creatinine 12.5 H Glucose POC Glucose Lactic Acid 2.10 H* Uric Acid Calcium Magnesium Ferritin AST ALT < 5 L Lactate Dehydrogenase Troponin T 0.065 H C-Reactive Protein Total Protein Albumin 3.8 L HDL Cholesterol 39 L Urine Creatinine 01/31/20 01/31/20 01/31/20 05:37 05:45 05:45 WBC RBC Hgb Hct MCV MCH Lymph % (Auto) [place] % (Auto) Lymph # [place] # Seg Neutrophils % Seg Neuts % (Manual) Lymphocytes % (Manual) Seg Neutrophils # Seg Neutrophils # Man Lymphocytes # (Manual) D-Dimer 544.72 H ABG pH ABG pO2 ABG HCO3 ABG O2 Saturation ABG Base Excess ABG Hemoglobin Oxyhemoglobin Sodium Potassium Chloride Carbon Dioxide BUN Creatinine Glucose 103 H POC Glucose Lactic Acid 2.20 H* Uric Acid Calcium Magnesium Ferritin AST ALT Lactate Dehydrogenase 387 H Troponin T C-Reactive Protein 1.60 H Total Protein Albumin HDL Cholesterol Urine Creatinine 01/31/20 01/31/20 01/31/20 05:45 06:06 09:45 WBC RBC Hgb Hct MCV MCH Lymph % (Auto) [place] % (Auto) Lymph # [place] # Seg Neutrophils % Seg Neuts % (Manual) Lymphocytes % (Manual) Seg Neutrophils # Seg Neutrophils # Man Lymphocytes # (Manual) D-Dimer ABG pH ABG pO2 ABG HCO3 ABG O2 Saturation ABG Base Excess ABG Hemoglobin Oxyhemoglobin Sodium Potassium Chloride Carbon Dioxide BUN Creatinine Glucose POC Glucose Lactic Acid 3.20 H* Uric Acid 8.5 H Calcium Magnesium Ferritin 722.6 H AST ALT Lactate Dehydrogenase Troponin T C-Reactive Protein Total Protein Albumin HDL Cholesterol Urine Creatinine 01/31/20 01/31/20 01/31/20 09:45 10:30 18:31 WBC RBC Hgb Hct MCV MCH Lymph % (Auto) [place] % (Auto) Lymph # [place] # Seg Neutrophils % Seg Neuts % (Manual) Lymphocytes % (Manual) Seg Neutrophils # Seg Neutrophils # Man Lymphocytes # (Manual) D-Dimer ABG pH 7.059 L* ABG pO2 70.2 L ABG HCO3 9.9 L ABG O2 Saturation 85.4 L ABG Base Excess -19.6 L ABG Hemoglobin Oxyhemoglobin 84.0 L Sodium 118 L* D 133 L D Potassium 8.1 H* 5.1 H D Chloride 91.1 L 93.7 L Carbon Dioxide 3 L* D 17 L D BUN 179 H 54 H Creatinine 11.6 H 4.9 H D Glucose 197 H 215 H POC Glucose Lactic Acid Uric Acid Calcium Magnesium Ferritin AST ALT Lactate Dehydrogenase Troponin T C-Reactive Protein Total Protein Albumin HDL Cholesterol Urine Creatinine 01/31/20 01/31/20 02/01/20 19:45 23:06 01:30 WBC 17.4 H RBC 3.59 L Hgb 11.7 L Hct 34.5 L D MCV 96 H MCH 33 H Lymph % (Auto) 3.0 L [place] % (Auto) 8.9 H Lymph # 0.5 L [place] # 1.6 H Seg Neutrophils % 88.1 H Seg Neuts % (Manual) Lymphocytes % (Manual) Seg Neutrophils # 15.3 H Seg Neutrophils # Man Lymphocytes # (Manual) D-Dimer ABG pH ABG pO2 172.0 H ABG HCO3 ABG O2 Saturation 99.1 H ABG Base Excess -3.0 L ABG Hemoglobin 13.8 L Oxyhemoglobin Sodium Potassium Chloride Carbon Dioxide BUN Creatinine Glucose POC Glucose Lactic Acid Uric Acid Calcium Magnesium Ferritin AST ALT Lactate Dehydrogenase Troponin T C-Reactive Protein Total Protein Albumin HDL Cholesterol Urine Creatinine 257.5 H 02/01/20 02/01/20 02/01/20 01:30 04:53 23:39 WBC RBC Hgb Hct MCV MCH Lymph % (Auto) [place] % (Auto) Lymph # [place] # Seg Neutrophils % Seg Neuts % (Manual) Lymphocytes % (Manual) Seg Neutrophils # Seg Neutrophils # Man Lymphocytes # (Manual) D-Dimer ABG pH 7.505 H ABG pO2 158.5 H ABG HCO3 ABG O2 Saturation 99.1 H ABG Base Excess ABG Hemoglobin 11.0 L Oxyhemoglobin Sodium 133 L Potassium Chloride 93.6 L Carbon Dioxide BUN 47 H Creatinine 4.5 H Glucose 204 H POC Glucose 58 L Lactic Acid Uric Acid Calcium 8.3 L Magnesium Ferritin AST ALT Lactate Dehydrogenase Troponin T C-Reactive Protein Total Protein Albumin HDL Cholesterol Urine Creatinine 02/02/20 02/02/20 02/02/20 04:24 10:48 10:48 WBC 11.8 H RBC 3.16 L Hgb 10.2 L Hct 31.0 L MCV 98 H MCH Lymph % (Auto) [place] % (Auto) Lymph # [place] # Seg Neutrophils % Seg Neuts % (Manual) Lymphocytes % (Manual) Seg Neutrophils # Seg Neutrophils # Man Lymphocytes # (Manual) D-Dimer ABG pH ABG pO2 74.4 L ABG HCO3 30.2 H ABG O2 Saturation ABG Base Excess 4.6 H ABG Hemoglobin 10.7 L Oxyhemoglobin 94.7 L Sodium Potassium Chloride Carbon Dioxide BUN 52 H Creatinine 5.2 H Glucose 59 L POC Glucose Lactic Acid Uric Acid Calcium 8.2 L Magnesium Ferritin AST ALT Lactate Dehydrogenase Troponin T C-Reactive Protein Total Protein Albumin HDL Cholesterol Urine Creatinine 02/02/20 02/02/20 02/03/20 12:19 18:02 00:52 WBC RBC Hgb Hct MCV MCH Lymph % (Auto) [place] % (Auto) Lymph # [place] # Seg Neutrophils % Seg Neuts % (Manual) Lymphocytes % (Manual) Seg Neutrophils # Seg Neutrophils # Man Lymphocytes # (Manual) D-Dimer ABG pH ABG pO2 ABG HCO3 ABG O2 Saturation ABG Base Excess ABG Hemoglobin Oxyhemoglobin Sodium Potassium Chloride Carbon Dioxide BUN Creatinine Glucose POC Glucose 64 L 60 L 69 L Lactic Acid Uric Acid Calcium Magnesium Ferritin AST ALT Lactate Dehydrogenase Troponin T C-Reactive Protein Total Protein Albumin HDL Cholesterol Urine Creatinine 02/03/20 02/03/20 02/03/20 04:00 04:00 04:35 WBC 12.8 H RBC 3.23 L Hgb 10.7 L Hct 32.0 L MCV 99 H MCH 33 H Lymph % (Auto) [place] % (Auto) Lymph # [place] # Seg Neutrophils % 78.2 H Seg Neuts % (Manual) Lymphocytes % (Manual) Seg Neutrophils # 10.0 H Seg Neutrophils # Man Lymphocytes # (Manual) D-Dimer ABG pH 7.281 L ABG pO2 71.7 L ABG HCO3 27.9 H ABG O2 Saturation 94.6 L ABG Base Excess ABG Hemoglobin 9.5 L Oxyhemoglobin 92.8 L Sodium Potassium Chloride Carbon Dioxide BUN 50 H Creatinine 5.0 H Glucose 71 L POC Glucose Lactic Acid Uric Acid Calcium 8.0 L Magnesium Ferritin AST ALT Lactate Dehydrogenase Troponin T C-Reactive Protein Total Protein Albumin HDL Cholesterol Urine Creatinine 02/03/20 02/03/20 02/04/20 17:34 23:54 04:20 WBC RBC Hgb Hct MCV MCH Lymph % (Auto) [place] % (Auto) Lymph # [place] # Seg Neutrophils % Seg Neuts % (Manual) Lymphocytes % (Manual) Seg Neutrophils # Seg Neutrophils # Man Lymphocytes # (Manual) D-Dimer ABG pH ABG pO2 ABG HCO3 27.2 H ABG O2 Saturation ABG Base Excess ABG Hemoglobin 9.8 L Oxyhemoglobin Sodium Potassium Chloride Carbon Dioxide BUN Creatinine Glucose POC Glucose 67 L 127 H Lactic Acid Uric Acid Calcium Magnesium Ferritin AST ALT Lactate Dehydrogenase Troponin T C-Reactive Protein Total Protein Albumin HDL Cholesterol Urine Creatinine 02/04/20 02/05/20 02/05/20 15:37 12:03 23:38 WBC RBC Hgb Hct MCV MCH Lymph % (Auto) [place] % (Auto) Lymph # [place] # Seg Neutrophils % Seg Neuts % (Manual) Lymphocytes % (Manual) Seg Neutrophils # Seg Neutrophils # Man Lymphocytes # (Manual) D-Dimer ABG pH ABG pO2 ABG HCO3 ABG O2 Saturation ABG Base Excess ABG Hemoglobin 11.8 L Oxyhemoglobin 94.9 L Sodium Potassium Chloride Carbon Dioxide BUN Creatinine Glucose POC Glucose 68 L 52 L Lactic Acid Uric Acid Calcium Magnesium Ferritin AST ALT Lactate Dehydrogenase Troponin T C-Reactive Protein Total Protein Albumin HDL Cholesterol Urine Creatinine 02/06/20 02/06/20 02/06/20 00:34 04:15 04:15 WBC 12.7 H RBC 2.60 L Hgb 8.7 L Hct 26.3 L MCV 101 H MCH 33 H Lymph % (Auto) [place] % (Auto) Lymph # [place] # Seg Neutrophils % Seg Neuts % (Manual) 87.0 H Lymphocytes % (Manual) 7.0 L Seg Neutrophils # Seg Neutrophils # Man 11.0 H Lymphocytes # (Manual) 0.9 L D-Dimer ABG pH ABG pO2 ABG HCO3 ABG O2 Saturation ABG Base Excess ABG Hemoglobin Oxyhemoglobin Sodium 150 H D Potassium 3.5 L Chloride 109.5 H Carbon Dioxide BUN 36 H Creatinine 3.3 H Glucose 56 L POC Glucose 114 H Lactic Acid Uric Acid Calcium 8.1 L Magnesium 1.60 L Ferritin AST 45 H ALT Lactate Dehydrogenase Troponin T C-Reactive Protein Total Protein 4.7 L Albumin 2.9 L HDL Cholesterol Urine Creatinine Allied health notes reviewed: RT
[2020-02-06] MEDS: FAMOTIDINE 20 MG/2 ML INJ IV SCH (11:46)
--- NOTE | 2020-02-06 14:46 | Progress Note ---
Assessment and Plan Cultures: Blood culture 01/31/2020 pending Sputum culture 01/31/2020 pending COVID-19 negative A/P: 84-year-old man past medical history hypertension, dementia admitted to the hospital with altered mental status and hypoxia. #Acute hypoxic respiratory failure: Secondary to pneumonia #Right-sided pneumonia: Continue empiric antibiotics. #SJ on HD: Improving. Recs: -Continue renally dosed cefepime for now, monitor for improvement. Plan for 7 days. Thank you for the consult, we will continue to follow. Yudith Fernandez MD [facility] ([facility]) M: [phone] O: [phone] F: [phone] Subjective Date of service: 02/06/20 Principal diagnosis: Ac. hypoxemic resp failure; Ac. toxic-met encephalopathy; SJ; COVID-PUI Interval history: Afebrile, white count 12.7. Currently on 3 L nasal cannula Imaging personally viewed: Chest x-ray: Improving aeration. Objective - Exam Narrative Exam: Physical exam deferred due to PPE conservation strategy. Please refer to primary team's note. - Constitutional Vitals: Vital Signs Temp Pulse Resp BP Pulse Ox 97.6 F 60 15 147/62 100 02/06/20 11:41 02/06/20 14:15 02/06/20 14:15 02/06/20 14:15 02/06/20 14:15 Temperature -Last 24 Hours Temperature 97.6 F Temperature 97.5 F Temperature 99.3 F Temperature 98.4 F Temperature 98.3 F Temperature 97.8 F - Labs CBC & Chem 7: 02/06/20 04:15 02/06/20 04:15 Labs: Abnormal lab results 02/05/20 02/05/20 02/06/20 Range/Units 12:03 23:38 00:34 WBC (4.5-11.0) K/mm3 RBC (3.65-5.03) M/mm3 Hgb (11.8-15.2) gm/dl Hct (35.5-45.6) % MCV (84-94) fl MCH (28-32) pg Seg Neuts % (Manual) (40.0-70.0) % Lymphocytes % (Manual) (13.4-35.0) % Seg Neutrophils # Man (1.8-7.7) K/mm3 Lymphocytes # (Manual) (1.2-5.4) K/mm3 Sodium (137-145) mmol/L Potassium (3.6-5.0) mmol/L Chloride (98-107) mmol/L BUN (9-20) mg/dL Creatinine (0.8-1.3) mg/dL Glucose (75-100) mg/dL POC Glucose 68 L 52 L 114 H (70-105) Calcium (8.4-10.2) mg/dL Magnesium (1.7-2.3) mg/dL AST (5-40) units/L Total Protein (6.3-8.2) g/dL Albumin (3.9-5) g/dL 02/06/20 02/06/20 Range/Units 04:15 04:15 WBC 12.7 H (4.5-11.0) K/mm3 RBC 2.60 L (3.65-5.03) M/mm3 Hgb 8.7 L (11.8-15.2) gm/dl Hct 26.3 L (35.5-45.6) % MCV 101 H (84-94) fl MCH 33 H (28-32) pg Seg Neuts % (Manual) 87.0 H (40.0-70.0) % Lymphocytes % (Manual) 7.0 L (13.4-35.0) % Seg Neutrophils # Man 11.0 H (1.8-7.7) K/mm3 Lymphocytes # (Manual) 0.9 L (1.2-5.4) K/mm3 Sodium 150 H D (137-145) mmol/L Potassium 3.5 L (3.6-5.0) mmol/L Chloride 109.5 H (98-107) mmol/L BUN 36 H (9-20) mg/dL Creatinine 3.3 H (0.8-1.3) mg/dL Glucose 56 L (75-100) mg/dL POC Glucose (70-105) Calcium 8.1 L (8.4-10.2) mg/dL Magnesium 1.60 L (1.7-2.3) mg/dL AST 45 H (5-40) units/L Total Protein 4.7 L (6.3-8.2) g/dL Albumin 2.9 L (3.9-5) g/dL
[2020-02-06] MEDS: DEXTROSE 50% IN WATER (25GM) 50 ML SYRINGE IV PRN (17:23)
--- NOTE | 2020-02-06 17:52 | Progress Note ---
Assessment and Plan Impression: * Acute kidney injury secondary ATN * Acute hypoxic repiratory failure on mechanical ventilation * Pneumonia --COVID 19 negative * Sepsis * Hyperkalemia - resolved * Metabolic acidosis, severe - resolved * Hyponatremia - resolved * Hypoglycemia Plan: * Hemodialysis remains on hold * Conservative management of lytes * Abx per ID * Pressors prn to maintain MAP>65 * Avoid nephrotoxins * Dose medications for renal function * Lengthy discussion with patient's , Nuris Borges, via phone yesterday. Per , patient "Nadir would not want to live on machines". Furthermore, she stated that he would not want dialysis. She understands that patient will and is in acceptance of this. She reported that she and patient discussed end of life decisions throughout their 40+year marriage. * Will see prn Subjective Date of service: 02/06/20 Principal diagnosis: Ac. hypoxemic resp failure; Ac. toxic-met encephalopathy; SJ; COVID-PUI Interval history: Chart, vitals, labs reviewed. Patient being cleaned at time of visit. Objective - Exam Narrative Exam: Deferred - patient is being cleaned at time of visit - Vital Signs Vital signs: Vital Signs - 12hr 02/06/20 02/06/20 02/06/20 06:00 06:16 06:31 Temperature Pulse Rate 60 63 60 Pulse Rate [ From Monitor] Respiratory 15 15 14 Rate Blood Pressure 128/70 128/70 128/70 O2 Sat by Pulse 96 94 98 Oximetry 02/06/20 02/06/20 02/06/20 06:45 07:00 07:15 Temperature Pulse Rate 66 60 60 Pulse Rate [ From Monitor] Respiratory 15 15 12 Rate Blood Pressure 128/70 134/64 134/64 O2 Sat by Pulse 98 100 100 Oximetry 02/06/20 02/06/20 02/06/20 07:31 07:45 07:51 Temperature Pulse Rate 60 60 Pulse Rate [ From Monitor] Respiratory 14 14 Rate Blood Pressure 134/64 134/64 O2 Sat by Pulse 98 96 99 Oximetry 02/06/20 02/06/20 02/06/20 08:00 08:15 08:31 Temperature 97.5 F L Pulse Rate 60 61 60 Pulse Rate [ 60 From Monitor] Respiratory 13 13 13 Rate Blood Pressure 139/64 139/64 139/64 O2 Sat by Pulse 100 96 99 Oximetry 02/06/20 02/06/20 02/06/20 08:45 09:00 09:15 Temperature Pulse Rate 60 60 60 Pulse Rate [ From Monitor] Respiratory 14 16 16 Rate Blood Pressure 139/64 136/60 136/60 O2 Sat by Pulse 99 98 95 Oximetry 02/06/20 02/06/20 02/06/20 09:31 09:45 10:01 Temperature Pulse Rate 64 62 60 Pulse Rate [ From Monitor] Respiratory 20 20 16 Rate Blood Pressure 136/60 136/60 133/59 O2 Sat by Pulse 91 88 97 Oximetry 02/06/20 02/06/20 02/06/20 10:15 10:31 10:45 Temperature Pulse Rate 60 60 63 Pulse Rate [ From Monitor] Respiratory 16 16 17 Rate Blood Pressure 133/59 133/59 133/59 O2 Sat by Pulse 100 97 97 Oximetry 02/06/20 02/06/20 02/06/20 11:00 11:15 11:31 Temperature Pulse Rate 60 61 60 Pulse Rate [ From Monitor] Respiratory 16 18 16 Rate Blood Pressure 140/64 133/59 133/59 O2 Sat by Pulse 97 96 98 Oximetry 02/06/20 02/06/20 02/06/20 11:41 11:45 12:00 Temperature 97.6 F Pulse Rate 61 64 Pulse Rate [ 60 From Monitor] Respiratory 18 13 Rate Blood Pressure 133/59 144/60 O2 Sat by Pulse 94 97 Oximetry 02/06/20 02/06/20 02/06/20 12:15 12:31 12:45 Temperature Pulse Rate 62 60 60 Pulse Rate [ From Monitor] Respiratory 13 15 13 Rate Blood Pressure 144/60 144/60 144/60 O2 Sat by Pulse 90 97 99 Oximetry 02/06/20 02/06/20 02/06/20 13:00 13:15 13:31 Temperature Pulse Rate 60 60 61 Pulse Rate [ From Monitor] Respiratory 14 14 17 Rate Blood Pressure 155/72 155/72 144/60 O2 Sat by Pulse 96 98 96 Oximetry 02/06/20 02/06/20 02/06/20 13:45 14:00 14:15 Temperature Pulse Rate 60 60 60 Pulse Rate [ From Monitor] Respiratory 14 14 15 Rate Blood Pressure 144/60 147/62 147/62 O2 Sat by Pulse 96 94 100 Oximetry 02/06/20 02/06/20 02/06/20 14:31 14:45 15:01 Temperature Pulse Rate 61 88 77 Pulse Rate [ From Monitor] Respiratory 20 24 24 Rate Blood Pressure 147/62 147/62 162/124 O2 Sat by Pulse 94 77 L 86 Oximetry 02/06/20 02/06/20 02/06/20 15:15 15:31 15:45 Temperature Pulse Rate 87 70 77 Pulse Rate [ From Monitor] Respiratory 17 23 18 Rate Blood Pressure 162/124 162/124 162/124 O2 Sat by Pulse 82 L 97 98 Oximetry 02/06/20 02/06/20 02/06/20 16:00 16:01 16:10 Temperature 96.4 F L Pulse Rate 61 62 Pulse Rate [ 61 From Monitor] Respiratory 17 17 Rate Blood Pressure 200/163 O2 Sat by Pulse 80 L 93 Oximetry - Lab 02/06/20 04:15 02/06/20 04:15 Most recent lab results ABG pH 7.408 pH Units (7.350-7.450) 02/04/20 15:37 ABG pCO2 42.2 mm Hg 02/04/20 15:37 ABG pO2 80.5 mm Hg (80.0-90.0) 02/04/20 15:37 ABG HCO3 26.0 mmol/L (20.0-26.0) 02/04/20 15:37 ABG O2 Saturation 96.6 % (95.0-99.0) 02/04/20 15:37 Calcium 8.1 mg/dL (8.4-10.2) L 02/06/20 04:15 Magnesium 1.60 mg/dL (1.7-2.3) L 02/06/20 04:15 Urine Creatinine 257.5 mg/dL (0.1-20.0) H 01/31/20 23:06 Urine Sodium 10 mmol/L 01/31/20 23:06 Medications & Allergies - Medications Allergies/Adverse Reactions: Allergies No Known Allergies Allergy (Unverified 10/13/14 11:06) Home Medications: Home Medications Medication Instructions Recorded Confirmed Last Taken Type Acetaminophen [Acetaminophen TAB] 325 mg PO Q6HR PRN 10/13/14 02/02/20 Unknown History Carbidopa/Levodopa 25-100 [Sinemet 1.5 tab PO DAILY 10/13/14 02/02/20 10/19/14 History 25/100] Divalproex Sodium [Divalproex 250 mg PO BID 10/13/14 02/02/20 10/19/14 History Sodium ER] donepeziL [Aricept] 10 mg PO QHS 10/13/14 02/02/20 10/19/14 History Dextran 70/Hypromellose 1 each OP PRN 02/02/20 02/02/20 Unknown History [Artificial Tears] Gabapentin [Neurontin] 100 mg PO QHS 02/02/20 02/02/20 Unknown History Ipratropium/Albuterol Sulfate 1 ampul IH Q6HR 02/02/20 02/02/20 Unknown History [DUONEB *Not for PRN Use*] Latanoprost 0.005% [Xalatan 0.005%] 1 drop OP QPM 02/02/20 02/02/20 Unknown History Loratadine [Allergy Relief] 10 mg PO QDAY 02/02/20 02/02/20 Unknown History Omeprazole 20 mg PO QHS 02/02/20 02/02/20 Unknown History Timolol 0.25% (Nf) [Timoptic] 1 drops OP BID 02/02/20 02/02/20 Unknown History Active Medications: Generic Name Dose Route Start Last Admin Trade Name Freq PRN Reason Stop Dose Admin Lipase/Protease/Amylase 1 each 02/02/20 11:04 Pancreazmarilu Chaney 10,500 Unit FEEDTUBE PRN PRN For Clogged Feeding Tube Carbidopa/Levodopa 1.5 each 02/01/20 10:00 02/06/20 10:30 Sinemet PO Not Given DAILY KIRA Dextrose 0 ml 02/02/20 00:11 02/06/20 17:23 D50w (25gm) Syringe IV 20 ml Q30MIN PRN Administration Hypoglycemia Protocol Famotidine 20 mg 02/06/20 11:00 02/06/20 11:46 Pepcid IV 20 mg DAILY KIRA Administration Folic Acid 1 mg 02/04/20 10:00 02/06/20 10:29 Folvite PO Not Given DAILY KIRA Heparin Sodium (Porcine) 5,000 unit 01/31/20 22:00 02/06/20 09:40 Heparin SUB-Q 5,000 unit Q12HR KIRA Administration Hydrophilic Ointment 1 applic 01/31/20 06:36 Vaseline Lip Therapy TP Q2HR PRN Dry Lips Norepinephrine 4 mg in 250 mls @ 7.5 mls/hr 01/31/20 07:00 02/05/20 00:15 Levophed Drip 4 Mg/Ns 250 Ml IV 0 mcg/min TITR KIRA 0 mls/hr Titration Protocol 2 MCG/MIN Vasopressin 20 unit/ Sodium 101 mls @ 9.09 mls/hr 01/31/20 12:00 01/31/20 22:55 Chloride IV 0.03 units/min TITR KIRA 9.09 mls/hr Administration Protocol 0.03 UNITS/MIN Cefepime HCl 1 gm in 100 mls @ 200 mls/hr 02/03/20 20:00 02/06/20 00:56 Cefepime/Ns 1 Gm/100 Ml IV 02/09/20 20:29 200 mls/hr Q24H KIRA Administration Protocol Dextrose/Sodium Chloride 1,000 mls @ 100 mls/hr 02/05/20 18:00 02/06/20 17:24 D5ns IV 100 mls/hr DIRECT KIRA Administration Levetiracetam 750 mg/ Dextrose 107.5 mls @ 400 mls/hr 02/06/20 11:00 02/06/20 11:45 IV 400 mls/hr Q12HR KIRA Administration Multi-Ingred Cream/Lotion/Oil/Oint 1 applic 01/31/20 06:36 Artificial Tears Ophth Oint OU Q4HR PRN Dry Eye(s) Simple Syrup 15 ml 02/02/20 11:04 02/03/20 17:44 Simple Syrup FEEDTUBE 15 ml PRN PRN Administration Hypoglycemia Simple Syrup 30 ml 02/02/20 11:04 Simple Syrup FEEDTUBE PRN PRN Hypoglycemia Sodium Bicarbonate 325 mg 02/02/20 11:04 Sodium Bicarbonate FEEDTUBE PRN PRN For Clogged Feeding Tube
[2020-02-07] MEDS: HEPARIN 5,000 UNIT/1 ML VIAL SUB-Q SCH ×2 (09:26→21:32)
[2020-02-07] MEDS: FOLIC ACID 1 MG TAB PO SCH (09:28)
[2020-02-07] MEDS: CARBIDOPA/LEVODOPA 25-100 MG TAB PO SCH (09:28)
[2020-02-07] MEDS: FAMOTIDINE 20 MG/2 ML INJ IV SCH (09:31)
--- NOTE | 2020-02-07 12:39 | Progress Note ---
Assessment and Plan Cultures: Blood culture 01/31/2020 pending Sputum culture 01/31/2020 pending COVID-19 negative A/P: 84-year-old man past medical history hypertension, dementia admitted to the hospital with altered mental status and hypoxia. #Acute hypoxic respiratory failure: Secondary to pneumonia #Right-sided pneumonia: Continue empiric antibiotics. #SJ on HD: Improving. Recs: -Continue renally dosed cefepime for now, monitor for improvement. Plan for 7 days, stop date in place. Dr. Crow taking over Sunday. Thank you for the consult, we will continue to follow. Yudith Fernandez MD [facility] ([facility]) M: [phone] O: [phone] F: [phone] Subjective Date of service: 02/07/20 Principal diagnosis: Ac. hypoxemic resp failure; Ac. toxic-met encephalopathy; SJ; COVID-PUI Interval history: Afebrile, currently on 2 L nasal cannula. Objective - Exam Narrative Exam: Physical exam deferred due to PPE conservation strategy. Please refer to prim karan team's note. - Constitutional Vitals: Vital Signs Temp Pulse Resp BP Pulse Ox 99.0 F 62 20 137/67 98 02/07/20 11:24 02/07/20 11:24 02/07/20 11:24 02/07/20 11:24 02/07/20 11:24 Temperature -Last 24 Hours Temperature 99.0 F Temperature 98.5 F Temperature 98.4 F Temperature 97.8 F Temperature 97.6 F Temperature 96.4 F - Labs CBC & Chem 7: 02/06/20 04:15 02/06/20 04:15 Labs: Abnormal lab results 02/06/20 02/06/20 02/07/20 Range/Units 17:35 18:21 00:39 POC Glucose 53 L 124 H 122 H (70-105)
[2020-02-07] MEDS: D5W/0.9% NACL 1,000 ML IV SCH ×2 (13:14→21:33)
[2020-02-07] MEDS: levETIRAcetam 750 MG in DEXTROSE 5% IN WATER 100 ML IV SCH ×2 (13:15→21:29)
--- NOTE | 2020-02-07 13:38 | Progress Note ---
Assessment and Plan Acute hypoxemic respiratory failure s/p MVS- extubated Acute toxic-metabolic encephalopathy Lactic acidosis- resolved Hyperkalemia with SJ Solitary kidney Severe metabolic acidosis Hypernatremia [id number] - Bronchodilators with pulmonary hygiene per RT -Nutritional support, advance to goal as tolerated -Aspiration precautions, HOB >40 - Wean supplemental oxygen for target O2 sats > 90% - Accuchecks with glycemic control per SSI (While critically ill target blood glucose of 140-180 mg/dL; avoid hypoglycemia) - Stop benzodiazepines, reduce the possibility of delirium - Maintenance of sleep-wake cycle, avoid delirium -Avoid nephrotoxins, closely monitor renal function -CLINICAL APPLICATION MANAGER per Renal service -Enteric nutritional support -Free water flushes to treat hypernatremia - Stress ulcer & VTE prophylaxis ( Heparin, Famotidine) - Mobility protocol, off loading and skin assessment for pressure ulcer prevention -Supportive transfusions as indicated to keep HgB >7g/dL -Antibitoics- renally dosed Cefepime to complete course -ABG, CXR prn -CBC, BMP per primary service - continue other care per attending / other consultants Discussed with the ICU team-RT,RN, Life threatening condition- Acute hypoxemic respiratory failure on MVS, Acute toxic -metabolic encephalopathy Mortality/Morbidity- High Complexity of medical decision making- High CONDITION: FAIR PROGNOSIS: FAIR CODE STATUS: DNAR- per discussion with his Subjective Date of service: 02/07/20 Principal diagnosis: SJ/sepsis with hypotension Interval history: Follow up for:Acute hypoxemic respiratory failure s/p MVS;Acute toxic-metabolic encephalopathy; Hyperkalemia with SJ Severe metabolic acidosis; COVID-PUI Patient seen and examined. 24 hour events reviewed. Consulted with respiratory and nursing staff s/p extubation with some agitation Objective Vital Signs - 12hr 02/07/20 02/07/20 02/07/20 04:19 08:09 11:24 Temperature 98.4 F 98.5 F 99.0 F Pulse Rate 62 62 Respiratory 16 20 20 Rate Blood Pressure 136/63 131/65 137/67 O2 Sat by Pulse 98 98 Oximetry Constitutional: no acute distress, other (elderly looking CM normocephalic with mildly increased respiratory effort at rest) Eyes: non-icteric ENT: oropharynx dry, other Neck: supple, no lymphadenopathy, no JVD Effort: mildly labored Ascultation: Bilateral: diminished breath sounds, rhonchi (scant) Percussion: Bilateral: not dull Cardiovascular: regular rate and rhythm, other (s1,s2) Gastrointestinal: normoactive bowel sounds, soft, non-tender, non-distended Integumentary: rash Extremities: pink and warm, pulses normal, no ischemia or petechiae, edema (mild to upper extremities), other Neurologic: non-focal exam (grossly, moves all extremities), pupils equal and round, CN II-XII normal Psychiatric: mood appropriate, affect normal CBC and BMP: 02/06/20 04:15 02/06/20 04:15 ABG, PT/INR, D-dimer: ABG ABG pH 7.408 pH Units (7.350-7.450) 02/04/20 15:37 ABG pCO2 42.2 mm Hg 02/04/20 15:37 ABG pO2 80.5 mm Hg (80.0-90.0) 02/04/20 15:37 ABG O2 Saturation 96.6 % (95.0-99.0) 02/04/20 15:37 PT/INR, D-dimer D-Dimer 544.72 ng/mlDDU (0-234) H 01/31/20 05:45 Abnormal lab findings: Abnormal Labs 01/31/20 01/31/20 01/31/20 03:47 03:47 03:47 WBC 16.9 H RBC Hgb Hct MCV 99 H MCH 33 H Lymph % (Auto) [place] % (Auto) Lymph # [place] # Seg Neutrophils % Seg Neuts % (Manual) 95.0 H Lymphocytes % (Manual) 3.0 L Seg Neutrophils # Seg Neutrophils # Man 16.1 H Lymphocytes # (Manual) 0.5 L D-Dimer ABG pH ABG pO2 ABG HCO3 ABG O2 Saturation ABG Base Excess ABG Hemoglobin Oxyhemoglobin Sodium 126 L Potassium 8.8 H* Chloride 86.4 L Carbon Dioxide 10 L BUN 181 H Creatinine 12.5 H Glucose POC Glucose Lactic Acid 2.10 H* Uric Acid Calcium Magnesium Ferritin AST ALT < 5 L Lactate Dehydrogenase Troponin T 0.065 H C-Reactive Protein Total Protein Albumin 3.8 L HDL Cholesterol 39 L Urine Creatinine 01/31/20 01/31/20 01/31/20 05:37 05:45 05:45 WBC RBC Hgb Hct MCV MCH Lymph % (Auto) [place] % (Auto) Lymph # [place] # Seg Neutrophils % Seg Neuts % (Manual) Lymphocytes % (Manual) Seg Neutrophils # Seg Neutrophils # Man Lymphocytes # (Manual) D-Dimer 544.72 H ABG pH ABG pO2 ABG HCO3 ABG O2 Saturation ABG Base Excess ABG Hemoglobin Oxyhemoglobin Sodium Potassium Chloride Carbon Dioxide BUN Creatinine Glucose 103 H POC Glucose Lactic Acid 2.20 H* Uric Acid Calcium Magnesium Ferritin AST ALT Lactate Dehydrogenase 387 H Troponin T C-Reactive Protein 1.60 H Total Protein Albumin HDL Cholesterol Urine Creatinine 01/31/20 01/31/20 01/31/20 05:45 06:06 09:45 WBC RBC Hgb Hct MCV MCH Lymph % (Auto) [place] % (Auto) Lymph # [place] # Seg Neutrophils % Seg Neuts % (Manual) Lymphocytes % (Manual) Seg Neutrophils # Seg Neutrophils # Man Lymphocytes # (Manual) D-Dimer ABG pH ABG pO2 ABG HCO3 ABG O2 Saturation ABG Base Excess ABG Hemoglobin Oxyhemoglobin Sodium Potassium Chloride Carbon Dioxide BUN Creatinine Glucose POC Glucose Lactic Acid 3.20 H* Uric Acid 8.5 H Calcium Magnesium Ferritin 722.6 H AST ALT Lactate Dehydrogenase Troponin T C-Reactive Protein Total Protein Albumin HDL Cholesterol Urine Creatinine 01/31/20 01/31/20 01/31/20 09:45 10:30 18:31 WBC RBC Hgb Hct MCV MCH Lymph % (Auto) [place] % (Auto) Lymph # [place] # Seg Neutrophils % Seg Neuts % (Manual) Lymphocytes % (Manual) Seg Neutrophils # Seg Neutrophils # Man Lymphocytes # (Manual) D-Dimer ABG pH 7.059 L* ABG pO2 70.2 L ABG HCO3 9.9 L ABG O2 Saturation 85.4 L ABG Base Excess -19.6 L ABG Hemoglobin Oxyhemoglobin 84.0 L Sodium 118 L* D 133 L D Potassium 8.1 H* 5.1 H D Chloride 91.1 L 93.7 L Carbon Dioxide 3 L* D 17 L D BUN 179 H 54 H Creatinine 11.6 H 4.9 H D Glucose 197 H 215 H POC Glucose Lactic Acid Uric Acid Calcium Magnesium Ferritin AST ALT Lactate Dehydrogenase Troponin T C-Reactive Protein Total Protein Albumin HDL Cholesterol Urine Creatinine 01/31/20 01/31/20 02/01/20 19:45 23:06 01:30 WBC 17.4 H RBC 3.59 L Hgb 11.7 L Hct 34.5 L D MCV 96 H MCH 33 H Lymph % (Auto) 3.0 L [place] % (Auto) 8.9 H Lymph # 0.5 L [place] # 1.6 H Seg Neutrophils % 88.1 H Seg Neuts % (Manual) Lymphocytes % (Manual) Seg Neutrophils # 15.3 H Seg Neutrophils # Man Lymphocytes # (Manual) D-Dimer ABG pH ABG pO2 172.0 H ABG HCO3 ABG O2 Saturation 99.1 H ABG Base Excess -3.0 L ABG Hemoglobin 13.8 L Oxyhemoglobin Sodium Potassium Chloride Carbon Dioxide BUN Creatinine Glucose POC Glucose Lactic Acid Uric Acid Calcium Magnesium Ferritin AST ALT Lactate Dehydrogenase Troponin T C-Reactive Protein Total Protein Albumin HDL Cholesterol Urine Creatinine 257.5 H 02/01/20 02/01/20 02/01/20 01:30 04:53 23:39 WBC RBC Hgb Hct MCV MCH Lymph % (Auto) [place] % (Auto) Lymph # [place] # Seg Neutrophils % Seg Neuts % (Manual) Lymphocytes % (Manual) Seg Neutrophils # Seg Neutrophils # Man Lymphocytes # (Manual) D-Dimer ABG pH 7.505 H ABG pO2 158.5 H ABG HCO3 ABG O2 Saturation 99.1 H ABG Base Excess ABG Hemoglobin 11.0 L Oxyhemoglobin Sodium 133 L Potassium Chloride 93.6 L Carbon Dioxide BUN 47 H Creatinine 4.5 H Glucose 204 H POC Glucose 58 L Lactic Acid Uric Acid Calcium 8.3 L Magnesium Ferritin AST ALT Lactate Dehydrogenase Troponin T C-Reactive Protein Total Protein Albumin HDL Cholesterol Urine Creatinine 02/02/20 02/02/20 02/02/20 04:24 10:48 10:48 WBC 11.8 H RBC 3.16 L Hgb 10.2 L Hct 31.0 L MCV 98 H MCH Lymph % (Auto) [place] % (Auto) Lymph # [place] # Seg Neutrophils % Seg Neuts % (Manual) Lymphocytes % (Manual) Seg Neutrophils # Seg Neutrophils # Man Lymphocytes # (Manual) D-Dimer ABG pH ABG pO2 74.4 L ABG HCO3 30.2 H ABG O2 Saturation ABG Base Excess 4.6 H ABG Hemoglobin 10.7 L Oxyhemoglobin 94.7 L Sodium Potassium Chloride Carbon Dioxide BUN 52 H Creatinine 5.2 H Glucose 59 L POC Glucose Lactic Acid Uric Acid Calcium 8.2 L Magnesium Ferritin AST ALT Lactate Dehydrogenase Troponin T C-Reactive Protein Total Protein Albumin HDL Cholesterol Urine Creatinine 02/02/20 02/02/20 02/03/20 12:19 18:02 00:52 WBC RBC Hgb Hct MCV MCH Lymph % (Auto) [place] % (Auto) Lymph # [place] # Seg Neutrophils % Seg Neuts % (Manual) Lymphocytes % (Manual) Seg Neutrophils # Seg Neutrophils # Man Lymphocytes # (Manual) D-Dimer ABG pH ABG pO2 ABG HCO3 ABG O2 Saturation ABG Base Excess ABG Hemoglobin Oxyhemoglobin Sodium Potassium Chloride Carbon Dioxide BUN Creatinine Glucose POC Glucose 64 L 60 L 69 L Lactic Acid Uric Acid Calcium Magnesium Ferritin AST ALT Lactate Dehydrogenase Troponin T C-Reactive Protein Total Protein Albumin HDL Cholesterol Urine Creatinine 02/03/20 02/03/20 02/03/20 04:00 04:00 04:35 WBC 12.8 H RBC 3.23 L Hgb 10.7 L Hct 32.0 L MCV 99 H MCH 33 H Lymph % (Auto) [place] % (Auto) Lymph # [place] # Seg Neutrophils % 78.2 H Seg Neuts % (Manual) Lymphocytes % (Manual) Seg Neutrophils # 10.0 H Seg Neutrophils # Man Lymphocytes # (Manual) D-Dimer ABG pH 7.281 L ABG pO2 71.7 L ABG HCO3 27.9 H ABG O2 Saturation 94.6 L ABG Base Excess ABG Hemoglobin 9.5 L Oxyhemoglobin 92.8 L Sodium Potassium Chloride Carbon Dioxide BUN 50 H Creatinine 5.0 H Glucose 71 L POC Glucose Lactic Acid Uric Acid Calcium 8.0 L Magnesium Ferritin AST ALT Lactate Dehydrogenase Troponin T C-Reactive Protein Total Protein Albumin HDL Cholesterol Urine Creatinine 02/03/20 02/03/20 02/04/20 17:34 23:54 04:20 WBC RBC Hgb Hct MCV MCH Lymph % (Auto) [place] % (Auto) Lymph # [place] # Seg Neutrophils % Seg Neuts % (Manual) Lymphocytes % (Manual) Seg Neutrophils # Seg Neutrophils # Man Lymphocytes # (Manual) D-Dimer ABG pH ABG pO2 ABG HCO3 27.2 H ABG O2 Saturation ABG Base Excess ABG Hemoglobin 9.8 L Oxyhemoglobin Sodium Potassium Chloride Carbon Dioxide BUN Creatinine Glucose POC Glucose 67 L 127 H Lactic Acid Uric Acid Calcium Magnesium Ferritin AST ALT Lactate Dehydrogenase Troponin T C-Reactive Protein Total Protein Albumin HDL Cholesterol Urine Creatinine 02/04/20 02/05/20 02/05/20 15:37 12:03 23:38 WBC RBC Hgb Hct MCV MCH Lymph % (Auto) [place] % (Auto) Lymph # [place] # Seg Neutrophils % Seg Neuts % (Manual) Lymphocytes % (Manual) Seg Neutrophils # Seg Neutrophils # Man Lymphocytes # (Manual) D-Dimer ABG pH ABG pO2 ABG HCO3 ABG O2 Saturation ABG Base Excess ABG Hemoglobin 11.8 L Oxyhemoglobin 94.9 L Sodium Potassium Chloride Carbon Dioxide BUN Creatinine Glucose POC Glucose 68 L 52 L Lactic Acid Uric Acid Calcium Magnesium Ferritin AST ALT Lactate Dehydrogenase Troponin T C-Reactive Protein Total Protein Albumin HDL Cholesterol Urine Creatinine 02/06/20 02/06/20 02/06/20 00:34 04:15 04:15 WBC 12.7 H RBC 2.60 L Hgb 8.7 L Hct 26.3 L MCV 101 H MCH 33 H Lymph % (Auto) [place] % (Auto) Lymph # [place] # Seg Neutrophils % Seg Neuts % (Manual) 87.0 H Lymphocytes % (Manual) 7.0 L Seg Neutrophils # Seg Neutrophils # Man 11.0 H Lymphocytes # (Manual) 0.9 L D-Dimer ABG pH ABG pO2 ABG HCO3 ABG O2 Saturation ABG Base Excess ABG Hemoglobin Oxyhemoglobin Sodium 150 H D Potassium 3.5 L Chloride 109.5 H Carbon Dioxide BUN 36 H Creatinine 3.3 H Glucose 56 L POC Glucose 114 H Lactic Acid Uric Acid Calcium 8.1 L Magnesium 1.60 L Ferritin AST 45 H ALT Lactate Dehydrogenase Troponin T C-Reactive Protein Total Protein 4.7 L Albumin 2.9 L HDL Cholesterol Urine Creatinine 02/06/20 02/06/20 02/07/20 17:35 18:21 00:39 WBC RBC Hgb Hct MCV MCH Lymph % (Auto) [place] % (Auto) Lymph # [place] # Seg Neutrophils % Seg Neuts % (Manual) Lymphocytes % (Manual) Seg Neutrophils # Seg Neutrophils # Man Lymphocytes # (Manual) D-Dimer ABG pH ABG pO2 ABG HCO3 ABG O2 Saturation ABG Base Excess ABG Hemoglobin Oxyhemoglobin Sodium Potassium Chloride Carbon Dioxide BUN Creatinine Glucose POC Glucose 53 L 124 H 122 H Lactic Acid Uric Acid Calcium Magnesium Ferritin AST ALT Lactate Dehydrogenase Troponin T C-Reactive Protein Total Protein Albumin HDL Cholesterol Urine Creatinine Allied health notes reviewed: RT
--- NOTE | 2020-02-07 14:45 | Progress Note ---
Assessment and Plan Assessment and plan: 84-year-old elderly male with history of advanced dementia long term resident history of single kidney presented to the hospital with altered mental status and respiratory failure. Patient intubated in the ER, placed on vasopressors, nephrology was consulted for emergent dialysis. Patient was extubated . Patient is severely encephalopathic, unable to do swallow eval due to agitation, advised alternative methods of feeding --Acute metabolic encephalopathy: Patient is more alert and awake today likely from severe sepsis, acute renal failure and underlying dementia --Acute hypoxic respiratory failure: Requiring intubation Extubated yesterday 02/04/20 Nasal cannula oxygen titrate O2 sats to more than 90% --Acute renal failure /single kidney; Initiated hemodialysis, patient's does not want to continue with hemodialysis Nephrology stopped hemodialysis. Creatinine today 3.3 --Metabolic acidosis: from renal failure and sepsis, --PUI/ COVID-19 infection : Negative test --Bilateral PNA: cont iv abx, total 7 days of cefepime, cultures negative ID following --Septic shock, resolved, s/p pressor --Severe hyperkalemia: improved after HD and bicarbonate drip --Advanced dementia: cont supportive care --Severe sepsis :likely due to pneumonia, cont abx, --History of single kidney- s/p nephrectomy --DVT prophylaxis; heparin renal dose --DNR code status Recommend palliative care /hospice Monitor closely adjust management as needed Plan of care reviewed with the patient's nurse I also called patient's and and updated patient's condition treatment and discharge plan Ms.Ann Cee informed me that she does not want her to have tube/PEG feeding They have decided and discussed about it many times in the past. History Interval history: I have seen and examined the patient at the bedside this afternoon Patient's medications, charts and tests reviewed Patient is confused noncommunicative agitated requiring restraints Awaiting hospice placement, DNR status, refused hemodialysis therapy Vital signs noted Hospitalist Physical - Constitutional Vitals: Temp Pulse Resp BP Pulse Ox 99.0 F 62 20 137/67 98 02/07/20 11:24 02/07/20 11:24 02/07/20 11:24 02/07/20 11:24 02/07/20 11:24 General appearance: Present: mild distress, well-nourished, other (Extubated, confused) - EENT Eyes: Present: PERRL, EOM intact - Neck Neck: Present: supple, normal ROM - Respiratory Respiratory effort: normal Respiratory: bilateral: diminished, negative: rales, rhonchi, wheezing - Cardiovascular Rhythm: regular Heart Sounds: Present: S1 & S2 - Extremities Extremities: no ischemia, pulses intact - Abdominal General gastrointestinal: soft, non-tender, non-distended, normal bowel sounds - Integumentary Integumentary: Present: clear, warm - Psychiatric Psychiatric: other - Neurologic Neurologic: moves all extremities (Confused), other (Residual weakness) HEART Score - HEART Score Troponin: Troponin T 0.065 ng/mL (0.00-0.029) H 01/31/20 03:47 Results - Labs CBC & Chem 7: 02/06/20 04:15 02/06/20 04:15 Labs: Laboratory Last Values WBC 12.7 K/mm3 (4.5-11.0) H 02/06/20 04:15 RBC 2.60 M/mm3 (3.65-5.03) L 02/06/20 04:15 Hgb 8.7 gm/dl (11.8-15.2) L 02/06/20 04:15 Hct 26.3 % (35.5-45.6) L 02/06/20 04:15 MCV 101 fl (84-94) H 02/06/20 04:15 MCH 33 pg (28-32) H 02/06/20 04:15 MCHC 33 % (32-34) 02/06/20 04:15 RDW 14.0 % (13.2-15.2) 02/06/20 04:15 Plt Count 182 K/mm3 (140-440) 02/06/20 04:15 Lymph % (Auto) 14.8 % (13.4-35.0) 02/03/20 04:00 [place] % (Auto) 6.6 % (0.0-7.3) 02/03/20 04:00 Eos % (Auto) 0.3 % (0.0-4.3) 02/03/20 04:00 Baso % (Auto) 0.1 % (0.0-1.8) 02/03/20 04:00 Lymph # 1.9 K/mm3 (1.2-5.4) 02/03/20 04:00 [place] # 0.8 K/mm3 (0.0-0.8) 02/03/20 04:00 Eos # 0.0 K/mm3 (0.0-0.4) 02/03/20 04:00 Baso # 0.0 K/mm3 (0.0-0.1) 02/03/20 04:00 Add Manual Diff Complete 02/06/20 04:15 Total Counted 100 02/06/20 04:15 Seg Neutrophils % 78.2 % (40.0-70.0) H 02/03/20 04:00 Seg Neuts % (Manual) 87.0 % (40.0-70.0) H 02/06/20 04:15 Band Neutrophils % 0 % 02/06/20 04:15 Lymphocytes % (Manual) 7.0 % (13.4-35.0) L 02/06/20 04:15 Reactive Lymphs % (Man) 0 % 02/06/20 04:15 Monocytes % (Manual) 5.0 % (0.0-7.3) 02/06/20 04:15 Eosinophils % (Manual) 1.0 % (0.0-4.3) 02/06/20 04:15 Basophils % (Manual) 0 % (0.0-1.8) 02/06/20 04:15 Metamyelocytes % 0 % 02/06/20 04:15 Myelocytes % 0 % 02/06/20 04:15 Promyelocytes % 0 % 02/06/20 04:15 Blast Cells % 0 % 02/06/20 04:15 Nucleated RBC % Not Reportable 02/06/20 04:15 Seg Neutrophils # 10.0 K/mm3 (1.8-7.7) H 02/03/20 04:00 Seg Neutrophils # Man 11.0 K/mm3 (1.8-7.7) H 02/06/20 04:15 Band Neutrophils # 0.0 K/mm3 02/06/20 04:15 Lymphocytes # (Manual) 0.9 K/mm3 (1.2-5.4) L 02/06/20 04:15 Abs React Lymphs (Man) 0.0 K/mm3 02/06/20 04:15 Monocytes # (Manual) 0.6 K/mm3 (0.0-0.8) 02/06/20 04:15 Eosinophils # (Manual) 0.1 K/mm3 (0.0-0.4) 02/06/20 04:15 Basophils # (Manual) 0.0 K/mm3 (0.0-0.1) 02/06/20 04:15 Metamyelocytes # 0.0 K/mm3 02/06/20 04:15 Myelocytes # 0.0 K/mm3 02/06/20 04:15 Promyelocytes # 0.0 K/mm3 02/06/20 04:15 Blast Cells # 0.0 K/mm3 02/06/20 04:15 WBC Morphology Not Reportable 02/06/20 04:15 Hypersegmented Neuts Not Reportable 02/06/20 04:15 Hyposegmented Neuts Not Reportable 02/06/20 04:15 Hypogranular Neuts Not Reportable 02/06/20 04:15 Smudge Cells Not Reportable 02/06/20 04:15 Toxic Granulation Not Reportable 02/06/20 04:15 Toxic Vacuolation Not Reportable 02/06/20 04:15 Dohle Bodies Not Reportable 02/06/20 04:15 Pelger-Huet Anomaly Not Reportable 02/06/20 04:15 Harshal Rods Not Reportable 02/06/20 04:15 Platelet Estimate Consistent w auto 02/06/20 04:15 Clumped Platelets Not Reportable 02/06/20 04:15 Plt Clumps, EDTA Not Reportable 02/06/20 04:15 Large Platelets Not Reportable 02/06/20 04:15 Giant Platelets Not Reportable 02/06/20 04:15 Platelet Satelliting Not Reportable 02/06/20 04:15 Plt Morphology Comment Not Reportable 02/06/20 04:15 RBC Morphology Not Reportable 02/06/20 04:15 Dimorphic RBCs Not Reportable 02/06/20 04:15 Polychromasia Not Reportable 02/06/20 04:15 Hypochromasia Not Reportable 02/06/20 04:15 Poikilocytosis Not Reportable 02/06/20 04:15 Anisocytosis Not Reportable 02/06/20 04:15 Microcytosis Not Reportable 02/06/20 04:15 Macrocytosis Not Reportable 02/06/20 04:15 Spherocytes Not Reportable 02/06/20 04:15 Pappenheimer Bodies Not Reportable 02/06/20 04:15 Sickle Cells Not Reportable 02/06/20 04:15 Target Cells Not Reportable 02/06/20 04:15 Tear Drop Cells Not Reportable 02/06/20 04:15 Ovalocytes Not Reportable 02/06/20 04:15 Helmet Cells Not Reportable 02/06/20 04:15 [place] Bodies Not Reportable 02/06/20 04:15 [place] Rings Not Reportable 02/06/20 04:15 [place] Cells Not Reportable 02/06/20 04:15 Bite Cells Not Reportable 02/06/20 04:15 Crenated Cell Not Reportable 02/06/20 04:15 Elliptocytes Not Reportable 02/06/20 04:15 Acanthocytes (Spur) Not Reportable 02/06/20 04:15 Rouleaux Not Reportable 02/06/20 04:15 Hemoglobin C Crystals Not Reportable 02/06/20 04:15 Schistocytes Not Reportable 02/06/20 04:15 Malaria parasites Not Reportable 02/06/20 04:15 Elliot Bodies Not Reportable 02/06/20 04:15 Hem Pathologist Commnt No 02/06/20 04:15 D-Dimer 544.72 ng/mlDDU (0-234) H 01/31/20 05:45 ABG pH 7.408 pH Units (7.350-7.450) 02/04/20 15:37 ABG pCO2 42.2 mm Hg 02/04/20 15:37 ABG pO2 80.5 mm Hg (80.0-90.0) 02/04/20 15:37 ABG HCO3 26.0 mmol/L (20.0-26.0) 02/04/20 15:37 ABG O2 Saturation 96.6 % (95.0-99.0) 02/04/20 15:37 ABG O2 Content 15.8 (0.0-44) 02/04/20 15:37 ABG Base Excess 1.2 mmol/L (-2.0-3.0) 02/04/20 15:37 ABG Hemoglobin 11.8 gm/dl (14.0-18.0) L 02/04/20 15:37 ABG Carboxyhemoglobin 1.3 % (0.0-5.0) 02/04/20 15:37 ABG Methemoglobin 0.5 % (0.0-1.5) 02/04/20 15:37 Oxyhemoglobin 94.9 % (95.0-99.0) L 02/04/20 15:37 FiO2 30 % 02/04/20 15:37 Sodium 150 mmol/L (137-145) H D 02/06/20 04:15 Potassium 3.5 mmol/L (3.6-5.0) L 02/06/20 04:15 Chloride 109.5 mmol/L (98-107) H 02/06/20 04:15 Carbon Dioxide 25 mmol/L (22-30) 02/06/20 04:15 Anion Gap 19 mmol/L 02/06/20 04:15 BUN 36 mg/dL (9-20) H 02/06/20 04:15 Creatinine 3.3 mg/dL (0.8-1.3) H 02/06/20 04:15 Estimated GFR 18 ml/min 02/06/20 04:15 BUN/Creatinine Ratio 11 % 02/06/20 04:15 Glucose 56 mg/dL (75-100) L 02/06/20 04:15 POC Glucose 72 (70-105) 02/07/20 06:24 Osmolality 345 Mosm/kg 01/31/20 06:06 Lactic Acid 0.70 mmol/L (0.7-2.0) 01/31/20 15:53 Uric Acid 8.5 mg/dL (3.5-7.6) H 01/31/20 06:06 Calcium 8.1 mg/dL (8.4-10.2) L 02/06/20 04:15 Magnesium 1.60 mg/dL (1.7-2.3) L 02/06/20 04:15 Ferritin 722.6 ng/mL (13.0-400.0) H 01/31/20 05:45 Total Bilirubin 0.40 mg/dL (0.1-1.2) 02/06/20 04:15 AST 45 units/L (5-40) H 02/06/20 04:15 ALT 14 units/L (7-56) 02/06/20 04:15 Alkaline Phosphatase 74 units/L (35-129) 02/06/20 04:15 Lactate Dehydrogenase 387 units/L (91-180) H 01/31/20 05:45 Total Creatine Kinase 123 units/L (55-170) 01/31/20 06:06 Troponin T 0.065 ng/mL (0.00-0.029) H 01/31/20 03:47 C-Reactive Protein 1.60 mg/dL (0.00-1.30) H 01/31/20 05:45 Total Protein 4.7 g/dL (6.3-8.2) L 02/06/20 04:15 Albumin 2.9 g/dL (3.9-5) L 02/06/20 04:15 Albumin/Globulin Ratio 1.6 % 02/06/20 04:15 Triglycerides 76 mg/dL (2-149) 01/31/20 03:47 Cholesterol 96 mg/dL (50-199) 01/31/20 03:47 LDL Cholesterol Direct 66 mg/dL (50-130) 01/31/20 03:47 HDL Cholesterol 39 mg/dL (40-59) L 01/31/20 03:47 Cholesterol/HDL Ratio 2.46 % 01/31/20 03:47 Procalcitonin 0.51 ng/mL (<0.15) 01/31/20 05:45 Urine Color [place] (Yellow) 01/31/20 04:25 Urine Turbidity Clear (Clear) 01/31/20 04:25 Urine pH 5.0 (5.0-7.0) 01/31/20 04:25 Ur Specific [place] 1.015 (1.003-1.030) 01/31/20 04:25 Urine Protein <15 mg/dl mg/dL (Negative) 01/31/20 04:25 Urine Glucose (UA) Neg mg/dL (Negative) 01/31/20 04:25 Urine Ketones Tr mg/dL (Negative) 01/31/20 04:25 Urine Blood Neg (Negative) 01/31/20 04:25 Urine Nitrite Neg (Negative) 01/31/20 04:25 Urine Bilirubin Neg (Negative) 01/31/20 04:25 Urine Urobilinogen < 2.0 mg/dL (<2.0) 01/31/20 04:25 Ur Leukocyte Esterase Sm (Negative) 01/31/20 04:25 Urine WBC (Auto) 1.0 /HPF (0.0-6.0) 01/31/20 04:25 Urine RBC (Auto) 3.0 /HPF (0.0-6.0) 01/31/20 04:25 Urine Mucus Few /HPF 01/31/20 04:25 Urine Creatinine 257.5 mg/dL (0.1-20.0) H 01/31/20 23:06 Urine Sodium 10 mmol/L 01/31/20 23:06 Nasal Screen MRSA (PCR) Negative (Negative) 02/03/20 Unknown Urine Opiates Screen Presumptive negative 01/31/20 04:25 Urine Methadone Screen Presumptive negative 01/31/20 04:25 Ur Barbiturates Screen Presumptive negative 01/31/20 04:25 Ur Phencyclidine Scrn Presumptive negative 01/31/20 04:25 Ur Amphetamines Screen Presumptive negative 01/31/20 04:25 U Benzodiazepines Scrn Presumptive negative 01/31/20 04:25 Urine Cocaine Screen Presumptive negative 01/31/20 04:25 U Marijuana (THC) Screen Presumptive negative 01/31/20 04:25 Drugs of Abuse Note Disclamer 01/31/20 04:25 Coronavirus (PCR) Negative (Negative) 02/01/20 Unknown Hepatitis A IgM Ab Non-reactive (NonReactive) 01/31/20 06:06 Hep Bs Antigen Non-reactive (Negative) 01/31/20 06:06 Hep B Core IgM Ab Non-reactive (NonReactive) 01/31/20 06:06 Hepatitis C Antibody Non-reactive (NonReactive) 01/31/20 06:06 Romo/IV: Voiding Method Indwelling Catheter IV Catheter Type [Right VAS Cath Femoral] IV Catheter Type [Right Triple Lumen Cath Internal Jugular] IV Catheter Type [Left Peripheral IV External Jugular] IV Catheter Type [Right Peripheral IV Forearm] IV Catheter Type [Left Forearm Peripheral IV ] Active Medications - Current Medications Current Medications: Generic Name Dose Route Start Last Admin Trade Name Freq PRN Reason Stop Dose Admin Lipase/Protease/Amylase 1 each 02/02/20 11:04 Pancremayela Chaney 10,500 Unit FEEDTUBE PRN PRN For Clogged Feeding Tube Carbidopa/Levodopa 1.5 each 02/01/20 10:00 02/07/20 09:28 Sinemet PO Not Given DAILY KIRA Dextrose 0 ml 02/02/20 00:11 02/06/20 17:23 D50w (25gm) Syringe IV 20 ml Q30MIN PRN Administration Hypoglycemia Protocol Famotidine 20 mg 02/06/20 11:00 02/07/20 09:31 Pepcid IV 20 mg DAILY KIRA Administration Folic Acid 1 mg 02/04/20 10:00 02/07/20 09:28 Folvite PO Not Given DAILY KIRA Heparin Sodium (Porcine) 5,000 unit 01/31/20 22:00 02/07/20 09:26 Heparin SUB-Q 5,000 unit Q12HR KIRA Administration Hydrophilic Ointment 1 applic 01/31/20 06:36 Vaseline Lip Therapy TP Q2HR PRN Dry Lips Vasopressin 20 unit/ Sodium 101 mls @ 9.09 mls/hr 01/31/20 12:00 01/31/20 22:55 Chloride IV 0.03 units/min TITR KIRA 9.09 mls/hr Administration Protocol 0.03 UNITS/MIN Cefepime HCl 1 gm in 100 mls @ 200 mls/hr 02/03/20 20:00 02/06/20 22:10 Cefepime/Ns 1 Gm/100 Ml IV 02/09/20 20:29 200 mls/hr Q24H KIRA Administration Protocol Dextrose/Sodium Chloride 1,000 mls @ 100 mls/hr 02/05/20 18:00 02/07/20 13:14 D5ns IV 100 mls/hr DIRECT KIRA Administration Levetiracetam 750 mg/ Dextrose 107.5 mls @ 400 mls/hr 02/06/20 11:00 02/07/20 13:15 IV 400 mls/hr Q12HR KIRA Administration Multi-Ingred Cream/Lotion/Oil/Oint 1 applic 01/31/20 06:36 Artificial Tears Ophth Oint OU Q4HR PRN Dry Eye(s) Simple Syrup 15 ml 02/02/20 11:04 02/03/20 17:44 Simple Syrup FEEDTUBE 15 ml PRN PRN Administration Hypoglycemia Simple Syrup 30 ml 02/02/20 11:04 Simple Syrup FEEDTUBE PRN PRN Hypoglycemia Sodium Bicarbonate 325 mg 02/02/20 11:04 Sodium Bicarbonate FEEDTUBE PRN PRN For Clogged Feeding Tube Nutrition/Malnutrition Assess - Dietary Evaluation Nutrition/Malnutrition Findings: Nutrition Notes Start: 02/01/20 08:59 Freq: Status: Active Protocol: Document 02/04/20 12:13 LP (Rec: 02/04/20 12:16 LP [id number]) Nutrition Notes Initial or Follow up Reassessment Current Diagnosis CKD(stage I-IV),Diabetes, Sepsis,Hypertension,Heart Failure Other Pertinent Diagnosis AMS, pneu Current Diet Nepro at 40ml/hr Labs/Tests Reviewed Pertinent Medications Reviewed Height 5 ft 6 in Weight 65.2 kg [place] Body Weight (kg) 64.54 BMI 23.1 Weight Status Appropriate Subjective/Other Information Pt tolerating TF. Burn Absent Trauma Absent GI Symptoms None Minimum of two criteria No physical signs of malnutrition #1 Nutrition Diagnosis Inadequate oral intake Diagnosis Progress(for reassessment Continues documentation) Is patient on ventilator? Yes Is Patient Ambulatory and/or Out of Bed No REE-([place]-confined to bed) 1543.080 Calculation Used for Recommendations [place] Additional Notes Protein needs are 76-127g (1.2 -2g/kg) Fluid needs are 1ml/kcal Nutrition Intervention Change Diet Order: TF Nutrition Support: Nepro at 40ml/hr Flush with 150ml q4h Kcal 1,728 Protein (gm) 78 Fluid (mL) 698 Goal #1 Meet at least 80% of kcal and protein needs via TF Anticipated Discharge Needs: Unable to determine at this time Follow-Up By: 02/11/20 Additional Comments Follow for stable TF
--- NOTE | 2020-02-07 19:19 | Event Note ---
Date: 02/07/20 I called patient's MsOndina and to discuss about her 's medical condition treatment and discharge planning I could not reach her on her phone, left a voicemail and encouraged her to call back
[2020-02-07] MEDS: CEFEPIME/NS 1 GM/100 ML 1 GM/100 ML BAG IV SCH (21:32)
[2020-02-08] MEDS: D5W/0.9% NACL 1,000 ML IV SCH ×2 (06:37→20:13)
--- NOTE | 2020-02-08 09:25 | Progress Note ---
Assessment and Plan Assessment and plan: 84-year-old elderly male with history of advanced dementia fpc resident history of single kidney presented to the hospital with altered mental status and respiratory failure. Patient intubated in the ER, placed on vasopressors, nephrology was consulted for emergent dialysis. Patient was extubated . Patient is severely encephalopathic, unable to do swallow eval due to agitation, advised alternative methods of feeding Dobbhoff placed, will start tube feeding --Acute metabolic encephalopathy: likely from severe sepsis, acute renal failure and underlying dementia --Acute hypoxic respiratory failure: Requiring intubation Extubated yesterday 02/04/20 On Ventimask, continue supportive care --Acute renal failure /single kidney; Initiated hemodialysis, patient's does not want to continue with hemodialysis Nephrology aware --Metabolic acidosis: from renal failure and sepsis, now on HD --P UI/ COVID-19 infection : Negative test --Bilateral PNA: cont iv abx, ID following --Septic shock, resolved, s/p pressor --Severe hyperkalemia: improved after HD and bicarbonate drip --Advanced dementia: cont supportive care --Severe sepsis :likely due to pneumonia, cont abx, --History of single kidney- s/p nephrectomy --DVT prophylaxis; heparin renal dose --DNR code status Recommend palliative care /hospice Possible discharge to [facility] with hospice tomorrow if stable Discussed this plan with patient's Ms.Ann Borges History Interval history: Have seen and examined the patient at bedside this morning Patient is more alert and awake, noncommunicative Mild distress Unable to swallow/pending speech and swallow evaluation Vital signs noted Hospitalist Physical - Constitutional Vitals: Temp Pulse Resp BP Pulse Ox 99.0 F 64 20 140/69 97 02/07/20 23:39 02/07/20 23:39 02/07/20 23:39 02/07/20 23:39 02/08/20 07:43 General appearance: Present: mild distress, well-nourished, other (Extubated, confused) - EENT Eyes: Present: PERRL, EOM intact - Neck Neck: Present: supple, normal ROM - Respiratory Respiratory effort: normal Respiratory: bilateral: diminished, negative: rales, rhonchi, wheezing - Cardiovascular Rhythm: regular Heart Sounds: Present: S1 & S2 - Extremities Extremities: no ischemia, No edema - Abdominal General gastrointestinal: soft, non-tender, non-distended, normal bowel sounds - Integumentary Integumentary: Present: clear, warm - Psychiatric Psychiatric: other (Noncommunicative) - Neurologic Neurologic: moves all extremities HEART Score - HEART Score Troponin: Troponin T 0.065 ng/mL (0.00-0.029) H 01/31/20 03:47 Results - Labs CBC & Chem 7: 02/06/20 04:15 02/06/20 04:15 Labs: Laboratory Last Values WBC 12.7 K/mm3 (4.5-11.0) H 02/06/20 04:15 RBC 2.60 M/mm3 (3.65-5.03) L 02/06/20 04:15 Hgb 8.7 gm/dl (11.8-15.2) L 02/06/20 04:15 Hct 26.3 % (35.5-45.6) L 02/06/20 04:15 MCV 101 fl (84-94) H 02/06/20 04:15 MCH 33 pg (28-32) H 02/06/20 04:15 MCHC 33 % (32-34) 02/06/20 04:15 RDW 14.0 % (13.2-15.2) 02/06/20 04:15 Plt Count 182 K/mm3 (140-440) 02/06/20 04:15 Lymph % (Auto) 14.8 % (13.4-35.0) 02/03/20 04:00 Travis % (Auto) 6.6 % (0.0-7.3) 02/03/20 04:00 Eos % (Auto) 0.3 % (0.0-4.3) 02/03/20 04:00 Baso % (Auto) 0.1 % (0.0-1.8) 02/03/20 04:00 Lymph # 1.9 K/mm3 (1.2-5.4) 02/03/20 04:00 Travis # 0.8 K/mm3 (0.0-0.8) 02/03/20 04:00 Eos # 0.0 K/mm3 (0.0-0.4) 02/03/20 04:00 Baso # 0.0 K/mm3 (0.0-0.1) 02/03/20 04:00 Add Manual Diff Complete 02/06/20 04:15 Total Counted 100 02/06/20 04:15 Seg Neutrophils % 78.2 % (40.0-70.0) H 02/03/20 04:00 Seg Neuts % (Manual) 87.0 % (40.0-70.0) H 02/06/20 04:15 Band Neutrophils % 0 % 02/06/20 04:15 Lymphocytes % (Manual) 7.0 % (13.4-35.0) L 02/06/20 04:15 Reactive Lymphs % (Man) 0 % 02/06/20 04:15 Monocytes % (Manual) 5.0 % (0.0-7.3) 02/06/20 04:15 Eosinophils % (Manual) 1.0 % (0.0-4.3) 02/06/20 04:15 Basophils % (Manual) 0 % (0.0-1.8) 02/06/20 04:15 Metamyelocytes % 0 % 02/06/20 04:15 Myelocytes % 0 % 02/06/20 04:15 Promyelocytes % 0 % 02/06/20 04:15 Blast Cells % 0 % 02/06/20 04:15 Nucleated RBC % Not Reportable 02/06/20 04:15 Seg Neutrophils # 10.0 K/mm3 (1.8-7.7) H 02/03/20 04:00 Seg Neutrophils # Man 11.0 K/mm3 (1.8-7.7) H 02/06/20 04:15 Band Neutrophils # 0.0 K/mm3 02/06/20 04:15 Lymphocytes # (Manual) 0.9 K/mm3 (1.2-5.4) L 02/06/20 04:15 Abs React Lymphs (Man) 0.0 K/mm3 02/06/20 04:15 Monocytes # (Manual) 0.6 K/mm3 (0.0-0.8) 02/06/20 04:15 Eosinophils # (Manual) 0.1 K/mm3 (0.0-0.4) 02/06/20 04:15 Basophils # (Manual) 0.0 K/mm3 (0.0-0.1) 02/06/20 04:15 Metamyelocytes # 0.0 K/mm3 02/06/20 04:15 Myelocytes # 0.0 K/mm3 02/06/20 04:15 Promyelocytes # 0.0 K/mm3 02/06/20 04:15 Blast Cells # 0.0 K/mm3 02/06/20 04:15 WBC Morphology Not Reportable 02/06/20 04:15 Hypersegmented Neuts Not Reportable 02/06/20 04:15 Hyposegmented Neuts Not Reportable 02/06/20 04:15 Hypogranular Neuts Not Reportable 02/06/20 04:15 Smudge Cells Not Reportable 02/06/20 04:15 Toxic Granulation Not Reportable 02/06/20 04:15 Toxic Vacuolation Not Reportable 02/06/20 04:15 Dohle Bodies Not Reportable 02/06/20 04:15 Pelger-Huet Anomaly Not Reportable 02/06/20 04:15 Harshal Rods Not Reportable 02/06/20 04:15 Platelet Estimate Consistent w auto 02/06/20 04:15 Clumped Platelets Not Reportable 02/06/20 04:15 Plt Clumps, EDTA Not Reportable 02/06/20 04:15 Large Platelets Not Reportable 02/06/20 04:15 Giant Platelets Not Reportable 02/06/20 04:15 Platelet Satelliting Not Reportable 02/06/20 04:15 Plt Morphology Comment Not Reportable 02/06/20 04:15 RBC Morphology Not Reportable 02/06/20 04:15 Dimorphic RBCs Not Reportable 02/06/20 04:15 Polychromasia Not Reportable 02/06/20 04:15 Hypochromasia Not Reportable 02/06/20 04:15 Poikilocytosis Not Reportable 02/06/20 04:15 Anisocytosis Not Reportable 02/06/20 04:15 Microcytosis Not Reportable 02/06/20 04:15 Macrocytosis Not Reportable 02/06/20 04:15 Spherocytes Not Reportable 02/06/20 04:15 Pappenheimer Bodies Not Reportable 02/06/20 04:15 Sickle Cells Not Reportable 02/06/20 04:15 Target Cells Not Reportable 02/06/20 04:15 Tear Drop Cells Not Reportable 02/06/20 04:15 Ovalocytes Not Reportable 02/06/20 04:15 Helmet Cells Not Reportable 02/06/20 04:15 Torres-Coy Bodies Not Reportable 02/06/20 04:15 Alton Rings Not Reportable 02/06/20 04:15 Ashleigh Cells Not Reportable 02/06/20 04:15 Bite Cells Not Reportable 02/06/20 04:15 Crenated Cell Not Reportable 02/06/20 04:15 Elliptocytes Not Reportable 02/06/20 04:15 Acanthocytes (Spur) Not Reportable 02/06/20 04:15 Rouleaux Not Reportable 02/06/20 04:15 Hemoglobin C Crystals Not Reportable 02/06/20 04:15 Schistocytes Not Reportable 02/06/20 04:15 Malaria parasites Not Reportable 02/06/20 04:15 Elliot Bodies Not Reportable 02/06/20 04:15 Hem Pathologist Commnt No 02/06/20 04:15 D-Dimer 544.72 ng/mlDDU (0-234) H 01/31/20 05:45 ABG pH 7.408 pH Units (7.350-7.450) 02/04/20 15:37 ABG pCO2 42.2 mm Hg 02/04/20 15:37 ABG pO2 80.5 mm Hg (80.0-90.0) 02/04/20 15:37 ABG HCO3 26.0 mmol/L (20.0-26.0) 02/04/20 15:37 ABG O2 Saturation 96.6 % (95.0-99.0) 02/04/20 15:37 ABG O2 Content 15.8 (0.0-44) 02/04/20 15:37 ABG Base Excess 1.2 mmol/L (-2.0-3.0) 02/04/20 15:37 ABG Hemoglobin 11.8 gm/dl (14.0-18.0) L 02/04/20 15:37 ABG Carboxyhemoglobin 1.3 % (0.0-5.0) 02/04/20 15:37 ABG Methemoglobin 0.5 % (0.0-1.5) 02/04/20 15:37 Oxyhemoglobin 94.9 % (95.0-99.0) L 02/04/20 15:37 FiO2 30 % 02/04/20 15:37 Sodium 150 mmol/L (137-145) H D 02/06/20 04:15 Potassium 3.5 mmol/L (3.6-5.0) L 02/06/20 04:15 Chloride 109.5 mmol/L (98-107) H 02/06/20 04:15 Carbon Dioxide 25 mmol/L (22-30) 02/06/20 04:15 Anion Gap 19 mmol/L 02/06/20 04:15 BUN 36 mg/dL (9-20) H 02/06/20 04:15 Creatinine 3.3 mg/dL (0.8-1.3) H 02/06/20 04:15 Estimated GFR 18 ml/min 02/06/20 04:15 BUN/Creatinine Ratio 11 % 02/06/20 04:15 Glucose 56 mg/dL (75-100) L 02/06/20 04:15 POC Glucose 107 (70-105) H 02/08/20 07:32 Osmolality 345 Mosm/kg 01/31/20 06:06 Lactic Acid 0.70 mmol/L (0.7-2.0) 01/31/20 15:53 Uric Acid 8.5 mg/dL (3.5-7.6) H 01/31/20 06:06 Calcium 8.1 mg/dL (8.4-10.2) L 02/06/20 04:15 Magnesium 1.60 mg/dL (1.7-2.3) L 02/06/20 04:15 Ferritin 722.6 ng/mL (13.0-400.0) H 01/31/20 05:45 Total Bilirubin 0.40 mg/dL (0.1-1.2) 02/06/20 04:15 AST 45 units/L (5-40) H 02/06/20 04:15 ALT 14 units/L (7-56) 02/06/20 04:15 Alkaline Phosphatase 74 units/L (35-129) 02/06/20 04:15 Lactate Dehydrogenase 387 units/L (91-180) H 01/31/20 05:45 Total Creatine Kinase 123 units/L (55-170) 01/31/20 06:06 Troponin T 0.065 ng/mL (0.00-0.029) H 01/31/20 03:47 C-Reactive Protein 1.60 mg/dL (0.00-1.30) H 01/31/20 05:45 Total Protein 4.7 g/dL (6.3-8.2) L 02/06/20 04:15 Albumin 2.9 g/dL (3.9-5) L 02/06/20 04:15 Albumin/Globulin Ratio 1.6 % 02/06/20 04:15 Triglycerides 76 mg/dL (2-149) 01/31/20 03:47 Cholesterol 96 mg/dL (50-199) 01/31/20 03:47 LDL Cholesterol Direct 66 mg/dL (50-130) 01/31/20 03:47 HDL Cholesterol 39 mg/dL (40-59) L 01/31/20 03:47 Cholesterol/HDL Ratio 2.46 % 01/31/20 03:47 Procalcitonin 0.51 ng/mL (<0.15) 01/31/20 05:45 Urine Color Ayana (Yellow) 01/31/20 04:25 Urine Turbidity Clear (Clear) 01/31/20 04:25 Urine pH 5.0 (5.0-7.0) 01/31/20 04:25 Ur Specific [place] 1.015 (1.003-1.030) 01/31/20 04:25 Urine Protein <15 mg/dl mg/dL (Negative) 01/31/20 04:25 Urine Glucose (UA) Neg mg/dL (Negative) 01/31/20 04:25 Urine Ketones Tr mg/dL (Negative) 01/31/20 04:25 Urine Blood Neg (Negative) 01/31/20 04:25 Urine Nitrite Neg (Negative) 01/31/20 04:25 Urine Bilirubin Neg (Negative) 01/31/20 04:25 Urine Urobilinogen < 2.0 mg/dL (<2.0) 01/31/20 04:25 Ur Leukocyte Esterase Sm (Negative) 01/31/20 04:25 Urine WBC (Auto) 1.0 /HPF (0.0-6.0) 01/31/20 04:25 Urine RBC (Auto) 3.0 /HPF (0.0-6.0) 01/31/20 04:25 Urine Mucus Few /HPF 01/31/20 04:25 Urine Creatinine 257.5 mg/dL (0.1-20.0) H 01/31/20 23:06 Urine Sodium 10 mmol/L 01/31/20 23:06 Nasal Screen MRSA (PCR) Negative (Negative) 02/03/20 Unknown Urine Opiates Screen Presumptive negative 01/31/20 04:25 Urine Methadone Screen Presumptive negative 01/31/20 04:25 Ur Barbiturates Screen Presumptive negative 01/31/20 04:25 Ur Phencyclidine Scrn Presumptive negative 01/31/20 04:25 Ur Amphetamines Screen Presumptive negative 01/31/20 04:25 U Benzodiazepines Scrn Presumptive negative 01/31/20 04:25 Urine Cocaine Screen Presumptive negative 01/31/20 04:25 U Marijuana (THC) Screen Presumptive negative 01/31/20 04:25 Drugs of Abuse Note Disclamer 01/31/20 04:25 Coronavirus (PCR) Negative (Negative) 02/01/20 Unknown Hepatitis A IgM Ab Non-reactive (NonReactive) 01/31/20 06:06 Hep Bs Antigen Non-reactive (Negative) 01/31/20 06:06 Hep B Core IgM Ab Non-reactive (NonReactive) 01/31/20 06:06 Hepatitis C Antibody Non-reactive (NonReactive) 01/31/20 06:06 Romo/IV: Voiding Method Indwelling Catheter IV Catheter Type [Right VAS Cath Femoral] IV Catheter Type [Right Triple Lumen Cath Internal Jugular] IV Catheter Type [Left Peripheral IV External Jugular] IV Catheter Type [Right Peripheral IV Forearm] IV Catheter Type [Left Forearm Peripheral IV ] Active Medications - Current Medications Current Medications: Generic Name Dose Route Start Last Admin Trade Name Freq PRN Reason Stop Dose Admin Lipase/Protease/Amylase 1 each 02/02/20 11:04 Pancreaze 10,500 Unit FEEDTUBE PRN PRN For Clogged Feeding Tube Carbidopa/Levodopa 1.5 each 02/01/20 10:00 02/07/20 09:28 Sinemet PO Not Given DAILY KIRA Dextrose 0 ml 02/02/20 00:11 02/06/20 17:23 D50w (25gm) Syringe IV 20 ml Q30MIN PRN Administration Hypoglycemia Protocol Famotidine 20 mg 02/06/20 11:00 02/07/20 09:31 Pepcid IV 20 mg DAILY KIRA Administration Folic Acid 1 mg 02/04/20 10:00 02/07/20 09:28 Folvite PO Not Given DAILY KIRA Heparin Sodium (Porcine) 5,000 unit 01/31/20 22:00 02/07/20 21:32 Heparin SUB-Q 5,000 unit Q12HR KIRA Administration Hydrophilic Ointment 1 applic 01/31/20 06:36 Vaseline Lip Therapy TP Q2HR PRN Dry Lips Vasopressin 20 unit/ Sodium 101 mls @ 9.09 mls/hr 01/31/20 12:00 01/31/20 22:55 Chloride IV 0.03 units/min TITR KIRA 9.09 mls/hr Administration Protocol 0.03 UNITS/MIN Cefepime HCl 1 gm in 100 mls @ 200 mls/hr 02/03/20 20:00 02/07/20 21:32 Cefepime/Ns 1 Gm/100 Ml IV 02/09/20 20:29 200 mls/hr Q24H KIRA Administration Protocol Dextrose/Sodium Chloride 1,000 mls @ 100 mls/hr 02/05/20 18:00 02/08/20 06:37 D5ns IV 100 mls/hr DIRECT KIRA Administration Levetiracetam 750 mg/ Dextrose 107.5 mls @ 400 mls/hr 02/06/20 11:00 02/07/20 21:29 IV 400 mls/hr Q12HR KIRA Administration Multi-Ingred Cream/Lotion/Oil/Oint 1 applic 01/31/20 06:36 Artificial Tears Ophth Oint OU Q4HR PRN Dry Eye(s) Simple Syrup 15 ml 02/02/20 11:04 02/03/20 17:44 Simple Syrup FEEDTUBE 15 ml PRN PRN Administration Hypoglycemia Simple Syrup 30 ml 02/02/20 11:04 Simple Syrup FEEDTUBE PRN PRN Hypoglycemia Sodium Bicarbonate 325 mg 02/02/20 11:04 Sodium Bicarbonate FEEDTUBE PRN PRN For Clogged Feeding Tube Nutrition/Malnutrition Assess - Dietary Evaluation Nutrition/Malnutrition Findings: Nutrition Notes Start: 02/01/20 08:59 Freq: Status: Active Protocol: Document 02/04/20 12:13 LP (Rec: 02/04/20 12:16 LP [email or web address]) Nutrition Notes Initial or Follow up Reassessment Current Diagnosis CKD(stage I-IV),Diabetes, Sepsis,Hypertension,Heart Failure Other Pertinent Diagnosis AMS, pneu Current Diet Nepro at 40ml/hr Labs/Tests Reviewed Pertinent Medications Reviewed Height 5 ft 6 in Weight 65.2 kg [place] Body Weight (kg) 64.54 BMI 23.1 Weight Status Appropriate Subjective/Other Information Pt tolerating TF. Burn Absent Trauma Absent GI Symptoms None Minimum of two criteria No physical signs of malnutrition #1 Nutrition Diagnosis Inadequate oral intake Diagnosis Progress(for reassessment Continues documentation) Is patient on ventilator? Yes Is Patient Ambulatory and/or Out of Bed No REE-([place]-confined to bed) [phone] [facility] Additional Notes Protein needs are 76-127g (1.2 -2g/kg) Fluid needs are 1ml/kcal Nutrition Intervention Change Diet Order: TF Nutrition Support: Nepro at 40ml/hr Flush with 150ml q4h Kcal 1,728 Protein (gm) 78 Fluid (mL) 698 Goal #1 Meet at least 80% of kcal and protein needs via TF Anticipated Discharge Needs: Unable to determine at this time Follow-Up By: 02/11/20 Additional Comments Follow for stable TF
--- NOTE | 2020-02-08 10:18 | Progress Note ---
Assessment and Plan Acute hypoxemic respiratory failure s/p MVS- extubated Acute toxic-metabolic encephalopathy Lactic acidosis- resolved Hyperkalemia with SJ Solitary kidney Severe metabolic acidosis Hypernatremia [id number] - Bronchodilators with pulmonary hygiene per RT -Nutritional support, advance to goal as tolerated -Aspiration precautions, HOB >40 - Wean supplemental oxygen for target O2 sats > 90% - Accuchecks with glycemic control per SSI (While critically ill target blood glucose of 140-180 mg/dL; avoid hypoglycemia) - Stop benzodiazepines, reduce the possibility of delirium - Maintenance of sleep-wake cycle, avoid delirium -Avoid nephrotoxins, closely monitor renal function -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 -Enteric nutritional support -Free water flushes to treat hypernatremia - Stress ulcer & VTE prophylaxis ( Heparin, Famotidine) - Mobility protocol, off loading and skin assessment for pressure ulcer prevention -Supportive transfusions as indicated to keep HgB >7g/dL -Antibitoics- renally dosed Cefepime to complete course -ABG, CXR prn -CBC, BMP per primary service - continue other care per attending / other consultants Discussed with the ICU team-RT,RN, Life threatening condition- Acute hypoxemic respiratory failure on MVS, Acute toxic -metabolic encephalopathy Mortality/Morbidity- High Complexity of medical decision making- High CONDITION: FAIR PROGNOSIS: FAIR CODE STATUS: DNAR- per discussion with his Subjective Date of service: 02/08/20 Principal diagnosis: SJ/sepsis with hypotension Interval history: Follow up for:Acute hypoxemic respiratory failure s/p MVS;Acute toxic-metabolic encephalopathy; Hyperkalemia with SJ Severe metabolic acidosis; COVID-PUI Patient seen and examined. 24 hour events reviewed. Consulted with respiratory and nursing staff s/p extubation with some agitation Objective Vital Signs - 12hr 02/07/20 02/07/20 02/08/20 23:00 23:39 07:43 Temperature 99.0 F Pulse Rate 67 64 Respiratory 20 Rate Blood Pressure 140/69 O2 Sat by Pulse 97 97 Oximetry Constitutional: no acute distress, other (elderly looking CM normocephalic with mildly increased respiratory effort at rest) Eyes: non-icteric ENT: oropharynx dry, other Neck: supple, no lymphadenopathy, no JVD Effort: mildly labored Ascultation: Bilateral: diminished breath sounds, rhonchi (scant) Percussion: Bilateral: not dull Cardiovascular: regular rate and rhythm, other (s1,s2) Gastrointestinal: normoactive bowel sounds, soft, non-tender, non-distended Integumentary: rash Extremities: pink and warm, pulses normal, no ischemia or petechiae, edema (mild to upper extremities), other Neurologic: non-focal exam (grossly, moves all extremities), pupils equal and round, CN II-XII normal Psychiatric: mood appropriate, affect normal CBC and BMP: 02/06/20 04:15 02/06/20 04:15 ABG, PT/INR, D-dimer: ABG ABG pH 7.408 pH Units (7.350-7.450) 02/04/20 15:37 ABG pCO2 42.2 mm Hg 02/04/20 15:37 ABG pO2 80.5 mm Hg (80.0-90.0) 02/04/20 15:37 ABG O2 Saturation 96.6 % (95.0-99.0) 02/04/20 15:37 PT/INR, D-dimer D-Dimer 544.72 ng/mlDDU (0-234) H 01/31/20 05:45 Abnormal lab findings: Abnormal Labs 01/31/20 01/31/20 01/31/20 03:47 03:47 03:47 WBC 16.9 H RBC Hgb Hct MCV 99 H MCH 33 H Lymph % (Auto) [place] % (Auto) Lymph # [place] # Seg Neutrophils % Seg Neuts % (Manual) 95.0 H Lymphocytes % (Manual) 3.0 L Seg Neutrophils # Seg Neutrophils # Man 16.1 H Lymphocytes # (Manual) 0.5 L D-Dimer ABG pH ABG pO2 ABG HCO3 ABG O2 Saturation ABG Base Excess ABG Hemoglobin Oxyhemoglobin Sodium 126 L Potassium 8.8 H* Chloride 86.4 L Carbon Dioxide 10 L BUN 181 H Creatinine 12.5 H Glucose POC Glucose Lactic Acid 2.10 H* Uric Acid Calcium Magnesium Ferritin AST ALT < 5 L Lactate Dehydrogenase Troponin T 0.065 H C-Reactive Protein Total Protein Albumin 3.8 L HDL Cholesterol 39 L Urine Creatinine 01/31/20 01/31/20 01/31/20 05:37 05:45 05:45 WBC RBC Hgb Hct MCV MCH Lymph % (Auto) [place] % (Auto) Lymph # [place] # Seg Neutrophils % Seg Neuts % (Manual) Lymphocytes % (Manual) Seg Neutrophils # Seg Neutrophils # Man Lymphocytes # (Manual) D-Dimer 544.72 H ABG pH ABG pO2 ABG HCO3 ABG O2 Saturation ABG Base Excess ABG Hemoglobin Oxyhemoglobin Sodium Potassium Chloride Carbon Dioxide BUN Creatinine Glucose 103 H POC Glucose Lactic Acid 2.20 H* Uric Acid Calcium Magnesium Ferritin AST ALT Lactate Dehydrogenase 387 H Troponin T C-Reactive Protein 1.60 H Total Protein Albumin HDL Cholesterol Urine Creatinine 01/31/20 01/31/20 01/31/20 05:45 06:06 09:45 WBC RBC Hgb Hct MCV MCH Lymph % (Auto) [place] % (Auto) Lymph # [place] # Seg Neutrophils % Seg Neuts % (Manual) Lymphocytes % (Manual) Seg Neutrophils # Seg Neutrophils # Man Lymphocytes # (Manual) D-Dimer ABG pH ABG pO2 ABG HCO3 ABG O2 Saturation ABG Base Excess ABG Hemoglobin Oxyhemoglobin Sodium Potassium Chloride Carbon Dioxide BUN Creatinine Glucose POC Glucose Lactic Acid 3.20 H* Uric Acid 8.5 H Calcium Magnesium Ferritin 722.6 H AST ALT Lactate Dehydrogenase Troponin T C-Reactive Protein Total Protein Albumin HDL Cholesterol Urine Creatinine 01/31/20 01/31/20 01/31/20 09:45 10:30 18:31 WBC RBC Hgb Hct MCV MCH Lymph % (Auto) [place] % (Auto) Lymph # [place] # Seg Neutrophils % Seg Neuts % (Manual) Lymphocytes % (Manual) Seg Neutrophils # Seg Neutrophils # Man Lymphocytes # (Manual) D-Dimer ABG pH 7.059 L* ABG pO2 70.2 L ABG HCO3 9.9 L ABG O2 Saturation 85.4 L ABG Base Excess -19.6 L ABG Hemoglobin Oxyhemoglobin 84.0 L Sodium 118 L* D 133 L D Potassium 8.1 H* 5.1 H D Chloride 91.1 L 93.7 L Carbon Dioxide 3 L* D 17 L D BUN 179 H 54 H Creatinine 11.6 H 4.9 H D Glucose 197 H 215 H POC Glucose Lactic Acid Uric Acid Calcium Magnesium Ferritin AST ALT Lactate Dehydrogenase Troponin T C-Reactive Protein Total Protein Albumin HDL Cholesterol Urine Creatinine 01/31/20 01/31/20 02/01/20 19:45 23:06 01:30 WBC 17.4 H RBC 3.59 L Hgb 11.7 L Hct 34.5 L D MCV 96 H MCH 33 H Lymph % (Auto) 3.0 L [place] % (Auto) 8.9 H Lymph # 0.5 L [place] # 1.6 H Seg Neutrophils % 88.1 H Seg Neuts % (Manual) Lymphocytes % (Manual) Seg Neutrophils # 15.3 H Seg Neutrophils # Man Lymphocytes # (Manual) D-Dimer ABG pH ABG pO2 172.0 H ABG HCO3 ABG O2 Saturation 99.1 H ABG Base Excess -3.0 L ABG Hemoglobin 13.8 L Oxyhemoglobin Sodium Potassium Chloride Carbon Dioxide BUN Creatinine Glucose POC Glucose Lactic Acid Uric Acid Calcium Magnesium Ferritin AST ALT Lactate Dehydrogenase Troponin T C-Reactive Protein Total Protein Albumin HDL Cholesterol Urine Creatinine 257.5 H 02/01/20 02/01/20 02/01/20 01:30 04:53 23:39 WBC RBC Hgb Hct MCV MCH Lymph % (Auto) [place] % (Auto) Lymph # [place] # Seg Neutrophils % Seg Neuts % (Manual) Lymphocytes % (Manual) Seg Neutrophils # Seg Neutrophils # Man Lymphocytes # (Manual) D-Dimer ABG pH 7.505 H ABG pO2 158.5 H ABG HCO3 ABG O2 Saturation 99.1 H ABG Base Excess ABG Hemoglobin 11.0 L Oxyhemoglobin Sodium 133 L Potassium Chloride 93.6 L Carbon Dioxide BUN 47 H Creatinine 4.5 H Glucose 204 H POC Glucose 58 L Lactic Acid Uric Acid Calcium 8.3 L Magnesium Ferritin AST ALT Lactate Dehydrogenase Troponin T C-Reactive Protein Total Protein Albumin HDL Cholesterol Urine Creatinine 02/02/20 02/02/20 02/02/20 04:24 10:48 10:48 WBC 11.8 H RBC 3.16 L Hgb 10.2 L Hct 31.0 L MCV 98 H MCH Lymph % (Auto) [place] % (Auto) Lymph # [place] # Seg Neutrophils % Seg Neuts % (Manual) Lymphocytes % (Manual) Seg Neutrophils # Seg Neutrophils # Man Lymphocytes # (Manual) D-Dimer ABG pH ABG pO2 74.4 L ABG HCO3 30.2 H ABG O2 Saturation ABG Base Excess 4.6 H ABG Hemoglobin 10.7 L Oxyhemoglobin 94.7 L Sodium Potassium Chloride Carbon Dioxide BUN 52 H Creatinine 5.2 H Glucose 59 L POC Glucose Lactic Acid Uric Acid Calcium 8.2 L Magnesium Ferritin AST ALT Lactate Dehydrogenase Troponin T C-Reactive Protein Total Protein Albumin HDL Cholesterol Urine Creatinine 02/02/20 02/02/20 02/03/20 12:19 18:02 00:52 WBC RBC Hgb Hct MCV MCH Lymph % (Auto) [place] % (Auto) Lymph # [place] # Seg Neutrophils % Seg Neuts % (Manual) Lymphocytes % (Manual) Seg Neutrophils # Seg Neutrophils # Man Lymphocytes # (Manual) D-Dimer ABG pH ABG pO2 ABG HCO3 ABG O2 Saturation ABG Base Excess ABG Hemoglobin Oxyhemoglobin Sodium Potassium Chloride Carbon Dioxide BUN Creatinine Glucose POC Glucose 64 L 60 L 69 L Lactic Acid Uric Acid Calcium Magnesium Ferritin AST ALT Lactate Dehydrogenase Troponin T C-Reactive Protein Total Protein Albumin HDL Cholesterol Urine Creatinine 02/03/20 02/03/20 02/03/20 04:00 04:00 04:35 WBC 12.8 H RBC 3.23 L Hgb 10.7 L Hct 32.0 L MCV 99 H MCH 33 H Lymph % (Auto) [place] % (Auto) Lymph # [place] # Seg Neutrophils % 78.2 H Seg Neuts % (Manual) Lymphocytes % (Manual) Seg Neutrophils # 10.0 H Seg Neutrophils # Man Lymphocytes # (Manual) D-Dimer ABG pH 7.281 L ABG pO2 71.7 L ABG HCO3 27.9 H ABG O2 Saturation 94.6 L ABG Base Excess ABG Hemoglobin 9.5 L Oxyhemoglobin 92.8 L Sodium Potassium Chloride Carbon Dioxide BUN 50 H Creatinine 5.0 H Glucose 71 L POC Glucose Lactic Acid Uric Acid Calcium 8.0 L Magnesium Ferritin AST ALT Lactate Dehydrogenase Troponin T C-Reactive Protein Total Protein Albumin HDL Cholesterol Urine Creatinine 02/03/20 02/03/20 02/04/20 17:34 23:54 04:20 WBC RBC Hgb Hct MCV MCH Lymph % (Auto) [place] % (Auto) Lymph # [place] # Seg Neutrophils % Seg Neuts % (Manual) Lymphocytes % (Manual) Seg Neutrophils # Seg Neutrophils # Man Lymphocytes # (Manual) D-Dimer ABG pH ABG pO2 ABG HCO3 27.2 H ABG O2 Saturation ABG Base Excess ABG Hemoglobin 9.8 L Oxyhemoglobin Sodium Potassium Chloride Carbon Dioxide BUN Creatinine Glucose POC Glucose 67 L 127 H Lactic Acid Uric Acid Calcium Magnesium Ferritin AST ALT Lactate Dehydrogenase Troponin T C-Reactive Protein Total Protein Albumin HDL Cholesterol Urine Creatinine 07/29/20 07/30/20 07/30/20 15:37 12:03 23:38 WBC RBC Hgb Hct MCV MCH Lymph % (Auto) [place] % (Auto) Lymph # [place] # Seg Neutrophils % Seg Neuts % (Manual) Lymphocytes % (Manual) Seg Neutrophils # Seg Neutrophils # Man Lymphocytes # (Manual) D-Dimer ABG pH ABG pO2 ABG HCO3 ABG O2 Saturation ABG Base Excess ABG Hemoglobin 11.8 L Oxyhemoglobin 94.9 L Sodium Potassium Chloride Carbon Dioxide BUN Creatinine Glucose POC Glucose 68 L 52 L Lactic Acid Uric Acid Calcium Magnesium Ferritin AST ALT Lactate Dehydrogenase Troponin T C-Reactive Protein Total Protein Albumin HDL Cholesterol Urine Creatinine 02/06/20 02/06/20 02/06/20 00:34 04:15 04:15 WBC 12.7 H RBC 2.60 L Hgb 8.7 L Hct 26.3 L MCV 101 H MCH 33 H Lymph % (Auto) [place] % (Auto) Lymph # [place] # Seg Neutrophils % Seg Neuts % (Manual) 87.0 H Lymphocytes % (Manual) 7.0 L Seg Neutrophils # Seg Neutrophils # Man 11.0 H Lymphocytes # (Manual) 0.9 L D-Dimer ABG pH ABG pO2 ABG HCO3 ABG O2 Saturation ABG Base Excess ABG Hemoglobin Oxyhemoglobin Sodium 150 H D Potassium 3.5 L Chloride 109.5 H Carbon Dioxide BUN 36 H Creatinine 3.3 H Glucose 56 L POC Glucose 114 H Lactic Acid Uric Acid Calcium 8.1 L Magnesium 1.60 L Ferritin AST 45 H ALT Lactate Dehydrogenase Troponin T C-Reactive Protein Total Protein 4.7 L Albumin 2.9 L HDL Cholesterol Urine Creatinine 02/06/20 02/06/20 02/07/20 17:35 18:21 00:39 WBC RBC Hgb Hct MCV MCH Lymph % (Auto) [place] % (Auto) Lymph # [place] # Seg Neutrophils % Seg Neuts % (Manual) Lymphocytes % (Manual) Seg Neutrophils # Seg Neutrophils # Man Lymphocytes # (Manual) D-Dimer ABG pH ABG pO2 ABG HCO3 ABG O2 Saturation ABG Base Excess ABG Hemoglobin Oxyhemoglobin Sodium Potassium Chloride Carbon Dioxide BUN Creatinine Glucose POC Glucose 53 L 124 H 122 H Lactic Acid Uric Acid Calcium Magnesium Ferritin AST ALT Lactate Dehydrogenase Troponin T C-Reactive Protein Total Protein Albumin HDL Cholesterol Urine Creatinine 02/07/20 02/08/20 23:51 07:32 WBC RBC Hgb Hct MCV MCH Lymph % (Auto) [place] % (Auto) Lymph # [place] # Seg Neutrophils % Seg Neuts % (Manual) Lymphocytes % (Manual) Seg Neutrophils # Seg Neutrophils # Man Lymphocytes # (Manual) D-Dimer ABG pH ABG pO2 ABG HCO3 ABG O2 Saturation ABG Base Excess ABG Hemoglobin Oxyhemoglobin Sodium Potassium Chloride Carbon Dioxide BUN Creatinine Glucose POC Glucose 146 H 107 H Lactic Acid Uric Acid Calcium Magnesium Ferritin AST ALT Lactate Dehydrogenase Troponin T C-Reactive Protein Total Protein Albumin HDL Cholesterol Urine Creatinine Allied health notes reviewed: RT
[2020-02-08] MEDS: FAMOTIDINE 20 MG/2 ML INJ IV SCH (11:20)
[2020-02-08] MEDS: HEPARIN 5,000 UNIT/1 ML VIAL SUB-Q SCH ×2 (11:21→22:07)
[2020-02-08] MEDS: levETIRAcetam 750 MG in DEXTROSE 5% IN WATER 100 ML IV SCH ×2 (15:55→22:07)
--- NOTE | 2020-02-08 17:08 | Event Note ---
Date: 02/08/20 I called patient's Ms. Nuris Cee at [phone] discussed about her 's condition, treatment and discharge planning. Possible discharge to [facility] with hospice tomorrow if stable, I also discussed about his not eating food and swallow problems, discussed the options of [place] /PEG placement if he is not able to eat, the told me that both she and her have decided long time back not to have any tube feedings and PEG placement. Answered all her questions
[2020-02-08] MEDS: CARBIDOPA/LEVODOPA 25-100 MG TAB PO SCH (18:21)
[2020-02-08] MEDS: FOLIC ACID 1 MG TAB PO SCH (18:21)
[2020-02-08] MEDS: CEFEPIME/NS 1 GM/100 ML 1 GM/100 ML BAG IV SCH (19:49)
[2020-02-09] MEDS: FAMOTIDINE 20 MG/2 ML INJ IV SCH (10:48)
[2020-02-09] MEDS: HEPARIN 5,000 UNIT/1 ML VIAL SUB-Q SCH ×2 (10:48→21:35)
[2020-02-09] MEDS: levETIRAcetam 750 MG in DEXTROSE 5% IN WATER 100 ML IV SCH ×2 (10:49→21:35)
[2020-02-09] MEDS: CARBIDOPA/LEVODOPA 25-100 MG TAB PO SCH (11:00)
[2020-02-09] MEDS: FOLIC ACID 1 MG TAB PO SCH (11:00)
--- NOTE | 2020-02-09 12:08 | Progress Note ---
Assessment and Plan Patient awake and resting on 3 litres O2. O2 saturation 97%. No acute respiratory distress. Patient appears to have dementia. Not following the commands well. Patient afebrile and has mild leukocytosis. Patient Coronavirus reported negative. and hepatitis non reactive. Chest xray 02/06/20 reported mproved aeration of the lungs with residual right parenchymal and left pleural- parenchymal opacities. No pneumothorax. ABG on FIO2 30%. ABG pH 7.408 pH Units (7.350-7.450) 02/04/20 15:37 ABG pCO2 42.2 mm Hg 02/04/20 15:37 ABG pO2 80.5 mm Hg (80.0-90.0) 02/04/20 15:37 ABG O2 Saturation 96.6 % (95.0-99.0) 02/04/20 15:37 - Patient Problems (1) Acute respiratory failure with hypoxia Current Visit: Yes Status: Acute Plan to address problem: O2 3 litres via nasal canula. Albuterol/atrovent aerosol treatments q 6 hours. Continue S/C Heparin. Continue famotidine. (2) Acute kidney injury superimposed on chronic kidney disease Current Visit: Yes Status: Acute Plan to address problem: Management as per nephrology. (3) Altered mental state Current Visit: Yes Status: Acute Qualifiers: Altered mental status type: unspecified Qualified Code(s): R41.82 - Altered mental status, unspecified Plan to address problem: Management as per primary care. (4) Pneumonia Current Visit: Yes Status: Acute Qualifiers: Pneumonia type: due to unspecified organism Laterality: bilateral Lung location: unspecified part of lung Qualified Code(s): J18.9 - Pneumonia, unspecified organism Plan to address problem: Patient treated with cefepime Patient afebrile and has mild leukocytosis. Subjective Date of service: 02/09/20 Principal diagnosis: SJ/sepsis with hypotension Interval history: Patient awake and resting on 3 litres O2. O2 saturation 97%. No acute respiratory distress. Patient appears to have dementia. Not following the commands well. Patient afebrile and has mild leukocytosis. Patient Coronavirus reported negative. and hepatitis non reactive. Chest xray 02/06/20 reported mproved aeration of the lungs with residual right parenchymal and left pleural- parenchymal opacities. No pneumothorax. ABG on FIO2 30%. ABG pH 7.408 pH Units (7.350-7.450) 02/04/20 15:37 ABG pCO2 42.2 mm Hg 02/04/20 15:37 ABG pO2 80.5 mm Hg (80.0-90.0) 02/04/20 15:37 ABG O2 Saturation 96.6 % (95.0-99.0) 02/04/20 15:37 Objective Vital Signs - 12hr 02/09/20 02/09/20 02/09/20 04:33 07:50 08:10 Temperature 98.0 F 98.5 F Pulse Rate 77 73 Respiratory 20 18 Rate Blood Pressure 159/78 147/76 O2 Sat by Pulse 92 99 97 Oximetry Constitutional: no acute distress, alert, other (elderly looking CM normocephalic with mildly increased respiratory effort at rest) Eyes: non-icteric ENT: oropharynx dry, other Neck: supple, no lymphadenopathy, no JVD Effort: mildly labored Ascultation: Bilateral: diminished breath sounds, rhonchi (scant) Percussion: Bilateral: not dull Cardiovascular: regular rate and rhythm, other (s1,s2) Gastrointestinal: normoactive bowel sounds, soft, non-tender, non-distended Integumentary: rash Extremities: pink and warm, pulses normal, no ischemia or petechiae, edema (mild to upper extremities), other Neurologic: non-focal exam (grossly, moves all extremities), pupils equal and round, CN II-XII normal Psychiatric: mood appropriate, affect normal CBC and BMP: 02/06/20 04:15 02/06/20 04:15 ABG, PT/INR, D-dimer: ABG ABG pH 7.408 pH Units (7.350-7.450) 02/04/20 15:37 ABG pCO2 42.2 mm Hg 02/04/20 15:37 ABG pO2 80.5 mm Hg (80.0-90.0) 02/04/20 15:37 ABG O2 Saturation 96.6 % (95.0-99.0) 02/04/20 15:37 PT/INR, D-dimer D-Dimer 544.72 ng/mlDDU (0-234) H 01/31/20 05:45 Abnormal lab findings: Abnormal Labs 07/01/31/20 01/31/20 03:47 03:47 03:47 WBC 16.9 H RBC Hgb Hct MCV 99 H MCH 33 H Lymph % (Auto) Wise % (Auto) Lymph # Wise # Seg Neutrophils % Seg Neuts % (Manual) 95.0 H Lymphocytes % (Manual) 3.0 L Seg Neutrophils # Seg Neutrophils # Man 16.1 H Lymphocytes # (Manual) 0.5 L D-Dimer ABG pH ABG pO2 ABG HCO3 ABG O2 Saturation ABG Base Excess ABG Hemoglobin Oxyhemoglobin Sodium 126 L Potassium 8.8 H* Chloride 86.4 L Carbon Dioxide 10 L BUN 181 H Creatinine 12.5 H Glucose POC Glucose Lactic Acid 2.10 H* Uric Acid Calcium Magnesium Ferritin AST ALT < 5 L Lactate Dehydrogenase Troponin T 0.065 H C-Reactive Protein Total Protein Albumin 3.8 L HDL Cholesterol 39 L Urine Creatinine 01/31/20 01/31/20 01/31/20 05:37 05:45 05:45 WBC RBC Hgb Hct MCV MCH Lymph % (Auto) Wise % (Auto) Lymph # Wise # Seg Neutrophils % Seg Neuts % (Manual) Lymphocytes % (Manual) Seg Neutrophils # Seg Neutrophils # Man Lymphocytes # (Manual) D-Dimer 544.72 H ABG pH ABG pO2 ABG HCO3 ABG O2 Saturation ABG Base Excess ABG Hemoglobin Oxyhemoglobin Sodium Potassium Chloride Carbon Dioxide BUN Creatinine Glucose 103 H POC Glucose Lactic Acid 2.20 H* Uric Acid Calcium Magnesium Ferritin AST ALT Lactate Dehydrogenase 387 H Troponin T C-Reactive Protein 1.60 H Total Protein Albumin HDL Cholesterol Urine Creatinine 01/31/20 01/31/20 01/31/20 05:45 06:06 09:45 WBC RBC Hgb Hct MCV MCH Lymph % (Auto) Wise % (Auto) Lymph # Wise # Seg Neutrophils % Seg Neuts % (Manual) Lymphocytes % (Manual) Seg Neutrophils # Seg Neutrophils # Man Lymphocytes # (Manual) D-Dimer ABG pH ABG pO2 ABG HCO3 ABG O2 Saturation ABG Base Excess ABG Hemoglobin Oxyhemoglobin Sodium Potassium Chloride Carbon Dioxide BUN Creatinine Glucose POC Glucose Lactic Acid 3.20 H* Uric Acid 8.5 H Calcium Magnesium Ferritin 722.6 H AST ALT Lactate Dehydrogenase Troponin T C-Reactive Protein Total Protein Albumin HDL Cholesterol Urine Creatinine 01/31/20 01/31/20 01/31/20 09:45 10:30 18:31 WBC RBC Hgb Hct MCV MCH Lymph % (Auto) Wise % (Auto) Lymph # Wise # Seg Neutrophils % Seg Neuts % (Manual) Lymphocytes % (Manual) Seg Neutrophils # Seg Neutrophils # Man Lymphocytes # (Manual) D-Dimer ABG pH 7.059 L* ABG pO2 70.2 L ABG HCO3 9.9 L ABG O2 Saturation 85.4 L ABG Base Excess -19.6 L ABG Hemoglobin Oxyhemoglobin 84.0 L Sodium 118 L* D 133 L D Potassium 8.1 H* 5.1 H D Chloride 91.1 L 93.7 L Carbon Dioxide 3 L* D 17 L D BUN 179 H 54 H Creatinine 11.6 H 4.9 H D Glucose 197 H 215 H POC Glucose Lactic Acid Uric Acid Calcium Magnesium Ferritin AST ALT Lactate Dehydrogenase Troponin T C-Reactive Protein Total Protein Albumin HDL Cholesterol Urine Creatinine 01/31/20 01/31/20 02/01/20 19:45 23:06 01:30 WBC 17.4 H RBC 3.59 L Hgb 11.7 L Hct 34.5 L D MCV 96 H MCH 33 H Lymph % (Auto) 3.0 L Wise % (Auto) 8.9 H Lymph # 0.5 L Wise # 1.6 H Seg Neutrophils % 88.1 H Seg Neuts % (Manual) Lymphocytes % (Manual) Seg Neutrophils # 15.3 H Seg Neutrophils # Man Lymphocytes # (Manual) D-Dimer ABG pH ABG pO2 172.0 H ABG HCO3 ABG O2 Saturation 99.1 H ABG Base Excess -3.0 L ABG Hemoglobin 13.8 L Oxyhemoglobin Sodium Potassium Chloride Carbon Dioxide BUN Creatinine Glucose POC Glucose Lactic Acid Uric Acid Calcium Magnesium Ferritin AST ALT Lactate Dehydrogenase Troponin T C-Reactive Protein Total Protein Albumin HDL Cholesterol Urine Creatinine 257.5 H 02/01/20 02/01/20 02/01/20 01:30 04:53 23:39 WBC RBC Hgb Hct MCV MCH Lymph % (Auto) Wise % (Auto) Lymph # Wise # Seg Neutrophils % Seg Neuts % (Manual) Lymphocytes % (Manual) Seg Neutrophils # Seg Neutrophils # Man Lymphocytes # (Manual) D-Dimer ABG pH 7.505 H ABG pO2 158.5 H ABG HCO3 ABG O2 Saturation 99.1 H ABG Base Excess ABG Hemoglobin 11.0 L Oxyhemoglobin Sodium 133 L Potassium Chloride 93.6 L Carbon Dioxide BUN 47 H Creatinine 4.5 H Glucose 204 H POC Glucose 58 L Lactic Acid Uric Acid Calcium 8.3 L Magnesium Ferritin AST ALT Lactate Dehydrogenase Troponin T C-Reactive Protein Total Protein Albumin HDL Cholesterol Urine Creatinine 02/02/20 02/02/20 02/02/20 04:24 10:48 10:48 WBC 11.8 H RBC 3.16 L Hgb 10.2 L Hct 31.0 L MCV 98 H MCH Lymph % (Auto) Wise % (Auto) Lymph # Wise # Seg Neutrophils % Seg Neuts % (Manual) Lymphocytes % (Manual) Seg Neutrophils # Seg Neutrophils # Man Lymphocytes # (Manual) D-Dimer ABG pH ABG pO2 74.4 L ABG HCO3 30.2 H ABG O2 Saturation ABG Base Excess 4.6 H ABG Hemoglobin 10.7 L Oxyhemoglobin 94.7 L Sodium Potassium Chloride Carbon Dioxide BUN 52 H Creatinine 5.2 H Glucose 59 L POC Glucose Lactic Acid Uric Acid Calcium 8.2 L Magnesium Ferritin AST ALT Lactate Dehydrogenase Troponin T C-Reactive Protein Total Protein Albumin HDL Cholesterol Urine Creatinine 02/02/20 02/02/20 02/03/20 12:19 18:02 00:52 WBC RBC Hgb Hct MCV MCH Lymph % (Auto) Wise % (Auto) Lymph # Wise # Seg Neutrophils % Seg Neuts % (Manual) Lymphocytes % (Manual) Seg Neutrophils # Seg Neutrophils # Man Lymphocytes # (Manual) D-Dimer ABG pH ABG pO2 ABG HCO3 ABG O2 Saturation ABG Base Excess ABG Hemoglobin Oxyhemoglobin Sodium Potassium Chloride Carbon Dioxide BUN Creatinine Glucose POC Glucose 64 L 60 L 69 L Lactic Acid Uric Acid Calcium Magnesium Ferritin AST ALT Lactate Dehydrogenase Troponin T C-Reactive Protein Total Protein Albumin HDL Cholesterol Urine Creatinine 02/03/20 02/03/20 02/03/20 04:00 04:00 04:35 WBC 12.8 H RBC 3.23 L Hgb 10.7 L Hct 32.0 L MCV 99 H MCH 33 H Lymph % (Auto) Wise % (Auto) Lymph # Wise # Seg Neutrophils % 78.2 H Seg Neuts % (Manual) Lymphocytes % (Manual) Seg Neutrophils # 10.0 H Seg Neutrophils # Man Lymphocytes # (Manual) D-Dimer ABG pH 7.281 L ABG pO2 71.7 L ABG HCO3 27.9 H ABG O2 Saturation 94.6 L ABG Base Excess ABG Hemoglobin 9.5 L Oxyhemoglobin 92.8 L Sodium Potassium Chloride Carbon Dioxide BUN 50 H Creatinine 5.0 H Glucose 71 L POC Glucose Lactic Acid Uric Acid Calcium 8.0 L Magnesium Ferritin AST ALT Lactate Dehydrogenase Troponin T C-Reactive Protein Total Protein Albumin HDL Cholesterol Urine Creatinine 02/03/20 02/03/20 02/04/20 17:34 23:54 04:20 WBC RBC Hgb Hct MCV MCH Lymph % (Auto) Wise % (Auto) Lymph # Wise # Seg Neutrophils % Seg Neuts % (Manual) Lymphocytes % (Manual) Seg Neutrophils # Seg Neutrophils # Man Lymphocytes # (Manual) D-Dimer ABG pH ABG pO2 ABG HCO3 27.2 H ABG O2 Saturation ABG Base Excess ABG Hemoglobin 9.8 L Oxyhemoglobin Sodium Potassium Chloride Carbon Dioxide BUN Creatinine Glucose POC Glucose 67 L 127 H Lactic Acid Uric Acid Calcium Magnesium Ferritin AST ALT Lactate Dehydrogenase Troponin T C-Reactive Protein Total Protein Albumin HDL Cholesterol Urine Creatinine 02/04/20 02/05/20 02/05/20 15:37 12:03 23:38 WBC RBC Hgb Hct MCV MCH Lymph % (Auto) Wise % (Auto) Lymph # Wise # Seg Neutrophils % Seg Neuts % (Manual) Lymphocytes % (Manual) Seg Neutrophils # Seg Neutrophils # Man Lymphocytes # (Manual) D-Dimer ABG pH ABG pO2 ABG HCO3 ABG O2 Saturation ABG Base Excess ABG Hemoglobin 11.8 L Oxyhemoglobin 94.9 L Sodium Potassium Chloride Carbon Dioxide BUN Creatinine Glucose POC Glucose 68 L 52 L Lactic Acid Uric Acid Calcium Magnesium Ferritin AST ALT Lactate Dehydrogenase Troponin T C-Reactive Protein Total Protein Albumin HDL Cholesterol Urine Creatinine 02/06/20 02/06/20 02/06/20 00:34 04:15 04:15 WBC 12.7 H RBC 2.60 L Hgb 8.7 L Hct 26.3 L MCV 101 H MCH 33 H Lymph % (Auto) Wise % (Auto) Lymph # Wise # Seg Neutrophils % Seg Neuts % (Manual) 87.0 H Lymphocytes % (Manual) 7.0 L Seg Neutrophils # Seg Neutrophils # Man 11.0 H Lymphocytes # (Manual) 0.9 L D-Dimer ABG pH ABG pO2 ABG HCO3 ABG O2 Saturation ABG Base Excess ABG Hemoglobin Oxyhemoglobin Sodium 150 H D Potassium 3.5 L Chloride 109.5 H Carbon Dioxide BUN 36 H Creatinine 3.3 H Glucose 56 L POC Glucose 114 H Lactic Acid Uric Acid Calcium 8.1 L Magnesium 1.60 L Ferritin AST 45 H ALT Lactate Dehydrogenase Troponin T C-Reactive Protein Total Protein 4.7 L Albumin 2.9 L HDL Cholesterol Urine Creatinine 02/06/20 02/06/20 02/07/20 17:35 18:21 00:39 WBC RBC Hgb Hct MCV MCH Lymph % (Auto) Wise % (Auto) Lymph # Wise # Seg Neutrophils % Seg Neuts % (Manual) Lymphocytes % (Manual) Seg Neutrophils # Seg Neutrophils # Man Lymphocytes # (Manual) D-Dimer ABG pH ABG pO2 ABG HCO3 ABG O2 Saturation ABG Base Excess ABG Hemoglobin Oxyhemoglobin Sodium Potassium Chloride Carbon Dioxide BUN Creatinine Glucose POC Glucose 53 L 124 H 122 H Lactic Acid Uric Acid Calcium Magnesium Ferritin AST ALT Lactate Dehydrogenase Troponin T C-Reactive Protein Total Protein Albumin HDL Cholesterol Urine Creatinine 02/07/20 02/08/20 23:51 07:32 WBC RBC Hgb Hct MCV MCH Lymph % (Auto) Wise % (Auto) Lymph # Wise # Seg Neutrophils % Seg Neuts % (Manual) Lymphocytes % (Manual) Seg Neutrophils # Seg Neutrophils # Man Lymphocytes # (Manual) D-Dimer ABG pH ABG pO2 ABG HCO3 ABG O2 Saturation ABG Base Excess ABG Hemoglobin Oxyhemoglobin Sodium Potassium Chloride Carbon Dioxide BUN Creatinine Glucose POC Glucose 146 H 107 H Lactic Acid Uric Acid Calcium Magnesium Ferritin AST ALT Lactate Dehydrogenase Troponin T C-Reactive Protein Total Protein Albumin HDL Cholesterol Urine Creatinine Chest x-ray: report reviewed, image reviewed Additional Studies: CHEST 1 VIEW 02/06/2020 4:42 AM INDICATION / CLINICAL INFORMATION: follow up respiratory failure. COMPARISON: One view of the chest from 02/05/2020. FINDINGS: SUPPORT DEVICES: Unchanged. HEART / MEDIASTINUM: Stable. LUNGS / PLEURA: Improved aeration of the lungs with residual right parenchymal and left pleural- parenchymal opacities. No pneumothorax. ADDITIONAL FINDINGS: No significant additional findings. IMPRESSION: Improved aeration of the lungs. Allied health notes reviewed: RT
--- NOTE | 2020-02-09 13:26 | Progress Note ---
Assessment and Plan Cultures: Blood culture 01/31/2020 pending Sputum culture 01/31/2020 pending COVID-19 negative A/P: 84-year-old man past medical history hypertension, dementia admitted to the hospital with altered mental status and hypoxia. #Acute hypoxic respiratory failure: Secondary to pneumonia on NCO2 #Right-sided pneumonia: s/p 7 days cefepime #SJ on HD: Improving. Recs: -stop cefepime s/p 7 days -monitor off abx will sign off Dot Crow MD [facility] ([facility]) Office [phone] Subjective Date of service: 02/09/20 Principal diagnosis: SJ/sepsis with hypotension Interval history: Alert non verbal on NC O2 no fever Objective - Exam Narrative Exam: Constitutional: Alert, cooperative. No acute distress, +NC O2 Head, Ears, Nose: Normocephalic, atraumatic. External ears, nose normal Eyes: Conjunctivae/corneas clear. No icterus. No ptosis. Neck: Supple, no meningeal signs Oral: limited Cardiovascular: S1, S2 normal. Respiratory: Good air entry, clear to auscultation bilaterally GI: soft NT Musculoskeletal: No pedal edema, no cyanosis. Skin: No rash or abscess Hem/Lymphatic: No palpable cervical or supraclavicular nodes. No lymphangitis Psych: no agitated Neurological: Awake, alert, oriented. No gross abnormality - Constitutional Vitals: Vital Signs Temp Pulse Resp BP Pulse Ox 98.5 F 73 21 147/76 97 02/09/20 08:10 02/09/20 08:10 02/09/20 12:57 02/09/20 08:10 02/09/20 12:57 Temperature -Last 24 Hours Temperature 98.5 F Temperature 98.0 F Temperature 98.4 F Temperature 96.8 F - Labs CBC & Chem 7: 02/06/20 04:15 02/06/20 04:15
--- NOTE | 2020-02-09 20:50 | Progress Note ---
Assessment and Plan Assessment and plan: 84-year-old elderly male with history of advanced dementia [facility] resident history of single kidney presented to the hospital with altered mental status and respiratory failure. Patient intubated in the ER, placed on vasopressors, nephrology was consulted for emergent dialysis. Patient was extubated . Patient is severely encephalopathic, unable to do swallow eval due to agitation, advised alternative methods of feeding Dobbhoff placed, will start tube feeding --Acute metabolic encephalopathy: likely from severe sepsis, acute renal failure and underlying dementia --Acute hypoxic respiratory failure: Requiring intubation Extubated yesterday 02/04/20 On Ventimask, continue supportive care --Acute renal failure /single kidney; Initiated hemodialysis, patient's does not want to continue with hemodialysis Nephrology aware --Metabolic acidosis: from renal failure and sepsis, now on HD --P UI/ COVID-19 infection : Negative test --Bilateral PNA: cont iv abx, ID following --Septic shock, resolved, s/p pressor --Severe hyperkalemia: improved after HD and bicarbonate drip --Advanced dementia: cont supportive care --Severe sepsis :likely due to pneumonia, cont abx, --History of single kidney- s/p nephrectomy --DVT prophylaxis; heparin renal dose --DNR code status Recommend palliative care /hospice Possible discharge to [facility] with hospice tomorrow if stable Discussed this plan with patient's Ms.Ann Borges Patient stable for discharge and transfer to SNF with hospice Required call with test, pending History Interval history: Patient seen and examined this morning medications reviewed Patient is severely agitated and confused Speech and swallow evaluated, high risk of aspiration Nurse try to place Dobbhoff, unsuccessful Patient's was informed Patient is confused Not in acute distress Vital signs noted Hospitalist Physical - Constitutional Vitals: Temp Pulse Resp BP Pulse Ox 98.5 F 75 21 147/78 97 02/09/20 12:16 02/09/20 12:16 02/09/20 12:57 02/09/20 12:16 02/09/20 12:57 General appearance: Present: mild distress, well-nourished, other (Extubated, confused) - EENT Eyes: Present: PERRL, EOM intact - Neck Neck: Present: supple, normal ROM - Respiratory Respiratory effort: normal Respiratory: bilateral: diminished, negative: rales, rhonchi, wheezing - Cardiovascular Rhythm: regular Heart Sounds: Present: S1 & S2 - Extremities Extremities: no ischemia, No edema - Abdominal General gastrointestinal: soft, non-tender, non-distended, normal bowel sounds - Integumentary Integumentary: Present: clear, warm - Psychiatric Psychiatric: other (Confused dementia) - Neurologic Neurologic: moves all extremities HEART Score - HEART Score Troponin: Troponin T 0.065 ng/mL (0.00-0.029) H 01/31/20 03:47 Results - Labs CBC & Chem 7: 02/06/20 04:15 02/06/20 04:15 Labs: Laboratory Last Values WBC 12.7 K/mm3 (4.5-11.0) H 02/06/20 04:15 RBC 2.60 M/mm3 (3.65-5.03) L 02/06/20 04:15 Hgb 8.7 gm/dl (11.8-15.2) L 02/06/20 04:15 Hct 26.3 % (35.5-45.6) L 02/06/20 04:15 MCV 101 fl (84-94) H 02/06/20 04:15 MCH 33 pg (28-32) H 02/06/20 04:15 MCHC 33 % (32-34) 02/06/20 04:15 RDW 14.0 % (13.2-15.2) 02/06/20 04:15 Plt Count 182 K/mm3 (140-440) 02/06/20 04:15 Lymph % (Auto) 14.8 % (13.4-35.0) 02/03/20 04:00 [place] % (Auto) 6.6 % (0.0-7.3) 02/03/20 04:00 Eos % (Auto) 0.3 % (0.0-4.3) 02/03/20 04:00 Baso % (Auto) 0.1 % (0.0-1.8) 02/03/20 04:00 Lymph # 1.9 K/mm3 (1.2-5.4) 02/03/20 04:00 Stan[place] # 0.8 K/mm3 (0.0-0.8) 02/03/20 04:00 Eos # 0.0 K/mm3 (0.0-0.4) 02/03/20 04:00 Baso # 0.0 K/mm3 (0.0-0.1) 02/03/20 04:00 Add Manual Diff Complete 02/06/20 04:15 Total Counted 100 02/06/20 04:15 Seg Neutrophils % 78.2 % (40.0-70.0) H 02/03/20 04:00 Seg Neuts % (Manual) 87.0 % (40.0-70.0) H 02/06/20 04:15 Band Neutrophils % 0 % 02/06/20 04:15 Lymphocytes % (Manual) 7.0 % (13.4-35.0) L 02/06/20 04:15 Reactive Lymphs % (Man) 0 % 02/06/20 04:15 Monocytes % (Manual) 5.0 % (0.0-7.3) 02/06/20 04:15 Eosinophils % (Manual) 1.0 % (0.0-4.3) 02/06/20 04:15 Basophils % (Manual) 0 % (0.0-1.8) 02/06/20 04:15 Metamyelocytes % 0 % 02/06/20 04:15 Myelocytes % 0 % 02/06/20 04:15 Promyelocytes % 0 % 02/06/20 04:15 Blast Cells % 0 % 02/06/20 04:15 Nucleated RBC % Not Reportable 02/06/20 04:15 Seg Neutrophils # 10.0 K/mm3 (1.8-7.7) H 02/03/20 04:00 Seg Neutrophils # Man 11.0 K/mm3 (1.8-7.7) H 02/06/20 04:15 Band Neutrophils # 0.0 K/mm3 02/06/20 04:15 Lymphocytes # (Manual) 0.9 K/mm3 (1.2-5.4) L 02/06/20 04:15 Abs React Lymphs (Man) 0.0 K/mm3 02/06/20 04:15 Monocytes # (Manual) 0.6 K/mm3 (0.0-0.8) 02/06/20 04:15 Eosinophils # (Manual) 0.1 K/mm3 (0.0-0.4) 02/06/20 04:15 Basophils # (Manual) 0.0 K/mm3 (0.0-0.1) 02/06/20 04:15 Metamyelocytes # 0.0 K/mm3 02/06/20 04:15 Myelocytes # 0.0 K/mm3 02/06/20 04:15 Promyelocytes # 0.0 K/mm3 02/06/20 04:15 Blast Cells # 0.0 K/mm3 02/06/20 04:15 WBC Morphology Not Reportable 02/06/20 04:15 Hypersegmented Neuts Not Reportable 02/06/20 04:15 Hyposegmented Neuts Not Reportable 02/06/20 04:15 Hypogranular Neuts Not Reportable 02/06/20 04:15 Smudge Cells Not Reportable 02/06/20 04:15 Toxic Granulation Not Reportable 02/06/20 04:15 Toxic Vacuolation Not Reportable 02/06/20 04:15 Dohle Bodies Not Reportable 02/06/20 04:15 Pelger-Huet Anomaly Not Reportable 02/06/20 04:15 Harshal Rods Not Reportable 02/06/20 04:15 Platelet Estimate Consistent w auto 02/06/20 04:15 Clumped Platelets Not Reportable 02/06/20 04:15 Plt Clumps, EDTA Not Reportable 02/06/20 04:15 Large Platelets Not Reportable 02/06/20 04:15 Giant Platelets Not Reportable 02/06/20 04:15 Platelet Satelliting Not Reportable 02/06/20 04:15 Plt Morphology Comment Not Reportable 02/06/20 04:15 RBC Morphology Not Reportable 02/06/20 04:15 Dimorphic RBCs Not Reportable 02/06/20 04:15 Polychromasia Not Reportable 02/06/20 04:15 Hypochromasia Not Reportable 02/06/20 04:15 Poikilocytosis Not Reportable 02/06/20 04:15 Anisocytosis Not Reportable 02/06/20 04:15 Microcytosis Not Reportable 02/06/20 04:15 Macrocytosis Not Reportable 02/06/20 04:15 Spherocytes Not Reportable 02/06/20 04:15 Pappenheimer Bodies Not Reportable 02/06/20 04:15 Sickle Cells Not Reportable 02/06/20 04:15 Target Cells Not Reportable 02/06/20 04:15 Tear Drop Cells Not Reportable 02/06/20 04:15 Ovalocytes Not Reportable 02/06/20 04:15 Helmet Cells Not Reportable 02/06/20 04:15 [place] Bodies Not Reportable 02/06/20 04:15 [place] Rings Not Reportable 02/06/20 04:15 Gunter Cells Not Reportable 02/06/20 04:15 Bite Cells Not Reportable 02/06/20 04:15 Crenated Cell Not Reportable 02/06/20 04:15 Elliptocytes Not Reportable 02/06/20 04:15 Acanthocytes (Spur) Not Reportable 02/06/20 04:15 Rouleaux Not Reportable 02/06/20 04:15 Hemoglobin C Crystals Not Reportable 02/06/20 04:15 Schistocytes Not Reportable 02/06/20 04:15 Malaria parasites Not Reportable 02/06/20 04:15 Elliot Bodies Not Reportable 02/06/20 04:15 Hem Pathologist Commnt No 02/06/20 04:15 D-Dimer 544.72 ng/mlDDU (0-234) H 01/31/20 05:45 ABG pH 7.408 pH Units (7.350-7.450) 02/04/20 15:37 ABG pCO2 42.2 mm Hg 02/04/20 15:37 ABG pO2 80.5 mm Hg (80.0-90.0) 02/04/20 15:37 ABG HCO3 26.0 mmol/L (20.0-26.0) 02/04/20 15:37 ABG O2 Saturation 96.6 % (95.0-99.0) 02/04/20 15:37 ABG O2 Content 15.8 (0.0-44) 02/04/20 15:37 ABG Base Excess 1.2 mmol/L (-2.0-3.0) 02/04/20 15:37 ABG Hemoglobin 11.8 gm/dl (14.0-18.0) L 02/04/20 15:37 ABG Carboxyhemoglobin 1.3 % (0.0-5.0) 02/04/20 15:37 ABG Methemoglobin 0.5 % (0.0-1.5) 02/04/20 15:37 Oxyhemoglobin 94.9 % (95.0-99.0) L 02/04/20 15:37 FiO2 30 % 02/04/20 15:37 Sodium 150 mmol/L (137-145) H D 02/06/20 04:15 Potassium 3.5 mmol/L (3.6-5.0) L 02/06/20 04:15 Chloride 109.5 mmol/L (98-107) H 02/06/20 04:15 Carbon Dioxide 25 mmol/L (22-30) 02/06/20 04:15 Anion Gap 19 mmol/L 02/06/20 04:15 BUN 36 mg/dL (9-20) H 02/06/20 04:15 Creatinine 3.3 mg/dL (0.8-1.3) H 02/06/20 04:15 Estimated GFR 18 ml/min 02/06/20 04:15 BUN/Creatinine Ratio 11 % 02/06/20 04:15 Glucose 56 mg/dL (75-100) L 02/06/20 04:15 POC Glucose 92 (70-105) 02/09/20 18:08 Osmolality 345 Mosm/kg 01/31/20 06:06 Lactic Acid 0.70 mmol/L (0.7-2.0) 01/31/20 15:53 Uric Acid 8.5 mg/dL (3.5-7.6) H 01/31/20 06:06 Calcium 8.1 mg/dL (8.4-10.2) L 02/06/20 04:15 Magnesium 1.60 mg/dL (1.7-2.3) L 02/06/20 04:15 Ferritin 722.6 ng/mL (13.0-400.0) H 01/31/20 05:45 Total Bilirubin 0.40 mg/dL (0.1-1.2) 02/06/20 04:15 AST 45 units/L (5-40) H 02/06/20 04:15 ALT 14 units/L (7-56) 02/06/20 04:15 Alkaline Phosphatase 74 units/L (35-129) 02/06/20 04:15 Lactate Dehydrogenase 387 units/L (91-180) H 01/31/20 05:45 Total Creatine Kinase 123 units/L (55-170) 01/31/20 06:06 Troponin T 0.065 ng/mL (0.00-0.029) H 01/31/20 03:47 C-Reactive Protein 1.60 mg/dL (0.00-1.30) H 01/31/20 05:45 Total Protein 4.7 g/dL (6.3-8.2) L 02/06/20 04:15 Albumin 2.9 g/dL (3.9-5) L 02/06/20 04:15 Albumin/Globulin Ratio 1.6 % 02/06/20 04:15 Triglycerides 76 mg/dL (2-149) 01/31/20 03:47 Cholesterol 96 mg/dL (50-199) 01/31/20 03:47 LDL Cholesterol Direct 66 mg/dL (50-130) 01/31/20 03:47 HDL Cholesterol 39 mg/dL (40-59) L 01/31/20 03:47 Cholesterol/HDL Ratio 2.46 % 01/31/20 03:47 Procalcitonin 0.51 ng/mL (<0.15) 01/31/20 05:45 Urine Color Ayana (Yellow) 01/31/20 04:25 Urine Turbidity Clear (Clear) 01/31/20 04:25 Urine pH 5.0 (5.0-7.0) 01/31/20 04:25 Ur Specific [place] 1.015 (1.003-1.030) 01/31/20 04:25 Urine Protein <15 mg/dl mg/dL (Negative) 01/31/20 04:25 Urine Glucose (UA) Neg mg/dL (Negative) 01/31/20 04:25 Urine Ketones Tr mg/dL (Negative) 01/31/20 04:25 Urine Blood Neg (Negative) 01/31/20 04:25 Urine Nitrite Neg (Negative) 01/31/20 04:25 Urine Bilirubin Neg (Negative) 01/31/20 04:25 Urine Urobilinogen < 2.0 mg/dL (<2.0) 01/31/20 04:25 Ur Leukocyte Esterase Sm (Negative) 01/31/20 04:25 Urine WBC (Auto) 1.0 /HPF (0.0-6.0) 01/31/20 04:25 Urine RBC (Auto) 3.0 /HPF (0.0-6.0) 01/31/20 04:25 Urine Mucus Few /HPF 01/31/20 04:25 Urine Creatinine 257.5 mg/dL (0.1-20.0) H 01/31/20 23:06 Urine Sodium 10 mmol/L 01/31/20 23:06 Nasal Screen MRSA (PCR) Negative (Negative) 02/03/20 Unknown Urine Opiates Screen Presumptive negative 01/31/20 04:25 Urine Methadone Screen Presumptive negative 01/31/20 04:25 Ur Barbiturates Screen Presumptive negative 01/31/20 04:25 Ur Phencyclidine Scrn Presumptive negative 01/31/20 04:25 Ur Amphetamines Screen Presumptive negative 01/31/20 04:25 U Benzodiazepines Scrn Presumptive negative 01/31/20 04:25 Urine Cocaine Screen Presumptive negative 01/31/20 04:25 U Marijuana (THC) Screen Presumptive negative 01/31/20 04:25 Drugs of Abuse Note Disclamer 01/31/20 04:25 Coronavirus (PCR) Negative (Negative) 02/01/20 Unknown Hepatitis A IgM Ab Non-reactive (NonReactive) 01/31/20 06:06 Hep Bs Antigen Non-reactive (Negative) 01/31/20 06:06 Hep B Core IgM Ab Non-reactive (NonReactive) 01/31/20 06:06 Hepatitis C Antibody Non-reactive (NonReactive) 01/31/20 06:06 Romo/IV: Voiding Method Indwelling Catheter IV Catheter Type [Right VAS Cath Femoral] IV Catheter Type [Right Triple Lumen Cath Internal Jugular] IV Catheter Type [Left Peripheral IV External Jugular] IV Catheter Type [Right Peripheral IV Forearm] IV Catheter Type [Left Forearm Peripheral IV ] Active Medications - Current Medications Current Medications: Generic Name Dose Route Start Last Admin Trade Name Freq PRN Reason Stop Dose Admin Lipase/Protease/Amylase 1 each 02/02/20 11:04 Pancremayela Chaney 10,500 Unit FEEDTUBE PRN PRN For Clogged Feeding Tube Carbidopa/Levodopa 1.5 each 02/01/20 10:00 02/09/20 11:00 Sinemet PO Not Given DAILY KIRA Dextrose 0 ml 02/02/20 00:11 02/06/20 17:23 D50w (25gm) Syringe IV 20 ml Q30MIN PRN Administration Hypoglycemia Protocol Famotidine 20 mg 02/06/20 11:00 02/09/20 10:48 Pepcid IV 20 mg DAILY KIRA Administration Folic Acid 1 mg 02/04/20 10:00 02/09/20 11:00 Folvite PO Not Given DAILY KIRA Heparin Sodium (Porcine) 5,000 unit 01/31/20 22:00 02/09/20 10:48 Heparin SUB-Q 5,000 unit Q12HR KIRA Administration Hydrophilic Ointment 1 applic 01/31/20 06:36 Vaseline Lip Therapy TP Q2HR PRN Dry Lips Dextrose/Sodium Chloride 1,000 mls @ 100 mls/hr 02/05/20 18:00 02/08/20 20:13 D5ns IV 100 mls/hr DIRECT KIRA Administration Levetiracetam 750 mg/ Dextrose 107.5 mls @ 400 mls/hr 02/06/20 11:00 02/09/20 10:49 IV 400 mls/hr Q12HR KIRA Administration Multi-Ingred Cream/Lotion/Oil/Oint 1 applic 01/31/20 06:36 Artificial Tears Ophth Oint OU Q4HR PRN Dry Eye(s) Simple Syrup 15 ml 02/02/20 11:04 02/03/20 17:44 Simple Syrup FEEDTUBE 15 ml PRN PRN Administration Hypoglycemia Simple Syrup 30 ml 02/02/20 11:04 Simple Syrup FEEDTUBE PRN PRN Hypoglycemia Sodium Bicarbonate 325 mg 02/02/20 11:04 Sodium Bicarbonate FEEDTUBE PRN PRN For Clogged Feeding Tube Nutrition/Malnutrition Assess - Dietary Evaluation Nutrition/Malnutrition Findings: Nutrition Notes Start: 02/01/20 08:59 Freq: Status: Active Protocol: Document 02/04/20 12:13 LP (Rec: 02/04/20 12:16 LP [id number]) Nutrition Notes Initial or Follow up Reassessment Current Diagnosis CKD(stage I-IV),Diabetes, Sepsis,Hypertension,Heart Failure Other Pertinent Diagnosis AMS, pneu Current Diet Nepro at 40ml/hr Labs/Tests Reviewed Pertinent Medications Reviewed Height 5 ft 6 in Weight 65.2 kg [place] Body Weight (kg) 64.54 BMI 23.1 Weight Status Appropriate Subjective/Other Information Pt tolerating TF. Burn Absent Trauma Absent GI Symptoms None Minimum of two criteria No physical signs of malnutrition #1 Nutrition Diagnosis Inadequate oral intake Diagnosis Progress(for reassessment Continues documentation) Is patient on ventilator? Yes Is Patient Ambulatory and/or Out of Bed No REE-([facility]-confined to bed) 2203.080 Calculation Used for Recommendations [facility] Additional Notes Protein needs are 76-127g (1.2 -2g/kg) Fluid needs are 1ml/kcal Nutrition Intervention Change Diet Order: TF Nutrition Support: Nepro at 40ml/hr Flush with 150ml q4h Kcal 1,728 Protein (gm) 78 Fluid (mL) 698 Goal #1 Meet at least 80% of kcal and protein needs via TF Anticipated Discharge Needs: Unable to determine at this time Follow-Up By: 02/11/20 Additional Comments Follow for stable TF
[2020-02-09] MEDS: CEFEPIME/NS 1 GM/100 ML 1 GM/100 ML BAG IV SCH (21:34)
[2020-02-10] MEDS: FAMOTIDINE 20 MG/2 ML INJ IV SCH (09:23)
[2020-02-10] MEDS: CARBIDOPA/LEVODOPA 25-100 MG TAB PO SCH (09:23)
[2020-02-10] MEDS: FOLIC ACID 1 MG TAB PO SCH (09:23)
[2020-02-10] MEDS: HEPARIN 5,000 UNIT/1 ML VIAL SUB-Q SCH ×2 (09:23→22:00)
[2020-02-10] MEDS: levETIRAcetam 750 MG in DEXTROSE 5% IN WATER 100 ML IV SCH ×2 (09:23→21:55)
--- NOTE | 2020-02-10 10:53 | Progress Note ---
Assessment and Plan Patient awake and resting on 3 litres O2. O2 saturation 92%. No acute respiratory distress. Patient appears to have dementia. Not following the commands well. Patient afebrile and has mild leukocytosis. Patient Coronavirus reported negative. and hepatitis non reactive. Chest xray 02/06/20 reported mproved aeration of the lungs with residual right parenchymal and left pleural- parenchymal opacities. No pneumothorax. ABG on FIO2 30%. ABG pH 7.408 pH Units (7.350-7.450) 02/04/20 15:37 ABG pCO2 42.2 mm Hg 02/04/20 15:37 ABG pO2 80.5 mm Hg (80.0-90.0) 02/04/20 15:37 ABG O2 Saturation 96.6 % (95.0-99.0) 02/04/20 15:37 - Patient Problems (1) Acute respiratory failure with hypoxia Current Visit: Yes Status: Acute Plan to address problem: O2 3 litres via nasal canula. Albuterol/atrovent aerosol treatments q 6 hours. Continue S/C Heparin. Continue famotidine. (2) Acute kidney injury superimposed on chronic kidney disease Current Visit: Yes Status: Acute Plan to address problem: Management as per nephrology. (3) Altered mental state Current Visit: Yes Status: Acute Qualifiers: Altered mental status type: unspecified Qualified Code(s): R41.82 - Altered mental status, unspecified Plan to address problem: Management as per primary care. (4) Pneumonia Current Visit: Yes Status: Acute Qualifiers: Pneumonia type: due to unspecified organism Laterality: bilateral Lung location: unspecified part of lung Qualified Code(s): J18.9 - Pneumonia, unspecified organism Plan to address problem: Patient treated with cefepime Patient afebrile and has mild leukocytosis. Subjective Date of service: 02/10/20 Principal diagnosis: SJ/sepsis with hypotension Interval history: Patient awake and resting on 3 litres O2. O2 saturation 92%. No acute respiratory distress. Patient appears to have dementia. Not following the commands well. Patient afebrile and has mild leukocytosis. Patient Coronavirus reported negative. and hepatitis non reactive. Chest xray 02/06/20 reported mproved aeration of the lungs with residual right parenchymal and left pleural- parenchymal opacities. No pneumothorax. ABG on FIO2 30%. ABG pH 7.408 pH Units (7.350-7.450) 02/04/20 15:37 ABG pCO2 42.2 mm Hg 02/04/20 15:37 ABG pO2 80.5 mm Hg (80.0-90.0) 02/04/20 15:37 ABG O2 Saturation 96.6 % (95.0-99.0) 02/04/20 15:37 Objective Vital Signs - 12hr 02/09/20 02/09/20 02/10/20 23:00 23:36 02:00 Temperature 98.1 F Pulse Rate 68 73 Pulse Rate [ 84 From Monitor] Pulse Rate [ 84 Left Radial] Respiratory 20 21 Rate Blood Pressure 168/84 O2 Sat by Pulse 96 97 Oximetry 02/10/20 02/10/20 02/10/20 03:58 08:34 08:38 Temperature 98.0 F 98.1 F Pulse Rate 68 63 Pulse Rate [ 87 From Monitor] Pulse Rate [ 84 Left Radial] Respiratory 20 20 18 Rate Blood Pressure 168/78 145/68 O2 Sat by Pulse 95 91 98 Oximetry Constitutional: no acute distress, alert, other (elderly looking CM normocephalic with mildly increased respiratory effort at rest) Eyes: non-icteric ENT: oropharynx dry, other Neck: supple, no lymphadenopathy, no JVD Effort: mildly labored Ascultation: Bilateral: diminished breath sounds, rhonchi (scant) Percussion: Bilateral: not dull Cardiovascular: regular rate and rhythm, other (s1,s2) Gastrointestinal: normoactive bowel sounds, soft, non-tender, non-distended Integumentary: rash Extremities: pink and warm, pulses normal, no ischemia or petechiae, edema (mild to upper extremities), other Neurologic: non-focal exam (grossly, moves all extremities), pupils equal and round, CN II-XII normal Psychiatric: mood appropriate, affect normal CBC and BMP: 02/06/20 04:15 02/06/20 04:15 ABG, PT/INR, D-dimer: ABG ABG pH 7.408 pH Units (7.350-7.450) 02/04/20 15:37 ABG pCO2 42.2 mm Hg 02/04/20 15:37 ABG pO2 80.5 mm Hg (80.0-90.0) 02/04/20 15:37 ABG O2 Saturation 96.6 % (95.0-99.0) 02/04/20 15:37 PT/INR, D-dimer D-Dimer 544.72 ng/mlDDU (0-234) H 01/31/20 05:45 Abnormal lab findings: Abnormal Labs 01/31/20 01/31/20 01/31/20 03:47 03:47 03:47 WBC 16.9 H RBC Hgb Hct MCV 99 H MCH 33 H Lymph % (Auto) [place] % (Auto) Lymph # [place] # Seg Neutrophils % Seg Neuts % (Manual) 95.0 H Lymphocytes % (Manual) 3.0 L Seg Neutrophils # Seg Neutrophils # Man 16.1 H Lymphocytes # (Manual) 0.5 L D-Dimer ABG pH ABG pO2 ABG HCO3 ABG O2 Saturation ABG Base Excess ABG Hemoglobin Oxyhemoglobin Sodium 126 L Potassium 8.8 H* Chloride 86.4 L Carbon Dioxide 10 L BUN 181 H Creatinine 12.5 H Glucose POC Glucose Lactic Acid 2.10 H* Uric Acid Calcium Magnesium Ferritin AST ALT < 5 L Lactate Dehydrogenase Troponin T 0.065 H C-Reactive Protein Total Protein Albumin 3.8 L HDL Cholesterol 39 L Urine Creatinine 01/31/20 01/31/20 01/31/20 05:37 05:45 05:45 WBC RBC Hgb Hct MCV MCH Lymph % (Auto) [place] % (Auto) Lymph # [place] # Seg Neutrophils % Seg Neuts % (Manual) Lymphocytes % (Manual) Seg Neutrophils # Seg Neutrophils # Man Lymphocytes # (Manual) D-Dimer 544.72 H ABG pH ABG pO2 ABG HCO3 ABG O2 Saturation ABG Base Excess ABG Hemoglobin Oxyhemoglobin Sodium Potassium Chloride Carbon Dioxide BUN Creatinine Glucose 103 H POC Glucose Lactic Acid 2.20 H* Uric Acid Calcium Magnesium Ferritin AST ALT Lactate Dehydrogenase 387 H Troponin T C-Reactive Protein 1.60 H Total Protein Albumin HDL Cholesterol Urine Creatinine 01/31/20 01/31/20 01/31/20 05:45 06:06 09:45 WBC RBC Hgb Hct MCV MCH Lymph % (Auto) [place] % (Auto) Lymph # [place] # Seg Neutrophils % Seg Neuts % (Manual) Lymphocytes % (Manual) Seg Neutrophils # Seg Neutrophils # Man Lymphocytes # (Manual) D-Dimer ABG pH ABG pO2 ABG HCO3 ABG O2 Saturation ABG Base Excess ABG Hemoglobin Oxyhemoglobin Sodium Potassium Chloride Carbon Dioxide BUN Creatinine Glucose POC Glucose Lactic Acid 3.20 H* Uric Acid 8.5 H Calcium Magnesium Ferritin 722.6 H AST ALT Lactate Dehydrogenase Troponin T C-Reactive Protein Total Protein Albumin HDL Cholesterol Urine Creatinine 01/31/20 01/31/20 01/31/20 09:45 10:30 18:31 WBC RBC Hgb Hct MCV MCH Lymph % (Auto) [place] % (Auto) Lymph # [place] # Seg Neutrophils % Seg Neuts % (Manual) Lymphocytes % (Manual) Seg Neutrophils # Seg Neutrophils # Man Lymphocytes # (Manual) D-Dimer ABG pH 7.059 L* ABG pO2 70.2 L ABG HCO3 9.9 L ABG O2 Saturation 85.4 L ABG Base Excess -19.6 L ABG Hemoglobin Oxyhemoglobin 84.0 L Sodium 118 L* D 133 L D Potassium 8.1 H* 5.1 H D Chloride 91.1 L 93.7 L Carbon Dioxide 3 L* D 17 L D BUN 179 H 54 H Creatinine 11.6 H 4.9 H D Glucose 197 H 215 H POC Glucose Lactic Acid Uric Acid Calcium Magnesium Ferritin AST ALT Lactate Dehydrogenase Troponin T C-Reactive Protein Total Protein Albumin HDL Cholesterol Urine Creatinine 01/31/20 01/31/20 02/01/20 19:45 23:06 01:30 WBC 17.4 H RBC 3.59 L Hgb 11.7 L Hct 34.5 L D MCV 96 H MCH 33 H Lymph % (Auto) 3.0 L [place] % (Auto) 8.9 H Lymph # 0.5 L [place] # 1.6 H Seg Neutrophils % 88.1 H Seg Neuts % (Manual) Lymphocytes % (Manual) Seg Neutrophils # 15.3 H Seg Neutrophils # Man Lymphocytes # (Manual) D-Dimer ABG pH ABG pO2 172.0 H ABG HCO3 ABG O2 Saturation 99.1 H ABG Base Excess -3.0 L ABG Hemoglobin 13.8 L Oxyhemoglobin Sodium Potassium Chloride Carbon Dioxide BUN Creatinine Glucose POC Glucose Lactic Acid Uric Acid Calcium Magnesium Ferritin AST ALT Lactate Dehydrogenase Troponin T C-Reactive Protein Total Protein Albumin HDL Cholesterol Urine Creatinine 257.5 H 02/01/20 02/01/20 02/01/20 01:30 04:53 23:39 WBC RBC Hgb Hct MCV MCH Lymph % (Auto) [place] % (Auto) Lymph # [place] # Seg Neutrophils % Seg Neuts % (Manual) Lymphocytes % (Manual) Seg Neutrophils # Seg Neutrophils # Man Lymphocytes # (Manual) D-Dimer ABG pH 7.505 H ABG pO2 158.5 H ABG HCO3 ABG O2 Saturation 99.1 H ABG Base Excess ABG Hemoglobin 11.0 L Oxyhemoglobin Sodium 133 L Potassium Chloride 93.6 L Carbon Dioxide BUN 47 H Creatinine 4.5 H Glucose 204 H POC Glucose 58 L Lactic Acid Uric Acid Calcium 8.3 L Magnesium Ferritin AST ALT Lactate Dehydrogenase Troponin T C-Reactive Protein Total Protein Albumin HDL Cholesterol Urine Creatinine 02/02/20 02/02/20 02/02/20 04:24 10:48 10:48 WBC 11.8 H RBC 3.16 L Hgb 10.2 L Hct 31.0 L MCV 98 H MCH Lymph % (Auto) [place] % (Auto) Lymph # [place] # Seg Neutrophils % Seg Neuts % (Manual) Lymphocytes % (Manual) Seg Neutrophils # Seg Neutrophils # Man Lymphocytes # (Manual) D-Dimer ABG pH ABG pO2 74.4 L ABG HCO3 30.2 H ABG O2 Saturation ABG Base Excess 4.6 H ABG Hemoglobin 10.7 L Oxyhemoglobin 94.7 L Sodium Potassium Chloride Carbon Dioxide BUN 52 H Creatinine 5.2 H Glucose 59 L POC Glucose Lactic Acid Uric Acid Calcium 8.2 L Magnesium Ferritin AST ALT Lactate Dehydrogenase Troponin T C-Reactive Protein Total Protein Albumin HDL Cholesterol Urine Creatinine 02/02/20 02/02/20 02/03/20 12:19 18:02 00:52 WBC RBC Hgb Hct MCV MCH Lymph % (Auto) [place] % (Auto) Lymph # [place] # Seg Neutrophils % Seg Neuts % (Manual) Lymphocytes % (Manual) Seg Neutrophils # Seg Neutrophils # Man Lymphocytes # (Manual) D-Dimer ABG pH ABG pO2 ABG HCO3 ABG O2 Saturation ABG Base Excess ABG Hemoglobin Oxyhemoglobin Sodium Potassium Chloride Carbon Dioxide BUN Creatinine Glucose POC Glucose 64 L 60 L 69 L Lactic Acid Uric Acid Calcium Magnesium Ferritin AST ALT Lactate Dehydrogenase Troponin T C-Reactive Protein Total Protein Albumin HDL Cholesterol Urine Creatinine 02/03/20 02/03/20 02/03/20 04:00 04:00 04:35 WBC 12.8 H RBC 3.23 L Hgb 10.7 L Hct 32.0 L MCV 99 H MCH 33 H Lymph % (Auto) [place] % (Auto) Lymph # [place] # Seg Neutrophils % 78.2 H Seg Neuts % (Manual) Lymphocytes % (Manual) Seg Neutrophils # 10.0 H Seg Neutrophils # Man Lymphocytes # (Manual) D-Dimer ABG pH 7.281 L ABG pO2 71.7 L ABG HCO3 27.9 H ABG O2 Saturation 94.6 L ABG Base Excess ABG Hemoglobin 9.5 L Oxyhemoglobin 92.8 L Sodium Potassium Chloride Carbon Dioxide BUN 50 H Creatinine 5.0 H Glucose 71 L POC Glucose Lactic Acid Uric Acid Calcium 8.0 L Magnesium Ferritin AST ALT Lactate Dehydrogenase Troponin T C-Reactive Protein Total Protein Albumin HDL Cholesterol Urine Creatinine 02/03/20 02/03/20 02/04/20 17:34 23:54 04:20 WBC RBC Hgb Hct MCV MCH Lymph % (Auto) [place] % (Auto) Lymph # [place] # Seg Neutrophils % Seg Neuts % (Manual) Lymphocytes % (Manual) Seg Neutrophils # Seg Neutrophils # Man Lymphocytes # (Manual) D-Dimer ABG pH ABG pO2 ABG HCO3 27.2 H ABG O2 Saturation ABG Base Excess ABG Hemoglobin 9.8 L Oxyhemoglobin Sodium Potassium Chloride Carbon Dioxide BUN Creatinine Glucose POC Glucose 67 L 127 H Lactic Acid Uric Acid Calcium Magnesium Ferritin AST ALT Lactate Dehydrogenase Troponin T C-Reactive Protein Total Protein Albumin HDL Cholesterol Urine Creatinine 02/04/20 02/05/20 02/05/20 15:37 12:03 23:38 WBC RBC Hgb Hct MCV MCH Lymph % (Auto) [place] % (Auto) Lymph # [place] # Seg Neutrophils % Seg Neuts % (Manual) Lymphocytes % (Manual) Seg Neutrophils # Seg Neutrophils # Man Lymphocytes # (Manual) D-Dimer ABG pH ABG pO2 ABG HCO3 ABG O2 Saturation ABG Base Excess ABG Hemoglobin 11.8 L Oxyhemoglobin 94.9 L Sodium Potassium Chloride Carbon Dioxide BUN Creatinine Glucose POC Glucose 68 L 52 L Lactic Acid Uric Acid Calcium Magnesium Ferritin AST ALT Lactate Dehydrogenase Troponin T C-Reactive Protein Total Protein Albumin HDL Cholesterol Urine Creatinine 02/06/20 02/06/20 02/06/20 00:34 04:15 04:15 WBC 12.7 H RBC 2.60 L Hgb 8.7 L Hct 26.3 L MCV 101 H MCH 33 H Lymph % (Auto) [place] % (Auto) Lymph # [place] # Seg Neutrophils % Seg Neuts % (Manual) 87.0 H Lymphocytes % (Manual) 7.0 L Seg Neutrophils # Seg Neutrophils # Man 11.0 H Lymphocytes # (Manual) 0.9 L D-Dimer ABG pH ABG pO2 ABG HCO3 ABG O2 Saturation ABG Base Excess ABG Hemoglobin Oxyhemoglobin Sodium 150 H D Potassium 3.5 L Chloride 109.5 H Carbon Dioxide BUN 36 H Creatinine 3.3 H Glucose 56 L POC Glucose 114 H Lactic Acid Uric Acid Calcium 8.1 L Magnesium 1.60 L Ferritin AST 45 H ALT Lactate Dehydrogenase Troponin T C-Reactive Protein Total Protein 4.7 L Albumin 2.9 L HDL Cholesterol Urine Creatinine 02/06/20 02/06/20 02/07/20 17:35 18:21 00:39 WBC RBC Hgb Hct MCV MCH Lymph % (Auto) [place] % (Auto) Lymph # [place] # Seg Neutrophils % Seg Neuts % (Manual) Lymphocytes % (Manual) Seg Neutrophils # Seg Neutrophils # Man Lymphocytes # (Manual) D-Dimer ABG pH ABG pO2 ABG HCO3 ABG O2 Saturation ABG Base Excess ABG Hemoglobin Oxyhemoglobin Sodium Potassium Chloride Carbon Dioxide BUN Creatinine Glucose POC Glucose 53 L 124 H 122 H Lactic Acid Uric Acid Calcium Magnesium Ferritin AST ALT Lactate Dehydrogenase Troponin T C-Reactive Protein Total Protein Albumin HDL Cholesterol Urine Creatinine 02/07/20 02/08/20 02/09/20 23:51 07:32 23:45 WBC RBC Hgb Hct MCV MCH Lymph % (Auto) [place] % (Auto) Lymph # [place] # Seg Neutrophils % Seg Neuts % (Manual) Lymphocytes % (Manual) Seg Neutrophils # Seg Neutrophils # Man Lymphocytes # (Manual) D-Dimer ABG pH ABG pO2 ABG HCO3 ABG O2 Saturation ABG Base Excess ABG Hemoglobin Oxyhemoglobin Sodium Potassium Chloride Carbon Dioxide BUN Creatinine Glucose POC Glucose 146 H 107 H 117 H Lactic Acid Uric Acid Calcium Magnesium Ferritin AST ALT Lactate Dehydrogenase Troponin T C-Reactive Protein Total Protein Albumin HDL Cholesterol Urine Creatinine Allied health notes reviewed: RT
--- NOTE | 2020-02-10 15:19 | Discharge Summary ---
Providers - Providers Date of Admission: 01/31/20 06:30 Date of discharge: 02/11/20 Attending physician: JAN NEIL 01/31/20 05:27 Consult to Physician [CONS] Routine Comment: Consulting Provider: SHAMAR KEITH Physician Instructions: Reason For Exam: pna. poss covid 01/31/20 05:42 Consult to Physician [CONS] Routine Comment: Dr. Morrison spoke with Dr. Tellez @ 0521 Consulting Provider: MAGDIEL TELLEZ Physician Instructions: Reason For Exam: isai hd 01/31/20 05:43 Consult to Physician [CONS] Routine Comment: Dr. Morrison spoke with Dr. Horan @ 0541 Consulting Provider: MIKO HORAN Physician Instructions: Reason For Exam: vasc cath Consult to Physician [CONS] Routine Comment: Spoke with Dr. Bauer @ 0568 Consulting Provider: JOAQUIM DONOVAN Physician Instructions: Reason For Exam: icu 01/31/20 11:16 Consult to Dietitian/Nutrition [CONS] Routine Physician Instructions: Reason For Exam: Reason for Consult: Evaluate nutritional intake 02/05/20 08:40 Speech Therapy Evaluation and Treat [CONS] Routine Reason For Exam: failed bed side swallowing screen 02/06/20 09:23 Speech Therapy Evaluation and Treat [CONS] Routine Reason For Exam: Failed bed side swallow eval 02/08/20 07:06 Consult to Wound/ET Nurse [CONS] Routine Reason For Exam: wound eval 02/09/20 08:45 Speech Therapy Evaluation and Treat [CONS] Routine Reason For Exam: Difficulty swallowing Primary care physician: PIE FILLER Hospitalization Condition: Stable Disposition: DC/[place]-03 SNF W [facility] Time spent for discharge: 35 min Exam - Constitutional Vitals: Temp Pulse Resp BP Pulse Ox 98.1 F 60 18 145/68 98 02/10/20 08:34 02/10/20 11:00 02/10/20 08:38 02/10/20 08:34 02/10/20 08:38 Plan Activity: advance as tolerated, fall precautions Diet: other (Diet as tolerated) Additional Instructions: DC to SNF with hospice. Management per hospice medical interpreter. Fall precautions. Aspiration precautions Follow up with: PRIMARY CARE, [Primary Care Provider] - 7 Days
--- NOTE | 2020-02-10 21:32 | Progress Note ---
Assessment and Plan Assessment and plan: 84-year-old elderly male with history of advanced dementia retirement resident history of single kidney presented to the hospital with altered mental status and respiratory failure. Patient intubated in the ER, placed on vasopressors, nephrology was consulted for emergent dialysis. Patient was extubated . Patient is severely encephalopathic, unable to do swallow eval due to agitation, advised alternative methods of feeding Dobbhoff placed, will start tube feeding --Acute metabolic encephalopathy: likely from severe sepsis, acute renal failure and underlying dementia --Acute hypoxic respiratory failure: Requiring intubation Extubated yesterday 02/04/20 On Ventimask, continue supportive care --Acute renal failure /single kidney; Initiated hemodialysis, patient's does not want to continue with hemodialysis Nephrology aware --Metabolic acidosis: from renal failure and sepsis, now on HD --P UI/ COVID-19 infection : Negative test --Bilateral PNA: cont iv abx, ID following --Septic shock, resolved, s/p pressor --Severe hyperkalemia: improved after HD and bicarbonate drip --Advanced dementia: cont supportive care --Severe sepsis :likely due to pneumonia, cont abx, --History of single kidney- s/p nephrectomy --DVT prophylaxis; heparin renal dose --DNR code status Recommend palliative care /hospice Possible discharge to [facility] with hospice tomorrow if stable Discussed this plan with patient's Ms.Ann Borges Patient stable for discharge and transfer to SNF with hospice History Interval history: Patient was initially discharged to SNF this afternoon However due to technical reasons patient is unable to go to the retirement Patient is comfortable confused requiring restraints vital signs stable Hospitalist Physical - Constitutional Vitals: Temp Pulse Resp BP Pulse Ox 98.3 F 67 18 150/70 92 02/10/20 19:45 02/10/20 19:45 02/10/20 19:45 02/10/20 19:45 02/10/20 19:45 General appearance: Present: mild distress, well-nourished, other (Extubated, confused) HEART Score - HEART Score Troponin: Troponin T 0.065 ng/mL (0.00-0.029) H 01/31/20 03:47 Results - Labs CBC & Chem 7: 02/06/20 04:15 02/06/20 04:15 Labs: Laboratory Last Values WBC 12.7 K/mm3 (4.5-11.0) H 02/06/20 04:15 RBC 2.60 M/mm3 (3.65-5.03) L 02/06/20 04:15 Hgb 8.7 gm/dl (11.8-15.2) L 02/06/20 04:15 Hct 26.3 % (35.5-45.6) L 02/06/20 04:15 MCV 101 fl (84-94) H 02/06/20 04:15 MCH 33 pg (28-32) H 02/06/20 04:15 MCHC 33 % (32-34) 02/06/20 04:15 RDW 14.0 % (13.2-15.2) 02/06/20 04:15 Plt Count 182 K/mm3 (140-440) 02/06/20 04:15 Lymph % (Auto) 14.8 % (13.4-35.0) 02/03/20 04:00 Arroyo % (Auto) 6.6 % (0.0-7.3) 02/03/20 04:00 Eos % (Auto) 0.3 % (0.0-4.3) 02/03/20 04:00 Baso % (Auto) 0.1 % (0.0-1.8) 02/03/20 04:00 Lymph # 1.9 K/mm3 (1.2-5.4) 02/03/20 04:00 Arroyo # 0.8 K/mm3 (0.0-0.8) 02/03/20 04:00 Eos # 0.0 K/mm3 (0.0-0.4) 02/03/20 04:00 Baso # 0.0 K/mm3 (0.0-0.1) 02/03/20 04:00 Add Manual Diff Complete 02/06/20 04:15 Total Counted 100 02/06/20 04:15 Seg Neutrophils % 78.2 % (40.0-70.0) H 02/03/20 04:00 Seg Neuts % (Manual) 87.0 % (40.0-70.0) H 02/06/20 04:15 Band Neutrophils % 0 % 02/06/20 04:15 Lymphocytes % (Manual) 7.0 % (13.4-35.0) L 02/06/20 04:15 Reactive Lymphs % (Man) 0 % 02/06/20 04:15 Monocytes % (Manual) 5.0 % (0.0-7.3) 02/06/20 04:15 Eosinophils % (Manual) 1.0 % (0.0-4.3) 02/06/20 04:15 Basophils % (Manual) 0 % (0.0-1.8) 02/06/20 04:15 Metamyelocytes % 0 % 02/06/20 04:15 Myelocytes % 0 % 02/06/20 04:15 Promyelocytes % 0 % 02/06/20 04:15 Blast Cells % 0 % 02/06/20 04:15 Nucleated RBC % Not Reportable 02/06/20 04:15 Seg Neutrophils # 10.0 K/mm3 (1.8-7.7) H 02/03/20 04:00 Seg Neutrophils # Man 11.0 K/mm3 (1.8-7.7) H 02/06/20 04:15 Band Neutrophils # 0.0 K/mm3 02/06/20 04:15 Lymphocytes # (Manual) 0.9 K/mm3 (1.2-5.4) L 02/06/20 04:15 Abs React Lymphs (Man) 0.0 K/mm3 02/06/20 04:15 Monocytes # (Manual) 0.6 K/mm3 (0.0-0.8) 02/06/20 04:15 Eosinophils # (Manual) 0.1 K/mm3 (0.0-0.4) 02/06/20 04:15 Basophils # (Manual) 0.0 K/mm3 (0.0-0.1) 02/06/20 04:15 Metamyelocytes # 0.0 K/mm3 02/06/20 04:15 Myelocytes # 0.0 K/mm3 02/06/20 04:15 Promyelocytes # 0.0 K/mm3 02/06/20 04:15 Blast Cells # 0.0 K/mm3 02/06/20 04:15 WBC Morphology Not Reportable 02/06/20 04:15 Hypersegmented Neuts Not Reportable 02/06/20 04:15 Hyposegmented Neuts Not Reportable 02/06/20 04:15 Hypogranular Neuts Not Reportable 02/06/20 04:15 Smudge Cells Not Reportable 02/06/20 04:15 Toxic Granulation Not Reportable 02/06/20 04:15 Toxic Vacuolation Not Reportable 02/06/20 04:15 Dohle Bodies Not Reportable 02/06/20 04:15 Pelger-Huet Anomaly Not Reportable 02/06/20 04:15 Harshal Rods Not Reportable 02/06/20 04:15 Platelet Estimate Consistent w auto 02/06/20 04:15 Clumped Platelets Not Reportable 02/06/20 04:15 Plt Clumps, EDTA Not Reportable 02/06/20 04:15 Large Platelets Not Reportable 02/06/20 04:15 Giant Platelets Not Reportable 02/06/20 04:15 Platelet Satelliting Not Reportable 02/06/20 04:15 Plt Morphology Comment Not Reportable 02/06/20 04:15 RBC Morphology Not Reportable 02/06/20 04:15 Dimorphic RBCs Not Reportable 02/06/20 04:15 Polychromasia Not Reportable 02/06/20 04:15 Hypochromasia Not Reportable 02/06/20 04:15 Poikilocytosis Not Reportable 02/06/20 04:15 Anisocytosis Not Reportable 02/06/20 04:15 Microcytosis Not Reportable 02/06/20 04:15 Macrocytosis Not Reportable 02/06/20 04:15 Spherocytes Not Reportable 02/06/20 04:15 Pappenheimer Bodies Not Reportable 02/06/20 04:15 Sickle Cells Not Reportable 02/06/20 04:15 Target Cells Not Reportable 02/06/20 04:15 Tear Drop Cells Not Reportable 02/06/20 04:15 Ovalocytes Not Reportable 02/06/20 04:15 Helmet Cells Not Reportable 02/06/20 04:15 Torres-Rockfield Bodies Not Reportable 02/06/20 04:15 [place] Rings Not Reportable 02/06/20 04:15 Ashleigh Cells Not Reportable 02/06/20 04:15 Bite Cells Not Reportable 02/06/20 04:15 Crenated Cell Not Reportable 02/06/20 04:15 Elliptocytes Not Reportable 02/06/20 04:15 Acanthocytes (Spur) Not Reportable 02/06/20 04:15 Rouleaux Not Reportable 02/06/20 04:15 Hemoglobin C Crystals Not Reportable 02/06/20 04:15 Schistocytes Not Reportable 02/06/20 04:15 Malaria parasites Not Reportable 02/06/20 04:15 Elliot Bodies Not Reportable 02/06/20 04:15 Hem Pathologist Commnt No 02/06/20 04:15 D-Dimer 544.72 ng/mlDDU (0-234) H 01/31/20 05:45 ABG pH 7.408 pH Units (7.350-7.450) 02/04/20 15:37 ABG pCO2 42.2 mm Hg 02/04/20 15:37 ABG pO2 80.5 mm Hg (80.0-90.0) 02/04/20 15:37 ABG HCO3 26.0 mmol/L (20.0-26.0) 02/04/20 15:37 ABG O2 Saturation 96.6 % (95.0-99.0) 02/04/20 15:37 ABG O2 Content 15.8 (0.0-44) 02/04/20 15:37 ABG Base Excess 1.2 mmol/L (-2.0-3.0) 02/04/20 15:37 ABG Hemoglobin 11.8 gm/dl (14.0-18.0) L 02/04/20 15:37 ABG Carboxyhemoglobin 1.3 % (0.0-5.0) 02/04/20 15:37 ABG Methemoglobin 0.5 % (0.0-1.5) 02/04/20 15:37 Oxyhemoglobin 94.9 % (95.0-99.0) L 02/04/20 15:37 FiO2 30 % 02/04/20 15:37 Sodium 150 mmol/L (137-145) H D 02/06/20 04:15 Potassium 3.5 mmol/L (3.6-5.0) L 02/06/20 04:15 Chloride 109.5 mmol/L (98-107) H 02/06/20 04:15 Carbon Dioxide 25 mmol/L (22-30) 02/06/20 04:15 Anion Gap 19 mmol/L 02/06/20 04:15 BUN 36 mg/dL (9-20) H 02/06/20 04:15 Creatinine 3.3 mg/dL (0.8-1.3) H 02/06/20 04:15 Estimated GFR 18 ml/min 02/06/20 04:15 BUN/Creatinine Ratio 11 % 02/06/20 04:15 Glucose 56 mg/dL (75-100) L 02/06/20 04:15 POC Glucose 101 (70-105) 02/10/20 17:55 Osmolality 345 Mosm/kg 01/31/20 06:06 Lactic Acid 0.70 mmol/L (0.7-2.0) 01/31/20 15:53 Uric Acid 8.5 mg/dL (3.5-7.6) H 01/31/20 06:06 Calcium 8.1 mg/dL (8.4-10.2) L 02/06/20 04:15 Magnesium 1.60 mg/dL (1.7-2.3) L 02/06/20 04:15 Ferritin 722.6 ng/mL (13.0-400.0) H 01/31/20 05:45 Total Bilirubin 0.40 mg/dL (0.1-1.2) 02/06/20 04:15 AST 45 units/L (5-40) H 02/06/20 04:15 ALT 14 units/L (7-56) 02/06/20 04:15 Alkaline Phosphatase 74 units/L (35-129) 02/06/20 04:15 Lactate Dehydrogenase 387 units/L (91-180) H 01/31/20 05:45 Total Creatine Kinase 123 units/L (55-170) 01/31/20 06:06 Troponin T 0.065 ng/mL (0.00-0.029) H 01/31/20 03:47 C-Reactive Protein 1.60 mg/dL (0.00-1.30) H 01/31/20 05:45 Total Protein 4.7 g/dL (6.3-8.2) L 02/06/20 04:15 Albumin 2.9 g/dL (3.9-5) L 02/06/20 04:15 Albumin/Globulin Ratio 1.6 % 02/06/20 04:15 Triglycerides 76 mg/dL (2-149) 01/31/20 03:47 Cholesterol 96 mg/dL (50-199) 01/31/20 03:47 LDL Cholesterol Direct 66 mg/dL (50-130) 01/31/20 03:47 HDL Cholesterol 39 mg/dL (40-59) L 01/31/20 03:47 Cholesterol/HDL Ratio 2.46 % 01/31/20 03:47 Procalcitonin 0.51 ng/mL (<0.15) 01/31/20 05:45 Urine Color Ayana (Yellow) 01/31/20 04:25 Urine Turbidity Clear (Clear) 01/31/20 04:25 Urine pH 5.0 (5.0-7.0) 01/31/20 04:25 Ur Specific [place] 1.015 (1.003-1.030) 01/31/20 04:25 Urine Protein <15 mg/dl mg/dL (Negative) 01/31/20 04:25 Urine Glucose (UA) Neg mg/dL (Negative) 01/31/20 04:25 Urine Ketones Tr mg/dL (Negative) 01/31/20 04:25 Urine Blood Neg (Negative) 01/31/20 04:25 Urine Nitrite Neg (Negative) 01/31/20 04:25 Urine Bilirubin Neg (Negative) 01/31/20 04:25 Urine Urobilinogen < 2.0 mg/dL (<2.0) 01/31/20 04:25 Ur Leukocyte Esterase Sm (Negative) 01/31/20 04:25 Urine WBC (Auto) 1.0 /HPF (0.0-6.0) 01/31/20 04:25 Urine RBC (Auto) 3.0 /HPF (0.0-6.0) 01/31/20 04:25 Urine Mucus Few /HPF 01/31/20 04:25 Urine Creatinine 257.5 mg/dL (0.1-20.0) H 01/31/20 23:06 Urine Sodium 10 mmol/L 01/31/20 23:06 Nasal Screen MRSA (PCR) Negative (Negative) 02/03/20 Unknown Urine Opiates Screen Presumptive negative 01/31/20 04:25 Urine Methadone Screen Presumptive negative 01/31/20 04:25 Ur Barbiturates Screen Presumptive negative 01/31/20 04:25 Ur Phencyclidine Scrn Presumptive negative 01/31/20 04:25 Ur Amphetamines Screen Presumptive negative 01/31/20 04:25 U Benzodiazepines Scrn Presumptive negative 01/31/20 04:25 Urine Cocaine Screen Presumptive negative 01/31/20 04:25 U Marijuana (THC) Screen Presumptive negative 01/31/20 04:25 Drugs of Abuse Note Disclamer 01/31/20 04:25 Coronavirus (PCR) Negative (Negative) 02/09/20 Unknown Hepatitis A IgM Ab Non-reactive (NonReactive) 01/31/20 06:06 Hep Bs Antigen Non-reactive (Negative) 01/31/20 06:06 Hep B Core IgM Ab Non-reactive (NonReactive) 01/31/20 06:06 Hepatitis C Antibody Non-reactive (NonReactive) 01/31/20 06:06 Romo/IV: Voiding Method Indwelling Catheter IV Catheter Type [Right VAS Cath Femoral] IV Catheter Type [Right Triple Lumen Cath Internal Jugular] IV Catheter Type [Left Peripheral IV External Jugular] IV Catheter Type [Right Peripheral IV Forearm] IV Catheter Type [Left Forearm Peripheral IV ] Active Medications - Current Medications Current Medications: Generic Name Dose Route Start Last Admin Trade Name Freq PRN Reason Stop Dose Admin Lipase/Protease/Amylase 1 each 02/02/20 11:[address] 10,500 Unit FEEDTUBE PRN PRN For Clogged Feeding Tube Carbidopa/Levodopa 1.5 each 02/01/20 10:00 02/10/20 09:23 Sinemet PO 1.5 each DAILY KIRA Administration Dextrose 0 ml 02/02/20 00:11 02/06/20 17:23 D50w (25gm) Syringe IV 20 ml Q30MIN PRN Administration Hypoglycemia Protocol Famotidine 20 mg 02/06/20 11:00 02/10/20 09:23 Pepcid IV 20 mg DAILY KIRA Administration Folic Acid 1 mg 02/04/20 10:00 02/10/20 09:23 Folvite PO 1 mg DAILY KIRA Administration Heparin Sodium (Porcine) 5,000 unit 01/31/20 22:00 02/10/20 09:23 Heparin SUB-Q 5,000 unit Q12HR KIRA Administration Hydrophilic Ointment 1 applic 01/31/20 06:36 Vaseline Lip Therapy TP Q2HR PRN Dry Lips Dextrose/Sodium Chloride 1,000 mls @ 100 mls/hr 02/05/20 18:00 08/02/20 20:13 D5ns IV 100 mls/hr DIRECT KIRA Administration Levetiracetam 750 mg/ Dextrose 107.5 mls @ 400 mls/hr 02/06/20 11:00 02/10/20 09:23 IV 400 mls/hr Q12HR KIRA Administration Levetiracetam 750 mg 02/10/20 22:00 Keppra PO BID KIRA Multi-Ingred Cream/Lotion/Oil/Oint 1 applic 01/31/20 06:36 Artificial Tears Ophth Oint OU Q4HR PRN Dry Eye(s) Simple Syrup 15 ml 02/02/20 11:04 02/03/20 17:44 Simple Syrup FEEDTUBE 15 ml PRN PRN Administration Hypoglycemia Simple Syrup 30 ml 02/02/20 11:04 Simple Syrup FEEDTUBE PRN PRN Hypoglycemia Sodium Bicarbonate 325 mg 02/02/20 11:04 Sodium Bicarbonate FEEDTUBE PRN PRN For Clogged Feeding Tube Nutrition/Malnutrition Assess - Dietary Evaluation Nutrition/Malnutrition Findings: Nutrition Notes Start: 02/01/20 08:59 Freq: Status: Active Protocol: Document 02/04/20 12:13 LP (Rec: 02/04/20 12:16 LP [id number]) Nutrition Notes Initial or Follow up Reassessment Current Diagnosis CKD(stage I-IV),Diabetes, Sepsis,Hypertension,Heart Failure Other Pertinent Diagnosis AMS, pneu Current Diet Nepro at 40ml/hr Labs/Tests Reviewed Pertinent Medications Reviewed Height 5 ft 6 in Weight 65.2 kg [place] Body Weight (kg) 64.54 BMI 23.1 Weight Status Appropriate Subjective/Other Information Pt tolerating TF. Burn Absent Trauma Absent GI Symptoms None Minimum of two criteria No physical signs of malnutrition #1 Nutrition Diagnosis Inadequate oral intake Diagnosis Progress(for reassessment Continues documentation) Is patient on ventilator? Yes Is Patient Ambulatory and/or Out of Bed No REE-([facility]-confined to bed) [phone] Calculation Used for Recommendations [facility] Additional Notes Protein needs are 76-127g (1.2 -2g/kg) Fluid needs are 1ml/kcal Nutrition Intervention Change Diet Order: TF Nutrition Support: Nepro at 40ml/hr Flush with 150ml q4h Kcal 1,728 Protein (gm) 78 Fluid (mL) 698 Goal #1 Meet at least 80% of kcal and protein needs via TF Anticipated Discharge Needs: Unable to determine at this time Follow-Up By: 02/11/20 Additional Comments Follow for stable TF
[2020-02-10] MEDS: levETIRAcetam 500 MG/5 ML ORAL LIQD PO SCH (21:56)
[2020-02-11] MEDS: D5W/0.9% NACL 1,000 ML IV SCH (00:56)
--- NOTE | 2020-02-11 08:57 | Progress Note ---
Assessment and Plan Patient awake and on 3 litres O2. O2 saturation 92%. No acute respiratory distress. Patient appears to have dementia. Not following the commands well. Patient afebrile and has mild leukocytosis. Patient Coronavirus reported negative. and hepatitis non reactive. Chest xray 02/06/20 reported mproved aeration of the lungs with residual right parenchymal and left pleural- parenchymal opacities. No pneumothorax. ABG on FIO2 30%. ABG pH 7.408 pH Units (7.350-7.450) 02/04/20 15:37 ABG pCO2 42.2 mm Hg 02/04/20 15:37 ABG pO2 80.5 mm Hg (80.0-90.0) 02/04/20 15:37 ABG O2 Saturation 96.6 % (95.0-99.0) 02/04/20 15:37 Recommend Physical therapy. - Patient Problems (1) Acute respiratory failure with hypoxia Current Visit: Yes Status: Acute Plan to address problem: O2 3 litres via nasal canula. Albuterol/atrovent aerosol treatments q 6 hours. Continue S/C Heparin. Continue famotidine. (2) Acute kidney injury superimposed on chronic kidney disease Current Visit: Yes Status: Acute Plan to address problem: Management as per nephrology. (3) Altered mental state Current Visit: Yes Status: Acute Qualifiers: Altered mental status type: unspecified Qualified Code(s): R41.82 - Altered mental status, unspecified Plan to address problem: Management as per primary care. (4) Pneumonia Current Visit: Yes Status: Acute Qualifiers: Pneumonia type: due to unspecified organism Laterality: bilateral Lung location: unspecified part of lung Qualified Code(s): J18.9 - Pneumonia, unspecified organism Plan to address problem: Patient treated with cefepime Patient afebrile and has mild leukocytosis. Subjective Date of service: 02/11/20 Principal diagnosis: SJ/sepsis with hypotension Interval history: Patient awake and on 3 litres O2. O2 saturation 92%. No acute respiratory distress. Patient appears to have dementia. Not following the commands well. Patient afebrile and has mild leukocytosis. Patient Coronavirus reported negative. and hepatitis profile non reactive. Chest xray 02/06/20 reported mproved aeration of the lungs with residual right parenchymal and left pleural- parenchymal opacities. No pneumothorax. ABG on FIO2 30%. ABG pH 7.408 pH Units (7.350-7.450) 02/04/20 15:37 ABG pCO2 42.2 mm Hg 02/04/20 15:37 ABG pO2 80.5 mm Hg (80.0-90.0) 02/04/20 15:37 ABG O2 Saturation 96.6 % (95.0-99.0) 02/04/20 15:37 Recommend physical therapy. Objective Vital Signs - 12hr 02/10/20 02/10/20 02/10/20 22:35 22:55 23:03 Temperature 97.8 F Pulse Rate 69 65 Pulse Rate [ 67 Apical] Pulse Rate [ 67 From Monitor] Respiratory 18 20 Rate Blood Pressure 151/73 O2 Sat by Pulse 94 95 Oximetry 02/11/20 02/11/20 03:20 07:36 Temperature 97.6 F 98.4 F Pulse Rate 66 66 Pulse Rate [ Apical] Pulse Rate [ From Monitor] Respiratory 18 20 Rate Blood Pressure 153/68 157/74 O2 Sat by Pulse 95 94 Oximetry Constitutional: no acute distress, alert, other Eyes: non-icteric ENT: oropharynx dry, other Neck: supple, no lymphadenopathy, no JVD Effort: mildly labored Ascultation: Bilateral: diminished breath sounds, rhonchi (scant) Percussion: Bilateral: not dull Cardiovascular: regular rate and rhythm, other (s1,s2) Gastrointestinal: normoactive bowel sounds, soft, non-tender, non-distended Integumentary: rash Extremities: pink and warm, pulses normal, no ischemia or petechiae, edema (mild to upper extremities), other Neurologic: non-focal exam (grossly, moves all extremities), pupils equal and round, CN II-XII normal Psychiatric: mood appropriate, affect normal CBC and BMP: 02/06/20 04:15 02/06/20 04:15 ABG, PT/INR, D-dimer: ABG ABG pH 7.408 pH Units (7.350-7.450) 02/04/20 15:37 ABG pCO2 42.2 mm Hg 02/04/20 15:37 ABG pO2 80.5 mm Hg (80.0-90.0) 02/04/20 15:37 ABG O2 Saturation 96.6 % (95.0-99.0) 02/04/20 15:37 PT/INR, D-dimer D-Dimer 544.72 ng/mlDDU (0-234) H 01/31/20 05:45 Abnormal lab findings: Abnormal Labs 01/31/20 01/31/20 01/31/20 03:47 03:47 03:47 WBC 16.9 H RBC Hgb Hct MCV 99 H MCH 33 H Lymph % (Auto) [place] % (Auto) Lymph # [place] # Seg Neutrophils % Seg Neuts % (Manual) 95.0 H Lymphocytes % (Manual) 3.0 L Seg Neutrophils # Seg Neutrophils # Man 16.1 H Lymphocytes # (Manual) 0.5 L D-Dimer ABG pH ABG pO2 ABG HCO3 ABG O2 Saturation ABG Base Excess ABG Hemoglobin Oxyhemoglobin Sodium 126 L Potassium 8.8 H* Chloride 86.4 L Carbon Dioxide 10 L BUN 181 H Creatinine 12.5 H Glucose POC Glucose Lactic Acid 2.10 H* Uric Acid Calcium Magnesium Ferritin AST ALT < 5 L Lactate Dehydrogenase Troponin T 0.065 H C-Reactive Protein Total Protein Albumin 3.8 L HDL Cholesterol 39 L Urine Creatinine 01/31/20 01/31/20 01/31/20 05:37 05:45 05:45 WBC RBC Hgb Hct MCV MCH Lymph % (Auto) [place] % (Auto) Lymph # [place] # Seg Neutrophils % Seg Neuts % (Manual) Lymphocytes % (Manual) Seg Neutrophils # Seg Neutrophils # Man Lymphocytes # (Manual) D-Dimer 544.72 H ABG pH ABG pO2 ABG HCO3 ABG O2 Saturation ABG Base Excess ABG Hemoglobin Oxyhemoglobin Sodium Potassium Chloride Carbon Dioxide BUN Creatinine Glucose 103 H POC Glucose Lactic Acid 2.20 H* Uric Acid Calcium Magnesium Ferritin AST ALT Lactate Dehydrogenase 387 H Troponin T C-Reactive Protein 1.60 H Total Protein Albumin HDL Cholesterol Urine Creatinine 01/31/20 01/31/20 01/31/20 05:45 06:06 09:45 WBC RBC Hgb Hct MCV MCH Lymph % (Auto) [place] % (Auto) Lymph # [place] # Seg Neutrophils % Seg Neuts % (Manual) Lymphocytes % (Manual) Seg Neutrophils # Seg Neutrophils # Man Lymphocytes # (Manual) D-Dimer ABG pH ABG pO2 ABG HCO3 ABG O2 Saturation ABG Base Excess ABG Hemoglobin Oxyhemoglobin Sodium Potassium Chloride Carbon Dioxide BUN Creatinine Glucose POC Glucose Lactic Acid 3.20 H* Uric Acid 8.5 H Calcium Magnesium Ferritin 722.6 H AST ALT Lactate Dehydrogenase Troponin T C-Reactive Protein Total Protein Albumin HDL Cholesterol Urine Creatinine 01/31/20 01/31/20 01/31/20 09:45 10:30 18:31 WBC RBC Hgb Hct MCV MCH Lymph % (Auto) [place] % (Auto) Lymph # [place] # Seg Neutrophils % Seg Neuts % (Manual) Lymphocytes % (Manual) Seg Neutrophils # Seg Neutrophils # Man Lymphocytes # (Manual) D-Dimer ABG pH 7.059 L* ABG pO2 70.2 L ABG HCO3 9.9 L ABG O2 Saturation 85.4 L ABG Base Excess -19.6 L ABG Hemoglobin Oxyhemoglobin 84.0 L Sodium 118 L* D 133 L D Potassium 8.1 H* 5.1 H D Chloride 91.1 L 93.7 L Carbon Dioxide 3 L* D 17 L D BUN 179 H 54 H Creatinine 11.6 H 4.9 H D Glucose 197 H 215 H POC Glucose Lactic Acid Uric Acid Calcium Magnesium Ferritin AST ALT Lactate Dehydrogenase Troponin T C-Reactive Protein Total Protein Albumin HDL Cholesterol Urine Creatinine 01/31/20 01/31/20 02/01/20 19:45 23:06 01:30 WBC 17.4 H RBC 3.59 L Hgb 11.7 L Hct 34.5 L D MCV 96 H MCH 33 H Lymph % (Auto) 3.0 L [place] % (Auto) 8.9 H Lymph # 0.5 L [place]man # 1.6 H Seg Neutrophils % 88.1 H Seg Neuts % (Manual) Lymphocytes % (Manual) Seg Neutrophils # 15.3 H Seg Neutrophils # Man Lymphocytes # (Manual) D-Dimer ABG pH ABG pO2 172.0 H ABG HCO3 ABG O2 Saturation 99.1 H ABG Base Excess -3.0 L ABG Hemoglobin 13.8 L Oxyhemoglobin Sodium Potassium Chloride Carbon Dioxide BUN Creatinine Glucose POC Glucose Lactic Acid Uric Acid Calcium Magnesium Ferritin AST ALT Lactate Dehydrogenase Troponin T C-Reactive Protein Total Protein Albumin HDL Cholesterol Urine Creatinine 257.5 H 02/01/20 02/01/20 02/01/20 01:30 04:53 23:39 WBC RBC Hgb Hct MCV MCH Lymph % (Auto) [place] % (Auto) Lymph # [place] # Seg Neutrophils % Seg Neuts % (Manual) Lymphocytes % (Manual) Seg Neutrophils # Seg Neutrophils # Man Lymphocytes # (Manual) D-Dimer ABG pH 7.505 H ABG pO2 158.5 H ABG HCO3 ABG O2 Saturation 99.1 H ABG Base Excess ABG Hemoglobin 11.0 L Oxyhemoglobin Sodium 133 L Potassium Chloride 93.6 L Carbon Dioxide BUN 47 H Creatinine 4.5 H Glucose 204 H POC Glucose 58 L Lactic Acid Uric Acid Calcium 8.3 L Magnesium Ferritin AST ALT Lactate Dehydrogenase Troponin T C-Reactive Protein Total Protein Albumin HDL Cholesterol Urine Creatinine 02/02/20 02/02/20 02/02/20 04:24 10:48 10:48 WBC 11.8 H RBC 3.16 L Hgb 10.2 L Hct 31.0 L MCV 98 H MCH Lymph % (Auto) [place] % (Auto) Lymph # [place] # Seg Neutrophils % Seg Neuts % (Manual) Lymphocytes % (Manual) Seg Neutrophils # Seg Neutrophils # Man Lymphocytes # (Manual) D-Dimer ABG pH ABG pO2 74.4 L ABG HCO3 30.2 H ABG O2 Saturation ABG Base Excess 4.6 H ABG Hemoglobin 10.7 L Oxyhemoglobin 94.7 L Sodium Potassium Chloride Carbon Dioxide BUN 52 H Creatinine 5.2 H Glucose 59 L POC Glucose Lactic Acid Uric Acid Calcium 8.2 L Magnesium Ferritin AST ALT Lactate Dehydrogenase Troponin T C-Reactive Protein Total Protein Albumin HDL Cholesterol Urine Creatinine 02/02/20 02/02/20 02/03/20 12:19 18:02 00:52 WBC RBC Hgb Hct MCV MCH Lymph % (Auto) [place] % (Auto) Lymph # [place] # Seg Neutrophils % Seg Neuts % (Manual) Lymphocytes % (Manual) Seg Neutrophils # Seg Neutrophils # Man Lymphocytes # (Manual) D-Dimer ABG pH ABG pO2 ABG HCO3 ABG O2 Saturation ABG Base Excess ABG Hemoglobin Oxyhemoglobin Sodium Potassium Chloride Carbon Dioxide BUN Creatinine Glucose POC Glucose 64 L 60 L 69 L Lactic Acid Uric Acid Calcium Magnesium Ferritin AST ALT Lactate Dehydrogenase Troponin T C-Reactive Protein Total Protein Albumin HDL Cholesterol Urine Creatinine 02/03/20 02/03/20 02/03/20 04:00 04:00 04:35 WBC 12.8 H RBC 3.23 L Hgb 10.7 L Hct 32.0 L MCV 99 H MCH 33 H Lymph % (Auto) [place] % (Auto) Lymph # [place] # Seg Neutrophils % 78.2 H Seg Neuts % (Manual) Lymphocytes % (Manual) Seg Neutrophils # 10.0 H Seg Neutrophils # Man Lymphocytes # (Manual) D-Dimer ABG pH 7.281 L ABG pO2 71.7 L ABG HCO3 27.9 H ABG O2 Saturation 94.6 L ABG Base Excess ABG Hemoglobin 9.5 L Oxyhemoglobin 92.8 L Sodium Potassium Chloride Carbon Dioxide BUN 50 H Creatinine 5.0 H Glucose 71 L POC Glucose Lactic Acid Uric Acid Calcium 8.0 L Magnesium Ferritin AST ALT Lactate Dehydrogenase Troponin T C-Reactive Protein Total Protein Albumin HDL Cholesterol Urine Creatinine 02/03/20 02/03/20 02/04/20 17:34 23:54 04:20 WBC RBC Hgb Hct MCV MCH Lymph % (Auto) [place] % (Auto) Lymph # [place] # Seg Neutrophils % Seg Neuts % (Manual) Lymphocytes % (Manual) Seg Neutrophils # Seg Neutrophils # Man Lymphocytes # (Manual) D-Dimer ABG pH ABG pO2 ABG HCO3 27.2 H ABG O2 Saturation ABG Base Excess ABG Hemoglobin 9.8 L Oxyhemoglobin Sodium Potassium Chloride Carbon Dioxide BUN Creatinine Glucose POC Glucose 67 L 127 H Lactic Acid Uric Acid Calcium Magnesium Ferritin AST ALT Lactate Dehydrogenase Troponin T C-Reactive Protein Total Protein Albumin HDL Cholesterol Urine Creatinine 02/04/20 02/05/20 02/05/20 15:37 12:03 23:38 WBC RBC Hgb Hct MCV MCH Lymph % (Auto) [place] % (Auto) Lymph # [place] # Seg Neutrophils % Seg Neuts % (Manual) Lymphocytes % (Manual) Seg Neutrophils # Seg Neutrophils # Man Lymphocytes # (Manual) D-Dimer ABG pH ABG pO2 ABG HCO3 ABG O2 Saturation ABG Base Excess ABG Hemoglobin 11.8 L Oxyhemoglobin 94.9 L Sodium Potassium Chloride Carbon Dioxide BUN Creatinine Glucose POC Glucose 68 L 52 L Lactic Acid Uric Acid Calcium Magnesium Ferritin AST ALT Lactate Dehydrogenase Troponin T C-Reactive Protein Total Protein Albumin HDL Cholesterol Urine Creatinine 02/06/20 02/06/20 02/06/20 00:34 04:15 04:15 WBC 12.7 H RBC 2.60 L Hgb 8.7 L Hct 26.3 L MCV 101 H MCH 33 H Lymph % (Auto) [place] % (Auto) Lymph # [place] # Seg Neutrophils % Seg Neuts % (Manual) 87.0 H Lymphocytes % (Manual) 7.0 L Seg Neutrophils # Seg Neutrophils # Man 11.0 H Lymphocytes # (Manual) 0.9 L D-Dimer ABG pH ABG pO2 ABG HCO3 ABG O2 Saturation ABG Base Excess ABG Hemoglobin Oxyhemoglobin Sodium 150 H D Potassium 3.5 L Chloride 109.5 H Carbon Dioxide BUN 36 H Creatinine 3.3 H Glucose 56 L POC Glucose 114 H Lactic Acid Uric Acid Calcium 8.1 L Magnesium 1.60 L Ferritin AST 45 H ALT Lactate Dehydrogenase Troponin T C-Reactive Protein Total Protein 4.7 L Albumin 2.9 L HDL Cholesterol Urine Creatinine 02/06/20 02/06/20 02/07/20 17:35 18:21 00:39 WBC RBC Hgb Hct MCV MCH Lymph % (Auto) [place] % (Auto) Lymph # [place] # Seg Neutrophils % Seg Neuts % (Manual) Lymphocytes % (Manual) Seg Neutrophils # Seg Neutrophils # Man Lymphocytes # (Manual) D-Dimer ABG pH ABG pO2 ABG HCO3 ABG O2 Saturation ABG Base Excess ABG Hemoglobin Oxyhemoglobin Sodium Potassium Chloride Carbon Dioxide BUN Creatinine Glucose POC Glucose 53 L 124 H 122 H Lactic Acid Uric Acid Calcium Magnesium Ferritin AST ALT Lactate Dehydrogenase Troponin T C-Reactive Protein Total Protein Albumin HDL Cholesterol Urine Creatinine 02/07/20 02/08/20 02/09/20 23:51 07:32 23:45 WBC RBC Hgb Hct MCV MCH Lymph % (Auto) [place] % (Auto) Lymph # [place] # Seg Neutrophils % Seg Neuts % (Manual) Lymphocytes % (Manual) Seg Neutrophils # Seg Neutrophils # Man Lymphocytes # (Manual) D-Dimer ABG pH ABG pO2 ABG HCO3 ABG O2 Saturation ABG Base Excess ABG Hemoglobin Oxyhemoglobin Sodium Potassium Chloride Carbon Dioxide BUN Creatinine Glucose POC Glucose 146 H 107 H 117 H Lactic Acid Uric Acid Calcium Magnesium Ferritin AST ALT Lactate Dehydrogenase Troponin T C-Reactive Protein Total Protein Albumin HDL Cholesterol Urine Creatinine 02/10/20 11:55 WBC RBC Hgb Hct MCV MCH Lymph % (Auto) [place] % (Auto) Lymph # [place] # Seg Neutrophils % Seg Neuts % (Manual) Lymphocytes % (Manual) Seg Neutrophils # Seg Neutrophils # Man Lymphocytes # (Manual) D-Dimer ABG pH ABG pO2 ABG HCO3 ABG O2 Saturation ABG Base Excess ABG Hemoglobin Oxyhemoglobin Sodium Potassium Chloride Carbon Dioxide BUN Creatinine Glucose POC Glucose 118 H Lactic Acid Uric Acid Calcium Magnesium Ferritin AST ALT Lactate Dehydrogenase Troponin T C-Reactive Protein Total Protein Albumin HDL Cholesterol Urine Creatinine Allied health notes reviewed: RT
[2020-02-11] MEDS ORDERED: FAMOTIDINE 20 MG TAB PO SCH (10:00)
[2020-02-11] MEDS: FOLIC ACID 1 MG TAB PO SCH (10:57)
[2020-02-11] MEDS: levETIRAcetam 500 MG/5 ML ORAL LIQD PO SCH (10:57)
[2020-02-11] MEDS: CARBIDOPA/LEVODOPA 25-100 MG TAB PO SCH (10:57)
[2020-02-11] MEDS: HEPARIN 5,000 UNIT/1 ML VIAL SUB-Q SCH (10:58)
[2020-02-11 12:22] VITALS: BP 141/57
== END 2020-02-11 15:54 | DRG 870 ==
LOC: ED 03:26 → CC1 06:30 → 4A 02-06 19:36
PROVIDERS: ADMIT Internal Medicine Geriatric Medicine; ATTEND Internal Medicine
PROC: 5A1955Z Respiratory Ventilation, Greater than 96 Consecutive Hours (ICD-10-PCS; principal; 2020-01-31)
PROC: 0BH17EZ Insertion of Endotracheal Airway into Trachea, Via Natural or Artificial Opening (ICD-10-PCS; 2020-01-31)
PROC: 06HY33Z Insertion of Infusion Device into Lower Vein, Percutaneous Approach (ICD-10-PCS; 2020-01-31)
PROC: B54BZZA Ultrasonography of Right Lower Extremity Veins, Guidance (ICD-10-PCS; 2020-01-31)
PROC: 4A033R1 Measurement of Arterial Saturation, Peripheral, Percutaneous Approach (ICD-10-PCS; 2020-01-31)
PROC: 5A1D70Z Performance of Urinary Filtration, Intermittent, Less than 6 Hours Per Day (ICD-10-PCS; 2020-01-31)
PROC: 5A09357 Assistance with Respiratory Ventilation, Less than 24 Consecutive Hours, Continuous Positive Airway Pressure (ICD-10-PCS; 2020-01-31)
PROC: 06HY33Z Insertion of Infusion Device into Lower Vein, Percutaneous Approach (ICD-10-PCS; 2020-01-31)
PROC: 3E0234Z Introduction of Serum, Toxoid and Vaccine into Muscle, Percutaneous Approach (ICD-10-PCS; 2020-02-02)
PROC: 5A1D70Z Performance of Urinary Filtration, Intermittent, Less than 6 Hours Per Day (ICD-10-PCS; 2020-02-03)
DX: A41.9 Sepsis, unspecified organism (principal); J96.01 Acute respiratory failure with hypoxia; J18.9 Pneumonia, unspecified organism; G92 Toxic encephalopathy; R65.21 Severe sepsis with septic shock; N17.9 Acute kidney failure, unspecified; E87.2 Acidosis; I13.0 Hypertensive heart and chronic kidney disease with heart failure and stage 1 through stage 4 chronic kidney disease, or unspecified chronic kidney disease; E87.1 Hypo-osmolality and hyponatremia; I95.9 Hypotension, unspecified; F03.90 Unspecified dementia, unspecified severity, without behavioral disturbance, psychotic disturbance, mood disturbance, and anxiety; E11.22 Type 2 diabetes mellitus with diabetic chronic kidney disease; N18.3 Chronic kidney disease, stage 3 (moderate); I50.9 Heart failure, unspecified; F31.9 Bipolar disorder, unspecified; K21.9 Gastro-esophageal reflux disease without esophagitis; E87.5 Hyperkalemia; Z66 Do not resuscitate; E11.649 Type 2 diabetes mellitus with hypoglycemia without coma; Z23 Encounter for immunization; Z79.4 Long term (current) use of insulin; Z87.891 Personal history of nicotine dependence; Z03.818 Encounter for observation for suspected exposure to other biological agents ruled out; Z90.5 Acquired absence of kidney
CPT/HCPCS: 31500; 36415; 36600; 71045; 74018; 76770; 80048; 80053; 80061; 80074; 80307; 81001; 82140; 82550; 82570; 82728; 82803; 82947; 82962; 83615; 83735; 83930; 84145; 84300; 84484; 84550; 85007; 85025; 85027; 85379; 86140; 87040; 87070; 87086; 87116; 87205; 87641; 90732; 93005; 94002; 94003; 94644; 94760; 96374; 96375; 99292; G0378; J0456; J0692; J0696; J1100; J1644; J1815; J1953; J2250; J2704; J3010; J7030; J7040; J7042; J7050; J7070; U0003-CS